=== PATIENT | female | born 1935 | race Caucasian/White ===

== ENCOUNTER 2018-08-15 12:52 | Outpatient (REF) | payer MEDICARE, MEDICAID, SELFPAY ==
[2018-08-15 13:31] LABS: Bilirubin Negative (Negative); Blood Negative (Negative); Clarity Clear; Glucose Negative (Negative); Ketones Negative (Negative); Leukocyte Esterase Trace (Negative); Nitrite Negative (Negative); Specific Gravity <= 1.005 (1.005-1.025); Urobilinogen 0.2 EU/dL (Up TO 0.2); pH 5.5 (5-8)
[2018-08-15 13:45] LABS: Bacteria Moderate HPF (Negative); C & S Indicated? Yes; Casts Negative LPF (Negative); Crystals Negative HPF (Negative); Epithelial Cells Few HPF (Negative); Mucus Negative (Negative); Other Cells Few Renal (Negative); RBC 0-2 (0-2)
== END 2018-08-15 13:12 ==
LOC: NCHCN 12:52
PROVIDERS: PCP Family Medicine; Visit Provider Family Medicine
DX: N39.0 Urinary tract infection, site not specified (principal)
CPT/HCPCS: 87077; 81003; 81015; 87086; 87186

== ENCOUNTER 2018-10-30 11:42 | Outpatient (REF) | payer MEDICARE, MEDICAID, SELFPAY ==
[2018-10-30 12:27] LABS: Bilirubin Negative (Negative); Blood Negative (Negative); Clarity Cloudy; Glucose Negative (Negative); Ketones Trace mg/dL (Negative); Leukocyte Esterase Trace (Negative); Nitrite Positive (Negative); Urobilinogen 0.2 EU/dL (Up TO 0.2)
[2018-10-30 12:32] LABS: Bacteria Many HPF (Negative); Casts Negative LPF (Negative); Crystals Mod Calcium Oxalate HPF (Negative); Epithelial Cells Rare HPF (Negative); Mucus Negative (Negative); RBC Negative (0-2); WBC 20-50 HPF (0-5)
[2018-10-30 12:33] LABS: C & S Indicated? Yes
== END 2018-10-30 12:02 ==
LOC: NCHCN 11:42
PROVIDERS: PCP Family Medicine; Visit Provider Family Medicine
DX: N39.0 Urinary tract infection, site not specified (principal)
CPT/HCPCS: 87077; 81003; 81015; 87086; 87186

== ENCOUNTER 2019-01-07 08:06 | Outpatient (CLI) | payer MEDICARE, MEDICAID, SELFPAY ==
[2019-01-07 08:37] LABS: HCT 40.7 % (36.0-46.0); HGB 13.5 g/dL (12.0-15.5); Mean Corp. HGB Concentration 33.2 g/dL (32.0-36.0); Mean Corpuscular Hemoglobin 28.4 pg (27.0-33.0); Mean Corpuscular Volume 85.7 fL (80-95); Mean Platelet Volume 9.9 fL (8.0-11.0); Platelet Count 287 x1000/uL (130-400); RBC 4.75 m/cumm (4.00-5.20); RBC Distribution Width 13.4 % (11.7-14.6); White Blood Cell Count 7.68 k/cumm (4.4-10.8)
[2019-01-07 08:50] LABS: ALT 21 U/L (12-78); AST 13 U/L (15-37); Albumin 3.9 g/dL (3.4-5.0); Alkaline Phosphatase 79 U/L (46-116); Anion Gap 11.9 mmol/L (3-11); BUN 22 mg/dL (7-18); Bilirubin, Total 0.5 mg/dL (0.2-1.0); CO2 28.1 mmol/L (21.0-32.0); Calcium 9.2 mg/dL (8.5-10.1); Chloride 100 mmol/L (98-107); Cholesterol 145 mg/dL (50-200); Estimated GFR 47.67 (mL/min/1.73m2); Glucose 122 mg/dL (70-100); HDL Cholesterol 42 mg/dL (40-60); LDL CHOLESTEROL 62 mg/dL (<100); Sodium 140 mmol/L (136-145); Total Protein 7.7 g/dL (6.4-8.2); Triglyceride 306 mg/dL (30-150)
[2019-01-07 08:51] LABS: Hemoglobin A1C 7.1 % (4.5-6.2)
== END 2019-01-07 08:26 ==
PROVIDERS: PCP Family Medicine; Visit Provider Family Medicine
DX: I10 Essential (primary) hypertension (principal); E11.9 Type 2 diabetes mellitus without complications; K76.0 Fatty (change of) liver, not elsewhere classified; E78.5 Hyperlipidemia, unspecified; Z79.4 Long term (current) use of insulin
CPT/HCPCS: 36415; 80053; 80061; 83721; 85027; 83036

== ENCOUNTER → 2019-03-02 10:15 | Outpatient (BNVA) | payer MEDICARE, MEDICAID, SELFPAY | PROVIDERS: PCP Family Medicine; Referring Provider Family Medicine; Visit Provider Student in an Organized Health Care Education/Training Program | DX: M17.11 Unilateral primary osteoarthritis, right knee (principal); M17.12 Unilateral primary osteoarthritis, left knee; E11.9 Type 2 diabetes mellitus without complications | CPT/HCPCS: 20610; 99204; 99213; J1040 ==

== ENCOUNTER 2019-03-15 13:50 | Outpatient (CLI) | payer MEDICARE, MEDICAID, SELFPAY ==
[2019-03-15 14:50] LABS: Hemoglobin A1C 7.3 % (4.5-6.2)
[2019-03-15 15:55] LABS: Anion Gap 16.4 mmol/L (3-11); BUN 32 mg/dL (7-18); CO2 23.6 mmol/L (21.0-32.0); CREATININE 1.22 mg/dL (0.55-1.02); Calcium 9.6 mg/dL (8.5-10.1); Chloride 100 mmol/L (98-107); Glucose 181 mg/dL (70-100); Potassium 3.8 mmol/L (3.5-5.1); Sodium 140 mmol/L (136-145)
== END 2019-03-15 14:10 ==
PROVIDERS: PCP Family Medicine; Visit Provider Family Medicine
DX: E11.65 Type 2 diabetes mellitus with hyperglycemia (principal); I10 Essential (primary) hypertension
CPT/HCPCS: 36415; 80048; 83036

== ENCOUNTER 2019-07-05 12:29 | Inpatient (IN) | payer MEDICARE, MEDICAID, SELFPAY ==
[2019-07-05] VITALS (53 sets, daily range): BP systolic 117–178; BP diastolic 61–100; PULSE 78–109; RESP 15–30; TEMP 36–36.8; O2SAT 91–95
[2019-07-05 12:49] LABS: Abs Immature Grans 0.03 k/cumm (0.0-0.09); Absolute Basophil Count 0.02 k/cumm (0.0-0.2); Absolute Eosinophil Count 0.23 k/cumm (0.0-0.7); Absolute Lymphocyte Count 2.37 k/cumm (1.2-3.4); Absolute Monocyte Count 0.96 k/cumm (0.11-0.7); Absolute Neutrophil Count 4.82 k/cumm (1.2-6.7); Basophils % 0.2; Eosinophils % 2.7; HCT 36.6 % (36.0-46.0); HGB 12.4 g/dL (12.0-15.5); Immature Grans % 0.4; Lymphocytes % 28.1; Mean Corp. HGB Concentration 33.9 g/dL (32.0-36.0); Mean Corpuscular Volume 85.5 fL (80-95); Mean Platelet Volume 9.8 fL (8.0-11.0); Monocytes % 11.4; Neutrophils % 57.2; Platelet Count 326 x1000/uL (130-400); RBC 4.28 m/cumm (4.00-5.20); RBC Distribution Width 13.4 % (11.7-14.6); White Blood Cell Count 8.43 k/cumm (4.4-10.8)
[2019-07-05 13:03] LABS: ALT 18 U/L (14-59); AST 12 U/L (15-37); Albumin 3.8 g/dL (3.4-5.0); Alkaline Phosphatase 110 U/L (46-116); Anion Gap 12.1 mmol/L (3-11); BUN 25 mg/dL (7-18); Bilirubin, Total 0.4 mg/dL (0.2-1.0); CO2 25.9 mmol/L (21.0-32.0); CREATININE 1.06 mg/dL (0.55-1.02); Calcium 9.1 mg/dL (8.5-10.1); Chloride 100 mmol/L (98-107); Estimated GFR 49.63 (mL/min/1.73m2); Glucose 226 mg/dL (70-100); Magnesium 1.8 mg/dL (1.8-2.4); Potassium 3.9 mmol/L (3.5-5.1); Sodium 138 mmol/L (136-145); Total Protein 7.5 g/dL (6.4-8.2)
[2019-07-05 13:04] LABS: Troponin I < 0.05 ng/mL (0.00-0.06)
[2019-07-05 13:18] LABS: Bilirubin Negative (Negative); Blood Small (Negative); Clarity Clear (Clear); Glucose Negative (Negative); Ketones Negative (Negative); Leukocyte Esterase Negative (Negative); Nitrite Negative (Negative); Urobilinogen 0.2 EU/dL (Up TO 0.2); pH 5.5 (5-8)
[2019-07-05 13:25] LABS: Bacteria Rare HPF (Negative); C & S Indicated? No; Casts Negative LPF (Negative); Crystals Negative HPF (Negative); Epithelial Cells Rare HPF (Negative); Mucus Negative (Negative); WBC 0-2 HPF (0-5)
--- NOTE | 2019-07-05 13:26 | DI.CT_ITS ---
EXAM: CT BRAIN NECK CTA CLINICAL HISTORY: dizzy, [place]. TECHNIQUE: COMPARISON: RENAL COLIC WO CONTRAST from 07/05/2017 FINDINGS: CT angiography the cervical cranial region was intravenous infusion of cc of Omnipaque 3. Images obtained through lung apices are unremarkable. Tracheolaryngeal structures appear intact. Part ial opacification of ethmoid and sphenoid sinuses on the right consistent with chronic and/or acute s inusitis. Orbital structures are unremarkable. No cervical mass or adenopathy. Visualized aortic arch is unremarkable. There is wall calcification the distal common carotid arterie s and internal carotid arteries bilaterally without significant stenosis. Calcification also noted in cavernous portions of internal carotid arteries bilaterally with is stenosis less than 50 percent deandre andrea diameter. Hypoplastic right vertebral artery noted. Left vertebral remarkable in appearance wit h no aneurysm sterno cysts or dissection. Slight wall calcification of the distal vertebral and the b asilar artery noted. Intracranially the anterior middle and posterior cerebral arteries and major branches are unremarkabl e with no evidence of stenosis aneurysm or dissection. IMPRESSION: No hemodynamically significant stenosis identified in the visualized cervical cranial circulation. H ypoplastic right vertebral artery noted.
--- NOTE | 2019-07-05 13:27 | ED.GENADUL_ITS ---
Discharge Plan Disposition Patient Disposition: [facility] INPATIENT Condition: Serious Discharge Details Chief Complaint: CVA/TIA Clinical Impression: Dizziness, Occipital headache, Diaphoresis Primary Care Provider: Yarely Lagos ED Provider: Chava Ludwig Home Meds and New Rx's Prescriptions: No Action furosemide [Lasix] 40 MG tablet 40 mg PO DAILY Qty: 90 RF: 0 ergocalciferol (vitamin D2) 400 UNIT tablet 400 units PO DAILY RF: 0 clonazepam 0.5 MG tablet 0.5 mg PO HS PRN PRNRF: 0 sertraline 50 MG tablet 50 mg PO DAILY RF: 0 nitroglycerin 0.4 MG tablet, sublingual 0.4 mg Sublingual PRN PRNRF: 0 Dexilant 30 MG capsule,biphase delayed releas 30 mg PO DAILY RF: 0 carvedilol 25 MG tablet 25 mg PO BID RF: 0 levetiracetam [Keppra] 500 MG tablet 500 mg PO BID RF: 0 clopidogrel [Plavix] 75 MG tablet 75 mg PO DAILY RF: 0 famotidine 20 MG tablet 20 mg PO BID PRN PRNRF: 0 Novolog Flexpen U-100 Insulin 300 UNITS/3 ML insulin pen 0 units Sub-Q 0800,1200,1700 RF: 0 rosuvastatin [Crestor] 10 MG tablet 40 mg PO QPM RF: 0 cyanocobalamin (vitamin B-12) 2,500 MCG tablet,chewable 1,000 mcg PO DAILY Qty: 30 RF: 0 metformin 500 MG tablet 1,000 mg PO BID@0800,1700 RF: 0 lisinopril 20 MG tablet 40 mg PO DAILY Qty: 30 RF: 0 mometasone [Nasonex] 17 GM spray,non-aerosol 1 spray IN DAILY RF: 0 Levemir FlexTouch U-100 Insuln 300 UNITS/3 ML insulin pen 50 units Sub-Q BID@0800,2000 RF: 0 urvbiekjdfc-npefdjsot-cky C-Mn [Glucosamine 1500 Complex] 1 EACH capsule 1 tab PO DAILY RF: 0 Medical Decision Making 13:42 -- 84-year-old female with multiple medical problems including history of coronary artery disease, insulin dependent diabetes, TIA, seizure here with dizziness and occipital headache with neck discomfort since this morning, diaphoretic, and hypertensive over the past few days despite taking antihypertensives. Consider posterior circulation mass or lesion. Plan to obtain CT of the head and CTA of the head and neck. MRI is not available today. Screening ECG was reviewed and interpreted by me: Sinus rhythm 98 bpm, normal axis, no STEMI, nondiagnostic. Patient does have intermittent left-sided chest discomfort that is mild and sounds like it has been going on for at least a few weeks. I will check a troponin. Consider hypertensive emergency. 17:09 -- Chest x-ray interpreted by radiology: IMPRESSION: No acute findings. CTA of the head was interpreted by radiology: IMPRESSION: 1. Negative CTA head exam. No occlusion or significant stenosis. No aneurysm. 2. Negative for skull fracture or acute intracranial pathology. 3. Right sphenoid chronic sinusitis with opacification of the adjacent right ethmoid air cells. CTA of the neck was interpreted by radiology: IMPRESSION: 1. Mild stenosis at the origin of the right internal carotid artery by NASCET criteria. 2. Tortuous carotid arteries. This can be indicative of chronic hypertension. 3. Congenital hypoplastic right vertebral artery. Labs were reviewed and nondiagnostic. Blood pressure improved on reassessment. Patient continues to have vertigo. It seems to be positional. I will treat with Antivert. Given her elevated blood pressure and headache I am worried about potential pathology not seen on CT/CTA. Plan to hospitalize and likely MRI when available tomorrow. Patient and daughter updated as to diagnostic results and plan. Daughter does request that inpatient treatment team speak with patient's PCP tomorrow. --I spoke with Dr. Mcgee who will admit the patient. HPI General Mode of arrival: EMS . Date/Time Provider Initiated Documentation: 07/05/19 12:38 . Limitations to Documentation: no limitations . Information obtained by: patient . HPI Narrative: 84-year-old female with multiple medical problems including history of insulin-dependent diabetes, coronary artery disease status post stents, hypertension, TIA, seizure, here with daughter, arrives by EMS, with chief complaint of dizziness. Patient notes that since this morning she has had dizziness. Feels like room is spinning. Symptoms are moderate to severe. Dizziness worsens with turning of her head. She has associated posterior headache and neck pain. Pain is described as a heaviness. No associated fever. She does have associated diaphoresis today. She has associated nausea. No abdominal pain or vomiting. Also of note she had elevated blood pressure this morning. She is on antihypertensives and has been taking them. Blood pressure was as high as 180 systolic at home. Patient was seen by her PCP on the and noted to have elevated blood pressure at that time as well. Patient also states she has had intermittent left chest discomfort that is been ongoing for some time. Related Data Home Medications Medication Instructions Recorded Confirmed clonazepam 0.5 mg PO HS PRN PRN 05/04/13 07/05/19 sertraline 50 mg PO DAILY 05/04/13 07/05/19 Dexilant 30 mg PO DAILY 08/31/13 07/05/19 nitroglycerin 0.4 mg SUBLINGUAL PRN PRN 08/31/13 07/05/19 ergocalciferol (vitamin D2) 400 units PO DAILY tab-cap 05/13/15 07/05/19 furosemide [Lasix] 40 mg PO DAILY #90 tab-cap 05/13/15 07/05/19 lisinopril 40 mg PO DAILY #30 tab 09/10/16 07/05/19 metformin 1,000 mg PO BID@0800,1700 tab 09/10/16 07/05/19 Levemir FlexTouch U-100 Insuln 50 units SUB-Q BID@0800,2000 07/05/17 07/05/19 [id number]-ypxymvwhl-vbo C-Mn 1 tab PO DAILY 07/05/17 07/08/17 [Glucosamine 1500 Complex] mometasone [Nasonex] 1 spray IN DAILY 07/05/17 07/05/19 Novolog Flexpen U-100 Insulin 0 units SUB-Q 0800,1200,1700 pen 07/12/17 07/05/19 carvedilol 25 mg PO BID tab 07/12/17 07/05/19 clopidogrel [Plavix] 75 mg PO DAILY tab 07/12/17 07/05/19 cyanocobalamin (vitamin B-12) 1,000 mcg PO DAILY #30 tab.chew 07/12/17 07/05/19 famotidine 20 mg PO BID PRN PRN tab 07/12/17 07/05/19 levetiracetam [Keppra] 500 mg PO BID tab 07/12/17 07/05/19 rosuvastatin [Crestor] 40 mg PO QPM tab 07/12/17 Previous Rx's Medication Instructions Recorded lisinopril 40 mg PO DAILY #30 tab 09/10/16 metformin 1,000 mg PO BID@0800,1700 tab 09/10/16 Novolog Flexpen U-100 Insulin 0 units SUB-Q 0800,1200,1700 pen 07/12/17 carvedilol 25 mg PO BID tab 07/12/17 clopidogrel [Plavix] 75 mg PO DAILY tab 07/12/17 cyanocobalamin (vitamin B-12) 1,000 mcg PO DAILY #30 tab.chew 07/12/17 famotidine 20 mg PO BID PRN PRN tab 07/12/17 levetiracetam [Keppra] 500 mg PO BID tab 07/12/17 rosuvastatin [Crestor] 40 mg PO QPM tab 07/12/17 Allergies Allergy/AdvReac Type Severity Reaction Status Date / Time atorvastatin calcium Allergy Unverified 07/08/17 13:48 [From Lipitor] General Stated Complaint: CVA/TIA WINSOME: 2 Review of Systems Review of Systems ROS Unobtainable: All systems reviewed & are unremarkable except as noted in HPI and below Constitutional Constitutional: Denies fever(s) and Reports headache(s) ENT Ears, Nose, Mouth, and Throat: Reports dizziness and Reports headache(s) Cardiovascular Cardiovascular: Denies chest pain, Denies syncope and Denies dyspnea Respiratory Respiratory: Denies dyspnea Gastrointestinal Gastrointestinal: Denies abdominal pain and Reports nausea Neurologic Neurologic: Reports dizziness, Denies syncope, Reports headache(s) and Denies seizure-like activity PFS Social History Smoking/Tobacco Use Status: Never Alcohol Intake: never Drug use: Never Substance use type: does not use and former substance user Do you feel safe in your relationship?: Yes Exam Const General: cooperative and no acute distress [facility] Head: normocephalic and atraumatic Mouth: moist mucous membranes Eyes Conjunctivae: normal conjunctivae Sclera: normal sclerae Neck Neck: full ROM, trachea midline and supple Resp Auscultation: clear to auscultation bilaterally, no rales, no rhonchi and no wheezes Cardio Jugular venous pressure: no JVD Rate: regular rate and not tachycardic Rhythm: regular rhythm GI Palpation: soft, not firm, no guarding, no masses, not rigid and nontender Skin General skin exam: no rashes or lesions noted Neuro General: alert, awake and tone normal Cognition: normal cognition Speech: speech normal Motor: muscle tone normal throughout and strength 5/5 throughout Sensory Exam: no sensory deficits noted Coordination: [id number]-ch-wnkw test normal, Romberg test normal and other (rapid alt movements intact) Extrem General: no edema Psych Appearance: grossly normal Course Vital Signs Vital signs: Vital Signs Temperature 36.8 C 07/05/19 12:31 Pulse 88 07/05/19 12:31 Respiratory Rate 16 07/05/19 12:31 Blood Pressure 163/73 H 07/05/19 12:31 Pulse Oximetry 94 L 07/05/19 12:31 Temperature 36.8 C 07/05/19 12:31 Pulse 88 07/05/19 12:31 Respiratory Rate 16 07/05/19 13:20 Respiratory Effort Non-Labored 07/05/19 13:20 Respiratory Depth Normal 07/05/19 13:20 Respiratory Pattern Normal 07/05/19 13:20 Blood Pressure 163/73 H 07/05/19 12:31 Blood Pressure Position Supine 07/05/19 12:31 Pulse Oximetry 94 L 07/05/19 12:31 Pain Level 5 07/05/19 12:31 Lab/Test Results Lab/Test Results: Laboratory Tests Range/Units 07/05/19 07/05/19 07/05/19 12:43 12:43 13:12 WBC (4.4-10.8) k/cumm 8.43 RBC (4.00-5.20) m/cumm 4.28 Hgb (12.0-15.5) g/dL 12.4 Hct (36.0-46.0) % 36.6 MCV (80-95) fL 85.5 MCH (27.0-33.0) pg 29.0 MCHC (32.0-36.0) g/dL 33.9 RDW (11.7-14.6) % 13.4 Plt Count (130-400) x1000/uL 326 MPV (8.0-11.0) fL 9.8 Immature Gran % 0.4 Neutrophils % 57.2 Lymphocytes % 28.1 Monocytes % 11.4 Eosinophils % 2.7 Basophils % 0.2 Absolute Neutrophils (1.2-6.7) k/cumm 4.82 Absolute Lymphocytes (1.2-3.4) k/cumm 2.37 Absolute Monocytes (0.11-0.7) k/cumm 0.96 H Absolute Eosinophils (0.0-0.7) k/cumm 0.23 Absolute Basophils (0.0-0.2) k/cumm 0.02 Sodium (136-145) mmol/L 138 Potassium (3.5-5.1) mmol/L 3.9 Chloride (98-107) mmol/L 100 Carbon Dioxide (21.0-32.0) mmol/L 25.9 Anion Gap (3-11) mmol/L 12.1 H BUN (7-18) mg/dL 25 H Creatinine (0.55-1.02) mg/dL 1.06 H Estimated GFR/1.73 m2 (mL/min/1.73m2) 49.63 Glucose (70-100) mg/dL 226 H Calcium (8.5-10.1) mg/dL 9.1 Magnesium (1.8-2.4) mg/dL 1.8 Total Bilirubin (0.2-1.0) mg/dL 0.4 AST (15-37) U/L 12 L ALT (14-59) U/L 18 Alkaline Phosphatase (46-116) U/L 110 Troponin I (0.00-0.06) ng/mL < 0.05 Total Protein (6.4-8.2) g/dL 7.5 Albumin (3.4-5.0) g/dL 3.8 Urine Color (Yellow) Yellow Urine Clarity (Clear) Clear Urine pH (5-8) 5.5 Ur Specific [place] (1.005-1.025) 1.010 Urine Protein (Negative) mg/dL Negative Urine Ketones (Negative) mg/dL Negative Urine Blood (Negative) Small H Urine Nitrite (Negative) Negative Urine Bilirubin (Negative) Negative Urine Urobilinogen (Up TO 0.2) EU/dL 0.2 Ur Leukocyte Esterase (Negative) Negative Urine RBC (0-2) 5-10 H Urine WBC (0-5) HPF 0-2 Ur Epithelial Cells (Negative) HPF Rare Urine Crystals (Negative) HPF Negative Urine Bacteria (Negative) HPF Rare Urine Casts (Negative) LPF Negative Urine Mucus (Negative) Negative Ur Culture Indicated? No Urine Glucose (Negative) mg/dL Negative
--- NOTE | 2019-07-05 13:27 | DI.RAD_ITS ---
EXAM: XR CHEST 2V PA LATERAL INDICATION: chest pain. COMPARISON: CHEST 2 VIEWS PA,LAT from 07/08/2017 TECHNIQUE: 2D digital imaging was performed. FINDINGS: The lungs are well expanded and free of infiltrate. There is no evidence of a pleural effusion or pn eumothorax. IMPRESSION: No evidence of acute cardiopulmonary disease.
[2019-07-05] MEDS: Normal Saline 500 ML 1000 ML IV (13:31)
[2019-07-05] MEDS: Omnipaque 350 MG/ML 100 ML BTL IJ (15:44)
--- NOTE | 2019-07-05 16:14 | NUR.NOTE ---
Nursing Note: pt back from ct family at bedside on produce service team member asissted to bedpan prn
--- NOTE | 2019-07-05 16:47 | DI.VRAD_ITS ---
Addendum created by Tiny Clark MD on 07/05/2019 5:20:23 PM EDT Results discussed with TWILA Obrien at 07/05/2019 5:19 PM EDT. Initial report created on 07/05/2019 4:46:48 PM EDT PROCEDURE INFORMATION: Exam: CT Angiography Head With Contrast Exam date and time: 07/05/2019 1:27 PM Clinical history: 84 years old, female; Syncope and collapse TECHNIQUE: Imaging protocol: Computed tomography angiography of the head with intravenous contrast. 3D rendering: MIP reconstructed images were created and reviewed. COMPARISON: CT HEAD WITHOUT STROKE PROTOCOL 07/08/2017 2:11 PM FINDINGS: Normal variant complete [place] of [place]. Right internal carotid artery: Calcifications along the wall of the intracranial portions of the right internal carotid artery without significant stenosis. No occlusion. No aneurysm. Right anterior cerebral artery: Unremarkable. No occlusion or significant stenosis. No aneurysm. Right middle cerebral artery: Unremarkable. No occlusion or significant stenosis. No aneurysm. Right posterior cerebral artery: Unremarkable. No occlusion or significant stenosis. No aneurysm. 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 Left internal carotid artery: Calcifications along the wall of the intracranial portions of the left internal carotid artery without significant stenosis. No occlusion. No aneurysm. Left anterior cerebral artery: Unremarkable. No occlusion or significant stenosis. No aneurysm. Left middle cerebral artery: Unremarkable. No occlusion or significant stenosis. No aneurysm. Left posterior cerebral artery: Unremarkable. No occlusion or significant stenosis. No aneurysm. Left vertebral artery: Calcifications along the intracranial left vertebral artery without significant stenosis. No occlusion. No aneurysm. Basilar artery: Basilar artery is formed from the tortuous left vertebral artery. No occlusion or significant stenosis. No aneurysm. HEAD: Sinuses: There is diffuse mucoperiosteal thickening in the right sphenoid sinus and now complete opacification of the posterior right ethmoid air cells. Brain: Age-related atrophy and chronic white matter ischemic changes, with no evidence of an acute intracranial abnormality. Causey-white differentiation is maintained. No evidence of acute territorial infarction. No mass effect or midline shift. No hemorrhage. IMPRESSION: 1. Negative CTA head exam. No occlusion or significant stenosis. No aneurysm. 2. Negative for skull fracture or acute intracranial pathology. 3. Right sphenoid chronic sinusitis with opacification of the adjacent right ethmoid air cells. PROCEDURE INFORMATION: Exam: CT Angiography Neck With Contrast Exam date and time: 07/05/2019 1:27 PM Clinical history: 84 years old, female; Syncope and collapse TECHNIQUE: Imaging protocol: Computed tomography angiography of the neck with intravenous contrast. 3D rendering: MIP reconstructed images were created and reviewed. COMPARISON: CT HEAD WITHOUT STROKE PROTOCOL 07/08/2017 2:11 PM FINDINGS: VASCULATURE: Right common carotid artery: Calcification at the origin of the right common carotid artery without significant stenosis. Right common carotid artery is tortuous. No occlusion or significant stenosis. Right internal carotid artery: Calcification along the proximal right internal carotid artery with focal narrowing of approximately 15%. Proximal right internal carotid artery is very tortuous. No occlusion. Right external carotid artery: Unremarkable. No occlusion or significant stenosis. Right vertebral artery: Congenital hypoplastic right right vertebral artery is patent and visible up to the level of the skull base where it tapers and then is no longer visible. Left common carotid artery: Calcification along the tortuous left common carotid artery without significant stenosis. No occlusion. Left internal carotid artery: Mild calcific plaque along the proximal left internal carotid artery without stenosis. Left internal carotid artery is tortuous. No occlusion. Left external carotid artery: Unremarkable. No occlusion or significant stenosis. Left vertebral artery: Unremarkable. No significant stenosis. No dissection or occlusion. NECK: Bones/joints: No acute fracture. Soft tissues: Unremarkable. No significant soft tissue swelling. IMPRESSION: 1. Mild stenosis at the origin of the right internal carotid artery by NASCET criteria. 2. Tortuous carotid arteries. This can be indicative of chronic hypertension. 3. Congenital hypoplastic right vertebral artery. COMMENT: Reference per NASCET criteria for degree of stenosis: Mild: less than 50% stenosis. Moderate: 50-69% stenosis. Severe: 70-94% stenosis. Near occlusion: 95-99% stenosis. Dictated and Authenticated by: Tiny Clark MD. Ordering:ZENA Larsen MD
--- NOTE | 2019-07-05 16:49 | DI.VRAD_ITS ---
PROCEDURE INFORMATION: Exam: XR Chest, 2 Views Exam date and time: 07/05/2019 3:43 PM Clinical history: 84 years old, female; Other: Weakness TECHNIQUE: Imaging protocol: XR of the chest Views: 2 views. COMPARISON: CR CHEST 2 VIEWS PA,LAT 07/08/2017 2:17 PM FINDINGS: Lungs: Hyperexpansion and hyperlucency of the lungs consistent with chronic obstructive pulmonary disease. No consolidation. Pleural space: Unremarkable. No pleural effusion. No pneumothorax. Heart/Mediastinum: Stable degree of cardiomegaly. Aortic wall calcifications. Bones/joints: Unremarkable for age. Mild multilevel degenerative changes of the spine. IMPRESSION: No acute findings. Dictated and Authenticated by: Tiny Clark MD. Ordering:ZENA Larsen MD
[2019-07-05] MEDS: Meclizine 25 MG TAB PO (17:17)
--- NOTE | 2019-07-05 17:35 | W.PM.HP.N ---
Date of service: 07/05/19 Time of Service: 17:35 Assessment and Plan Assessment and plan (1) TIA (transient ischemic attack): Start date: 07/05/19 Status: Acute Assessment and plan: This is an 84-year-old lady here for sudden onset of vertiginous symptoms but no associated nystagmus or nausea that persisted. This could be a posterior circulation TIA and she has been placed on aspirin already being on Plavix status post stenting with CAD. I will hold on DVT prophylaxis until MRI is done in the morning and this may not be needed if she is able to ambulate and return to normal activity after observation. Physical Therapy will be ordered in the morning if needed and certainly can be done as an outpatient. (2) Vertigo: Start date: 07/05/19 Status: Acute Assessment and plan: Patient has vertiginous type complaints without on the physical findings or history to suggest labyrinthitis at this time. MRI will be helpful to delineate the posterior circulation CVA versus possible labyrinthitis which is less likely with the occipital headache and lack of nystagmus or significant nausea. (3) HTN (hypertension): Status: Chronic Assessment and plan: Her hypertension has been out of control more recently and this could be a hand of a impending CVA the patient having a previous left CVA with some residual weakness only in her right hand grasp. She will be maintained on her usual antihypertensives which appeared to be not causing a significant drop in blood pressure but she has normalized without additional therapy. (4) CAD (coronary artery disease): Status: Chronic Assessment and plan: Patient troponins were negative with no acute changes on her EKG and no dysrhythmia on telemetry thus far. It was not be trended further unless she has more symptoms. (5) Diabetes: Status: Chronic Assessment and plan: patient's glucometers have been elevated recently and this may be secondary to her acute process leading up to this admission. For now we will hold her metformin and will basal insulin with before meals and at bedtime glucometer coverage with short-acting insulin. History of Present Illness History of Present Illness Chief Complaint: Occipital headache with dizziness Narrative: This is an 84-year-old lady who is coming by her daughter who is her parquet floor layer's helper. Patient only speaks Bosnian. 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 After that stroke she did have seizures and has been on Keppra since. She presented to the ED today with a several day history of elevation in her blood pressure as well as blood sugars though she was not stressed. On the morning of presentation the patient began to have a bilateral occipital headache with neck pain and then began to feel unsteady and dizzy falling to the ground without hurting herself. She was in the bathroom at the time. She also was diaphoretic. In the ED CT of the head and CTA of the head and neck were unrevealing. The patient's blood pressure was elevated upon presentation and improved without specific treatment in the ED. She does have chronic kidney disease which appears stable and chronically is on Lasix for edema. Other medical problems have been fairly stable except for unstable blood pressure and blood sugars recently. She had no seizure activity with this event and no new motor deficits. She chronically has slight decrease right hand grasp. She has not had vertigo or labyrinthitis in the past. She was slightly nauseated with this episode but this has not persisted and she had no vomiting. She had no GI complaints. Review of Systems Review of Systems Narrative: 13 point review of systems otherwise unrevealing or stable. Patient had no palpitations or chest pain during her episode. Her edema has been stable on Lasix. [facility] Social History Smoking/Tobacco Use Status: Never Alcohol Intake: never Drug use: Never Substance use type: does not use and former substance user Do you feel safe in your relationship?: Yes Meds Home Medications and Allergies Home Medications Medication Instructions Recorded Confirmed Type clonazepam 0.5 mg PO HS PRN PRN 05/04/13 07/05/19 History sertraline 50 mg PO DAILY 05/04/13 07/05/19 History Dexilant 30 mg PO DAILY 08/31/13 07/05/19 History nitroglycerin 0.4 mg SUBLINGUAL PRN PRN 08/31/13 07/05/19 History ergocalciferol (vitamin D2) 400 units PO DAILY tab-cap 05/13/15 07/05/19 History furosemide [Lasix] 40 mg PO DAILY #90 tab-cap 05/13/15 07/05/19 History lisinopril 40 mg PO DAILY #30 tab 09/10/16 07/05/19 Rx metformin 1,000 mg PO BID@0800,1700 tab 09/10/16 07/05/19 Rx Levemir FlexTouch U-100 Insuln 50 units SUB-Q BID@0800,2000 07/05/17 07/05/19 History wdjwddzhjbr-douijtyni-rwn C-Mn 1 tab PO DAILY 07/05/17 07/08/17 History [Glucosamine 1500 Complex] mometasone [Nasonex] 1 spray IN DAILY 07/05/17 07/05/19 History Novolog Flexpen U-100 Insulin 0 units SUB-Q 0800,1200,1700 pen 07/12/17 07/05/19 Rx carvedilol 25 mg PO BID tab 07/12/17 07/05/19 Rx clopidogrel [Plavix] 75 mg PO DAILY tab 07/12/17 07/05/19 Rx cyanocobalamin (vitamin B-12) 1,000 mcg PO DAILY #30 tab.chew 07/12/17 07/05/19 Rx famotidine 20 mg PO BID PRN PRN tab 07/12/17 07/05/19 Rx levetiracetam [Keppra] 500 mg PO BID tab 07/12/17 07/05/19 Rx rosuvastatin [Crestor] 40 mg PO QPM tab 07/12/17 Rx Allergies Allergy/AdvReac Type Severity Reaction Status Date / Time atorvastatin calcium Allergy Unverified 07/08/17 13:48 [From Lipitor] Exam Narrative Exam Narrative: General: Patient is alert and oriented x3 in no acute distress. She appears appropriate for age with her hair dyed to red, is moderately obese and appears comfortable in bed. HEENT: Normocephalic, eyes with pupils equal and reactive to light symmetrically with extraocular movement intact without nystagmus and sclera anicteric. Ears normal. Oropharynx with moist mucosa and tongue protrudes in the midline with no facial droop upon smiling. Neck: Supple without JVD. No auscultated carotid bruits. Back: Stooped posture with no CVA tenderness. Lungs: Clear to auscultation percussion. Heart: Regular rate and rhythm with no murmurs or gallops appreciated. Breast: Not examined. Abdomen: Obese contour, soft and nontender with no palpable hepatosplenomegaly. Bowel sounds are positive in all quadrants. Genitalia/rectal: Not examined. Extremities: Nonpitting edema over lower extremities with no clubbing or cyanosis, peripheral pulses intact with good capillary refill. Skin: Pale, warm and dry. Neuro: No nystagmus as mentioned above, cranial nerves II through XII grossly intact, decreased right hand grasp 4 out of 5 with rest of motor testing intact, no Babinski's and no obvious focal sensory deficits. Results Labs Result diagrams: 07/05/19 12:43 07/05/19 12:43 Labs: Laboratory Results - last 24 hr 07/05/19 07/05/19 07/05/19 12:43 12:43 13:12 WBC 8.43 RBC 4.28 Hgb 12.4 Hct 36.6 MCV 85.5 MCH 29.0 MCHC 33.9 RDW 13.4 Plt Count 326 MPV 9.8 Immature Gran % 0.4 Neutrophils % 57.2 Lymphocytes % 28.1 Monocytes % 11.4 Eosinophils % 2.7 Basophils % 0.2 Absolute Neutrophils 4.82 Absolute Lymphocytes 2.37 Absolute Monocytes 0.96 H Absolute Eosinophils 0.23 Absolute Basophils 0.02 Sodium 138 Potassium 3.9 Chloride 100 Carbon Dioxide 25.9 Anion Gap 12.1 H BUN 25 H Creatinine 1.06 H Estimated GFR/1.73 m2 49.63 Glucose 226 H Calcium 9.1 Magnesium 1.8 Total Bilirubin 0.4 AST 12 L ALT 18 Alkaline Phosphatase 110 Troponin I < 0.05 Total Protein 7.5 Albumin 3.8 Urine Color Yellow Urine Clarity Clear Urine pH 5.5 Ur Specific [place] 1.010 Urine Protein Negative Urine Ketones Negative Urine Blood Small H Urine Nitrite Negative Urine Bilirubin Negative Urine Urobilinogen 0.2 Ur Leukocyte Esterase Negative Urine RBC 5-10 H Urine WBC 0-2 Ur Epithelial Cells Rare Urine Crystals Negative Urine Bacteria Rare Urine Casts Negative Urine Mucus Negative Ur Culture Indicated? No Urine Glucose Negative Last Vital Signs Temp 36.8 C 07/05/19 12:31 Pulse 88 07/05/19 12:31 Resp 16 07/05/19 13:20 BP 163/73 H 07/05/19 12:31 Pulse Ox 94 L 07/05/19 12:31
[2019-07-05 18:01] LABS: Troponin I < 0.05 ng/mL (0.00-0.06)
--- NOTE | 2019-07-05 18:33 | NUR.NOTE ---
pt provided with food tray able to tolorate po intake Nursing Note:
[2019-07-05] MEDS: Carvedilol 25 MG TAB PO (19:56)
[2019-07-05] MEDS: levETIRAcetam 500 MG TAB PO (19:56)
[2019-07-05] MEDS: Rosuvastatin 10 MG TAB 40 MG PO (19:56)
[2019-07-05 20:55] LABS: INR 1.1 (0.9-1.1); Prothrombin Time 10.6 sec (9.3-11.0)
[2019-07-05 21:01] LABS: Troponin I < 0.05 ng/mL (0.00-0.06)
[2019-07-05] MEDS: Insulin Aspart 300 UNITS/3 ML PEN SC (23:59)
[2019-07-06] VITALS (15 sets, daily range): BP systolic 118–153; BP diastolic 72–89; PULSE 75–101; RESP 16–20; TEMP 36.1–37.4; O2SAT 92–95
[2019-07-06 07:31] LABS: HCT 35.5 % (36.0-46.0); HGB 11.8 g/dL (12.0-15.5); Mean Corp. HGB Concentration 33.2 g/dL (32.0-36.0); Mean Corpuscular Hemoglobin 28.2 pg (27.0-33.0); Mean Corpuscular Volume 84.7 fL (80-95); Mean Platelet Volume 9.4 fL (8.0-11.0); Platelet Count 306 x1000/uL (130-400); RBC 4.19 m/cumm (4.00-5.20); RBC Distribution Width 13.5 % (11.7-14.6); White Blood Cell Count 7.16 k/cumm (4.4-10.8)
[2019-07-06 07:59] LABS: Albumin 3.5 g/dL (3.4-5.0); Anion Gap 8.7 mmol/L (3-11); BUN 25 mg/dL (7-18); CO2 27.3 mmol/L (21.0-32.0); Chloride 104 mmol/L (98-107); Estimated GFR 53.08 (mL/min/1.73m2); Glucose 180 mg/dL (70-100); Potassium 3.8 mmol/L (3.5-5.1); Sodium 140 mmol/L (136-145)
[2019-07-06] MEDS: Cyanocobalamin 500 MCG TAB 1000 MCG PO (08:19)
[2019-07-06] MEDS: Cholecalciferol (Vitamin D3) 400 UNIT TAB PO (08:20)
[2019-07-06] MEDS: Dexlansoprazole 30 MG CAP PO (08:20)
[2019-07-06] MEDS: levETIRAcetam 500 MG TAB PO ×2 (08:20→20:23)
[2019-07-06] MEDS: Clopidogrel 75 MG TAB PO (08:20)
[2019-07-06] MEDS: Carvedilol 25 MG TAB PO ×2 (08:20→20:23)
[2019-07-06] MEDS: Lisinopril 20 MG TAB 40 MG PO (08:20)
[2019-07-06] MEDS: Sertraline 50 MG TAB PO (08:20)
[2019-07-06] MEDS: Furosemide 40 MG TAB PO (08:21)
[2019-07-06] MEDS: Insulin Aspart 300 UNITS/3 ML PEN SC ×4 (08:21→21:24)
[2019-07-06 08:47] LABS: ALT 15 U/L (14-59); AST 11 U/L (15-37); Alkaline Phosphatase 66 U/L (46-116); Bilirubin, Total 0.4 mg/dL (0.2-1.0); Total Protein 6.8 g/dL (6.4-8.2)
--- NOTE | 2019-07-06 12:50 | DI.MRI_ITS ---
EXAM: MR BRAIN WO CLINICAL HISTORY: concern for CVA. TECHNIQUE: Multiplanar multisequence MRI was performed. COMPARISON: No exams were available for comparison FINDINGS: MR examination of the brain was performed according to the usual protocol. There is moderate general ized cerebral atrophy focal areas sulcal prominence may represent remote cortical infarcts. Mild to moderate periventricular white matter signal changes noted consistent with microvascular ischemic zenaida nge. No other focal signal abnormality identified in the brain. The orbital and temporal bone struc tures appear intact. No pituitary abnormality seen. Grossly normal flow void noted in the [place] vasculature. Diffusion-weighted images are unremarkable. Susceptibility weighted images are unremarkable. IMPRESSION: No evidence of acute intracranial process. Sphenoid and ethmoid sinusitis noted as seen on CT.
--- NOTE | 2019-07-06 14:24 | PGE_ITS ---
Date of Service Date of service: 07/06/19 Time of Service: 14:24 Assessment and Plan Assessment and plan (1) Dizziness: Status: Acute Assessment and plan: ?vertigo +/- orthostatic. Start IVF. Await MRI results and neurology consult. (2) HTN (hypertension): Status: Chronic Assessment and plan: Hold teresa-i and lasix. (3) CAD (coronary artery disease): Status: Chronic Assessment and plan: No evidence of ACS on this admission. F/u as outpatient (4) Anxiety: Status: Acute Assessment and plan: Could be contributing to symptoms - but is diagnosis of exclusion. No change in tx. (5) Diabetes: Status: Chronic Assessment and plan: Continue home levemir and SSI; hold metformin (6) DVT prophylaxis: Status: Acute Assessment and plan: SC heparin (7) Discharge planning issues: Status: Acute Assessment and plan: Full code Subjective Subjective Interval history since last seen: Ms Gil felt like the room was spinning and like she was going to faint. She states she held on to the application support technician in order to stop herself from fainting. Denies chest pain that's different from her baseline (she always has some LUQ discomfort reproducible with palpation, and it is actually better now). She denies shortness of breath, palpitaitons, nauseas. She felt better when she sat down. Just minutes later, when I saw her, she was eating lunch without trouble. Per PT, her dizziness could be reproduced with cervical flexion but also on standing. It did not resolve with standing. She is orthostatic. Exam Narrative Exam Narrative: General: A&Ox3, looks comfortable sitting in a chair, eating lunch HEENT: EOMI, MMM Heart: RRR, no m/r/g Lungs: CTAB GI: abdomen is soft, tender in LUQ, nondistended Extremities: no e/c/c BLE's. Objective Objective Clinical Data: Abnormal lab results 07/06/19 07/06/19 Range/Units 07:08 07:08 Hgb 11.8 L (12.0-15.5) g/dL Hct 35.5 L (36.0-46.0) % BUN 25 H (7-18) mg/dL Glucose 180 H (70-100) mg/dL AST 11 L (15-37) U/L Vital Signs Temperature 36.4 C L 07/06/19 13:58 Temperature Source Tympanic 07/06/19 13:58 Pulse 86 07/06/19 13:58 Pulse Rhythm Regular 07/06/19 04:30 Pulse 103 H 07/05/19 18:40 Respiratory Rate 17 07/06/19 13:58 Respiratory Effort Non-Labored 07/06/19 04:30 Respiratory Depth Normal 07/06/19 04:30 Respiratory Pattern Normal 07/06/19 04:30 Blood Pressure 145/78 H 07/06/19 13:58 Blood Pressure Mean 101 07/05/19 18:31 Blood Pressure Position Supine 07/05/19 12:31 Pulse Oximetry 95 07/06/19 13:58 Oxygen Delivery Method Room Air 07/06/19 13:58 Oxygen Flow Rate 0 07/06/19 13:58 Pain Level 0 07/06/19 13:58 Intake & Output 07/05/19 07/06/19 07/06/19 23:59 11:59 23:59 Intake Total 450 / 450 Output Total 550 / 550 600 / 600 Balance -550 / -550 -150 / -150 Weight 90.2 kg 87.1 kg Intake: Oral 450 / 450 Output: Urine 550 / 550 600 / 600 Other: Urine Color Yellow Yellow Urine Appearance Clear Clear Urine Odor None Comment pt feels urgency but doesnt feel like she went enough. Stool Size Moderate Stool Characteristics Soft Formed Voiding Methods Bedpan Toilet Laboratory Results WBC 7.16 k/cumm (4.4-10.8) 07/06/19 07:08 RBC 4.19 m/cumm (4.00-5.20) 07/06/19 07:08 Hgb 11.8 g/dL (12.0-15.5) L 07/06/19 07:08 Hct 35.5 % (36.0-46.0) L 07/06/19 07:08 MCV 84.7 fL (80-95) 07/06/19 07:08 MCH 28.2 pg (27.0-33.0) 07/06/19 07:08 MCHC 33.2 g/dL (32.0-36.0) 07/06/19 07:08 RDW 13.5 % (11.7-14.6) 07/06/19 07:08 Plt Count 306 x1000/uL (130-400) 07/06/19 07:08 MPV 9.4 fL (8.0-11.0) 07/06/19 07:08 Immature Gran % 0.4 07/05/19 12:43 Neutrophils % 57.2 07/05/19 12:43 Lymphocytes % 28.1 07/05/19 12:43 Monocytes % 11.4 07/05/19 12:43 Eosinophils % 2.7 07/05/19 12:43 Basophils % 0.2 07/05/19 12:43 Absolute Neutrophils 4.82 k/cumm (1.2-6.7) 07/05/19 12:43 Absolute Lymphocytes 2.37 k/cumm (1.2-3.4) 07/05/19 12:43 Absolute Monocytes 0.96 k/cumm (0.11-0.7) H 07/05/19 12:43 Absolute Eosinophils 0.23 k/cumm (0.0-0.7) 07/05/19 12:43 Absolute Basophils 0.02 k/cumm (0.0-0.2) 07/05/19 12:43 PT 10.6 sec (9.3-11.0) 07/05/19 20:20 INR 1.1 (0.9-1.1) 07/05/19 20:20 Sodium 140 mmol/L (136-145) 07/06/19 07:08 Potassium 3.8 mmol/L (3.5-5.1) 07/06/19 07:08 Chloride 104 mmol/L (98-107) 07/06/19 07:08 Carbon Dioxide 27.3 mmol/L (21.0-32.0) 07/06/19 07:08 Anion Gap 8.7 mmol/L (3-11) 07/06/19 07:08 BUN 25 mg/dL (7-18) H 07/06/19 07:08 Creatinine 1.00 mg/dL (0.55-1.02) 07/06/19 07:08 Estimated GFR/1.73 m2 53.08 (mL/min/1.73m2) 07/06/19 07:08 Glucose 180 mg/dL (70-100) H 07/06/19 07:08 Calcium 9.0 mg/dL (8.5-10.1) 07/06/19 07:08 Magnesium 1.8 mg/dL (1.8-2.4) 07/05/19 12:43 Total Bilirubin 0.4 mg/dL (0.2-1.0) 07/06/19 07:08 AST 11 U/L (15-37) L 07/06/19 07:08 ALT 15 U/L (14-59) 07/06/19 07:08 Alkaline Phosphatase 66 U/L (46-116) 07/06/19 07:08 Troponin I < 0.05 ng/mL (0.00-0.06) 07/05/19 20:20 Total Protein 6.8 g/dL (6.4-8.2) 07/06/19 07:08 Albumin 3.5 g/dL (3.4-5.0) 07/06/19 07:08 TSH 2.80 uIU/mL (0.36-3.74) 07/05/19 20:20 Urine Color Yellow (Yellow) 07/05/19 13:12 Urine Clarity Clear (Clear) 07/05/19 13:12 Urine pH 5.5 (5-8) 07/05/19 13:12 Ur Specific [place] 1.010 (1.005-1.025) 07/05/19 13:12 Urine Protein Negative mg/dL (Negative) 07/05/19 13:12 Urine Ketones Negative mg/dL (Negative) 07/05/19 13:12 Urine Blood Small (Negative) H 07/05/19 13:12 Urine Nitrite Negative (Negative) 07/05/19 13:12 Urine Bilirubin Negative (Negative) 07/05/19 13:12 Urine Urobilinogen 0.2 EU/dL (Up TO 0.2) 07/05/19 13:12 Ur Leukocyte Esterase Negative (Negative) 07/05/19 13:12 Urine RBC 5-10 (0-2) H 07/05/19 13:12 Urine WBC 0-2 HPF (0-5) 07/05/19 13:12 Ur Epithelial Cells Rare HPF (Negative) 07/05/19 13:12 Urine Crystals Negative HPF (Negative) 07/05/19 13:12 Urine Bacteria Rare HPF (Negative) 07/05/19 13:12 Urine Casts Negative LPF (Negative) 07/05/19 13:12 Urine Mucus Negative (Negative) 07/05/19 13:12 Ur Culture Indicated? No 07/05/19 13:12 Urine Glucose Negative mg/dL (Negative) 07/05/19 13:12
--- NOTE | 2019-07-06 15:11 | PT.INIE ---
Date of service: 07/06/19 Time of Service: 14:10 PT Notes Inpatient Physical Therapy Evaluation Date: 07/06/19 Referring Doctor: Dr. Rosales PT Orders: PT CONSULT: limited ability to ambulate Precautions: standard Patient Profile/Admitting Diagnosis: Patient admitted 07/05/2019 from the emergency room, after presenting with acute onset room spinning type dizziness. She is been admitted for further evaluation and medical management. PMHX: Hypertension, diabetes, CAD, history of CVA with right-sided weakness, chronic kidney disease, severe osteoarthritis of bilateral knees Social History/Home Situation: Patient lives with her daughter, who is present at time of evaluation and providing translation. Together they report that patient requires some assistance at home, although was able to walk short distances on her own with a walker, toilet independently, etc. She has several family members in the area who are all supportive. Equipment Owned/DME: FW W Subjective: Patient and her daughter report that dizziness came on suddenly 2 days ago. Patient describes a room spinning sensation, stating that she has some occasional associated nausea. She admits to chronic tinnitus, although states that this has not significantly changed since onset of dizziness. No changes in hearing. She did have a headache at time of onset. She is unable to comment on her balance, stating she is too dizzy to stand. She was able to get up with assistance from nursing for assessment of orthostatics and states that she was extremely dizzy. Objective: General Observation: Resting in bed, no lines. Daughter and [id number] are present and assisting with translation. Mental Status: A and O x3 Pain: Denies ROM: Right Upper Extremity: WNL Left Upper Extremity: WNL Right Lower Extremity: WNL Left Lower Extremity: WNL Cervical range of motion is WNL, although with significant symptom exacerbation with cervical flexion. Strength: Right Upper Extremity: WFL Left Upper Extremity: WFL Right Lower Extremity: Hip flexion 4+/5. Quads 4+/5. Ankle dorsiflexion 4+/5 Left Lower Extremity: Hip flexion 5/5. Quads 5/5. Ankle dorsiflexion 5/5. Sensation: Intact throughout the lower extremities Bed Mobility/Transfers: Supine?sit: Mod assist Sit?supine: Mod assist x2 Sit?stand: Mod assist Stand?sit: Min assist Bed?chair: Unable secondary to dizziness Patient is able to sit at edge of bed x2 minutes, with resolving symptoms of dizziness after 30 seconds. She is assisted to standing, where she tolerates 45 seconds of static standing, reporting increasing symptoms of dizziness during that time. Gait: Unable, due to dizziness Balance: Static Sitting: Good Dynamic Sitting: Fair Static Standing: Fair Dynamic Standing: Unable Neuro: Moderately diminished coordination with alternating toe tapping. Upper extremity coordination is intact with rapid alternating movements. Fine motor is intact for the upper extremities. Visual tracking is slow, with decreased accuracy to the left. No nystagmus noted on end range of gaze. She demonstrates full upward gaze. Special Tests: Positive reproduction of dizziness with yes and no nods. No symptoms of dizziness with sustained endrange cervical rotation. Deferred on [place]-Hallpike testing per conversation with MD, as medical work-up remains pending. Mobility Limitations Standardized Measure [facility]-PAC 6 clicks Basic Mobility Inpatient Short Form: Raw Score: 10 CMS Score: 77% disability Informed Consent/Education: Patient instructed in purpose of PT consult and plan of care. Assessment: Patient is a 84 year old female referred to physical therapy services with the diagnosis of limited ability to ambulate due to acute episode of dizziness, pending medical work-up. Patient presents with clinical signs and symptoms consistent with diagnosis. Symptoms are suspicious for a component of BPPV, as she does have symptom exacerbation with isolated cervical motions. She did apparently demonstrate orthostatic hypotension on assessment with nursing, and also had progressive symptoms of dizziness and static standing during my evaluation. She has had an MRI this morning with results pending. She may be a candidate for [place]-Hallpike testing tomorrow, depending on progression of symptoms and results of medical work-up. We will continue monitoring, and reevaluate tomorrow. She currently demonstrates the following impairment level findings: 1. Decreased tolerance to cervical motion 2. Decreased tolerance to upright positioning Impairments are contributing to the following functional limitations: 1. Patient unable to stand without assistance 2. Patient unable to ambulate due to severity of dizziness 3. Decreased independence with bed mobility 4. Decreased independence with transfers Patient is [place] [id number] complexity based on the following: History: 84-year-old female presenting with severe dizziness, while undergoing ongoing medical work-up. She has an extensive medical history, including history of hypertension, diabetes, coronary artery disease, and with history of previous CVA with residual right-sided weakness. Examination: Functional limitations as noted above Presentation: Unstable Decision Making: High complexity Goals: Goals X1 week 1. Supine-Sit: Supervision 2. Sit-Supine: Supervision 3. Sit-Stand: Supervision 4. Stand-Sit : Supervision 5. Bed-Chair : Supervision with FWW 6. Chair-Bed : Supervision with FWW 7. Gait : CG with FWW x 50' Plan of Care/Treatment Plan: 1-2x/day, 7 days/week x 1 week. Plan of care has been reviewed with the CANDY FORMING MACHINE OPERATOR providing the service under Physical Therapy direction. Initiate Physical Therapy intervention for strengthening, bed mobility, transfers, gait, stairs, balance training, use of assistive device. Will reevaluate tomorrow, for consideration of further work-up of potential symptoms of vertigo. Will focus on improving tolerance to upright positioning, with initiation of seated activities, and progression to standing exercise and gait/transfer training, as she is able to tolerate. DISCHARGE RECOMMENDATIONS: Home with family assistance. Patient will likely require ongoing PT intervention through home health services. TREATMENT CODE/TIME: 2:10-2:35 ([id number]) Laya Dykes, PT, DPT [facility]
[2019-07-06] MEDS: Normal Saline 1,000 ML 125 ML IV ×2 (15:19→22:42)
[2019-07-06] MEDS: Heparin 5,000 UNITS/ML VIAL 5000 UNITS SC ×2 (15:20→21:22)
--- NOTE | 2019-07-06 15:45 | INITIAL_ITS ---
- If Service Date Differs Date of service: 07/06/19 Time of Service: 15:45 Care Management Initial Assess REASON FOR HOSPITALIZATION:: TIA, acute vertigo PAST MEDICAL HISTORY/PAST SURGICAL HISTORY:: Past Medical History: TIA, vertigo, hypertension, coronary artery disease, and diabetes. No pertinent surgical history. PREVIOUS FUNCTIONAL STATUS/SOCIAL/FAMILY SUPPORTS:: Mitch is an 84 yo female who lives in [facility] with her daughter, daughter's , and daughter's two sons. Patient only speaks [place]ian and translation is done through a anesthesiology medical doctor phone. Her daughter, who is present in the room, also acts as an meat boner. Mitch has lived in [facility] for the past 18 years. She is able to provide her own care with assistance from her family. Mitch has a Home Health catalytic case operator, Nikole Pina, and her son-in-law is her [facility] [employer] caregiver. CURRENT FUNCTIONAL STATUS:: Mitch is lying in bed when CM meets with her. She is pleasant and easily engages in conversation regarding her care at [facility]. ADVANCE DIRECTIVES:: None on file at [facility]. Mitch reports she cannot read or write and is not currently interested in advance directives. She states her daughter should be the one to make decisions for her if she is unable to. Has patient been provided with information about the portal?: No Did the patient sign up for the portal?: No CODE STATUS:: Full Code INSURANCE COVERAGE / FINANCIAL ISSUES:: Medicare and Medicaid. CURRENT HOME/COMMUNITY SERVICES/EQUIPMENT:: Daughter reports Mitch has a walker, cane, lifting chair, shower chair, and grab bars on her bed at home. Nikole Pina is her Home Health catalytic case operator, and Mitch's son-in-law is her [employer] caregiver. PRIMARY CARE PHYSICIAN:: Yarely Lagos MD POTENTIAL DISCHARGE NEEDS:: Follow-up with primary care physician. PATIENT/FAMILY EDUCATION NEEDS:: Discharge plan, limitations, and follow-up plan of care including ask me 3 and self-management. ANTICIPATED BARRIERS TO DISCHARGE:: None identified. TRANSPORTATION:: Family members will transport patient home upon discharge. PLAN:: Mitch will be discharged home when medically cleared by provider. Resume Home Health services through [facility]. PT is recommending PT in home setting. Anticipate new orders upon discharge. Family members will transport patient home.
--- NOTE | 2019-07-06 16:34 | PHARADMIT ---
Addendum entered by Jose Guadalupe Miranda III 07/10/19 16:18: Pharmacy Note Subjective MD wants to hold patient another day on IV ABX. PT describes limited ability to ambulate to dizy to stand. Patient requires her daughter to translate. Objective VS-OK BP-137/77 Na-135 K+4.3 SCr-1.06 FSBS-264 BG-294 Wgt-87 kg BM yesterday Assessment On Aspart & Detemir Heparin SC for DVT Proph. Rocephin continues.. Plan No new MD note yet Original Note: Admission Pharmacy Clinical Review TIA, acute vertigo Code Status Full Code Current Weight 87.1 kg Renally Cleared and Narrow Therapeutic Index Meds Crcl ~50.1 mL/min using adjusted body weight current meds okay QTc Value / Action Taken QTc 447 BP Control, Fever BP 118/72 afebrile Electrolytes reviewed within normal limits DVT Prophylaxis heparin Opiate Usage / Scheduled Bowel Regimen Ordered no/prn Plt/SCr for Heparin / Enoxaparin plt 306 SCr 1.00 INR for Warfarin n/a H/H stable, WBC/Bands h/h 11.8/35.5 WBC 7.16 Antibiotic appropriateness none Cultures and Sensitivities none Surgical ABX d/c within 24 hr n/a DM control / Insulin Dosing BG 180 scheduled detemir and sliding scale aspart Heart Failure (Check EF%) (HARVEY's, B-Block, Diuretics) carvedilol, (furosemide and lisinopril were discontinued) IV to PO Switch n/a Home Meds Reviewed yes Home Meds Not Ordered ergocalciferol, furosemide, glucosamine/chondroitin, lisinopril, metformin, mometasone Comments
--- NOTE | 2019-07-06 16:56 | NCONE_ITS ---
Date of service: 07/06/19 Time of Service: 16:56 Assessment and Plan Assessment and plan (1) Dizziness: Status: Acute (2) Vertigo: Status: Acute (3) Pre-syncope: Status: Acute Assessment and plan: Ms. Gil is an 84 year-old woman with a remote history of questionable TIA and questionable seizure who was admitted with acute onset dizziness with both pre-syncope and vertiginous components associated with occipital headache, posterior neck pain, nausea, and diaphoresis. Her neurological exam was unremarkable. Work-up including a brain MRI was negative for stroke. Her dizziness is quite complicated due to components of both lightheadedness and vertigo. DDx includes orthostatic hypotension (lightheadedness) as well as vestibulitis vs migraine (vertigo). I agree with hydration and continued PT/vestibular rehab. Ok to d/c aspirin. Continue Plavix and Keppra. History of Present Illness History of Present Illness Chief Complaint: dizziness Narrative: Handedness: right. HPI: Mrs. Gil is an 84-year-old, right-handed woman with a past medical history of hypertension, hyperlipidemia, type 2 diabetes, coronary artery disease s/p LAD stent in 2012, question of obstructive sleep apnea, depression, anxiety, osteoarthritis, and asthma. I previously met Ms. Gil in January 2017 when she was admitted for altered mental status and spells. She underwent an extensive work-up at that time including labs, brain MRI, and EEG all of which were unremarkable. She was switched from ASA to Plavix for questionable TIA and started on Keppra for questionable seizure. Her AMS improved with the addition of Seroquel which she has since weaned off. She had been doing very well until yesterday 07/05/19 when she awoke complaining of dizziness. Her symptoms seemed mild and intermittent initially, however, later in the morning she fell (on her bottom) when trying to go to the bathroom. She subsequently developed an occipital headache, posterior neck pain, diaphoresis, and neck pain. She was brought to the [facility] ER for further evaluation. In the ER, her BP was elevated at 163/73 (per daughter it has been running high since last PCP visit on 06/26/19). A CBC, CMP, TSH, and UA were unremarkable. She underwent a CT head which I was able to review which showed no acute findings. She also underwent a CTA head and neck which I was also able to review and showed no significant stenosis. She was started on aspirin in addition to Plavix and admitted for further work-up. Today, she underwent a brain MRI which i reviewed and showed no acute process with generalized atrophy most pronounced parietally and mild-moderate chronic vascular changes. A description of her symptoms is quite difficult given [place] is not her primary language. She describes both lightheadedness and vertigo. Her dizziness is significantly worse with sitting up and standing. She has mild symptoms when rolling over in bed, turning her head, etc. Her headache and neck pain have improved. She has not changed her fluid intake though in the last one week, she has had urinary hesitancy + retention. She has no history of headaches or dizziness prior to this visit. She was overall doing better this am and then worse after her MRI. Tilt vital testing showed a stable BP with an increase in HR from 77 to 101. She has since been started on IV fluids. Consults Requesting physician: Douglas Mcgee Review of Systems Review of Systems ROS Unobtainable: All systems reviewed & are unremarkable except as noted in HPI and below PFSH Medical History Anxiety (Acute) Asthma (Chronic) CAD (coronary artery disease) (Chronic) Diabetes (Chronic) HTN (hypertension) (Chronic) Hyperlipidemia (Acute) Hypothyroidism (Chronic) Primary osteoarthritis of left knee (Chronic) Injected: 03/02/2019 Primary osteoarthritis of right knee (Chronic) Injected: 03/02/2019 Seizures (Acute) ?2017 TIA (transient ischemic attack) (Acute) ?2017 Surgical History History of coronary artery stent placement (Chronic) Family History Mother Stroke Father Heart disease Social History Smoking/Tobacco Use Status: Never Alcohol Intake: never Drug use: Never Substance use type: does not use and former substance user Household members: children Number of Children: 2 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 She does not speak [place]. She lives with her daughter. She has two children, both here in the [place] and locally in [place]. She is . 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 Visit Medication and Allergies Active Medications Generic Name Dose Route Start Last Admin Trade Name Freq PRN Reason Stop Dose Admin Acetaminophen 650 mg 07/05/19 17:28 Tylenol PO Q4H PRN PRN Al Hydrox/Mg Hydrox/Simethicone 30 ml 07/05/19 17:28 Mylanta Liquid PO Q2H PRN PRN Carvedilol 25 mg 07/05/19 20:00 07/06/19 08:20 Coreg PO 25 mg BID NIHARIKA Administration Cholecalciferol 400 unit 07/06/19 08:30 07/06/19 08:20 Vitamin D PO 400 unit DAILY NIHARIKA Administration Clonazepam 0.5 mg 07/05/19 19:00 Klonopin PO HS PRN PRN Clopidogrel Bisulfate 75 mg 07/06/19 08:30 07/06/19 08:20 Plavix PO 75 mg DAILY NIHARIKA Administration Cyanocobalamin 1,000 mcg 07/06/19 08:30 07/06/19 08:19 Vitamin B-12 PO 1,000 mcg DAILY NIHARIKA Administration Dexlansoprazole 30 mg 07/06/19 08:30 07/06/19 08:20 Dexilant PO 30 mg DAILY NIHARIKA Administration Dextrose 0 gm 07/05/19 17:32 Insta-Glucose PO DIRECTED PRN Dextrose/Water 0 gm 07/05/19 17:32 IVP DIRECTED PRN Dimethicone/Zinc Oxide 0 gm 07/05/19 17:28 Yuval Protect Cream TP PRN PRN Docusate Sodium 100 mg 07/05/19 17:28 Colace PO TID PRN PRN Famotidine 20 mg 07/05/19 19:00 Pepcid PO BID PRN PRN Heparin Sodium (Porcine) 5,000 units 07/06/19 14:00 07/06/19 15:20 SC 5,000 units Q8H NIHARIKA Administration Sodium Chloride 1,000 mls @ 125 mls/hr 07/06/19 14:30 07/06/19 15:19 Saline 1000ml Bag IV 125 mls/hr INFUSION NIHARIKA Administration IV Miscellaneous Supplies 1 each 07/05/19 12:45 IV DIRECTED NIHARIKA Insulin Aspart 0 units 07/05/19 22:00 07/06/19 11:26 Novolog Flexpen SC 6 units AC & HS NIHARIKA Administration Protocol Insulin Detemir 50 units 07/06/19 20:00 Levemir Flextouch Pen SC BID@0800,2000 [facility] Iohexol 100 ml 07/05/19 15:45 07/05/19 15:44 Omnipaque 350 IJ 08/04/19 23:59 100 ml DIRECTED NIHARIKA Administration Levetiracetam 500 mg 07/05/19 20:00 07/06/19 08:20 Keppra PO 500 mg BID NIHARIKA Administration Magnesium Hydroxide 30 ml 07/05/19 17:28 Milk Of Magnesia PO DAILY PRN PRN Nitroglycerin 0.4 mg 07/06/19 16:49 Nitrostat SL Q5 MIN PRN X3 PRN Polyethylene Glycol 17 gm 07/05/19 17:28 Miralax PO DAILY PRN PRN Constipation Rosuvastatin Calcium 40 mg 07/05/19 20:00 07/05/19 19:56 Crestor PO 40 mg QPM NIHARIKA Administration Sertraline HCl 50 mg 07/06/19 08:30 07/06/19 08:20 Zoloft PO 50 mg DAILY NIHARIKA Administration Sodium Chloride 0 ml 07/05/19 12:40 Saline Flush 10 Ml Syringe IVP PRN PRN Allergies atorvastatin calcium [From Lipitor] Allergy (Unverified 07/08/17 13:48) Exam Narrative Exam Narrative: Physical Exam: Gen: Patient of apparent stated age, NAD Head and face: no facial or cranial abnormalities Neck: Supple, no meningismus, no occipital tenderness CV: RRR, no murmur Resp: CTA B/L Abd: soft, nontender, nondistended Ext: Mild bilateral LE edema. No clubbing or cyanosis. No bony deformity. Neuro Exam: Language: fluency, naming, repetition, and comprehension appears intact; Mental Status: AAO x self only, remote events intact with some difficulty with recent events Speech: no dysarthria Cranial nerves: Funduscopy: not performed CN II: visual beckwith intact CN III, IV, : extraocular movements intact, no nystagmus, pupils symmetric and reactive to light CN V: face sensation intact to LT and PP CN VII: no facial asymmetry noted CN VIII: hearing intact bilaterally CN IX, X: palate rises symmetrically CN XI: trapezius/SCM 5/5 bilaterally CN XII: protrudes tongue symmetrically Sensory: intact to LT and PP in all extremities, absent Romberg Motor: bulk and tone intact. Fine motor movements reduced bilaterally. No pronator drift. Strength 5/5 throughout the bilateral UE and 4+/5 in the bilateral LE. She had a lot of knee pain. Reflexes: 2+ at the biceps, triceps, and brachioradialis; she would not let me test patella; absent at the achilles tendons bilaterally; toes down going bilaterally; Coordination: FTN and HTS intact bilaterally Gait: unable to ambulate at this time due to dizziness. Results Last Vital Signs Temp 37.4 C 07/06/19 16:00 Pulse 90 07/06/19 16:00 Resp 19 07/06/19 16:00 BP 118/72 07/06/19 16:00 Pulse Ox 93 L 07/06/19 16:00 Labs Result diagrams: 07/06/19 07:08 07/06/19 07:08 Labs: Laboratory Results - last 24 hr 07/05/19 07/05/19 07/05/19 16:17 20:20 20:20 WBC RBC Hgb Hct MCV MCH MCHC RDW Plt Count MPV PT 10.6 INR 1.1 Sodium Potassium Chloride Carbon Dioxide Anion Gap BUN Creatinine Estimated GFR/1.73 m2 Glucose Calcium Total Bilirubin AST ALT Alkaline Phosphatase Troponin I < 0.05 Total Protein Albumin TSH 2.80 07/05/19 07/06/19 07/06/19 20:20 07:08 07:08 WBC 7.16 RBC 4.19 Hgb 11.8 L Hct 35.5 L MCV 84.7 MCH 28.2 MCHC 33.2 RDW 13.5 Plt Count 306 MPV 9.4 PT INR Sodium 140 Potassium 3.8 Chloride 104 Carbon Dioxide 27.3 Anion Gap 8.7 BUN 25 H Creatinine 1.00 Estimated GFR/1.73 m2 53.08 Glucose 180 H Calcium 9.0 Total Bilirubin 0.4 AST 11 L ALT 15 Alkaline Phosphatase 66 Troponin I < 0.05 Total Protein 6.8 Albumin 3.5 TSH
[2019-07-06] MEDS: Rosuvastatin 10 MG TAB 40 MG PO (20:23)
[2019-07-07] VITALS (13 sets, daily range): BP systolic 128–172; BP diastolic 63–85; PULSE 67–83; RESP 16–18; TEMP 36.4–37.3; O2SAT 92–97
[2019-07-07] MEDS: Normal Saline 1,000 ML 125 ML IV ×3 (06:31→22:22)
[2019-07-07] MEDS: Heparin 5,000 UNITS/ML VIAL 5000 UNITS SC ×3 (06:32→21:54)
[2019-07-07 07:19] LABS: Abs Immature Grans 0.01 k/cumm (0.0-0.09); Absolute Basophil Count 0.03 k/cumm (0.0-0.2); Absolute Eosinophil Count 0.31 k/cumm (0.0-0.7); Absolute Lymphocyte Count 1.88 k/cumm (1.2-3.4); Absolute Monocyte Count 0.91 k/cumm (0.11-0.7); Absolute Neutrophil Count 2.75 k/cumm (1.2-6.7); Basophils % 0.5; Eosinophils % 5.3; HCT 33.9 % (36.0-46.0); HGB 11.2 g/dL (12.0-15.5); Immature Grans % 0.2; Lymphocytes % 31.9; Mean Corpuscular Hemoglobin 28.3 pg (27.0-33.0); Mean Corpuscular Volume 85.6 fL (80-95); Mean Platelet Volume 9.6 fL (8.0-11.0); Monocytes % 15.4; Neutrophils % 46.7; Platelet Count 286 x1000/uL (130-400); RBC 3.96 m/cumm (4.00-5.20); RBC Distribution Width 13.5 % (11.7-14.6); White Blood Cell Count 5.89 k/cumm (4.4-10.8)
[2019-07-07 07:30] LABS: Anion Gap 10.9 mmol/L (3-11); BUN 29 mg/dL (7-18); CO2 25.1 mmol/L (21.0-32.0); CREATININE 1.01 mg/dL (0.55-1.02); Calcium 8.8 mg/dL (8.5-10.1); Chloride 105 mmol/L (98-107); Estimated GFR 52.48 (mL/min/1.73m2); Glucose 207 mg/dL (70-100); Magnesium 2.1 mg/dL (1.8-2.4); Potassium 3.8 mmol/L (3.5-5.1); Sodium 141 mmol/L (136-145)
[2019-07-07] MEDS: Sertraline 50 MG TAB PO (08:45)
[2019-07-07] MEDS: levETIRAcetam 500 MG TAB PO ×2 (08:45→20:00)
[2019-07-07] MEDS: Cholecalciferol (Vitamin D3) 400 UNIT TAB PO (08:45)
[2019-07-07] MEDS: Clopidogrel 75 MG TAB PO (08:46)
[2019-07-07] MEDS: Carvedilol 25 MG TAB PO ×2 (08:46→20:00)
[2019-07-07] MEDS: Dexlansoprazole 30 MG CAP PO (08:46)
[2019-07-07] MEDS: Cyanocobalamin 500 MCG TAB 1000 MCG PO (08:46)
[2019-07-07] MEDS: Insulin Aspart 300 UNITS/3 ML PEN SC ×4 (08:46→21:52)
--- NOTE | 2019-07-07 11:03 | OTIE_ITS ---
Occupational Therapy Notes Inpatient Occupational Therapy Evaluation Date: 07/07/19 Referring Doctor: Debbie Rosales MD OT Orders: Limited Ability Precautions: Fall, Standard PATIENT PROFILE/ADMITTING DIAGNOSIS: Pt is an 84 year old female who was admitted through the ER for acute onset room spinning type dizziness. She is being tx currently for medical management of this. Past Medical History: Hypertension, diabetes, CAD, history of CVA with right- sided weakness, chronic kidney disease, severe osteoarthritis of bilateral knees Social History/Home Situation: Pt and daughter are present in the room. Pt does not speak Citizen [place] and her daughter is present to translate for her. Pt lives in a home with her daughter and family which they report is quite large. Pt's daughter cares for her and provides (A) with dressing, bathing and toileting routines. Her daughter cooks for pt and provides transportation for pt. Equipment owned/DME: [facility] SUBJECTIVE: Pt was sitting on side of bed with daughter when OT arrived. Daughter reports that they are agreeable to OT session and would like to get washed as soon as possible. OBJECTIVE: General Observation: IV (L) UE, pleasant and does not speak cymraes. Pt's daughter translates basic information to pt. Mental Status: A&Ox3 Pain: no c/o pain ROM: RUE AROM WNL L UE AROM WNL STRENGTH: RUE 5/5 throughout globally LUE 5/5 throughout globally FUNCTIONAL MOBILITY/ADLS: Transfers with [facility] Sit-Stand SBA Stand-sit SBA Bed-Chair CGA Chair-bed CGA BATHING Sitting on side of bed with max (A) set up Bathing UE (I) Bathing LE mod (A) with feliciano area and (B) LE due to dizziness, pts daughter reports that this is baseline for (A) DRESSING Sitting on side of bed with max (A) set up Dressing UE with don and doffing hospital gown Dressing LE Max (A) don and doffing (B) socks this is baseline per pts daughter for (A) GROOMING Sitting on side of bed with max (A) set up TOILETING On toilet min (A) feliciano area cleaning, pt is max (A) at home per daughter EATING (I) BALANCE: Static sitting Normal Dynamic Sitting Normal Static Standing Good Dynamic Standing Good SPECIAL TESTS: Daily Activity Limitations Standardized Measure [facility] AM PAC ?6 clicks? Daily Activity Inpatient Short Form: Raw score: 20 Standardized score: 42.03 CMS score: 42.80% INFORMED CONSENT/EDUCATION: Pt instructed in purpose of OT Consult and plan of care. ASSESSMENT: Patient is a 84-year-old female referred to occupational therapy services with diagnosis of room spinning dizziness. Patient presents with clinical signs and symptoms consistent with dx, as demonstrated by the following impairment level findings/ functional limitations: Decreased functional activity tolerance, decreased performance of ADLs/IADLs although pts daughter reports that this is baseline level of function, decreased communication in Citizen [place] and requires daughter to translate, decreased ability to perform LE dressing (I) due to dizziness, decreased performance of LE bathing due to inability to bend forward d/t dizziness, decreased functional mobility without (A), requires vc for toileting routine. Pts daughter states that she provides pts (A) at home which she states is mainly mod-max (A) in the home setting. She does not feel that her mother will require OT services but is here for more of her dizziness. OT does feel that pt functionally demonstrated increased functional performance of her ADLs/IADLs and is presenting at her baseline level of function. AMPAC score 20 Patient is assessed as a Moderate 15426 complexity based on the following: History: See Above Examination: See functional limitations as listed above Presentation: Evolving Decision Making: AMPAC score 20 GOALS N/A PLAN OF CARE/TREATMENT PLAN: OT consult only. DISCHARGE RECOMMENDATIONS home with continued (A) from pts daughter. TREATMENT TIME/MINUTES/CODES 81625, [id number], 35 minutes (09:00) [facility]
--- NOTE | 2019-07-07 12:47 | CMPROGNOTE_ITS ---
- If Service Date Differs Date of service: 07/07/19 Time of Service: 12:47 Care Management Progress Note S/O: Mitch is sitting in a chair, eating lunch when CM meets with her. Her daughter who is present in the room translates the conversation. Daughter reports that Mitch slept well last night and she is improved from yesterday. CM continues to follow. A: Mitch is an 84 yo woman admitted to [facility] 07/05/19 for TIA and acute vertigo. P: Patient will be discharged home when medically cleared by provider. Anticipate no additional services needed at time of discharge. Family members will transport patient home upon discharge.
--- NOTE | 2019-07-07 15:05 | W.PM.PROGNOT ---
Date of Service Date of service: 07/07/19 Time of Service: 15:13 Assessment and Plan Assessment and plan (1) Dizziness: Status: Acute Assessment and plan: Still does have mild orthostasis. Vertigo is less likely based on PT's reports. MRI negative. Continue IVF. R/o UTI. (2) HTN (hypertension): Status: Chronic Assessment and plan: Hold teresa-i and lasix. Orthostatic. (3) CAD (coronary artery disease): Status: Chronic Assessment and plan: No evidence of ACS on this admission. F/u as outpatient (4) Anxiety: Status: Acute Assessment and plan: Could be contributing to symptoms - but is diagnosis of exclusion. No change in tx. (5) Diabetes: Status: Chronic Assessment and plan: Continue home levemir and SSI; hold metformin (6) DVT prophylaxis: Status: Acute Assessment and plan: SC heparin (7) Discharge planning issues: Status: Acute Assessment and plan: Full code Subjective Subjective Interval history since last seen: Ms Gil says she feels a lot better today. She had dizziness again when working with PT, but her Villanueva-Ponce maneuver was negative. She states her neck pain and headache are much better. CP is her chronic/unchanged. No SOB, nausea. Daughter and son are very concerned about foul-smelling urine today. The patient now reports dysuria for 2-3 days. Still orthostatic. Exam Narrative Exam Narrative: General: A&Ox3, looks comfortable, laying flat in bed HEENT: EOMI, MMM Heart: RRR, no m/r/g Lungs: CTAB GI: abdomen is soft, tender in LUQ, nondistended Extremities: no e/c/c BLE's. Objective Objective Clinical Data: Abnormal lab results 07/07/19 07/07/19 Range/Units 06:50 06:50 RBC 3.96 L (4.00-5.20) m/cumm Hgb 11.2 L (12.0-15.5) g/dL Hct 33.9 L (36.0-46.0) % Absolute Monocytes 0.91 H (0.11-0.7) k/cumm BUN 29 H (7-18) mg/dL Glucose 207 H (70-100) mg/dL Vital Signs Temperature 36.8 C 07/07/19 11:45 Temperature Source Tympanic 07/07/19 11:45 Pulse 75 07/07/19 11:45 Pulse Rhythm Regular 07/07/19 06:30 Pulse 103 H 07/05/19 18:40 Respiratory Rate 16 07/07/19 11:45 Respiratory Effort Non-Labored 07/07/19 06:30 Respiratory Depth Normal 07/07/19 06:30 Respiratory Pattern Normal 07/07/19 06:30 Blood Pressure 155/77 H 07/07/19 11:45 Blood Pressure Mean 101 07/05/19 18:31 Blood Pressure Position Supine 07/05/19 12:31 Pulse Oximetry 97 07/07/19 11:45 Oxygen Delivery Method Room Air 07/07/19 11:45 Oxygen Flow Rate 0 07/07/19 11:45 Pain Level 0 07/07/19 11:45 Comment 07/07/19 07:50 Intake & Output 07/06/19 07/07/19 07/07/19 23:59 11:59 23:59 Intake Total 1162.917 / 1612.917 977.083 / 1963.583 987.5 / 1963.583 Output Total 400 / 400 Balance 1162.917 / 1012.917 577.083 / 1564.583 987.5 / 1564.583 Weight 87.8 kg Intake: IV 922.917 / 922.917 977.083 / 1963.583 987.5 / 1963.583 Oral 240 / 690 Output: Urine 400 / 400 Other: Urine Color Yellow Yellow Urine Appearance Clear Cloudy Urine Odor Strong Foul Comment pts daughter claims urine smells stronger than normal. also says she has long hx of UTIs. Voiding Methods Toilet Bedside Commode Toilet Laboratory Results WBC 5.89 k/cumm (4.4-10.8) 07/07/19 06:50 RBC 3.96 m/cumm (4.00-5.20) L 07/07/19 06:50 Hgb 11.2 g/dL (12.0-15.5) L 07/07/19 06:50 Hct 33.9 % (36.0-46.0) L 07/07/19 06:50 MCV 85.6 fL (80-95) 07/07/19 06:50 MCH 28.3 pg (27.0-33.0) 07/07/19 06:50 MCHC 33.0 g/dL (32.0-36.0) 07/07/19 06:50 RDW 13.5 % (11.7-14.6) 07/07/19 06:50 Plt Count 286 x1000/uL (130-400) 07/07/19 06:50 MPV 9.6 fL (8.0-11.0) 07/07/19 06:50 Immature Gran % 0.2 07/07/19 06:50 Neutrophils % 46.7 07/07/19 06:50 Lymphocytes % 31.9 07/07/19 06:50 Monocytes % 15.4 07/07/19 06:50 Eosinophils % 5.3 07/07/19 06:50 Basophils % 0.5 07/07/19 06:50 Absolute Neutrophils 2.75 k/cumm (1.2-6.7) 07/07/19 06:50 Absolute Lymphocytes 1.88 k/cumm (1.2-3.4) 07/07/19 06:50 Absolute Monocytes 0.91 k/cumm (0.11-0.7) H 07/07/19 06:50 Absolute Eosinophils 0.31 k/cumm (0.0-0.7) 07/07/19 06:50 Absolute Basophils 0.03 k/cumm (0.0-0.2) 07/07/19 06:50 PT 10.6 sec (9.3-11.0) 07/05/19 20:20 INR 1.1 (0.9-1.1) 07/05/19 20:20 Sodium 141 mmol/L (136-145) 07/07/19 06:50 Potassium 3.8 mmol/L (3.5-5.1) 07/07/19 06:50 Chloride 105 mmol/L (98-107) 07/07/19 06:50 Carbon Dioxide 25.1 mmol/L (21.0-32.0) 07/07/19 06:50 Anion Gap 10.9 mmol/L (3-11) 07/07/19 06:50 BUN 29 mg/dL (7-18) H 07/07/19 06:50 Creatinine 1.01 mg/dL (0.55-1.02) 07/07/19 06:50 Estimated GFR/1.73 m2 52.48 (mL/min/1.73m2) 07/07/19 06:50 Glucose 207 mg/dL (70-100) H 07/07/19 06:50 Calcium 8.8 mg/dL (8.5-10.1) 07/07/19 06:50 Magnesium 2.1 mg/dL (1.8-2.4) 07/07/19 06:50 Total Bilirubin 0.4 mg/dL (0.2-1.0) 07/06/19 07:08 AST 11 U/L (15-37) L 07/06/19 07:08 ALT 15 U/L (14-59) 07/06/19 07:08 Alkaline Phosphatase 66 U/L (46-116) 07/06/19 07:08 Troponin I < 0.05 ng/mL (0.00-0.06) 07/05/19 20:20 Total Protein 6.8 g/dL (6.4-8.2) 07/06/19 07:08 Albumin 3.5 g/dL (3.4-5.0) 07/06/19 07:08 TSH 2.80 uIU/mL (0.36-3.74) 07/05/19 20:20 Urine Color Yellow (Yellow) 07/05/19 13:12 Urine Clarity Clear (Clear) 07/05/19 13:12 Urine pH 5.5 (5-8) 07/05/19 13:12 Ur Specific [place] 1.010 (1.005-1.025) 07/05/19 13:12 Urine Protein Negative mg/dL (Negative) 07/05/19 13:12 Urine Ketones Negative mg/dL (Negative) 07/05/19 13:12 Urine Blood Small (Negative) H 07/05/19 13:12 Urine Nitrite Negative (Negative) 07/05/19 13:12 Urine Bilirubin Negative (Negative) 07/05/19 13:12 Urine Urobilinogen 0.2 EU/dL (Up TO 0.2) 07/05/19 13:12 Ur Leukocyte Esterase Negative (Negative) 07/05/19 13:12 Urine RBC 5-10 (0-2) H 07/05/19 13:12 Urine WBC 0-2 HPF (0-5) 07/05/19 13:12 Ur Epithelial Cells Rare HPF (Negative) 07/05/19 13:12 Urine Crystals Negative HPF (Negative) 07/05/19 13:12 Urine Bacteria Rare HPF (Negative) 07/05/19 13:12 Urine Casts Negative LPF (Negative) 07/05/19 13:12 Urine Mucus Negative (Negative) 07/05/19 13:12 Ur Culture Indicated? No 07/05/19 13:12 Urine Glucose Negative mg/dL (Negative) 07/05/19 13:12
[2019-07-07 15:08] LABS: Bilirubin Negative (Negative); Blood Negative (Negative); Clarity Sl Cloudy (Clear); Glucose Negative (Negative); Ketones Negative (Negative); Leukocyte Esterase Small (Negative); Nitrite Positive (Negative); Specific Gravity 1.015 (1.005-1.025); Urobilinogen 0.2 EU/dL (Up TO 0.2)
[2019-07-07 15:18] LABS: Epithelial Cells Few HPF (Negative); Other Cells Few Renal (Negative); WBC >50 HPF (0-5)
[2019-07-07 15:19] LABS: Bacteria Many HPF (Negative); C & S Indicated? Yes; Casts Negative LPF (Negative); Crystals Negative HPF (Negative); Mucus Negative (Negative)
--- NOTE | 2019-07-07 16:42 | PT.INTREAT ---
Date of service: 07/07/19 Time of Service: 13:16 PT Notes Inpatient Physical Therapy Treatment Note [facility] Date: 07/07/2019 PRECAUTIONS: Fall. Standard. Dizziness. SUBJECTIVE: Daughter states that her mother reports diminishing symptoms of room spinning and dizziness compared to when patient first came into the hospital. Patient and daughter both agreeable to assessment of vertigo for this session. OBJECTIVE: Patient seen resting in bed. IV in the left UE. PAIN: 0/10. BED MOBILITY/TRANSFERS Rolling L/R: Moderate assist Supine-sit: Minimal assist Sit-supine: Minimal assist ASSESSMENT: Oculomotor examination yielded negative result for spontaneous nystagmus. Smooth pursuit normal. Test for near point convergence inconclusive as patient did not report any doubling of object tested. Sharp Pascual Test and Alar ligament test both negative. Vertebral artery test negative. VOR negative. Patient did report provoking of spinning sensation with [place]-Hallpike maneuver to the right but did not present with any kind of nystagmus. [place]-Hallpike to the left did not reproduce any symptoms. Supine head roll test negative to right and left. However, patient did complain of losing her balance once she was placed back to the long sitting position from supine. PLAN: Continue with PT POC as initially established TREATMENT CODE/TIME: 63350 x 52 minutes beginning at 13:16 p.m.
[2019-07-07] MEDS: cefTRIAXone 1 GM/50 ML BAG IVPB (17:02)
[2019-07-07] MEDS: Rosuvastatin 10 MG TAB 40 MG PO (20:00)
[2019-07-08] VITALS (10 sets, daily range): BP systolic 139–189; BP diastolic 72–83; PULSE 61–80; RESP 17–20; TEMP 36.7–37; O2SAT 92–94
--- NOTE | 2019-07-08 02:01 | NUR.NOTE ---
Nursing Note: Pt is very cooperative on the care, daughter at bedside to translate on instructions of staff. Denied of pain. Ambulate to toilet with walker. Had BM x 2. Bladder scanned performed after voiding and with good result. Continue to monitor.
[2019-07-08] MEDS: Acetaminophen 325 MG TAB 650 MG PO (05:30)
[2019-07-08] MEDS: Heparin 5,000 UNITS/ML VIAL 5000 UNITS SC ×3 (07:49→21:56)
[2019-07-08] MEDS: Sertraline 50 MG TAB PO (07:50)
[2019-07-08] MEDS: Carvedilol 25 MG TAB PO ×2 (07:50→20:34)
[2019-07-08] MEDS: Cyanocobalamin 500 MCG TAB 1000 MCG PO (07:50)
[2019-07-08] MEDS: Cholecalciferol (Vitamin D3) 400 UNIT TAB PO (07:50)
[2019-07-08] MEDS: Clopidogrel 75 MG TAB PO (07:50)
[2019-07-08] MEDS: Dexlansoprazole 30 MG CAP PO (07:50)
[2019-07-08] MEDS: Insulin Aspart 300 UNITS/3 ML PEN SC ×4 (07:50→21:55)
[2019-07-08] MEDS: Famotidine 20 MG TAB PO (07:50)
[2019-07-08] MEDS: levETIRAcetam 500 MG TAB PO ×2 (07:50→20:34)
--- NOTE | 2019-07-08 11:46 | DI.RAD_ITS ---
EXAM: XR PORTABLE CHEST AP INDICATION: shortness of breath, ?CHF. COMPARISON: XR CHEST 2V PA LATERAL from 07/05/2019 TECHNIQUE: 2D digital imaging was performed. FINDINGS: No pulmonary infiltrate is identified. Heart is top limits of normal in size. Hilar structures, medi astinum and tracheal air column appear intact. IMPRESSION: No evidence of acute cardiopulmonary disease.
[2019-07-08] MEDS: Normal Saline Flush 10 ML SYR IVP ×2 (12:19→16:39)
[2019-07-08] MEDS: Furosemide 20 MG/2 ML VIAL IVP (12:19)
--- NOTE | 2019-07-08 12:50 | PT.INTREAT ---
Date of service: 07/08/19 Time of Service: 12:50 PT Notes Inpatient Physical Therapy Treatment Note [facility] Date: 07/08/19 PRECAUTIONS: Fall SUBJECTIVE: Mitch is agreeable to participating in PT. Her daughter relays that she was dizzy throughout the night and this morning and on/off throughout the day, but is currently feeling better. OBJECTIVE: Morning session ended early due to the arrival of Diagnostic Imaging to perform chest x-ray. PAIN: No c/o pain BED MOBILITY/TRANSFERS Supine-sit: I with HOB at 40 degrees Sit-supine: S with HOB at 20 degrees Sit-stand: S Stand-sit: S GAIT Assistive Device: FWW Weight bearing: Full Assist: SBA-S in a.m.; S in p.m. Distance: 20' x2 in a.m.; 80' + 120' in p.m. Deviation: Seated rest x1 in both a.m. and p.m. Static standing with FWW support and supervision x3 minutes VITALS: Morning BP post supine-sit transfer: 172/102 TOILETING: Patient toileted with supervision for transfers only. ASSESSMENT: Patient tolerated session well without complaint. She would benefit from continued gait training and global strengthening for improved activity tolerance. PLAN: Continue with PT's POC TREATMENT CODE/TIME: Session 1: 15 minutes; [id number] Session 2: 20 minutes; [id number]
--- NOTE | 2019-07-08 14:47 | PDOC.CMPRO ---
- If Service Date Differs Date of service: 07/08/19 Time of Service: 14:48 Care Management Progress Note S/O: Mitch remains acute today no change in status she was evaluated by PT will continue to follow. Resumption of choice for care and a new face to face for home health PT/OT per PT recommendations. A: Mitch is an 84 yo woman admitted to [facility] 07/05/19 for TIA and acute vertigo. P: Mitch will be discharged home when medically cleared by provider. Resume Home Health services through [facility]. With new face to face for PT. Family members will transport patient home upon discharge.
--- NOTE | 2019-07-08 14:57 | W.PM.PROGNOT ---
Date of Service Date of service: 07/08/19 Time of Service: 14:57 Assessment and Plan Assessment and plan (1) UTI (urinary tract infection): Status: Acute Assessment and plan: Not present on admission. Await C&S results. Treat with empiric rocephin. I spoke with the family about cranberry extract. (2) Dizziness: Status: Acute Assessment and plan: Possibly due to orthostasis/dehydration on presentaiton. Nearly resolved. No vertigo. IVF d/c'ed - lasix resumed. Has a UTI - treat. (3) HTN (hypertension): Status: Chronic Assessment and plan: Resume lasix today, teresa-i tomorrow. (4) CAD (coronary artery disease): Status: Chronic Assessment and plan: No evidence of ACS on this admission. F/u as outpatient (5) Anxiety: Status: Acute Assessment and plan: Could be contributing to symptoms - but is diagnosis of exclusion. No change in tx. (6) Diabetes: Status: Chronic Assessment and plan: Continue home levemir and SSI; hold metformin (7) DVT prophylaxis: Status: Acute Assessment and plan: SC heparin (8) Discharge planning issues: Status: Acute Assessment and plan: Full code Planned for discharge home tomorrow with Home health RN, PT. Subjective Subjective Interval history since last seen: Feels better today. States only was dizzy once this morning - when she first woke up at 6 am and tried to get. No dizziness since. Headache and neck pain have resolved. Denies chest pain, but had an episode this morning when she felt she couldn't take a deep breath. This resolved when IVF were stopped. Denies n/v. Exam Narrative Exam Narrative: General: A&Ox3, looks comfortable, animated, sitting up in bed, loos better HEENT: EOMI, MMM Heart: RRR, no m/r/g Lungs: CTAB GI: abdomen is soft, tender in LUQ, nondistended Extremities: no e/c/c BLE's. Objective Objective Clinical Data: Abnormal lab results 07/07/19 Range/Units 14:40 Urine Protein Trace H (Negative) mg/dL Urine Nitrite Positive H (Negative) Ur Leukocyte Esterase Small H (Negative) Urine RBC 3-5 H (0-2) Vital Signs Temperature 36.9 C 07/08/19 11:00 Temperature Source Tympanic 10/09/19 11:00 Pulse 80 07/08/19 13:04 Pulse Rhythm Regular 07/08/19 05:37 Pulse 103 H 07/05/19 18:40 Respiratory Rate 17 07/08/19 11:00 Respiratory Effort Non-Labored 07/08/19 05:37 Respiratory Depth Normal 07/08/19 05:37 Respiratory Pattern Normal 07/08/19 05:37 Blood Pressure 152/78 H 07/08/19 13:04 Blood Pressure Mean 101 07/05/19 18:31 Blood Pressure Position Supine 07/05/19 12:31 Pulse Oximetry 94 L 07/08/19 11:00 Oxygen Delivery Method Room Air 07/08/19 11:00 Oxygen Flow Rate 0 07/08/19 11:00 Pain Level 0 07/08/19 13:04 Comment 07/08/19 05:30 Intake & Output 07/07/19 07/08/19 07/08/19 23:59 11:59 23:59 Intake Total 2561.25 / 3538.333 630 / 1630 1000 / 1630 Output Total 400 / 800 1500 / 2700 1200 / 2700 Balance 2161.25 / 2738.333 -870 / -1070 -200 / -1070 Weight 90 kg Intake: IV 2081.25 / 3058.333 1000 / 1000 Oral 480 / 480 630 / 630 Output: Urine 400 / 800 1500 / 2700 1200 / 2700 Other: Urine Color Yellow Straw Pale Urine Appearance Clear Clear Clear Urine Odor Normal Normal Comment pt voided into toilet (missed urine catching hat in toilet). Unable to quantify how much but toilet water tinged yellow with urine. Stool Size Moderate Stool Characteristics Soft Brown Voiding Methods Toilet Bedside Commode Bedside Commode Laboratory Results WBC 5.89 k/cumm (4.4-10.8) 07/07/19 06:50 RBC 3.96 m/cumm (4.00-5.20) L 07/07/19 06:50 Hgb 11.2 g/dL (12.0-15.5) L 07/07/19 06:50 Hct 33.9 % (36.0-46.0) L 07/07/19 06:50 MCV 85.6 fL (80-95) 07/07/19 06:50 MCH 28.3 pg (27.0-33.0) 07/07/19 06:50 MCHC 33.0 g/dL (32.0-36.0) 07/07/19 06:50 RDW 13.5 % (11.7-14.6) 07/07/19 06:50 Plt Count 286 x1000/uL (130-400) 07/07/19 06:50 MPV 9.6 fL (8.0-11.0) 07/07/19 06:50 Immature Gran % 0.2 07/07/19 06:50 Neutrophils % 46.7 07/07/19 06:50 Lymphocytes % 31.9 07/07/19 06:50 Monocytes % 15.4 07/07/19 06:50 Eosinophils % 5.3 07/07/19 06:50 Basophils % 0.5 07/07/19 06:50 Absolute Neutrophils 2.75 k/cumm (1.2-6.7) 07/07/19 06:50 Absolute Lymphocytes 1.88 k/cumm (1.2-3.4) 07/07/19 06:50 Absolute Monocytes 0.91 k/cumm (0.11-0.7) H 07/07/19 06:50 Absolute Eosinophils 0.31 k/cumm (0.0-0.7) 07/07/19 06:50 Absolute Basophils 0.03 k/cumm (0.0-0.2) 07/07/19 06:50 PT 10.6 sec (9.3-11.0) 07/05/19 20:20 INR 1.1 (0.9-1.1) 07/05/19 20:20 Sodium 141 mmol/L (136-145) 07/07/19 06:50 Potassium 3.8 mmol/L (3.5-5.1) 07/07/19 06:50 Chloride 105 mmol/L (98-107) 07/07/19 06:50 Carbon Dioxide 25.1 mmol/L (21.0-32.0) 07/07/19 06:50 Anion Gap 10.9 mmol/L (3-11) 07/07/19 06:50 BUN 29 mg/dL (7-18) H 07/07/19 06:50 Creatinine 1.01 mg/dL (0.55-1.02) 07/07/19 06:50 Estimated GFR/1.73 m2 52.48 (mL/min/1.73m2) 07/07/19 06:50 Glucose 207 mg/dL (70-100) H 07/07/19 06:50 Calcium 8.8 mg/dL (8.5-10.1) 07/07/19 06:50 Magnesium 2.1 mg/dL (1.8-2.4) 07/07/19 06:50 Total Bilirubin 0.4 mg/dL (0.2-1.0) 07/06/19 07:08 AST 11 U/L (15-37) L 07/06/19 07:08 ALT 15 U/L (14-59) 07/06/19 07:08 Alkaline Phosphatase 66 U/L (46-116) 07/06/19 07:08 Troponin I < 0.05 ng/mL (0.00-0.06) 07/05/19 20:20 Total Protein 6.8 g/dL (6.4-8.2) 07/06/19 07:08 Albumin 3.5 g/dL (3.4-5.0) 07/06/19 07:08 TSH 2.80 uIU/mL (0.36-3.74) 07/05/19 20:20 Urine Color Yellow (Yellow) 07/07/19 14:40 Urine Clarity Sl cloudy (Clear) 07/07/19 14:40 Urine pH 6.0 (5-8) 07/07/19 14:40 Ur Specific [place] 1.015 (1.005-1.025) 07/07/19 14:40 Urine Protein Trace mg/dL (Negative) H 07/07/19 14:40 Urine Ketones Negative mg/dL (Negative) 07/07/19 14:40 Urine Blood Negative (Negative) 07/07/19 14:40 Urine Nitrite Positive (Negative) H 07/07/19 14:40 Urine Bilirubin Negative (Negative) 07/07/19 14:40 Urine Urobilinogen 0.2 EU/dL (Up TO 0.2) 07/07/19 14:40 Ur Leukocyte Esterase Small (Negative) H 07/07/19 14:40 Urine RBC 3-5 (0-2) H 07/07/19 14:40 Urine WBC >50 HPF (0-5) 07/07/19 14:40 Ur Epithelial Cells Few HPF (Negative) 07/07/19 14:40 Urine Crystals Negative HPF (Negative) 07/07/19 14:40 Urine Bacteria Many HPF (Negative) 07/07/19 14:40 Urine Casts Negative LPF (Negative) 07/07/19 14:40 Urine Mucus Negative (Negative) 07/07/19 14:40 Urine Other Few renal (Negative) 07/07/19 14:40 Ur Culture Indicated? Yes 07/07/19 14:40 Urine Glucose Negative mg/dL (Negative) 07/07/19 14:40
[2019-07-08] MEDS: cefTRIAXone 1 GM/50 ML BAG IVPB (16:37)
[2019-07-08] MEDS: Rosuvastatin 10 MG TAB 40 MG PO (20:34)
[2019-07-09] VITALS (12 sets, daily range): BP systolic 134–202; BP diastolic 64–106; PULSE 70–89; RESP 17–20; TEMP 36.6–37.2; O2SAT 92–94
[2019-07-09] MEDS: clonazePAM 0.5 MG TAB PO (01:06)
[2019-07-09 01:28] LABS: Troponin I < 0.05 ng/mL (0.00-0.06)
[2019-07-09] MEDS: Heparin 5,000 UNITS/ML VIAL 5000 UNITS SC ×3 (05:27→23:09)
[2019-07-09 06:57] LABS: Abs Immature Grans 0.01 k/cumm (0.0-0.09); Absolute Basophil Count 0.02 k/cumm (0.0-0.2); Absolute Eosinophil Count 0.29 k/cumm (0.0-0.7); Absolute Lymphocyte Count 1.85 k/cumm (1.2-3.4); Absolute Monocyte Count 1.36 k/cumm (0.11-0.7); Absolute Neutrophil Count 5.26 k/cumm (1.2-6.7); Basophils % 0.2; Eosinophils % 3.3; HCT 33.1 % (36.0-46.0); HGB 10.9 g/dL (12.0-15.5); Immature Grans % 0.1; Mean Corp. HGB Concentration 32.9 g/dL (32.0-36.0); Mean Corpuscular Hemoglobin 27.7 pg (27.0-33.0); Mean Platelet Volume 9.6 fL (8.0-11.0); Monocytes % 15.5; Neutrophils % 59.9; Platelet Count 269 x1000/uL (130-400); RBC 3.94 m/cumm (4.00-5.20); RBC Distribution Width 13.3 % (11.7-14.6); White Blood Cell Count 8.79 k/cumm (4.4-10.8)
[2019-07-09 07:12] LABS: Anion Gap 10.6 mmol/L (3-11); BUN 20 mg/dL (7-18); CO2 23.4 mmol/L (21.0-32.0); CREATININE 0.92 mg/dL (0.55-1.02); Calcium 8.8 mg/dL (8.5-10.1); Chloride 104 mmol/L (98-107); Estimated GFR 58.44 (mL/min/1.73m2); Glucose 169 mg/dL (70-100); Magnesium 2.2 mg/dL (1.8-2.4); Potassium 3.9 mmol/L (3.5-5.1); Sodium 138 mmol/L (136-145)
[2019-07-09 07:22] LABS: Troponin I < 0.05 ng/mL (0.00-0.06)
[2019-07-09] MEDS: Carvedilol 25 MG TAB PO ×2 (07:33→20:23)
--- NOTE | 2019-07-09 07:58 | NUR.NOTE ---
Nursing Note: Nurse notified by FURNACE ERECTOR (Jerel James) that pt up to BSC and became dizzy and remained dizzy/diaphoretic/pale upon returning to bed. Nurse informed that pt hit back of head on side rail while in bed. Pt's BP 202/106 during this event. Daughter concerned and expressing desire to speak to MD. MD notified and in to see patient. 0830 Coreg given by this nurse.
[2019-07-09] MEDS: Cyanocobalamin 500 MCG TAB 1000 MCG PO (08:14)
[2019-07-09] MEDS: Clopidogrel 75 MG TAB PO (08:14)
[2019-07-09] MEDS: levETIRAcetam 500 MG TAB PO ×2 (08:14→20:24)
[2019-07-09] MEDS: Lisinopril 20 MG TAB 40 MG PO (08:15)
[2019-07-09] MEDS: Dexlansoprazole 30 MG CAP PO (08:15)
[2019-07-09] MEDS: Sertraline 50 MG TAB PO (08:15)
[2019-07-09] MEDS: Cholecalciferol (Vitamin D3) 400 UNIT TAB PO (08:15)
[2019-07-09] MEDS: Insulin Aspart 300 UNITS/3 ML PEN SC ×4 (08:15→23:08)
[2019-07-09] MEDS: amLODIPine 2.5 MG TAB PO (12:34)
--- NOTE | 2019-07-09 13:30 | DI.US_ITS ---
APPROVED REPORT EXAM: Comprehensive 2D, Doppler, and color-flow Echocardiogram Patient Location: In-Patient Manager Equity: ROMELIA Garner (AE) Rhythm: NSR Indications: intermittent dizziness Left Ventricle The left ventricle is normal size. The left ventricular systolic function is normal. There is normal left ventricular wall thickness. The posterior wall thickness is mildly increased. The septal thickne ss is mildly increased. There is normal LV segmental wall motion. Diastolic function is indeterminate . LVEF is 65-70%. Right Ventricle Right ventricle is mildly dilated. The right ventricular systolic function is normal. Atria The left atrium is normal in size The right atrium is normal in size Aortic Valve Aortic valve is trileaflet. Aortic valve leaflets are sclerotic but open well. There is no aortic angie vular stenosis. No aortic regurgitation is present. Mitral Valve Mitral valve leaflets are thickened. No evidence of mitral valve stenosis. Mild mitral regurgitation. Tricuspid Valve The tricuspid valve is normal in structure. Mild tricuspid regurgitation. TR V-max is 3 m/s RVSP is e stimated to be 44 mmHg Pulmonic Valve The pulmonary valve is normal in structure. Trace pulmonic regurgitation. Great Vessels The aortic root is upper limits of normal The ascending aorta size is dilated. very mildly dilated. c ollapses >50% Pericardium fat pad anterior. 2D Dimensions IVSd 1.2 cm F: 0.6-1.0 LA Volume Index A4C 19.0 mL/m2 PWd 1.1 cm F: 0.6 - 1.0 LA Area A4C 16.0 cm2 LVDd 4.0 cm F: 3.9 - 5.3 LVDs 2.5 cm F: 2.2 - 3.5 Aortic Root 3.3 cm F: 2.7 - 3.3 RA Area A4C 14.0 cm2 LVOT 2.0 cm (M/F) 1.5-2.5 Ascending Aorta 3.7 cm F: 2.3 - 3.1 LVEF (Munguia's) 71.7 % F: 54 - 74 FS 37.2 % LV Diastology E Decel Time 275.0 (160-240 msec) E/A Ratio 0.8 MED E' 0.1 (<0.07 m/s) LV E/e MED 12.5 (>14) LAT E' 0.1 (<0.1 m/s) LV E/e LAT 13.3 (>14) Aortic Valve LVOT Peak Dylan. 0.9 m/s LVOT Peak Gr. 3.3 mmHg LVOT Mean Gr. 1.9 mmHg LVOT VTI 0.2 m MANDY (VTI) 2.5 (2.5-4.5 cm2) MANDY (VTI) Index 1.2 cm/m2 Mitral Valve MV E Max Dylan. 0.8 (0.4-1.3 m/s) MV A Velocity 1.0 (0.4-1.3 m/s) E/A Ratio 0.8 MV Decel. Time 275.0 (160-240 msec) MV PHT 79.7 msec MVA PHT 2.8 cm2 Tricuspid Valve TR P. Velocity 3.0 m/s TR P. Gradient 36.0 mmHg Conclusion Left Ventricle : The left ventricle is normal size. There is normal left ventricular wall thickness. The posterior wall thickness is mildly increased. The septal thickness is mildly increased. There is normal LV segmental wall motion. Diastolic function is indeterminate. Right Ventricle : Right ventricle is mildly dilated. The right ventricular systolic function is jerry l. Atria : The left atrium is normal in size The right atrium is normal in size Aortic Valve : Aortic valve is trileaflet. Aortic valve leaflets are sclerotic but open well. No aort ic regurgitation is present. There is no aortic valvular stenosis. Mitral Valve : Mitral valve leaflets are thickened. Mild mitral regurgitation. No evidence of mitral valve stenosis. Tricuspid Valve : The tricuspid valve is normal in structure. Mild tricuspid regurgitation. TR V-max is 3 m/s RVSP is estimated to be 44 mmHg Pulmonic Valve : The pulmonary valve is normal in structure. Great Vessels : The aortic root is upper limits of normal Compared to echocardiogram from June 2017: There is no significant change.
--- NOTE | 2019-07-09 15:20 | PT.INTREAT ---
Date of service: 07/09/19 Time of Service: 15:20 PT Notes Inpatient Physical Therapy Treatment Note [facility] Date: 07/09/19 PRECAUTIONS: Fall SUBJECTIVE: Mitch is agreeable to participating in PT following significant encouragement. Her daughter relays that she was dizzy throughout the night and this morning and on/off throughout the day, but is currently feeling better. OBJECTIVE: PAIN: No c/o pain BED MOBILITY/TRANSFERS Sit-stand: S Stand-sit: S GAIT Assistive Device: FWW Weight bearing: Full Assist: SBA Distance: 60' + 60' Deviation: Seated rest x1, c/o mild dizziness with gait training VITALS: BP post gait trainin/90 ASSESSMENT: Patient tolerated session with complaint of mild dizziness with gait training. She would benefit from continued gait training and global strengthening for improved activity tolerance. PLAN: Continue with PT's POC TREATMENT CODE/TIME: 15 minutes; [id number]
--- NOTE | 2019-07-09 15:33 | PDOC.CMPRO ---
- If Service Date Differs Date of service: 07/09/19 Time of Service: 15:33 Care Management Progress Note S/O: Mitch is lying in bed when meets with her today. Both of her daughters are present in the room. Daughter reports that Mitch has not been feeling well since last evening. She reportedly got out of bed to use the bathroom last night and became extremely dizzy. Echocardiogram ultrasound done this afternoon. Patient has also been working with PT. A: Mitch is an 84 yo woman admitted to [facility] 07/05/19 for TIA and acute vertigo. P: Patient will remain at [facility] until provider medically clears her to return home. Resumption of [facility] highest needs with anticipated Home Health nursing and PT at time of discharge. Family members will transport patient home via private vehicle.
[2019-07-09] MEDS: cefTRIAXone 1 GM/50 ML BAG IVPB (16:50)
--- NOTE | 2019-07-09 18:13 | W.PM.PROGNOT ---
Date of Service Date of service: 07/09/19 Time of Service: 12:00 Assessment and Plan Assessment and plan (1) HTN (hypertension): Status: Chronic Assessment and plan: With hypertensive urgency. Edwin-i resumed and norvasc added to the regimen of coreg 25 mg PO BID and lasix. Perhaps this is the reason for dizziness. (2) UTI (urinary tract infection): Status: Acute Assessment and plan: Not present on admission. Urine C&S with gram negative rods x 2. Continue empiric rocephin (day 3) I spoke with the family about cranberry extract. (3) Dizziness: Status: Acute Assessment and plan: At this point, the patient is well hydrated, and dizziness is less likely to be due to dehydration. It is possibly due to symptomatic hypertension. It is also possibly due to anxiety. Evidently, the patient got klonopin last night and it helped. Her Echo does not provide a good explanation for dizziness, and neither did her CTA head/neck or the MRI. (4) CAD (coronary artery disease): Status: Chronic Assessment and plan: No evidence of ACS on this admission. F/u as outpatient (5) Anxiety: Status: Acute Assessment and plan: Could be contributing to symptoms - but is diagnosis of exclusion. Continue clonazepam prn. (6) Diabetes: Status: Chronic Assessment and plan: Continue home levemir and SSI; hold metformin (7) DVT prophylaxis: Status: Acute Assessment and plan: SC heparin (8) Discharge planning issues: Status: Acute Assessment and plan: Full code Planned for discharge home with Home health RN, PT when stable. Subjective Subjective Interval history since last seen: Ms Gil apparently woke up last night with palpitations and chest discomfort. EKG and troponin were negative. Per her daughter, she got up to go to the commode, felt dizzy and fell backwards, hitting her head on the bed rail. Today, the patient states she is more dizzy than before, especially when she gets up. Her daughter is also very concerned about Ms Gil's blood pressure, which has been unusually high for her. She thinks that maybe her dizziness is due to her blood pressure. The patient denies unusual chest discomfort, shortness of breath, does not give a clear answer as to nausea. Exam Narrative Exam Narrative: General: A&Ox3, looks comfortable laying flat in bed, but anxious HEENT: EOMI, MMM Heart: RRR, no m/r/g Lungs: CTAB GI: abdomen is soft, tender in LUQ, nondistended Extremities: no e/c/c BLE's. Objective Objective Clinical Data: Abnormal lab results 07/09/19 07/09/19 Range/Units 06:30 06:30 RBC 3.94 L (4.00-5.20) m/cumm Hgb 10.9 L (12.0-15.5) g/dL Hct 33.1 L (36.0-46.0) % Absolute Monocytes 1.36 H (0.11-0.7) k/cumm BUN 20 H D (7-18) mg/dL Glucose 169 H (70-100) mg/dL Vital Signs Temperature 36.7 C 07/09/19 16:29 Temperature Source Tympanic 07/09/19 16:29 Pulse 72 07/09/19 16:29 Pulse Rhythm Regular 07/09/19 17:11 Pulse 103 H 07/05/19 18:40 Respiratory Rate 18 07/09/19 16:29 Respiratory Effort 07/09/19 17:11 Respiratory Depth Normal 07/09/19 17:11 Respiratory Pattern Normal 07/09/19 17:11 Blood Pressure 165/75 H 07/09/19 16:29 Blood Pressure Mean 101 07/05/19 18:31 Blood Pressure Position Supine 07/05/19 12:31 Pulse Oximetry 92 L 07/09/19 16:29 Oxygen Delivery Method Room Air 07/09/19 16:29 Oxygen Flow Rate 0 07/09/19 16:29 Pain Level 0 07/09/19 16:29 Comment 07/09/19 11:10 Intake & Output 07/08/19 07/09/19 07/09/19 23:59 11:59 23:59 Intake Total 1050 / 1680 250 / 250 Output Total 3200 / 4700 1750 / 1750 Balance -2150 / -3020 -1500 / -1500 Weight 88.9 kg Intake: IV 1050 / 1050 Oral 250 / 250 Output: Urine 3200 / 4700 1750 / 1750 Other: Urine Color Yellow Yellow Urine Appearance Clear Clear Cloudy Urine Odor Normal Normal Comment Unknown amount of urine mixed with stool. Stool Size Moderate Stool Characteristics Soft Brown Voiding Methods Bedside Commode Bedside Commode Laboratory Results WBC 8.79 k/cumm (4.4-10.8) 07/09/19 06:30 RBC 3.94 m/cumm (4.00-5.20) L 07/09/19 06:30 Hgb 10.9 g/dL (12.0-15.5) L 07/09/19 06:30 Hct 33.1 % (36.0-46.0) L 07/09/19 06:30 MCV 84.0 fL (80-95) 07/09/19 06:30 MCH 27.7 pg (27.0-33.0) 07/09/19 06:30 MCHC 32.9 g/dL (32.0-36.0) 07/09/19 06:30 RDW 13.3 % (11.7-14.6) 07/09/19 06:30 Plt Count 269 x1000/uL (130-400) 07/09/19 06:30 MPV 9.6 fL (8.0-11.0) 07/09/19 06:30 Immature Gran % 0.1 07/09/19 06:30 Neutrophils % 59.9 07/09/19 06:30 Lymphocytes % 21.0 07/09/19 06:30 Monocytes % 15.5 07/09/19 06:30 Eosinophils % 3.3 07/09/19 06:30 Basophils % 0.2 07/09/19 06:30 Absolute Neutrophils 5.26 k/cumm (1.2-6.7) 07/09/19 06:30 Absolute Lymphocytes 1.85 k/cumm (1.2-3.4) 07/09/19 06:30 Absolute Monocytes 1.36 k/cumm (0.11-0.7) H 07/09/19 06:30 Absolute Eosinophils 0.29 k/cumm (0.0-0.7) 07/09/19 06:30 Absolute Basophils 0.02 k/cumm (0.0-0.2) 07/09/19 06:30 PT 10.6 sec (9.3-11.0) 07/05/19 20:20 INR 1.1 (0.9-1.1) 07/05/19 20:20 Sodium 138 mmol/L (136-145) 07/09/19 06:30 Potassium 3.9 mmol/L (3.5-5.1) 07/09/19 06:30 Chloride 104 mmol/L (98-107) 07/09/19 06:30 Carbon Dioxide 23.4 mmol/L (21.0-32.0) 07/09/19 06:30 Anion Gap 10.6 mmol/L (3-11) 07/09/19 06:30 BUN 20 mg/dL (7-18) H D 07/09/19 06:30 Creatinine 0.92 mg/dL (0.55-1.02) 07/09/19 06:30 Estimated GFR/1.73 m2 58.44 (mL/min/1.73m2) 07/09/19 06:30 Glucose 169 mg/dL (70-100) H 07/09/19 06:30 Calcium 8.8 mg/dL (8.5-10.1) 07/09/19 06:30 Magnesium 2.2 mg/dL (1.8-2.4) 07/09/19 06:30 Total Bilirubin 0.4 mg/dL (0.2-1.0) 07/06/19 07:08 AST 11 U/L (15-37) L 07/06/19 07:08 ALT 15 U/L (14-59) 07/06/19 07:08 Alkaline Phosphatase 66 U/L (46-116) 07/06/19 07:08 Troponin I < 0.05 ng/mL (0.00-0.06) 07/09/19 06:30 Total Protein 6.8 g/dL (6.4-8.2) 07/06/19 07:08 Albumin 3.5 g/dL (3.4-5.0) 07/06/19 07:08 TSH 2.80 uIU/mL (0.36-3.74) 07/05/19 20:20 Urine Color Yellow (Yellow) 07/07/19 14:40 Urine Clarity Sl cloudy (Clear) 07/07/19 14:40 Urine pH 6.0 (5-8) 07/07/19 14:40 Ur Specific [place] 1.015 (1.005-1.025) 07/07/19 14:40 Urine Protein Trace mg/dL (Negative) H 07/07/19 14:40 Urine Ketones Negative mg/dL (Negative) 07/07/19 14:40 Urine Blood Negative (Negative) 07/07/19 14:40 Urine Nitrite Positive (Negative) H 07/07/19 14:40 Urine Bilirubin Negative (Negative) 07/07/19 14:40 Urine Urobilinogen 0.2 EU/dL (Up TO 0.2) 07/07/19 14:40 Ur Leukocyte Esterase Small (Negative) H 07/07/19 14:40 Urine RBC 3-5 (0-2) H 07/07/19 14:40 Urine WBC >50 HPF (0-5) 07/07/19 14:40 Ur Epithelial Cells Few HPF (Negative) 07/07/19 14:40 Urine Crystals Negative HPF (Negative) 07/07/19 14:40 Urine Bacteria Many HPF (Negative) 07/07/19 14:40 Urine Casts Negative LPF (Negative) 07/07/19 14:40 Urine Mucus Negative (Negative) 07/07/19 14:40 Urine Other Few renal (Negative) 07/07/19 14:40 Ur Culture Indicated? Yes 07/07/19 14:40 Urine Glucose Negative mg/dL (Negative) 07/07/19 14:40 Echo: Left Ventricle : The left ventricle is normal size. There is normal left ventricular wall thickness. The posterior wall thickness is mildly increased. The septal thickness is mildly increased. There is normal LV segmental wall motion. Diastolic function is indeterminate. Right Ventricle : Right ventricle is mildly dilated. The right ventricular systolic function is normal. Atria : The left atrium is normal in size The right atrium is normal in size Aortic Valve : Aortic valve is trileaflet. Aortic valve leaflets are sclerotic but open well. No aortic regurgitation is present. There is no aortic valvular stenosis. Mitral Valve : Mitral valve leaflets are thickened. Mild mitral regurgitation. No evidence of mitral valve stenosis. Tricuspid Valve : The tricuspid valve is normal in structure. Mild tricuspid regurgitation. TR V-max is 3 m/s RVSP is estimated to be 44 mmHg Pulmonic Valve : The pulmonary valve is normal in structure. Great Vessels : The aortic root is upper limits of normal Compared to echocardiogram from June 2017: There is no significant change.
[2019-07-09] MEDS: Furosemide 40 MG TAB PO (18:52)
[2019-07-09] MEDS: Rosuvastatin 10 MG TAB 40 MG PO (20:24)
[2019-07-10] VITALS (9 sets, daily range): BP systolic 106–157; BP diastolic 66–94; PULSE 66–93; RESP 16–18; TEMP 36.3–36.9; O2SAT 93–96
[2019-07-10] MEDS: Heparin 5,000 UNITS/ML VIAL 5000 UNITS SC ×3 (05:59→22:07)
[2019-07-10] MEDS: Cholecalciferol (Vitamin D3) 400 UNIT TAB PO (07:50)
[2019-07-10] MEDS: Carvedilol 25 MG TAB PO ×2 (07:51→20:09)
[2019-07-10] MEDS: Sertraline 50 MG TAB PO (07:51)
[2019-07-10] MEDS: Cyanocobalamin 500 MCG TAB 1000 MCG PO (07:51)
[2019-07-10] MEDS: Lisinopril 20 MG TAB 40 MG PO (07:51)
[2019-07-10] MEDS: Clopidogrel 75 MG TAB PO (07:51)
[2019-07-10] MEDS: Furosemide 40 MG TAB PO (07:51)
[2019-07-10] MEDS: Dexlansoprazole 30 MG CAP PO (07:51)
[2019-07-10] MEDS: levETIRAcetam 500 MG TAB PO ×2 (07:52→20:08)
[2019-07-10] MEDS: Normal Saline Flush 10 ML SYR IVP ×2 (07:52→16:38)
[2019-07-10] MEDS: amLODIPine 2.5 MG TAB PO (07:52)
[2019-07-10] MEDS: Insulin Aspart 300 UNITS/3 ML PEN SC ×4 (07:56→22:07)
[2019-07-10 11:24] LABS: Anion Gap 10.7 mmol/L (3-11); BUN 24 mg/dL (7-18); CO2 25.3 mmol/L (21.0-32.0); CREATININE 1.06 mg/dL (0.55-1.02); Calcium 9.1 mg/dL (8.5-10.1); Chloride 99 mmol/L (98-107); Estimated GFR 49.63 (mL/min/1.73m2); Magnesium 2.2 mg/dL (1.8-2.4); Potassium 4.3 mmol/L (3.5-5.1); Sodium 135 mmol/L (136-145)
--- NOTE | 2019-07-10 11:24 | PT.INTREAT ---
Date of service: 07/10/19 Time of Service: 11:24 PT Notes Inpatient Physical Therapy Treatment Note [facility] Date: 07/10/19 PRECAUTIONS: Fall SUBJECTIVE: Mitch is agreeable to participating in PT. Her daughter relays that she is feeling better about her mother's blood pressure readings, and that Mitch is feeling much better this morning. Based on a conversation with patient's daughter, patient has returned to baseline level of function, and may even be doing better, functionally, than her typical baseline. OBJECTIVE: PAIN: No c/o pain BED MOBILITY/TRANSFERS Supine-sit: I Sit-supine: Min A Sit-stand: I Stand-sit: I GAIT Assistive Device: 4WW Weight bearing: Full Assist: S Distance: 120' + 80' Deviation: Seated rest x1 TOILETING: Patient toileted with supervision for transfers. ASSESSMENT: Patient tolerated session without complaint of dizziness. She tolerated a progression in gait distance with 4WW support and supervision, requiring seated rest x1, due to LE fatigue. PLAN: As per primary PT TREATMENT CODE/TIME: 25 minutes; 31103 x2
--- NOTE | 2019-07-10 11:31 | PDOC.CMPRO ---
- If Service Date Differs Date of service: 07/10/19 Time of Service: 11:31 Care Management Progress Note S/O: Mitch remains acute and continues to be followed by PT. Her daughter who is present in the room reports that her mom slept well last night and is doing better today. Resumption of [facility] and new Home Health PT/OT per PT recommendations upon discharge. A: Mitch is an 84 yo woman admitted to [facility] 07/05/19 for TIA and acute vertigo. P: Mitch will be discharged home when medically cleared by provider. Resume Home Health services through [facility] with new Home Health PT/OT. Family members will transport patient home upon discharge.
[2019-07-10 11:32] LABS: Glucose 294 mg/dL (70-100)
--- NOTE | 2019-07-10 12:57 | INDS_ITS ---
Date of service: 07/10/19 Time of Service: 12:57 PT Notes Inpatient Physical Therapy Discharge Summary Dates: 07/10/2019 Dates of Service: 07/06/2019 through 07/10/2019 This is a clinical summary of care provided on the duration of dates listed above. No charge was made in the completion of this documentation. Referring Doctor: Dr. Rosales PT Orders: PT CONSULT: limited ability to ambulate Precautions: Fall. Standard. Patient Profile/Admitting Diagnosis: Patient admitted 07/05/2019 from the emergency room, after presenting with acute onset room spinning type dizziness. She is been admitted for further evaluation and medical management. PMHX: Hypertension, diabetes, CAD, history of CVA with right-sided weakness, chronic kidney disease, severe osteoarthritis of bilateral knees Social History/Home Situation: Patient lives with her daughter, who is present at time of evaluation and providing translation. Together they report that patient requires some assistance at home, although was able to walk short distances on her own with a walker, toilet independently, etc. She has several family members in the area who are all supportive. Equipment Owned/DME: [facility] Subjective: Patient and her daughter report that dizziness came on suddenly 2 days ago. Patient describes a room spinning sensation, stating that she has some occasional associated nausea. She admits to chronic tinnitus, although states that this has not significantly changed since onset of dizziness. No changes in hearing. She did have a headache at time of onset. She is unable to comment on her balance, stating she is too dizzy to stand. She was able to get up with assistance from nursing for assessment of orthostatics and states that she was extremely dizzy. Objective: General Observation: Resting in bed, no lines. Daughter and [id number] are present and assisting with translation. Mental Status: A and O x3 Pain: Denies ROM: Right Upper Extremity: WNL Left Upper Extremity: WNL Right Lower Extremity: WNL Left Lower Extremity: WNL Cervical range of motion is WNL, although with significant symptom exacerbation with cervical flexion. Strength: Right Upper Extremity: WFL Left Upper Extremity: WFL Right Lower Extremity: Hip flexion 4+/5. Quads 4+/5. Ankle dorsiflexion 4+/5 Left Lower Extremity: Hip flexion 5/5. Quads 5/5. Ankle dorsiflexion 5/5. Sensation: Intact throughout the lower extremities Bed Mobility/Transfers: Supine?sit: I Sit?supine: I Sit?stand: I Stand?sit: I Bed?chair: I Gait: Patient now able to tolerate level surface ambulation of 60 feet x 60 feet with 1 seated rest requiring only supervision with FWW with mild dizziness reported that subsided with rest. Balance: Static Sitting: Good Dynamic Sitting: Fair Static Standing: Fair Dynamic Standing: Fair Assessment: Patient is a 84 year old female referred to physical therapy [facility] with the diagnosis of limited ability to ambulate due to acute episode of dizziness, pending medical work-up. Patient presents with clinical signs and symptoms consistent with diagnosis. Dimitris-Hallpike done on 07/07/2019 did not produce any nytstagmus but did increase symptoms of dizziness with descent to supine to initiate Dimitris-hallpike and when patient was brought back up from supine after supine head roll test. Dizziness may be attributable to blood pressure changes that client has been experiencing. She did demonstrate improvement with functional mobility performance with diminishing intesity of dizziness. Goals: Goals X1 week 1. Supine-Sit: Supervision MET 2. Sit-Supine: Supervision MET 3. Sit-Stand: Supervision MET 4. Stand-Sit : Supervision MET 5. Bed-Chair : Supervision with FWW MET 6. Chair-Bed : Supervision with FWW MET 7. Gait : CG with FWW x 50'MET DISCHARGE RECOMMENDATIONS: Home with family assistance. Patient will likely require ongoing PT intervention through home health services. TREATMENT CODE/TIME: KARISSA Thank you very much for this referral. Dione Bruce PT, DPT, CLT [facility]
--- NOTE | 2019-07-10 13:35 | DM INPTCON_ITS ---
DESCRIPTION/ASSESSMENT: Appreciate diabetes consult for Mrs. Gil, 84 years old who is hospitalized with possible CVA. BMI 29 A1c 7.3 GFR 53 Blood sugars this hospitalization 179-245 taking her usual 40u Levemir twice daily and here moderate insulin correction. At home she takes 50u Levemir twice daily; and mealtime insulin correction. She is known to outpatient diabetes from distant self management appointments. INTERVENTION: Mrs. Gil could benefit from her usual dose of basal insulin and possible insulin for carbohydrate to prevent progressive rise in blood sugars at 1 unit covers 10grams. Given her excellent A1c for her age, no self management support warranted at this time. PLAN: Will follow blood sugars and follow up as relevant.
[2019-07-10] MEDS: cefTRIAXone 1 GM/50 ML BAG IVPB (16:36)
--- NOTE | 2019-07-10 16:59 | W.PM.PROGNOT ---
Date of Service Date of service: 07/10/19 Time of Service: 17:00 Assessment and Plan Assessment and plan (1) HTN (hypertension): Status: Chronic Assessment and plan: BP's are better with resumption of norvasc. I spoke with Dr Lagos who stated that the patient used to be on norvasc for several years and that it was stopped because the blood pressures were getting too low and there was orthostasis. We will continue to check orthostatic VS. Continue current regimen - no changes today. Perhaps this is the reason for dizziness. (2) UTI (urinary tract infection): Status: Acute Assessment and plan: E. Coli, pansensitive, not present on admission. Continue empiric rocephin (day 4) I spoke with the family about cranberry extract. (3) Dizziness: Status: Resolved Assessment and plan: ? symptomatic hypertension. Treating hypertension as above (4) CAD (coronary artery disease): Status: Chronic Assessment and plan: No evidence of ACS on this admission. F/u as outpatient (5) Anxiety: Status: Acute Assessment and plan: Could be contributing to symptoms - but is diagnosis of exclusion. Continue clonazepam prn. (6) Diabetes: Status: Chronic Assessment and plan: Continue home levemir and SSI; hold metformin (7) DVT prophylaxis: Status: Acute Assessment and plan: SC heparin (8) Discharge planning issues: Status: Acute Assessment and plan: Full code Planned for discharge home with Home health RN, PT when stable. Subjective Subjective Interval history since last seen: Ms Gil states that she is not dizzy at all today. Denies chest pain other than her chronic chest pain, shortness of breath, nausea, vomiting. Today is a better day. Exam Narrative Exam Narrative: General: A&Ox3, looks comfortable laying flat in bed, but anxious HEENT: EOMI, MMM Heart: RRR, no m/r/g Lungs: CTAB GI: abdomen is soft, tender in LUQ, nondistended Extremities: no e/c/c BLE's. Objective Objective Clinical Data: Abnormal lab results 07/10/19 Range/Units 11:08 Sodium 135 L (136-145) mmol/L BUN 24 H (7-18) mg/dL Creatinine 1.06 H (0.55-1.02) mg/dL Glucose 294 H D (70-100) mg/dL Vital Signs Temperature 36.9 C 07/10/19 15:03 Temperature Source Tympanic 07/10/19 15:03 Pulse 81 07/10/19 15:16 Pulse Rhythm Regular 07/10/19 15:24 Pulse 103 H 07/05/19 18:40 Respiratory Rate 16 07/10/19 15:03 Respiratory Effort 07/10/19 15:24 Respiratory Depth Normal 07/10/19 15:24 Respiratory Pattern Normal 07/10/19 15:24 Blood Pressure 137/77 07/10/19 15:03 Blood Pressure Mean 101 07/05/19 18:31 Blood Pressure Position Supine 07/05/19 12:31 Pulse Oximetry 95 07/10/19 15:03 Oxygen Delivery Method Room Air 07/10/19 15:03 Oxygen Flow Rate 0 07/10/19 15:03 Pain Level 0 07/10/19 15:24 Comment 07/10/19 10:58 Intake & Output 07/09/19 07/10/19 07/10/19 23:59 11:59 23:59 Intake Total 290 / 540 480 / 930 450 / 930 Output Total 900 / 2650 300 / 850 550 / 850 Balance -610 / -2110 180 / 80 -100 / 80 Weight 87 kg Intake: IV 50 / 50 Oral 240 / 490 480 / 930 450 / 930 Output: Urine 900 / 2650 300 / 850 550 / 850 Other: Urine Color Yellow Yellow Yellow Urine Appearance Clear Clear Clear Urine Odor Normal Normal Voiding Methods Bedside Commode Bedside Commode Bedside Commode Laboratory Results WBC 8.79 k/cumm (4.4-10.8) 07/09/19 06:30 RBC 3.94 m/cumm (4.00-5.20) L 07/09/19 06:30 Hgb 10.9 g/dL (12.0-15.5) L 07/09/19 06:30 Hct 33.1 % (36.0-46.0) L 07/09/19 06:30 MCV 84.0 fL (80-95) 07/09/19 06:30 MCH 27.7 pg (27.0-33.0) 07/09/19 06:30 MCHC 32.9 g/dL (32.0-36.0) 07/09/19 06:30 RDW 13.3 % (11.7-14.6) 07/09/19 06:30 Plt Count 269 x1000/uL (130-400) 07/09/19 06:30 MPV 9.6 fL (8.0-11.0) 07/09/19 06:30 Immature Gran % 0.1 07/09/19 06:30 Neutrophils % 59.9 07/09/19 06:30 Lymphocytes % 21.0 07/09/19 06:30 Monocytes % 15.5 07/09/19 06:30 Eosinophils % 3.3 07/09/19 06:30 Basophils % 0.2 07/09/19 06:30 Absolute Neutrophils 5.26 k/cumm (1.2-6.7) 07/09/19 06:30 Absolute Lymphocytes 1.85 k/cumm (1.2-3.4) 07/09/19 06:30 Absolute Monocytes 1.36 k/cumm (0.11-0.7) H 07/09/19 06:30 Absolute Eosinophils 0.29 k/cumm (0.0-0.7) 07/09/19 06:30 Absolute Basophils 0.02 k/cumm (0.0-0.2) 07/09/19 06:30 PT 10.6 sec (9.3-11.0) 07/05/19 20:20 INR 1.1 (0.9-1.1) 07/05/19 20:20 Sodium 135 mmol/L (136-145) L 07/10/19 11:08 Potassium 4.3 mmol/L (3.5-5.1) 07/10/19 11:08 Chloride 99 mmol/L (98-107) 07/10/19 11:08 Carbon Dioxide 25.3 mmol/L (21.0-32.0) 07/10/19 11:08 Anion Gap 10.7 mmol/L (3-11) 07/10/19 11:08 BUN 24 mg/dL (7-18) H 07/10/19 11:08 Creatinine 1.06 mg/dL (0.55-1.02) H 07/10/19 11:08 Estimated GFR/1.73 m2 49.63 (mL/min/1.73m2) 07/10/19 11:08 Glucose 294 mg/dL (70-100) H D 07/10/19 11:08 Calcium 9.1 mg/dL (8.5-10.1) 07/10/19 11:08 Magnesium 2.2 mg/dL (1.8-2.4) 07/10/19 11:08 Total Bilirubin 0.4 mg/dL (0.2-1.0) 07/06/19 07:08 AST 11 U/L (15-37) L 07/06/19 07:08 ALT 15 U/L (14-59) 07/06/19 07:08 Alkaline Phosphatase 66 U/L (46-116) 07/06/19 07:08 Troponin I < 0.05 ng/mL (0.00-0.06) 07/09/19 06:30 Total Protein 6.8 g/dL (6.4-8.2) 07/06/19 07:08 Albumin 3.5 g/dL (3.4-5.0) 07/06/19 07:08 TSH 2.80 uIU/mL (0.36-3.74) 07/05/19 20:20 Urine Color Yellow (Yellow) 07/07/19 14:40 Urine Clarity Sl cloudy (Clear) 07/07/19 14:40 Urine pH 6.0 (5-8) 07/07/19 14:40 Ur Specific [place] 1.015 (1.005-1.025) 07/07/19 14:40 Urine Protein Trace mg/dL (Negative) H 07/07/19 14:40 Urine Ketones Negative mg/dL (Negative) 07/07/19 14:40 Urine Blood Negative (Negative) 07/07/19 14:40 Urine Nitrite Positive (Negative) H 07/07/19 14:40 Urine Bilirubin Negative (Negative) 07/07/19 14:40 Urine Urobilinogen 0.2 EU/dL (Up TO 0.2) 07/07/19 14:40 Ur Leukocyte Esterase Small (Negative) H 07/07/19 14:40 Urine RBC 3-5 (0-2) H 07/07/19 14:40 Urine WBC >50 HPF (0-5) 07/07/19 14:40 Ur Epithelial Cells Few HPF (Negative) 07/07/19 14:40 Urine Crystals Negative HPF (Negative) 07/07/19 14:40 Urine Bacteria Many HPF (Negative) 07/07/19 14:40 Urine Casts Negative LPF (Negative) 07/07/19 14:40 Urine Mucus Negative (Negative) 07/07/19 14:40 Urine Other Few renal (Negative) 07/07/19 14:40 Ur Culture Indicated? Yes 07/07/19 14:40 Urine Glucose Negative mg/dL (Negative) 07/07/19 14:40
[2019-07-10] MEDS: Rosuvastatin 10 MG TAB 40 MG PO (20:09)
[2019-07-11] VITALS: BP 107/64; PULSE 75; RESP 18; TEMP 36.4; O2SAT 95
[2019-07-11 03:12] VITALS: BP 131/72; PULSE 65; RESP 18; TEMP 36.8; O2SAT 95
[2019-07-11] MEDS: Heparin 5,000 UNITS/ML VIAL 5000 UNITS SC (06:45)
[2019-07-11] MEDS: Polyethylene Glycol 3350 17 GM PACKET PO (07:02)
[2019-07-11 07:05] LABS: Anion Gap 9.1 mmol/L (3-11); BUN 29 mg/dL (7-18); CO2 27.9 mmol/L (21.0-32.0); Calcium 9.6 mg/dL (8.5-10.1); Chloride 101 mmol/L (98-107); Estimated GFR 43.01 (mL/min/1.73m2); Glucose 185 mg/dL (70-100); Magnesium 2.5 mg/dL (1.8-2.4); Potassium 4.5 mmol/L (3.5-5.1); Sodium 138 mmol/L (136-145)
[2019-07-11 07:07] VITALS: PULSE 74
[2019-07-11 07:20] VITALS: BP 160/91; PULSE 69; RESP 17; TEMP 36; O2SAT 96
[2019-07-11] MEDS: Sertraline 50 MG TAB PO (08:53)
[2019-07-11] MEDS: Dexlansoprazole 30 MG CAP PO (08:53)
[2019-07-11] MEDS: amLODIPine 2.5 MG TAB PO (08:53)
[2019-07-11] MEDS: Cholecalciferol (Vitamin D3) 400 UNIT TAB PO (08:53)
[2019-07-11] MEDS: Furosemide 40 MG TAB PO (08:53)
[2019-07-11] MEDS: levETIRAcetam 500 MG TAB PO (08:53)
[2019-07-11] MEDS: Lisinopril 20 MG TAB 40 MG PO (08:53)
[2019-07-11] MEDS: Carvedilol 25 MG TAB PO (08:54)
[2019-07-11] MEDS: Clopidogrel 75 MG TAB PO (08:54)
[2019-07-11] MEDS: Insulin Aspart 300 UNITS/3 ML PEN SC ×2 (08:57→12:24)
[2019-07-11] MEDS: Cyanocobalamin 500 MCG TAB 1000 MCG PO (08:58)
--- NOTE | 2019-07-11 11:24 | DSE_ITS ---
Date of service: 07/11/19 Time of Service: 11:24 DS: Diagnosis Discharge Diagnosis (1) HTN (hypertension): Start date: 07/11/19 Start time: 11:24 Status: Chronic Asessment and Plan: Started on amlodipine will need follow up for titration by PCP. (2) UTI (urinary tract infection): Start date: 07/11/19 Start time: 11:24 Status: Acute Asessment and Plan: Finished a 5 day course of rocephin IV for UTI (3) Dizziness: Status: Resolved (4) CAD (coronary artery disease): Status: Chronic (5) Anxiety: Status: Acute (6) Diabetes: Status: Chronic (7) DVT prophylaxis: Status: Acute (8) Discharge planning issues: Status: Acute Discharge Plan Disposition Patient Disposition: HOME Condition: Stable Discharge Details Chief Complaint: CVA/TIA Clinical Impression: Dizziness, Occipital headache, Diaphoresis Reason For Visit: TIA, ACUTE VERTIGO Admit Date/Time: 07/07/19 17:43 Admit Provider: Douglas Mcgee Attending Provider: Douglas Mcgee Primary Care Provider: Yarely Lagos ED Provider: Twila Ludwig Hospital Course Hospital Course: 84 y.o [place] lady with PMH of left CVA, seizures following CVA, right sided weakness, and speech deficit and right facial dropping. Following her CVA she continued Keppra. On the morning of presentation the patient began to have a bilateral occipital headache with neck pain and then began to feel unsteady and dizzy falling to the ground without hurting herself. She was in the bathroom at the time. She also was diaphoretic. In the ED CT of the head and CTA of the h ead and neck were unrevealing. The patient's blood pressure was elevated upon presentation and improved without specific treatment in the ED. She does have chronic kidney disease which appears stable and chronically is on Lasix for edema. Other medical problems have been fairly stable except for unstable blood pressure and blood sugars recently. She had no seizure activity with this event and no new motor deficits. She chronically has slight decrease right hand grasp. She has not had vertigo or labyrinthitis in the past. She was slightly nauseated with this episode but this has not persisted and she had no vomiting. She was admitted to [facility] for TIA vs vertigo vs orthostatic hypotension vs migraine. During course of treatment patient MRI was negative for stroke, Negative CTA he ad exam. No occlusion or significant stenosis. No aneurysm. Negative for skull fracture or acute intracranial pathology. Right sphenoid chronic sinusitis with opacification of the adjacent right ethmoid air cells. CXR with no acute abnormality. Echo with normal LV function, EF 60-70% diastolic function undeterminite and RV normal. Dr. Morin evaluated patient, increased keppra, continue seroquel 50, switched to plavix and continue B vitamin. Also found to have a UTI started on a course of rocephin empirically. Symptoms have resolved. Blood pressure was elevated during hospital course with symptoms leading to HTN urgency, started on amlodipine as she had previously taken in the past and monitored on amlodipine over 24 hours with good results. Blood pressures have been ranging 100's systolically to 130's with one bp of 160 unlikely true bp given sequence of bp were lower. Daughter was concerned about blood pressure, spoke with daughter in length about bp and management when to take bp and when to call. Daughter feels more comfortable after discussion. Recommend follow up with PCP by a week for management of hypo/hypertension and medication. Denies CP, SOB, N/V/D. Follow up with neurology as scheduled. Home Meds and New Rx's Prescriptions: New amlodipine 2.5 mg Tablet 2.5 mg PO DAILY Qty: 30 RF: 0 Continued furosemide [Lasix] 40 MG tablet 40 mg PO DAILY Qty: 90 RF: 0 ergocalciferol (vitamin D2) 400 UNIT tablet 400 units PO DAILY RF: 0 clonazepam 0.5 MG tablet 0.5 mg PO HS PRN PRNRF: 0 sertraline 50 MG tablet 50 mg PO DAILY RF: 0 nitroglycerin 0.4 MG tablet, sublingual 0.4 mg Sublingual PRN PRNRF: 0 Dexilant 30 MG capsule,biphase delayed releas 30 mg PO DAILY RF: 0 carvedilol 25 MG tablet 25 mg PO BID RF: 0 levetiracetam [Keppra] 500 MG tablet 500 mg PO BID RF: 0 clopidogrel [Plavix] 75 MG tablet 75 mg PO DAILY RF: 0 famotidine 20 MG tablet 20 mg PO BID PRN PRNRF: 0 Novolog Flexpen U-100 Insulin 300 UNITS/3 ML insulin pen 0 units Sub-Q 0800,1200,1700 RF: 0 rosuvastatin [Crestor] 10 MG tablet 40 mg PO QPM RF: 0 cyanocobalamin (vitamin B-12) 2,500 MCG tablet,chewable 1,000 mcg PO DAILY Qty: 30 RF: 0 metformin 500 MG tablet 1,000 mg PO BID@0800,1700 RF: 0 lisinopril 20 MG tablet 40 mg PO DAILY Qty: 30 RF: 0 mometasone [Nasonex] 17 GM spray,non-aerosol 1 spray IN DAILY RF: 0 Levemir FlexTouch U-100 Insuln 300 UNITS/3 ML insulin pen 50 units Sub-Q BID@0800,2000 RF: 0 eykfgwprziy-ixpcrbxse-tye C-Mn [Glucosamine 1500 Complex] 1 EACH capsule 1 tab PO DAILY RF: 0 Discharge Instructions Instructions: Urinary Tract Infection in Women (GEN), Syncope (GEN), Hypotension (GEN), DASH Eating Plan (GEN), Low Sodium Diet (GEN), Hypertensive Crisis (GEN), Hypertension (GEN), Anxiety (GEN) Additional Instructions: Take blood pressure in the morning 30 minutes after waking up and taking blood pressure pills. Take blood pressure again in the evening before bed. If blood pressure is increasing over several readings greater than 150 or lower than [address] Lagos. If you are having dizziness, chest pain, shortness of breath and an elevated blood pressure go to the emergency room. Follow up with Dr. Lagos in 1 week. She will monitor your blood pressure and your medication regimen. Follow up with neurology as scheduled. Continue seroquel, vitamin B. Take plavix as scheduled. Follow a low sodium diet. Stand Alone Forms: Nursing Discharge Form Referrals: Yarely Lagos MD [Primary Care Provider] - Activity:: Activity as Tolerated Equipment/Supplies:: No Equipment Needed Diet:: As Tolerated Discharge Orders Discharge Orders: Discharge Order (Routine); Ordered 07/11/19 Ordered By: Florina Ackerman DS: Summary Status at Discharge Functional status at discharge: independent ambulation Overall status at discharge: patient is back to baseline Mental Status: mental status grossly normal Speech and Movement: other Mood: anxious mood Affect: normal affect Time Spent with Patient providing and/or coordinating discharge services: Greater than 30 minutes Exam Narrative Exam Narrative: General: A&Ox3, looks comfortable laying flat in bed, HEENT: EOMI, MMM Heart: RRR, no m/r/g Lungs: CTAB GI: abdomen is soft, tender in LUQ, nondistended Extremities: no e/c/c BLE's. Psych Mental Status: mental status grossly normal Speech and Movement: other Mood: anxious mood Affect: normal affect DS: Data Vitals/I&O Vitals and I&O: Vital Signs Temperature 36 C L 07/11/19 07:20 Temperature Source Tympanic 07/11/19 07:20 Pulse 69 07/11/19 07:20 Pulse Rhythm Regular 07/11/19 09:03 Pulse 103 H 07/05/19 18:40 Respiratory Rate 17 07/11/19 07:20 Respiratory Effort 07/11/19 09:03 Respiratory Depth Normal 07/11/19 09:03 Respiratory Pattern Normal 07/11/19 09:03 Blood Pressure 160/91 H 07/11/19 07:20 Blood Pressure Mean 101 07/05/19 18:31 Blood Pressure Position Supine 07/05/19 12:31 Pulse Oximetry 96 07/11/19 07:20 Oxygen Delivery Method Room Air 07/11/19 07:20 Oxygen Flow Rate 0 07/11/19 07:20 Pain Level 0 07/11/19 07:20 Comment 07/10/19 10:58 Intake & Output 07/10/19 07/10/19 07/11/19 11:59 23:59 11:59 Intake Total 480 / 930 450 / 930 Output Total 300 / 1750 1450 / 1750 Balance 180 / -820 -1000 / -820 Weight 87 kg 87.4 kg Intake: Oral 480 / 930 450 / 930 Output: Urine 300 / 1750 1450 / 1750 Other: Urine Color Yellow Yellow Urine Appearance Clear Clear Clear Urine Odor Normal Normal Voiding Methods Bedside Commode Bedside Commode Data Completed and Pending Completed studies during hospitalization [Text1]: Exam(s) [id number] RAD:Chest 2 Views PA,Lat [id number] CT:Head for Stroke Protocol SYMPTOMS/DIAGNOSIS: ALTERED MENTAL STATUS, BALANCE ISSUES CHEST X-RAY, AP AND LATERAL: The heart size and pulmonary vasculature are within normal limits. The lungs are clear and well expanded. No effusions or pneumothoraces are identified. There has been no significant change compared to the prior examination. There is underlying COPD. Degenerative changes are seen in the spine. IMPRESSION: No acute pulmonary process. CT BRAIN, NONCONTRAST: Comparison is 09/07/16. The ventricles and sulci are prominent consistent with the patient's age. There is a decreased attenuation in the white matter consistent with small vessel ischemic disease. There are old lacunar infarcts seen in the right basal ganglia. There is no evidence of intracranial hemorrhage or infarct. No midline shift or mass effect is present. The visualized paranasal sinuses are clear. The mastoid air cells are well pneumatized. The calvarium is intact. IMPRESSION: No acute intracranial process. [id number] RAD:Chest 2 Views PA,Lat [id number] CT:Head for Stroke Protocol SYMPTOMS/DIAGNOSIS: ALTERED MENTAL STATUS, BALANCE ISSUES CHEST X-RAY, AP AND LATERAL: The heart size and pulmonary vasculature are within normal limits. The lungs are clear and well expanded. No effusions or pneumothoraces are identified. There has been no significant change compared to the prior examination. There is underlying COPD. Degenerative changes are seen in the spine. IMPRESSION: No acute pulmonary process. CT BRAIN, NONCONTRAST: Comparison is 09/07/16. The ventricles and sulci are prominent consistent with the patient's age. There is a decreased attenuation in the white matter consistent with small vessel ischemic disease. There are old lacunar infarcts seen in the right basal ganglia. There is no evidence of intracranial hemorrhage or infarct. No midline shift or mass effect is present. The visualized paranasal sinuses are clear. The mastoid air cells are well pneumatized. The calvarium is intact. IMPRESSION: No acute intracranial process. Exam(s) [id number] US:Carotid SYMPTOM/DIAGNOSIS: TIA CAROTID ULTRASOUND: Routine examination. The study is somewhat limited due to difficult patient cooperation. There is mild calcific plaque seen bilaterally. No hemodynamically significant velocity elevations are present. The vertebral arteries are antegrade. Incidental note is made of tortuous right internal and external carotid arteries. IMPRESSION: No hemodynamically significant cervical carotid artery stenosis. Exam(s) [id number] MRI:Brain WO [id number] MRI:MRA Brain WO SYMPTOMS/DIAGNOSIS: TIA, H/O LACUNAR INFARCTS MRI OF THE BRAIN: Routine noncontrast examination was performed. Comparison CT scan is 07/08/17. There is prominence of the ventricles and sulci consistent with the patient's age. There are multiple areas of T 2 hyperintensity in the white matter most consistent with small vessel ischemic disease. The diffusion weighted images show no evidence of an acute infarct. No intracranial hemorrhage is present. There is no acute midline shift or mass effect. No intracranial mass is appreciated. The visualized paranasal sinuses are clear. There does appear to be a normal flow void in the [place]. IMPRESSION: 1. Cerebral atrophy and small vessel ischemic disease. 2. No evidence of an acute infarct. MRA OF THE [place] OF [place]: Routine examination was performed. The distal internal carotid arteries are patent. There is mild narrowing of the distal left internal carotid artery but no significant stenosis is present. The anterior cerebral arteries are patent without significant stenosis, aneurysm or occlusion. The middle cerebral arteries are patent and symmetric without evidence of significant stenosis or occlusion. The posterior cerebral arteries are patent without evidence of significant stenosis, occlusion or aneurysm. The basilar artery is patent without evidence of stenosis, occlusion or aneurysm. IMPRESSION: No significant occlusion or stenosis is seen on the MRA of the [place]. Exam(s) [id number] MRI:Brain WO [id number] MRI:MRA Brain WO SYMPTOMS/DIAGNOSIS: TIA, H/O LACUNAR INFARCTS MRI OF THE BRAIN: Routine noncontrast examination was performed. Comparison CT scan is 07/08/17. There is prominence of the ventricles and sulci consistent with the patient's age. There are multiple areas of T 2 hyperintensity in the white matter most consistent with small vessel ischemic disease. The diffusion weighted images show no evidence of an acute infarct. No intracranial hemorrhage is present. There is no acute midline shift or mass effect. No intracranial mass is appreciated. The visualized paranasal sinuses are clear. There does appear to be a normal flow void in the [place]. IMPRESSION: 1. Cerebral atrophy and small vessel ischemic disease. 2. No evidence of an acute infarct. MRA OF THE [place] OF [place]: Routine examination was performed. The distal internal carotid arteries are patent. There is mild narrowing of the distal left internal carotid artery but no significant stenosis is present. The anterior cerebral arteries are patent without significant stenosis, aneurysm or occlusion. The middle cerebral arteries are patent and symmetric without evidence of significant stenosis or occlusion. The posterior cerebral arteries are patent without evidence of significant stenosis, occlusion or aneurysm. The basilar artery is patent without evidence of stenosis, occlusion or aneurysm. IMPRESSION: No significant occlusion or stenosis is seen on the MRA of the [place]. Exam(s) [id number] MRI:Brain WO [id number] MRI:MRA Brain WO SYMPTOMS/DIAGNOSIS: TIA, H/O LACUNAR INFARCTS MRI OF THE BRAIN: Routine noncontrast examination was performed. Comparison CT scan is 07/08/17. There is prominence of the ventricles and sulci consistent with the patient's age. There are multiple areas of T 2 hyperintensity in the white matter most consistent with small vessel ischemic disease. The diffusion weighted images show no evidence of an acute infarct. No intracranial hemorrhage is present. There is no acute midline shift or mass effect. No intracranial mass is appreciated. The visualized paranasal sinuses are clear. There does appear to be a normal flow void in the [place]. IMPRESSION: 1. Cerebral atrophy and small vessel ischemic disease. 2. No evidence of an acute infarct. MRA OF THE [place] OF [place]: Routine examination was performed. The distal internal carotid arteries are patent. There is mild narrowing of the distal left internal carotid artery but no significant stenosis is present. The anterior cerebral arteries are patent without significant stenosis, aneurysm or occlusion. The middle cerebral arteries are patent and symmetric without evidence of significant stenosis or occlusion. The posterior cerebral arteries are patent without evidence of significant stenosis, occlusion or aneurysm. The basilar artery is patent without evidence of stenosis, occlusion or aneurysm. IMPRESSION: No significant occlusion or stenosis is seen on the MRA of the [place]. *STUDY CONCLUSIONS* Summary: 1. Left ventricle: The cavity size was normal. Wall thickness was increased increased in a pattern of mild to moderate LVH. Systolic function was normal. The estimated ejection fraction was 60-65%. Wall motion was normal; there were no regional wall motion abnormalities. 2. Ascending aorta: The ascending aorta was mildly dilated. 3. Right ventricle: The cavity size was normal. Wall thickness was normal. Systolic function was normal. Exam(s) a CT:CT brain & neck CTA EXAM: CT BRAIN NECK CTA CLINICAL HISTORY: dizzy, [place]. TECHNIQUE: COMPARISON: RENAL COLIC WO CONTRAST from 07/05/2017 FINDINGS: CT angiography the cervical cranial region was intravenous infusion of cc of Omnipaque 3. Images obtained through lung apices are unremarkable. Tracheolaryngeal struct ures appear intact. Partial opacification of ethmoid and sphenoid sinuses on the right consistent with chronic and/or acute sinusitis. Orbital structures are unremarkable. No cervical mass or adenopathy. Visualized aortic arch is unremarkable. There is wall calcification the distal common carotid arteries and internal carotid arteries bilaterally without significant stenosis. Calcification also noted in cavernous portions of internal carotid arteries bilaterally with is stenosis less than 50 percent luminal diameter. Hypoplastic right vertebral artery noted. Left vertebral remarkable in appearance with no aneurysm sterno cysts or dissection. Slight wall calcification of the distal vertebral and the basilar artery noted. Intracranially the anterior middle and posterior cerebral arteries and major branches are unremarkable with no evidence of stenosis aneurysm or dissection. IMPRESSION: No hemodynamically significant stenosis identified in the visualized cervical cranial circulation. Hypoplastic right vertebral artery noted. Patient Name: Sofia HANCOCK #: [id number]: MS Ordering Provider: Twila Ludwig M.D. : ADM LIZETT Primary Care Provider: Yarely Lagos M.D.Date of Exam: 07/05/19Sex: F Admission Date: 07/05/19 : 1935 Age: 84 Exam(s) a RAD:XR chest 2V PA & lateral EXAM: XR CHEST 2V PA LATERAL INDICATION: chest pain. COMPARISON: CHEST 2 VIEWS PA,LAT from 07/08/2017 TECHNIQUE: 2D digital imaging was performed. FINDINGS: The lungs are well expanded and free of infiltrate. There is no evidence of a pleural effusion or pneumothorax. IMPRESSION: No evidence of acute cardiopulmonary disease. Patient Name: Sofia HANCOCK #: [id number]: ER Ordering Provider: : REG ER Primary Care Provider: Yarely Lagos M.D.Date of Exam: 07/05/19Sex: F : 1935ge: 84 Exam(s) Addendum created by Tiny Clark MD on 07/05/2019 5:20:23 PM EDT Results discussed with TWILA Obrien at 07/05/2019 5:19 PM EDT. Initial report created on 07/05/2019 4:46:48 PM EDT PROCEDURE INFORMATION: Exam: CT Angiography Head With Contrast Exam date and time: 07/05/2019 1:27 PM Clinical history: 84 years old, female; Syncope and collapse TECHNIQUE: Imaging protocol: Computed tomography angiography of the head with intravenous contrast. 3D rendering: MIP reconstructed images were created and reviewed. COMPARISON: CT HEAD WITHOUT STROKE PROTOCOL 07/08/2017 2:11 PM FINDINGS: Normal variant complete unga of [place]. Right internal carotid artery: Calcifications along the wall of the intracranial portions of the right internal carotid artery without significant stenosis. No occlusion. No aneurysm. Right anterior cerebral artery: Unremarkable. No occlusion or significant stenosis. No aneurysm. Right middle cerebral artery: Unremarkable. No occlusion or significant stenosis. No aneurysm. Right posterior cerebral artery: Unremarkable. No occlusion or significant stenosis. No aneurysm. 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 Left internal carotid artery: Calcifications along the wall of the intracranial portions of the left internal carotid artery without significant stenosis. No occlusion. No aneurysm. Left anterior cerebral artery: Unremarkable. No occlusion or significant stenosis. No aneurysm. Left middle cerebral artery: Unremarkable. No occlusion or significant stenosis. No aneurysm. Left posterior cerebral artery: Unremarkable. No occlusion or significant stenosis. No aneurysm. Left vertebral artery: Calcifications along the intracranial left vertebral artery without significant stenosis. No occlusion. No aneurysm. Basilar artery: Basilar artery is formed from the tortuous left vertebral artery. No occlusion or significant stenosis. No aneurysm. HEAD: Sinuses: There is diffuse mucoperiosteal thickening in the right sphenoid sinus and now complete opacification of the posterior right ethmoid air cells. Brain: Age-related atrophy and chronic white matter ischemic changes, with no evidence of an acute intracranial abnormality. Causey-white differentiation is maintained. No evidence of acute territorial infarction. No mass effect or midline shift. No hemorrhage. Labs on day of discharge: Labs from last 24 hours 07/11/19 07/10/19 06:43 11:08 Sodium 138 135 L Potassium 4.5 4.3 Chloride 101 99 Carbon Dioxide 27.9 25.3 Anion Gap 9.1 10.7 BUN 29 H 24 H Creatinine 1.20 H 1.06 H Estimated GFR/1.73 m2 43.01 49.63 Glucose 185 H D 294 H D Calcium 9.6 9.1 Magnesium 2.5 H 2.2 PFS Medical History Anxiety (Acute) Asthma (Chronic) CAD (coronary artery disease) (Chronic) Diabetes (Chronic) HTN (hypertension) (Chronic) Hyperlipidemia (Acute) Hypothyroidism (Chronic) Primary osteoarthritis of left knee (Chronic) Injected: 03/02/2019 Primary osteoarthritis of right knee (Chronic) Injected: 03/02/2019 Seizures (Acute) ?2017 TIA (transient ischemic attack) (Acute) ?2017 Surgical History History of coronary artery stent placement (Chronic) Family History Mother Stroke Father Heart disease Social History Smoking/Tobacco Use Status: Never Alcohol Intake: never Drug use: Never Substance use type: does not use and former substance user Household members: children Number of Children: 2 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 She does not speak Kyrgyz. She lives with her daughter. She has two children, both here in the [facility] and locally in [place]. She is . 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
[2019-07-11 11:54] VITALS: BP 137/66; PULSE 79; RESP 18; TEMP 36.6; O2SAT 93
[2019-07-11 13:24] VITALS: PULSE 83
--- NOTE | 2019-07-11 20:15 | PDOC.CMDIS ---
- If Service Date Differs Date of service: 07/11/19 Time of Service: 20:15 LACE Index Scoring Tool - Questions: Length of Stay (in days): 4 - 6 Acuity (Admit via E.D.?): Yes Comorbidities: Diabetes w/o Complication E.D. Visits: 1 - Answers: Total Score: 9 Risk of Readmission: Low Risk Care Management Discharge Reason for Hospitalization: TIA, acute vertigo Discharge Plan: Mitch will be discharged home and resume Home Health services through [facility] with new Home Health PT/OT. Family members will transport patient home upon discharge.She will follow up with her PCP and discharge plan of care. Patient/Family Education Needs: Discharge plan, limitations, follow up plan, Ask Me Three.
== END 2019-07-11 13:41 | disposition home or self-care (01) | DRG 149 ==
LOC: ER 17:30 → MS 19:23
PROVIDERS: Internal Medicine; Admitting Provider Family Medicine; Emergency Provider Student in an Organized Health Care Education/Training Program; PCP Family Medicine; Visit Provider Internal Medicine
DX: R42 Dizziness and giddiness (principal); I69.351 Hemiplegia and hemiparesis following cerebral infarction affecting right dominant side; E86.0 Dehydration; I95.1 Orthostatic hypotension; R51 Headache; R61 Generalized hyperhidrosis; I69.398 Other sequelae of cerebral infarction; I69.328 Other speech and language deficits following cerebral infarction; I69.392 Facial weakness following cerebral infarction; R56.9 Unspecified convulsions; N18.9 Chronic kidney disease, unspecified; J32.3 Chronic sphenoidal sinusitis; Z79.4 Long term (current) use of insulin; E11.9 Type 2 diabetes mellitus without complications; I25.10 Atherosclerotic heart disease of native coronary artery without angina pectoris; I10 Essential (primary) hypertension; E78.5 Hyperlipidemia, unspecified; E03.9 Hypothyroidism, unspecified; G47.33 Obstructive sleep apnea (adult) (pediatric); F41.8 Other specified anxiety disorders; Z71.3 Dietary counseling and surveillance
CPT/HCPCS: 36415; 36416; 70496; 70498; 80048; 80053; 82962; 85027; 87077; 93306; 96360; 97163; 97166; 97530; 97535; 99215; 99220; 99223; 99232; 99239; 99285; 70551; 71045; 71046; 81003; 81015; 83735; 84443; 84484; 85025; 85610; 87086; 87186; 93005; 93010; 99225; G0378; J0696; J1644; J1941; J3490

== ENCOUNTER → 2019-07-06 11:19 | Outpatient (BNVA) | payer MEDICARE, MEDICAID, SELFPAY | PROVIDERS: PCP Family Medicine; Referring Provider Family Medicine; Visit Provider Psychiatry & Neurology Neurology | DX: R69 Illness, unspecified (principal) ==

== ENCOUNTER 2019-07-16 10:47 | Outpatient (REF) | payer MEDICARE, MEDICAID, SELFPAY ==
[2019-07-16 11:54] LABS: HCT 40.3 % (36.0-46.0); HGB 13.4 g/dL (12.0-15.5); Mean Corp. HGB Concentration 33.3 g/dL (32.0-36.0); Mean Corpuscular Volume 84.1 fL (80-95); Mean Platelet Volume 9.9 fL (8.0-11.0); Platelet Count 430 x1000/uL (130-400); RBC 4.79 m/cumm (4.00-5.20); RBC Distribution Width 13.7 % (11.7-14.6); White Blood Cell Count 7.33 k/cumm (4.4-10.8)
[2019-07-16 12:33] LABS: Iron 57 ug/dL (50-175); Total Iron Binding Capacity 455 ug/dL (250-450); Transferrin Sat 13 % (15-50)
[2019-07-16 13:04] LABS: Anion Gap 13.8 mmol/L (3-11); BUN 43 mg/dL (7-18); CO2 22.2 mmol/L (21.0-32.0); CREATININE 1.22 mg/dL (0.55-1.02); Calcium 9.5 mg/dL (8.5-10.1); Chloride 98 mmol/L (98-107); Ferritin 28 ng/mL (8-388); Folate > 20.0 ng/mL (8.6-20.0); Glucose 164 mg/dL (70-100); Sodium 134 mmol/L (136-145); Vitamin B12 1504 pg/mL (193-986)
== END 2019-07-16 11:07 ==
LOC: NCHCN 10:47
PROVIDERS: PCP Family Medicine; Visit Provider Family Medicine
DX: D64.9 Anemia, unspecified (principal)
CPT/HCPCS: 80048; 85027; 82607; 82728; 82746; 83540; 83550

== ENCOUNTER 2019-08-05 08:28 | Outpatient (REF) | payer MEDICARE, MEDICAID, SELFPAY ==
[2019-08-05 10:29] LABS: Bilirubin Negative (Negative); Blood Negative (Negative); Clarity Clear (Clear); Glucose Negative (Negative); Ketones Negative (Negative); Leukocyte Esterase Negative (Negative); Nitrite Negative (Negative); Urobilinogen 0.2 EU/dL (Up TO 0.2); pH 5.5 (5-8)
== END 2019-08-05 08:48 ==
LOC: NCHCN 08:28
PROVIDERS: PCP Family Medicine; Visit Provider Family Medicine
DX: N39.0 Urinary tract infection, site not specified (principal)
CPT/HCPCS: 81003

== ENCOUNTER 2019-08-13 13:47 | Outpatient (REF) | payer MEDICARE, MEDICAID, SELFPAY ==
[2019-08-13 18:38] LABS: Anion Gap 12.7 mmol/L (3-11); BUN 22 mg/dL (7-18); CO2 25.3 mmol/L (21.0-32.0); CREATININE 1.08 mg/dL (0.55-1.02); Calcium 9.6 mg/dL (8.5-10.1); Chloride 100 mmol/L (98-107); Estimated GFR 48.57 (mL/min/1.73m2); Glucose 176 mg/dL (70-100); Potassium 5.2 mmol/L (3.5-5.1); Sodium 138 mmol/L (136-145)
[2019-08-13 18:46] LABS: Hemoglobin A1C 7.5 % (4.5-6.2)
== END 2019-08-13 14:07 ==
LOC: NCHCN 13:47
PROVIDERS: PCP Family Medicine; Visit Provider Family Medicine
DX: E11.9 Type 2 diabetes mellitus without complications (principal); I10 Essential (primary) hypertension
CPT/HCPCS: 80048; 83036

== ENCOUNTER 2019-10-22 13:27 | Outpatient (REF) | payer MEDICARE, MEDICAID, SELFPAY ==
[2019-10-22 18:42] LABS: Hemoglobin A1C 7.2 % (3.8-5.6)
[2019-10-22 18:50] LABS: Anion Gap 11.6 mmol/L (3-11); BUN 23 mg/dL (7-18); CO2 25.4 mmol/L (21.0-32.0); CREATININE 1.02 mg/dL (0.55-1.02); Calcium 9.1 mg/dL (8.5-10.1); Chloride 99 mmol/L (98-107); Estimated GFR 51.88 (mL/min/1.73m2); Ferritin 20 ng/mL (8-252); Glucose 192 mg/dL (74-106); Potassium 4.3 mmol/L (3.5-5.1); Sodium 136 mmol/L (136-145)
== END 2019-10-22 13:47 ==
LOC: NCHCN 13:27
PROVIDERS: PCP Family Medicine; Visit Provider Family Medicine
DX: E11.9 Type 2 diabetes mellitus without complications (principal); D64.9 Anemia, unspecified; I10 Essential (primary) hypertension
CPT/HCPCS: 80048; 82728; 83036

== ENCOUNTER 2020-03-17 09:28 | Outpatient (REF) | payer MEDICARE, MEDICAID, SELFPAY ==
[2020-03-17 16:28] LABS: HCT 38.7 % (36.0-46.0); HGB 12.7 g/dL (12.0-15.5); Mean Corp. HGB Concentration 32.8 g/dL (32.0-36.0); Mean Corpuscular Hemoglobin 28.2 pg (27.0-33.0); Mean Platelet Volume 10.6 fL (8.0-11.0); Platelet Count 291 x1000/uL (130-400); RBC Distribution Width 13.3 % (11.7-14.6); White Blood Cell Count 7.73 k/cumm (4.4-10.8)
[2020-03-17 16:45] LABS: ALT 24 U/L (14-59); AST 21 U/L (15-37); Albumin 4.1 g/dL (3.4-5.0); Alkaline Phosphatase 139 U/L (46-116); Anion Gap 13.7 mmol/L (3-11); BUN 28 mg/dL (7-18); Bilirubin, Total 0.4 mg/dL (0.2-1.0); CO2 20.3 mmol/L (21.0-32.0); CREATININE 1.17 mg/dL (0.55-1.02); Calcium 9.2 mg/dL (8.5-10.1); Chloride 100 mmol/L (98-107); Estimated GFR 44.28 (mL/min/1.73m2); Glucose 186 mg/dL (74-106); Potassium 4.7 mmol/L (3.5-5.1); Sodium 134 mmol/L (136-145); Total Protein 7.3 g/dL (6.4-8.2)
[2020-03-17 17:44] LABS: Hemoglobin A1C 7.9 % (3.8-5.6)
== END 2020-03-17 09:48 ==
LOC: NCHCN 09:28
PROVIDERS: PCP Family Medicine; Visit Provider Family Medicine
DX: I10 Essential (primary) hypertension (principal); E11.9 Type 2 diabetes mellitus without complications; I25.10 Atherosclerotic heart disease of native coronary artery without angina pectoris
CPT/HCPCS: 80053; 85027; 83036

== ENCOUNTER 2020-11-01 14:50 | Outpatient (REF) | payer MEDICARE, MEDICAID, SELFPAY ==
[2020-11-01 13:30] LABS: HCT 37.3 % (36.0-46.0); HGB 11.9 g/dL (11.2-15.7); MCH 26.9 pg (27.0-33.0); MCHC 31.9 % (32.0-36.0); MCV 84.2 fL (80-95); Platelet Count 295 10^3/uL (130-400); RBC 4.43 10^6/uL (3.93-5.22); RDW 13.9 % (11.7-14.6); RDW-SD 43.1 fL; WBC 7.54 10^3/uL (4.4-10.8)
[2020-11-01 14:06] LABS: Hemoglobin A1C 7.8 % (<5.7)
[2020-11-01 14:30] LABS: ALT 20 U/L (14-59); AST 11 U/L (15-37); Albumin 3.7 g/dL (3.4-5.0); Alkaline Phosphatase 103 U/L (46-116); BUN 29 mg/dL (7-18); Bilirubin, Total 0.4 mg/dL (0.2-1.0); CREATININE 1.3 mg/dL (0.55-1.02); Calcium 9.5 mg/dL (8.5-10.1); Chloride 99 mmol/L (98-107); Estimated GFR 39.12 (mL/min/1.73m2); Glucose 276 mg/dL (74-106); Potassium 4.6 mmol/L (3.5-5.1); Sodium 134 mmol/L (136-145); TSH (W/Ref FT4) 1.61 uIU/mL (0.36-3.74)
== END 2020-11-01 14:51 | disposition home or self-care (01) ==
LOC: NCHCN 14:50
PROVIDERS: PCP Family Medicine; Visit Provider Family Medicine
DX: E11.9 Type 2 diabetes mellitus without complications (principal); I10 Essential (primary) hypertension; F41.8 Other specified anxiety disorders; D64.9 Anemia, unspecified
CPT/HCPCS: 80053; 85027; 83036; 84443

== ENCOUNTER 2020-11-09 21:30 | Emergency (ER) | payer MEDICARE, MEDICAID, SELFPAY ==
--- NOTE | 2020-11-09 21:30 | RT.EKG_ITS ---
APPROVED REPORT Exam: Resting ECG Patient Location: E HR:87 bpm ECG Measurements Heart Rate 87 AXIS SC 199 P 34 QRSd 95 QRS -39 QT 377 T 29 QTc 455 Conclusion Sinus arrhythmia...V-rate 68- 96, variation>10% Inferior infarct, old...Q >35mS, II III aVF Physician: Rate 87, sinus rhythm, intervals normal, no significant ST elevations or depressions, poss ible Q-wave in lead III and aVF. No other significant abnormalities. No STEMI.
[2020-11-09 21:35] VITALS: BP 119/57; PULSE 83; RESP 18; TEMP 36.4; O2SAT 97
[2020-11-09 21:40] VITALS: RESP 18
[2020-11-09] MEDS: Normal Saline 1,000 ML 1000 ML IV (22:20)
[2020-11-09 22:30] LABS: Abs Immature Grans 0.13 10^3/uL (0.0-0.06); Absolute Basophil Count 0.03 10^3/uL (0.0-0.2); Absolute Monocyte Count 1.17 10^3/uL (0.1-0.8); Basophils % 0.2; HCT 34.6 % (36.0-46.0); HGB 11.3 g/dL (11.2-15.7); Immature Grans % 0.9; Lymphocytes % 4.1; MCH 26.6 pg (27.0-33.0); MCHC 32.7 % (32.0-36.0); MCV 81.4 fL (80-95); Monocytes % 8.2; Neutrophils % 86.6; Nucleated RBC 0 %; Platelet Count 261 10^3/uL (130-400); RBC 4.25 10^6/uL (3.93-5.22); RDW 14.2 % (11.7-14.6); RDW-SD 41.9 fL; WBC 14.26 10^3/uL (4.4-10.8)
[2020-11-09 22:31] LABS: Absolute Lymphocyte Count 0.58 10^3/uL (1.2-3.4); Absolute Neutrophil Count 12.35 10^3/uL (1.2-6.7)
[2020-11-09] MEDS: Ondansetron 4 MG/2 ML VIAL IVP (22:32)
[2020-11-09 22:36] LABS: Lactate 5.7 mmol/L (0.6-1.4)
[2020-11-09 22:43] LABS: Source Nasopharynx
[2020-11-09 22:44] LABS: INR 1.1 (0.9-1.1); PTT Activated 20.3 sec (21.0-27.5)
--- NOTE | 2020-11-09 22:47 | DI.CT_ITS ---
EXAM: CT CHEST/ABD/PEL WO CLINICAL HISTORY: chest pain, vomiting, diarrhea, RUQ and flank pain. TECHNIQUE: Imaging Protocol: Axial computed tomography images with coronal and sagittal reformatted images were created and reviewed CONTRAST MATERIAL: Noncontrast COMPARISON: CT CHEST WITHOUT CONTRAST from 03/01/2017 CT RENAL COLIC WO CONTRAST from 07/05/2017 FINDINGS: CHEST: Thyroid: Normal. Tracheobronchial tree: Patent where visualized. Mediastinum and Shruthi: No dominant adenopathy or fluid collection. Pulmonary parenchyma: Respiratory motion. Dependent changes. Stable 6 millimeter nodule left lower lobe. Stable area of scarring in the inferior right middle lobe medially.. Pleura: No effusion or pneumothorax. Lymph nodes: Within normal limits. Aorta: Thoracic portion non-dilated. Ectatic and calcified. Heart: Normal size. Heavily calcified coronary arteries. Bones: Degenerative changes. No evidence of fracture, lytic or blastic lesion. ABDOMEN: There is respiratory motion at the upper and midportion of the abdomen. Liver: Normal density. No measurable mass. Gallbladder and biliary tract: There are fiber 6 stones in the gallbladder. There is no abnormal gal lbladder distention, wall thickening or pericholecystic fluid. The common bile duct shows multiple stones and is dilated to 12 millimeters. A small diverticulum is again noted of the descending duode num. Pancreas: Normal density, no abnormal calcifications or inflammatory process. Spleen: Normal. Kidneys: Normal size, contour and axis. No radiodense stones or obstructive uropathy. No masses seen. Adrenal glands: No masses seen. Aorta: Abdominal portion non-dilated. Heavily calcified. Lymph nodes: Within normal limits. PELVIS: Bladder: Symmetric distention, no gross wall thickening. Bowel: Mild sigmoid diverticulosis. No obstruction or bowel wall thickening. Normal appendix. Peritoneal cavity: No ascites, collection or mesenteric inflammatory response. Bones: Degenerative disc changes and facet degenerative changes Reproductive organs: Calcified uterine fibroids. Soft tissues: Edema in the anterior abdominal wall consistent with a injection sites IMPRESSION: Stable 6 millimeter nodule at the left lower lobe. No follow-up is indicated. Choledocholithiasis and cholelithiasis. No evidence of acute cholecystitis. RADIATION DOSE DELIVERED: 1,516.06mGy.cm Total DLP DATA REPOSITORY: All CT scans at this facility are submitted to the National Radiology Data Registry (NRDR) Dose Index Registry (DIR) with the [employer] ([employer]). RADIATION OPTIMIZATION: All CT scans at this facility use at least one of these dose optimization te chniques: automated exposure control; mA and/or kV adjustment per patient size (includes targeted exa ms where dose is matched to clinical indication); or iterative reconstruction.
[2020-11-09 22:50] LABS: ALT 352 U/L (14-59); AST 597 U/L (15-37); Albumin 3.5 g/dL (3.4-5.0); Alkaline Phosphatase 141 U/L (46-116); Anion Gap 15.2 mmol/L (3-11); BUN 22 mg/dL (7-18); Bilirubin, Total 2.3 mg/dL (0.2-1.0); CO2 20.8 mmol/L (21.0-32.0); CREATININE 1.4 mg/dL (0.55-1.02); Calcium 8.8 mg/dL (8.5-10.1); Chloride 97 mmol/L (98-107); Estimated GFR 35.91 (mL/min/1.73m2); Glucose 207 mg/dL (74-106); Lipase 154 U/L (73-393); Potassium 3.8 mmol/L (3.5-5.1); Sodium 133 mmol/L (136-145)
--- NOTE | 2020-11-09 22:53 | ED.GENADUL_ITS ---
Discharge Plan Disposition Patient Disposition: [facility] Condition: Serious Discharge Details Clinical Impression: Choledocholithiasis, Ascending cholangitis, Septic shock, Transaminitis Primary Care Provider: Yarely Lagos ED Provider: Steve Mcginnis Home Meds and New Rx's Prescriptions: No Action furosemide [Lasix] 40 MG tablet 40 mg PO DAILY Qty: 90 RF: 0 ergocalciferol (vitamin D2) 400 UNIT tablet 400 units PO DAILY RF: 0 clonazepam 0.5 MG tablet 0.5 mg PO HS PRN PRNRF: 0 sertraline 50 MG tablet 50 mg PO DAILY RF: 0 nitroglycerin 0.4 MG tablet, sublingual 0.4 mg Sublingual PRN PRNRF: 0 carvedilol 25 MG tablet 25 mg PO BID RF: 0 levetiracetam [Keppra] 500 MG tablet 500 mg PO BID RF: 0 clopidogrel [Plavix] 75 MG tablet 75 mg PO DAILY RF: 0 insulin aspart U-100 [Novolog Flexpen U-100 Insulin] 300 UNITS/3 ML insulin pen 0 units Sub-Q 0800,1200,1700 RF: 0 rosuvastatin [Crestor] 10 MG tablet 40 mg PO QPM RF: 0 cyanocobalamin (vitamin B-12) 2,500 MCG tablet,chewable 1,000 mcg PO DAILY Qty: 30 RF: 0 amlodipine 2.5 mg Tablet 2.5 mg PO DAILY Qty: 30 RF: 0 sucralfate 1 gram Tablet 1 g RF: 0 esomeprazole magnesium [Nexium] 20 mg Capsule,Delayed Release(Dr/Ec) RF: 0 metformin 500 MG tablet 1,000 mg PO BID@0800,1700 RF: 0 lisinopril 20 MG tablet 40 mg PO DAILY Qty: 30 RF: 0 mometasone [Nasonex] 17 GM spray,non-aerosol 1 spray IN DAILY RF: 0 Levemir FlexTouch U-100 Insuln 300 UNITS/3 ML insulin pen 50 units Sub-Q BID@0800,2000 RF: 0 rslzdyobwhz-[id number]-hvb C-Mn [Glucosamine 1500 Complex] 1 EACH capsule 1 tab PO DAILY RF: 0 Medical Decision Making Upon my evaluation, this patient had a high probability of imminent or life- threatening deterioration, which required my direct attention, intervention, and personal management. I have personally provided 45 minutes of critical care time exclusive of time spent on separately billable procedures. Time includes review of laboratory data, radiology results, discussion with consultants, and monitoring for potential decompensation. Interventions were performed as documented. 85-year-old female with a past medical history of coronary artery disease on Plavix, hypertension, diabetes, high cholesterol, hypothyroidism, previous TIA, seizures on Keppra, who comes in today for evaluation of upper abdominal pain and not feeling well. Patient does not speak Guatemalan, her daughter is here for translation. Per daughter and patient she has not been feeling well for the last few days, and today she had mild right upper quadrant and left upper quadrant radiating to the back pain she describes as achy and sharp. She had multiple episodes of vomiting and diarrhea, both of which were nonbloody, nonmelanotic. She did have an episode of diaphoresis, and lightheadedness with these episodes of nausea and vomiting and pain. She is brought in by EMS for further evaluation. She denies any tearing or ripping sensation in her chest. She denies any previous abdominal surgeries aside for coronary stenting. No other complaints at this time. No other modifying factors. Physical exam demonstrates tender abdomen, worse in the right upper quadrant. Differential is highest for gallbladder pathology, but also includes cardiac etiology. We will get a CT scan of the chest and abdomen, control the patient's pain and nausea, monitor closely and reassess. 11:45 PM Laboratory work-up has returned, white count elevated at 14, notable left shift, lactate elevated at 5.7, total bili is 2.3, AST is 597, ALT is 352, troponin normal. Lipase normal. CT scan shows notable cholelithiasis, and choledocholithiasis with multiple stones in the common bile duct the duct measuring up to 12 mm. Gallbladder is dilated, but wall is not thickened. Out of concern for ascending cholangitis, we did start the patient on Zosyn. I did contact [facility] for transfer as we do not have GI capabilities here. Blood pressure currently 100 systolic, heart rate in the high 80s. Discussed the case with [facility] and they do not feel that she needs for ICU admission, and they currently do not have any MedSurg or stepdown beds available. They recommend reaching out to the [facility]. 1:02 AM Discussed the case with the transfer center at the [facility]. Still waiting to speak with specialist physician. He has informed me that they currently do not have any beds available at [facility]. Patient's blood pressure is no w in the decline, a second liter of normal saline is being administered. Blood pressures now oscillating in the 80s systolic. Heart rate got up to the 90s. Patient remains afebrile. Concerns for declining status, will reach out to [facility] again, I feel that the patient is now certainly even more appropriate for ICU level care. However I do feel she needs definitive interventional management the very least with an ERCP. 1:28 AM I did speak with [facility] again, we will facilitate an ED to ED transfer. I spoke with Dr. Hyde, she agrees with the assessment and plan. Patient's blood pressure continues to decline in spite of fluid resuscitation, will start Levophed at 5 mics per minute. We have a large peripheral 18-gauge, we will utilize this and hold off on central line for the short transport. Diagnosis choledocholithiasis with clinical ascending cholangitis and septic shock. I have extensively reviewed the treatment plan with the patient. I have addressed all patient concerns at this time. I have also discussed the plan with the admitting physician and they agree with the current assessment and plan and have agreed to assume responsibility for the patient. All parties demonstrate verbal understanding and agreement with our assessment and plan at this time. The documentation in this chart was dictated using abusix dictation software. Please excuse any dictation errors. At time of transfer the patient was reassessed and continued to demonstrate No signs of acute respiratory distress requiring intubation, or rapidly declining mental status. The patient is appropriate for transport. EKG 22: 05 Rate 87, sinus rhythm, intervals normal, no significant ST elevations or depressions, possible Q-wave in lead III and aVF. No other significant abnormalities. No STEMI. FINDINGS: Liver: Normal. No mass. Gallbladder and bile ducts: Cholelithiasis is noted with moderate gallbladder distention but without wall thickening. Choledocholithiasis noted with multiple stones in the common bile duct measuring up to 7 mm located in the dilated common bile duct measuring 12 mm. Pancreas: Normal. No ductal dilation. Spleen: Normal. No splenomegaly. Adrenal glands: Normal. No mass. Kidneys and ureters: Normal. No hydronephrosis. Stomach and bowel: Unremarkable. No obstruction. No mucosal thickening. Appendix: No evidence of appendicitis. Intraperitoneal space: Unremarkable. No free air. No significant fluid collection. Vasculature: Unremarkable. No abdominal aortic aneurysm. Lymph nodes: Unremarkable. No enlarged lymph nodes. Urinary bladder: Unremarkable as visualized. Reproductive: Unremarkable as visualized. Bones/joints: Unremarkable. No acute fracture. Soft tissues: Unremarkable. IMPRESSION: 1. Cholelithiasis is noted with moderate gallbladder distention but without wall thickening. 2. Choledocholithiasis noted with multiple stones in the common bile duct measuring up to 7 mm located in the dilated common bile duct measuring 12 mm. Thank you for allowing us to participate in the care of your patient. Dictated and Authenticated by: Baljit Vanessa MD 11/09/2020 11:15 PM Eastern Time ([place] & [place]) HPI General Date/Time Provider Initiated Documentation: 11/09/20 22:53 . HPI Narrative: 85-year-old female with a past medical history of coronary artery disease on Plavix, hypertension, diabetes, high cholesterol, hypothyroidism, previous TIA, seizures on Keppra, who comes in today for evaluation of upper abdominal pain and not feeling well. Patient does not speak Guatemalan, her daughter is here for translation. Per daughter and patient she has not been feeling well for the last few days, and today she had mild right upper quadrant and left upper quadrant radiating to the back pain she describes as achy and sharp. She had multiple episodes of vomiting and diarrhea, both of which were nonbloody, nonmelanotic. She did have an episode of diaphoresis, and lightheadedness with these episodes of nausea and vomiting and pain. She is brought in by EMS for further evaluation. She denies any tearing or ripping sensation in her chest. She denies any previous abdominal surgeries aside for coronary stenting. No other complaints at this time. No other modifying factors. Related Data Home Medications Medication Instructions Recorded Confirmed clonazepam 0.5 mg PO HS PRN PRN 05/04/13 11/09/20 sertraline 50 mg PO DAILY 05/04/13 11/09/20 nitroglycerin 0.4 mg SUBLINGUAL PRN PRN 08/31/13 11/09/20 ergocalciferol (vitamin D2) 400 units PO DAILY tab-cap 05/13/15 11/09/20 furosemide [Lasix] 40 mg PO DAILY #90 tab-cap 05/13/15 11/09/20 lisinopril 40 mg PO DAILY #30 tab 09/10/16 11/09/20 metformin 1,000 mg PO BID@0800,1700 tab 09/10/16 11/09/20 Levemir FlexTouch U-100 Insuln 50 units SUB-Q BID@0800,2000 07/05/17 11/09/20 ahpfqrywrps-ivsnejfzh-xcv C-Mn 1 tab PO DAILY 07/05/17 11/09/20 [Glucosamine 1500 Complex] mometasone [Nasonex] 1 spray IN DAILY 07/05/17 11/09/20 carvedilol 25 mg PO BID tab 07/12/17 11/09/20 clopidogrel [Plavix] 75 mg PO DAILY tab 07/12/17 11/09/20 cyanocobalamin (vitamin B-12) 1,000 mcg PO DAILY #30 tab.chew 07/12/17 11/09/20 insulin aspart U-100 [Novolog 0 units SUB-Q 0800,1200,1700 pen 07/12/17 11/09/20 Flexpen U-100 Insulin] levetiracetam [Keppra] 500 mg PO BID tab 07/12/17 11/09/20 rosuvastatin [Crestor] 40 mg PO QPM tab 07/12/17 11/09/20 amlodipine 2.5 mg PO DAILY #30 tab 07/11/19 11/09/20 esomeprazole magnesium [Nexium] mg 11/09/20 sucralfate 1 g 11/09/20 Previous Rx's Medication Instructions Recorded lisinopril 40 mg PO DAILY #30 tab 09/10/16 metformin 1,000 mg PO BID@0800,1700 tab 09/10/16 carvedilol 25 mg PO BID tab 07/12/17 clopidogrel [Plavix] 75 mg PO DAILY tab 07/12/17 cyanocobalamin (vitamin B-12) 1,000 mcg PO DAILY #30 tab.chew 07/12/17 insulin aspart U-100 [Novolog 0 units SUB-Q 0800,1200,1700 pen 07/12/17 Flexpen U-100 Insulin] levetiracetam [Keppra] 500 mg PO BID tab 07/12/17 rosuvastatin [Crestor] 40 mg PO QPM tab 07/12/17 amlodipine 2.5 mg PO DAILY #30 tab 07/11/19 Allergies Allergy/AdvReac Type Severity Reaction Status Date / Time atorvastatin calcium Allergy Unverified 07/08/17 13:48 [From Lipitor] General Stated Complaint: GenMedical WINSOME: 3 Review of Systems All systems reviewed & are unremarkable except as noted in HPI and below PFSH Medical History (Updated 11/10/20 @ 01:32 by Steve Mcginnis DO) Anxiety Asthma CAD (coronary artery disease) Diabetes HTN (hypertension) Hyperlipidemia Hypothyroidism Primary osteoarthritis of left knee Injected: 03/02/2019 Primary osteoarthritis of right knee Injected: 03/02/2019 Seizures ?2017 TIA (transient ischemic attack) ?2017 Surgical History History of coronary artery stent placement Family History Mother Stroke Father Heart disease Social History Smoking/Tobacco Use Status: Never Smoking risk assessment performed?: Yes Alcohol Intake: never Drug use: Never Substance use type: does not use and former substance user Household members: children Number of Children: 2 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 She does not speak Guatemalan. She lives with her daughter. She has two children, both here in the [facility] and locally in [place]. She is . 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 Exam Narrative Exam Narrative: 1.Const: Well-nourished, Well-developed, appearing stated age 2.Eyes: PERRL, no conjunctival injection, and symmetrical lids. 3.ENT: Atraumatic external nose and ears. Moist MM. Neck: Symmetric, trachea mid line, No thyromegaly. 4.CVS: +S1/S2, No murmurs or gallops. Peripheral pulses 2+ and equal in all extremities. Brisk capillary refill in all extremities. 5.RESP: Unlabored respiratory effort. Clear to auscultation bilaterally. No wheezes rales or rhonchi 6.GI: Soft, mildly distended, generalized tenderness throughout but notable tenderness in the right upper quadrant. Minimal voluntary guarding, no rebound. 7.MSK: Normocephalic/Atraumatic, Extremities w/o deformity or ttp No cyanosis or clubbing, Normal movement of all extremities, no pitting edema 8.Skin: Warm, Dry. No rashes or lesions. 9.Neuro: risk control director II-XII grossly intact. Sensation grossly intact, no focal neurologic deficits. 10.Psych: (AAO) x3. Appropriate mood and affect Course Vital Signs Vital signs: Vital Signs Temperature 36.4 C L 11/09/20 21:35 Pulse 83 11/09/20 21:35 Respiratory Rate 18 11/09/20 21:35 Blood Pressure 119/57 L 11/09/20 21:35 Pulse Oximetry 97 11/09/20 21:35 Temperature 36.4 C L 11/09/20 21:35 Temperature Source Temporal Artery Scan 11/09/20 21:35 Pulse 83 11/09/20 21:35 Respiratory Rate 18 11/09/20 21:40 Respiratory Effort Non-Labored 11/09/20 21:40 Respiratory Depth Normal 11/09/20 21:40 Respiratory Pattern Normal 11/09/20 21:40 Blood Pressure 119/57 L 11/09/20 21:35 Pulse Oximetry 97 11/09/20 21:35 Oxygen Delivery Method Room Air 11/09/20 21:35 Oxygen Flow Rate 0 11/09/20 21:35 Pain Level 2 11/09/20 21:35 Lab/Test Results Lab/Test Results: 11/09/20 22:15 Blood Blood Culture - Pending 11/09/20 21:38 Blood Blood Culture - Pending Laboratory Tests Range/Units 11/09/20 11/09/20 11/09/20 22:15 22:15 22:15 WBC (4.4-10.8) 10^3/uL 14.26 H RBC (3.93-5.22) 10^6/uL 4.25 Hgb (11.2-15.7) g/dL 11.3 Hct (36.0-46.0) % 34.6 L MCV (80-95) fL 81.4 MCH (27.0-33.0) pg 26.6 L MCHC (32.0-36.0) % 32.7 RDW (11.7-14.6) % 14.2 Plt Count (130-400) 10^3/uL 261 MPV (8.0-11.0) fL 10.0 Immature Gran % 0.9 Neutrophils % 86.6 Lymphocytes % 4.1 Monocytes % 8.2 Eosinophils % 0.0 Basophils % 0.2 Nucleated RBC % % 0 Absolute Neutrophils (1.2-6.7) 10^3/uL 12.35 H Absolute Lymphocytes (1.2-3.4) 10^3/uL 0.58 L Absolute Monocytes (0.1-0.8) 10^3/uL 1.17 H Absolute Eosinophils (0.0-0.7) 10^3/uL 0.00 Absolute Basophils (0.0-0.2) 10^3/uL 0.03 PT (9.3-11.0) sec INR (0.9-1.1) APTT (21.0-27.5) sec VBG Lactate (0.6-1.4) mmol/L 5.7 H* Sodium (136-145) mmol/L 133 L Potassium (3.5-5.1) mmol/L 3.8 Chloride (98-107) mmol/L 97 L Carbon Dioxide (21.0-32.0) mmol/L 20.8 L Anion Gap (3-11) mmol/L 15.2 H BUN (7-18) mg/dL 22 H Creatinine (0.55-1.02) mg/dL 1.4 H Estimated GFR/1.73 m2 (mL/min/1.73m2) 35.91 Glucose (74-106) mg/dL 207 H Calcium (8.5-10.1) mg/dL 8.8 Total Bilirubin (0.2-1.0) mg/dL 2.3 H AST (15-37) U/L 597 H ALT (14-59) U/L 352 H Alkaline Phosphatase (46-116) U/L 141 H Total Protein (6.4-8.2) g/dL 7.0 Albumin (3.4-5.0) g/dL 3.5 Lipase (73-393) U/L 154 Range/Units 11/09/20 22:15 WBC (4.4-10.8) 10^3/uL RBC (3.93-5.22) 10^6/uL Hgb (11.2-15.7) g/dL Hct (36.0-46.0) % MCV (80-95) fL MCH (27.0-33.0) pg MCHC (32.0-36.0) % RDW (11.7-14.6) % Plt Count (130-400) 10^3/uL MPV (8.0-11.0) fL Immature Gran % Neutrophils % Lymphocytes % Monocytes % Eosinophils % Basophils % Nucleated RBC % % Absolute Neutrophils (1.2-6.7) 10^3/uL Absolute Lymphocytes (1.2-3.4) 10^3/uL Absolute Monocytes (0.1-0.8) 10^3/uL Absolute Eosinophils (0.0-0.7) 10^3/uL Absolute Basophils (0.0-0.2) 10^3/uL PT (9.3-11.0) sec 11.0 INR (0.9-1.1) 1.1 APTT (21.0-27.5) sec 20.3 L VBG Lactate (0.6-1.4) mmol/L Sodium (136-145) mmol/L Potassium (3.5-5.1) mmol/L Chloride (98-107) mmol/L Carbon Dioxide (21.0-32.0) mmol/L Anion Gap (3-11) mmol/L BUN (7-18) mg/dL Creatinine (0.55-1.02) mg/dL Estimated GFR/1.73 m2 (mL/min/1.73m2) Glucose (74-106) mg/dL Calcium (8.5-10.1) mg/dL Total Bilirubin (0.2-1.0) mg/dL AST (15-37) U/L ALT (14-59) U/L Alkaline Phosphatase (46-116) U/L Total Protein (6.4-8.2) g/dL Albumin (3.4-5.0) g/dL Lipase (73-393) U/L
[2020-11-09 22:55] LABS: Troponin I < 0.05 ng/mL (<0.06)
--- NOTE | 2020-11-09 23:15 | DI.VRAD_ITS ---
PROCEDURE INFORMATION: Exam: CT Chest Without Contrast; Diagnostic Exam date and time: 11/09/2020 9:41 PM Age: 85 years old Clinical indication: Nausea and vomiting; Abdominal pain; Localized; Right upper quadrant (ruq); Type not specified; Prior surgery; Surgery date: 6+ months; Patient HX: HX heart stent placement, HX gall stones. Chest pain, ruq pain, nausea/vomiting/diarrhea. TECHNIQUE: Imaging protocol: Diagnostic computed tomography of the chest without contrast. Radiation optimization: All CT scans at this facility use at least one of these dose optimization techniques: automated exposure control; mA and/or kV adjustment per patient size (includes targeted exams where dose is matched to clinical indication); or iterative reconstruction. COMPARISON: CT CHEST WITHOUT CONTRAST 03/01/2017 12:44 PM FINDINGS: Lungs: Basilar dependent pulmonary atelectasis is present. Pulmonary nodules measure up to 6 mm at the left lung base and require follow-up according to institutional protocol. Pleural spaces: Unremarkable. No pneumothorax. No pleural effusion. Heart: Unremarkable. No cardiomegaly. No pericardial effusion. Aorta: Unremarkable. No aortic aneurysm. Lymph nodes: Unremarkable. No enlarged lymph nodes. Bones/joints: Unremarkable. No acute fracture. Soft tissues: Unremarkable. IMPRESSION: No acute findings Pulmonary nodules measure up to 6 mm at the left lung base and require follow-up according to institutional protocol. PROCEDURE INFORMATION: Exam: CT Abdomen And Pelvis Without Contrast Exam date and time: 11/09/2020 9:41 PM Age: 85 years old Clinical indication: Nausea and vomiting; Abdominal pain; Localized; Right upper quadrant (ruq); Type not specified; Prior surgery; Surgery date: 6+ months; Patient HX: HX heart stent placement, HX gall stones. Chest pain, ruq pain, nausea/vomiting/diarrhea. TECHNIQUE: Imaging protocol: Computed tomography of the abdomen and pelvis without contrast. Radiation optimization: All CT scans at this facility use at least one of these dose optimization techniques: automated exposure control; mA and/or kV adjustment per patient size (includes targeted exams where dose is matched to clinical indication); or iterative reconstruction. COMPARISON: CT CHEST WITHOUT CONTRAST 03/01/2017 12:44 PM FINDINGS: Liver: Normal. No mass. Gallbladder and bile ducts: Cholelithiasis is noted with moderate gallbladder distention but without wall thickening. Choledocholithiasis noted with multiple stones in the common bile duct measuring up to 7 mm located in the dilated common bile duct measuring 12 mm. Pancreas: Normal. No ductal dilation. Spleen: Normal. No splenomegaly. Adrenal glands: Normal. No mass. Kidneys and ureters: Normal. No hydronephrosis. Stomach and bowel: Unremarkable. No obstruction. No mucosal thickening. Appendix: No evidence of appendicitis. Intraperitoneal space: Unremarkable. No free air. No significant fluid collection. Vasculature: Unremarkable. No abdominal aortic aneurysm. Lymph nodes: Unremarkable. No enlarged lymph nodes. Urinary bladder: Unremarkable as visualized. Reproductive: Unremarkable as visualized. Bones/joints: Unremarkable. No acute fracture. Soft tissues: Unremarkable. IMPRESSION: 1. Cholelithiasis is noted with moderate gallbladder distention but without wall thickening. 2. Choledocholithiasis noted with multiple stones in the common bile duct measuring up to 7 mm located in the dilated common bile duct measuring 12 mm. Dictated and Authenticated by: Baljit Vanessa MD. Ordering:TOMAS Wilson MD
[2020-11-09 23:22] LABS: COVID-19 PCR Negative (Negative); Influenza A PCR Negative (Negative); Influenza B PCR Negative (Negative); RSV PCR Negative (Negative)
[2020-11-09] MEDS: PIPERACILLIN/TAZO 4.5 GM in Normal Saline 100 ML IVPB (23:36)
[2020-11-10] VITALS (22 sets, daily range): BP systolic 78–132; BP diastolic 38–99; PULSE 81–94; RESP 16–23; TEMP 36.8; O2SAT 91–95
--- NOTE | 2020-11-10 13:10 | NUR.NOTE ---
Addendum entered by Tiny Tesfaye 11/10/20 13:12: Dr. Dow is aware of this. Original Note: Nursing Note: Lab called stating 1 bottle of blood cultures was gram negative xin positive. Printed result was fax[place] [facility] [place] [facility] [place]. Tiny Tesfaye
--- NOTE | 2020-11-10 15:03 | NUR.NOTE ---
Nursing Note: Lab called stating an anerobic bottle of blood cultures was gram negative xin positive. Printed result was faxed to [facility] [place] [facility] 3 NO. JENNY Talavera aware. Tiny Tesfaye. :
== END 2020-11-10 02:04 | disposition short-term general hospital (02) ==
PROVIDERS: Emergency Provider Student in an Organized Health Care Education/Training Program; PCP Family Medicine
DX: K80.32 Calculus of bile duct with acute cholangitis without obstruction (principal); A41.9 Sepsis, unspecified organism; R65.21 Severe sepsis with septic shock; R74.01 Elevation of levels of liver transaminase levels; Z03.818 Encounter for observation for suspected exposure to other biological agents ruled out
CPT/HCPCS: 36415; 71250; 80053; 83690; 87040; 87077; 87637; 93005; 96361; 96365; 96375; 99291; 74176; 81003; 82248; 83605; 84484; 85025; 85610; 85730; 87186; 93010; J2405; J2543

== ENCOUNTER 2020-11-22 16:50 | Outpatient (REF) | payer MEDICARE, MEDICAID, SELFPAY ==
[2020-11-24 13:26] LABS: COVID-19 RT-PCR Result Not Detected ((See Note))
== END 2020-11-22 16:51 | disposition home or self-care (01) ==
LOC: NCHCN 16:50
PROVIDERS: PCP Family Medicine; Visit Provider Nurse Practitioner Adult Health
DX: Z20.822 Contact with and (suspected) exposure to COVID-19 (principal)
CPT/HCPCS: U0003; U0005

== ENCOUNTER 2020-11-25 17:08 | Outpatient (REF) | payer SELFPAY ==
[2020-11-25 17:43] LABS: Abs Immature Grans 0.03 10^3/uL (0.0-0.06); Absolute Basophil Count 0.06 10^3/uL (0.0-0.2); Absolute Eosinophil Count 0.33 10^3/uL (0.0-0.7); Absolute Lymphocyte Count 2.72 10^3/uL (1.2-3.4); Absolute Monocyte Count 1.32 10^3/uL (0.1-0.8); Absolute Neutrophil Count 4.87 10^3/uL (1.2-6.7); Basophils % 0.6; Eosinophils % 3.5; HCT 33.3 % (36.0-46.0); HGB 10.2 g/dL (11.2-15.7); Immature Grans % 0.3; Lymphocytes % 29.2; MCH 26.3 pg (27.0-33.0); MCHC 30.6 % (32.0-36.0); MCV 85.8 fL (80-95); MPV 9.6 fL (8.0-11.0); Monocytes % 14.1; Neutrophils % 52.3; Nucleated RBC 0 %; Platelet Count 523 10^3/uL (130-400); RBC 3.88 10^6/uL (3.93-5.22); RDW 15.5 % (11.7-14.6); RDW-SD 48.3 fL; WBC 9.33 10^3/uL (4.4-10.8)
[2020-11-25 18:02] LABS: ALT 31 U/L (14-59); AST 27 U/L (15-37); Albumin 3.3 g/dL (3.4-5.0); Alkaline Phosphatase 130 U/L (46-116); Anion Gap 8.1 mmol/L (3-11); BUN 40 mg/dL (7-18); Bilirubin, Total 0.5 mg/dL (0.2-1.0); CO2 25.9 mmol/L (21.0-32.0); CREATININE 1.4 mg/dL (0.55-1.02); Calcium 9.3 mg/dL (8.5-10.1); Chloride 105 mmol/L (98-107); Estimated GFR 35.91 (mL/min/1.73m2); Glucose 174 mg/dL (74-106); Potassium 4.7 mmol/L (3.5-5.1); Sodium 139 mmol/L (136-145); TSH (W/Ref FT4) 2.56 uIU/mL (0.36-3.74); Total Protein 6.9 g/dL (6.4-8.2)
== END 2020-11-25 17:09 | disposition home or self-care (01) ==
LOC: LBN 17:08
PROVIDERS: PCP Family Medicine; Visit Provider Family Medicine
DX: I10 Essential (primary) hypertension (principal); M62.81 Muscle weakness (generalized); E11.9 Type 2 diabetes mellitus without complications
CPT/HCPCS: 80053; 84443; 85025

== ENCOUNTER 2020-11-30 16:22 | Outpatient (REF) | payer MEDICARE, MEDICAID, SELFPAY ==
[2020-11-30 13:52] LABS: Abs Immature Grans 0.02 10^3/uL (0.0-0.06); Absolute Basophil Count 0.06 10^3/uL (0.0-0.2); Absolute Eosinophil Count 0.24 10^3/uL (0.0-0.7); Absolute Lymphocyte Count 2.72 10^3/uL (1.2-3.4); Absolute Monocyte Count 0.93 10^3/uL (0.1-0.8); Absolute Neutrophil Count 2.85 10^3/uL (1.2-6.7); Basophils % 0.9; Eosinophils % 3.5; HCT 35.1 % (36.0-46.0); HGB 10.9 g/dL (11.2-15.7); Immature Grans % 0.3; Lymphocytes % 39.9; MCH 26.6 pg (27.0-33.0); MCHC 31.1 % (32.0-36.0); MCV 85.6 fL (80-95); MPV 9.9 fL (8.0-11.0); Monocytes % 13.6; Neutrophils % 41.8; Nucleated RBC 0 %; Platelet Count 367 10^3/uL (130-400); RDW-SD 46.8 fL; WBC 6.82 10^3/uL (4.4-10.8)
[2020-11-30 14:05] LABS: ALT 33 U/L (14-59); AST 27 U/L (15-37); Albumin 3.5 g/dL (3.4-5.0); Alkaline Phosphatase 110 U/L (46-116); Anion Gap 10.2 mmol/L (3-11); BUN 25 mg/dL (7-18); Bilirubin, Total 0.6 mg/dL (0.2-1.0); CO2 23.8 mmol/L (21.0-32.0); CREATININE 1.1 mg/dL (0.55-1.02); Chloride 104 mmol/L (98-107); Estimated GFR 47.43 (mL/min/1.73m2); Glucose 121 mg/dL (74-106); Potassium 5.6 mmol/L (3.5-5.1); Sodium 138 mmol/L (136-145)
== END 2020-11-30 16:23 | disposition home or self-care (01) ==
LOC: NCHCN 16:22
PROVIDERS: PCP Family Medicine; Visit Provider Nurse Practitioner Adult Health
DX: I10 Essential (primary) hypertension (principal); M62.81 Muscle weakness (generalized)
CPT/HCPCS: 80053; 85025

== ENCOUNTER 2020-12-27 11:48 | Outpatient (REF) | payer MEDICARE, MEDICAID, SELFPAY ==
[2020-12-27 12:25] LABS: HCT 36.2 % (36.0-46.0); HGB 11.6 g/dL (11.2-15.7); MCH 26.7 pg (27.0-33.0); MCV 83.4 fL (80-95); Platelet Count 354 10^3/uL (130-400); RBC 4.34 10^6/uL (3.93-5.22); RDW 14.6 % (11.7-14.6); RDW-SD 44.7 fL; WBC 8.83 10^3/uL (4.4-10.8)
[2020-12-27 12:53] LABS: Anion Gap 14.2 mmol/L (3-11); BUN 23 mg/dL (7-18); CO2 23.8 mmol/L (21.0-32.0); CREATININE 1.4 mg/dL (0.55-1.02); Calcium 9.1 mg/dL (8.5-10.1); Chloride 101 mmol/L (98-107); Estimated GFR 35.91 (mL/min/1.73m2); Ferritin 21 ng/mL (8-252); Glucose 162 mg/dL (74-106); Potassium 4.8 mmol/L (3.5-5.1); Sodium 139 mmol/L (136-145)
[2020-12-27 12:54] LABS: Hemoglobin A1C 7.1 % (<5.7)
== END 2020-12-27 11:49 | disposition home or self-care (01) ==
LOC: NCHCN 11:48
PROVIDERS: PCP Family Medicine; Visit Provider Family Medicine
DX: E11.9 Type 2 diabetes mellitus without complications (principal); I27.20 Pulmonary hypertension, unspecified; M62.81 Muscle weakness (generalized)
CPT/HCPCS: 80048; 85027; 82728; 83036

== ENCOUNTER 2021-02-02 02:19 | Outpatient (CLI) | payer MEDICARE, MEDICAID, SELFPAY ==
--- NOTE | 2021-02-02 07:24 | DI.US_ITS ---
APPROVED REPORT EXAM: Comprehensive 2D, Doppler, and color-flow Echocardiogram Patient Location: Out-Patient Staffing Operations Manager: Andreina Yoon RDCS (AE) Indications: Pulmonary HTN Other Information Study Quality: Adequate Conclusion Normal left ventricular chamber size. Borderline concentric left ventricular hypertrophy. EF is 60 to 65%. Wall motion is normal Normal right ventricular chamber size. Borderline normal right ventricular systolic function Both atria are normal in size There is no significant valvular disease Estimated right ventricular systolic pressure is 34 mmHg Mildly dilated ascending aorta measuring 3.56 cm Wall motion Left Ventricle The left ventricle is normal size. The left ventricular systolic function is normal. The left ventric ular ejection fraction is within the normal range. Borderline concentric left ventricular hypertrophy . There is normal LV segmental wall motion. There is no ventricular septal defect visualized. LVEF is 60-65%. Right Ventricle The right ventricle is normal size. The right ventricular systolic function is borderline normal. The RVSP is 34. mmHg. Atria The left atrium size is normal. The right atrium size is normal. The interatrial septum is intact wit h no evidence for an atrial septal defect. Aortic Valve The aortic valve is normal in structure. Aortic valve is trileaflet. There is no aortic valvular sten osis. No aortic regurgitation is present. Mitral Valve The mitral valve is normal in structure. No evidence of mitral valve stenosis. Trace to mild mitral r egurgitation. Tricuspid Valve The tricuspid valve is normal in structure. There is no tricuspid valve stenosis. Trace to mild tricu spid regurgitation. Pulmonic Valve The pulmonary valve is normal in structure. There is no pulmonic valvular stenosis. Trace to mild pul marshall regurgitation. Great Vessels The aortic root is normal in size. The ascending aorta is mildly dilated.3.56 cm Aortic arch is jerry l in caliber. IVC is normal in size and collapses >50% with inspiration. Pericardium There is no pericardial effusion. 2D Dimensions IVSD d PLAX 1.12 cm F: 0.6-1.0 LV Vol A2C d MOD 62.3 mL LVPW d PLAX 1.11 cm F: 0.6 - 1.0 LV Vol A4C d MOD 70.9 mL LVID d PLAX 4.39 cm F: 3.8 - 5.2 LA vol/ BSA A2C s A-L 20.9 mL/m2 LVDs 2.80 cm F: 2.2 - 3.5 LA vol/ BSA A4C s A-L 14.5 mL/m2 Ao Root d 2.91 cm F: 2.7 - 3.3 LA Vol/ BSA Biplane s A-L 19.0 mL/m2 RA Area A4C 11.83 cm2 LA Area A4C s MOD 12.24 cm2 RA Vol/ BSA A4C s A-L 12.0 mL/m2 LA Area A2C s MOD 16.06 cm2 Ao Asc Diam d 3.56 cm F: 2.3 - 3.1 LV EF A4C MOD 59.5 % LV EF Teichholz 64.9 % LV EF A2C MOD 58.7 % LVEF (Munguia's) 58.50 % F: 54 - 74 LV EF Biplane MOD 58.5 % LV Volume 51.34 mL F: 46 - 106 SV 39.43 mL LV Volume Index 26.87 mL/m2 F: 29 - 61 SV Index 20.63 mL/m2 LV Vol Biplane MOD 67.4 mL FS 35.25 % M-Mode TAPSE 1.78 cm (M/F) >1.7 LV Diastology MV E' medial 0.045 (>0.07 m/s) E/A Ratio 0.6 LV E/e MED 11.55 (<14) MV E Vmax 0.52 (0.4-1.3 m/s) MV E' lateral 0.061 (>0.1 m/s) MV A Vmax 0.90 (0.4-1.3 m/s) LV E/e LAT 8.60 (<14) MV E/A Ratio 0.57 MV E/E' medial 11.59 MV E/E' lateral 8.60 Aortic Valve LVOT Area 2.74 cm2 AoV Area Vmax 2.13 cm2 LVOT Vmax 0.87 m/s AoV Area/ BSA (Vmax) 1.11 cm2/m2 LVOT Mean Dylan. 0.52 m/s MANDY Mean Dylan. 1.94 cm2 LVOT Peak Grad 3.1 mmHg MANDY Mean Dylan. Index 1.02 cm2/m2 LVOT Mean Grad 1.3 mmHg LVOT VTI 0.171 m LVOT Diam s 1.85 cm AoV Vmax 1.12 m/s Velocity Ratio 0.77 AoV Mean Dylan. 0.74 m/s AoV Peak Grad 5.1 mmHg LVOT SV 46.87 mL AoV Mean Grad 2.5 mmHg AoV VTI 0.196 m AoV Area VTI 2.39 cm2 AoV Area/ BSA (VTI) 1.25 cm/m2 Mitral Valve MV DT 333 (160-240 msec) MV PHT 97 msec MV Area PHT 2.28 cm2 MV VTI 0.232 m MV Area VTI 2.02 (4.0-6.0 cm2) Pulmonary Valve PV Vmax 0.80 (0.5-1.5 m/s) RVOT Peak Gr. 1.19 mmHg PV Peak Grad 2.5 mmHg RVOT Mean Gr. 0.60 mmHg PV Mean Grad 1.2 mmHg RVOT VTI 0.098 m PV VTI 0.140 m RVOT Vmax 0.54 m/s Tricuspid Valve TR Peak Grad 31.7 mmHg TR Vmax 2.82 m/s RA Pressure 3.00 mmHg RVSP (TR) 34.7 mmHg
== END 2021-02-02 02:39 ==
PROVIDERS: PCP Family Medicine; Visit Provider Family Medicine
DX: I27.20 Pulmonary hypertension, unspecified (principal); I77.810 Thoracic aortic ectasia
CPT/HCPCS: 93306

== ENCOUNTER 2021-04-06 10:08 | Outpatient (REF) | payer MEDICARE, MEDICAID, SELFPAY ==
[2021-04-06 19:26] LABS: HCT 35.9 % (36.0-46.0); MCH 24.8 pg (27.0-33.0); MCHC 30.6 % (32.0-36.0); MCV 80.9 fL (80-95); MPV 9.8 fL (8.0-11.0); Platelet Count 282 10^3/uL (130-400); RBC 4.44 10^6/uL (3.93-5.22); RDW 15.2 % (11.7-14.6); RDW-SD 44.3 fL; WBC 7.89 10^3/uL (4.4-10.8)
[2021-04-06 19:40] LABS: Hemoglobin A1C 8.4 % (<5.7)
[2021-04-06 20:06] LABS: Anion Gap 13.1 mmol/L (3-11); BUN 22 mg/dL (7-18); CO2 23.9 mmol/L (21.0-32.0); CREATININE 1.2 mg/dL (0.55-1.02); Calcium 9.4 mg/dL (8.5-10.1); Chloride 101 mmol/L (98-107); Ferritin 17 ng/mL (8-252); Glucose 203 mg/dL (74-106); Potassium 4.6 mmol/L (3.5-5.1); Sodium 138 mmol/L (136-145); Vitamin B12 895 pg/mL (193-986)
[2021-04-06 20:17] LABS: Uric Acid 6.1 mg/dL (2.6-6.0)
[2021-04-10 13:09] LABS: Hepatitis C Ab w Rflx HCV PCR Negative (Negative)
== END 2021-04-06 10:09 | disposition home or self-care (01) ==
LOC: NCHCN 10:08
PROVIDERS: PCP Family Medicine; Visit Provider Family Medicine
DX: Z00.00 Encounter for general adult medical examination without abnormal findings (principal); I10 Essential (primary) hypertension; E11.9 Type 2 diabetes mellitus without complications; M10.9 Gout, unspecified; D64.9 Anemia, unspecified
CPT/HCPCS: 80048; 85027; 86803; 82607; 82728; 83036; 84550

== ENCOUNTER → 2021-06-22 08:49 | Outpatient (BNVA) | payer MEDICARE, MEDICAID, SELFPAY | PROVIDERS: PCP Family Medicine; Referring Provider Family Medicine; Visit Provider Surgery | DX: D64.9 Anemia, unspecified (principal); M62.81 Muscle weakness (generalized); Z98.890 Other specified postprocedural states | CPT/HCPCS: 99203; 99213 ==

== ENCOUNTER 2021-07-04 14:31 | Outpatient (REF) | payer MEDICARE, MEDICAID, SELFPAY ==
--- OUTSIDE RECORDS SUMMARY | 2021-07-04 14:37 | XMS_ITS ---
:1935 Author Care Team Providers Name Role Phone CHAD Dye LADI Primary Care Provider [phone] [facility] MEDICAL RECORDS OTHER [phone] Allergies Code Code System Name Reaction Severity Status Onset 611781 RxNorm Lipitor ? ? Active ? Medications Name Status Start Date Stop Date ? ? Allergy Relief (loratadine) 10 mg disintegrating tablet Complete d 10/27/2012 02/22/2017 1 Tablet Disperse: daily, as needed amlodipine 2.5 mg tablet Active ? Not fanny ilable Take 1 tablet every day by oral route. aspirin 81 mg tablet,delayed release Completed 10/27/2012 02/22/[address]: daily Benicar 40 mg tablet Completed 10/27/2012 02/22/2017 1 Tablet: daily budesonide 0.5 mg/2 mL suspension for nebulization Completed 02/13/2013 02/22/2017 1 Suspension: qd - daily carvedilol 25 mg tablet Active ? Not avai lable Take 1 tablet twice a day by oral route. cephalexin 500 mg capsule Active ? Not av ailable Take 1 capsule every day by oral route. cetirizine 10 mg capsule Active ? Not fanny ilable Take 1 capsule every day by oral route before meals. chlorthalidone 25 mg tablet Completed 10/27/201201/29 1 Tablet: daily clonazepam 0.5 mg tablet Active ? Not fanny ilable Take 1 tablet as needed by oral route at bedtime. clopidogrel 75 mg tablet Active ? Not fanny ilable Take 1 tablet every day by oral route. ferrous sulfate 325 mg (65 mg iron) tablet,delayed release Activ e ? Not available Take by oral route. furosemide 20 mg tablet Active ? Not avai lable Take 1 tablet every day by oral route. glipizide ER 10 mg tablet, extended release 24 hr Completed 10/27/2012 02/22/2017 1 Tablet ER 24HR: bid - twice daily Glucosamine 1500 Complex Active ? Not fanny ilable 1 tab po daily Lantus Solostar U-100 Insulin Active ? No t available 40 units at bedtime levetiracetam 500 mg tablet Active ? Not available Take 1 tablet twice a day by oral route. metformin 500 mg tablet Active ? Not avai lable Take 1 tablet twice a day by oral route. miconazole nitrate (bulk) Active ? Not av ailable powder nabumetone 500 mg tablet Completed 10/27/2012 017 1 Tablet: bid - twice daily Nexium 40 mg capsule,delayed release Active ? Not available Take 1 capsule every day by oral route. Nitrostat 0.4 mg sublingual tablet Active ? Not available Place 1 tablet as needed by sublingual route as needed. Norvasc 10 mg tablet Completed 10/27/2012 02/22/2017 1 Tablet: daily pantoprazole 40 mg tablet,delayed release Active ? Not available Take 1 tablet every day by oral route. prednisone 10 mg tablet Completed 03/08/2017 03/28/20 17 2 (two) Tablet: as directed Prilosec 20 mg capsule,delayed release Completed 3 02/22/[address]: daily rosuvastatin 40 mg tablet Active ? Not av ailable Take 1 tablet every day by oral route at bedtime. sertraline 50 mg tablet Active ? Not avai lable Take 1 tablet every day by oral route. simvastatin 40 mg tablet Completed 10/27/2012 017 1 Tablet: daily Symbicort 160 mcg-4.5 mcg/actuation HFA aerosol inhaler Complete d 11/27/2012 01/02/2013 2 (two) Aerosol: bid - twice daily Tenoretic 100 100 mg-25 mg tablet Completed 10/27/2012 02/22/2017 1 Tablet: daily triamcinolone 0.1 % topical ointment and dimethicone 5 % topical cream Active ? Not available apply to effected area Vitamin B-12 1,000 mcg tablet Active ? N ot available Take 1 tablet every day by oral route as directed. Vitamin D Active ? Not available 1,000 units daily Problems Name Status Onset Date Source ? Hyperlipidemia Active 03/21/2021 ? Gout Active 03/21/2021 ? Anemia Active 03/21/2021 ? Anxiety Active 03/21/2021 ? Depressive Disorder Active 03/21/2021 ? Seizure Disorder Active 03/21/2021 ? Benign Essential Hypertension Active 03/21/2021 ? Coronary Arteriosclerosis Active 03/21/2021 ? Pulmonary Hypertension Active 03/21/2021 ? Transient Cerebral Ischemia Active 03/21/2021 ? Venous Varices Active 03/21/2021 ? Persistent Asthma Active 03/21/2021 ? Nodule of Lung Active 03/21/2021 ? Gastroesophageal Reflux Disease Active 03/21/2021 ? Diverticulitis Active 03/21/2021 ? Steatosis of Liver Active 03/21/2021 ? Gallstone Active 03/21/2021 ? Recurrent Urinary Tract Infection Active 03/21/2021 ? Dizziness Active 03/21/2021 ? Easy Bruising Active 03/21/2021 ? Abnormal Weight Gain Active 03/21/2021 ? Headache Active 03/21/2021 ? Chronic Cough Active 03/21/2021 ? History of Adenomatous Polyp of Colon Active 03/21/2021 ? History of Cholecystectomy Active 03/21/2021 ? Pain of Left Hip Joint Active 03/21/2021 ? Bilateral Osteoarthritis of Knees Active 03/21/2021 ? Serum Vitamin B12 Low Active 03/21/2021 ? Cough Active ? History Placentography Abnormal Active ? History Aftercare Active ? History Procedure by Method Unknown ? History Procedures None recorded. Results Lab Results None recorded. Past Encounters 07/03/2021 Snoring; Health Education Given; Pulmona ry Hypertension Eulalia Causey MD, Board Certified Sleep Ph ysician: [address] [place] [address] [address], [place] [address], Ph. Social History Tobacco Smoking Status Never Smoker Vaccine List None recorded. Plan of Care Patient Instructions We discussed signs and symptoms you are exhibiting that may be due to Obstructive Sleep Apnea or other sleep disorders. We went over sleep conditions that I suspect you may have that will benefit from further evaluation. The next step is to diagnose your sleep disorder through sleep study testing. We will get permission from your insuran ce to do the sleep study. Call us back in 2 to 3 weeks if you do not get a call from us about scheduling your sleep study. Bring all your home medications to the sleep study including any sleep aids. Please call [facility] if you ar e not able to make it to your sleep study Reminders Provider Appointments None recorded. ? ? Lab None recorded. ? ? Referral None recorded. ? ? Procedures None recorded. ? ? Surgeries None recorded. ? ? Imaging None recorded. ? ? Vitals 07/03/2021 11:15AM New Patient 47 Height Weight BMI 157.48 cm 88 kg 35.5 kg/m2 03/08/2017 Height Weight Blood Pressure 152.4 cm 89.36 kg 130/88 mm[Hg] 02/22/2017 Height Weight Blood Pressure 152.4 cm 89.1 kg 120/90 mm[Hg] 02/13/2013 Height Weight Blood Pressure 152.4 cm 94.8 kg 124/64 mm[Hg] 01/02/2013 Height Weight Blood Pressure 152.4 cm 93.16 kg 132/78 mm[Hg] 11/27/2012 Height Weight Blood Pressure 152.4 cm 94.57 kg 160/82 mm[Hg]
--- OUTSIDE RECORDS SUMMARY | 2021-07-04 14:37 | XMS_ITS | Encounter Summary ---
:1935 Author Care Team Providers Name Role Phone Yarely Marnie Lagos Primary Care Provider [phone] [facility] Medical Records OTHER [phone] Reason for Visit SLEEP CLINIC New Adult Patient; Teleheal th - Video/Zoom Assessment and Plan Assessment Note I provided greater than 60 minutes in th e care of this patient, more than half the time was spent in [id number] counseling. This visit was performed virtually using synchronous audio-visual connection via Zoom. As such, the physical examination is necessarily limited. The risks and benefits of the use of this alternative emily tform were discussed with the patient an d or guardian and verbal consent was obtained. My assessment and plans are based on such examination. Further evaluation, including in-person examination, may be needed depending on the response to shen islas or today's recommendation. The patient is home. The provider is in the office. The patient has been positively identifi ed and has consented to a video visit. 1. 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 Treatment options discussed. cpap disc ussed Proceed with Diagnostic Polysomnogram. In-facility sleep study requested due to comorbidities. caregiver arranged via family to be at [facility]. 1:1 ? sleep study, baseline diag nostic polysomnogram* - SPECIAL REQUESTS (if checked): [ x ] female tech [ x ] 1-on-1 [ ] CO2 monitoring [ x] Caregiver/bus driver/monitor will need to stay in separate room [ x ] Incontinence, please protect the bed [x ] Other: She may need her family member to help with certain tasks like going to bathroom. I did tell her daughter that t he reproduction technician won't know how to do this and she knows she is there to help her mom. they are very nice family. I also let her daughter know if she wanted to, she can bring her home bedside commode. Pt also wears adult depends just in case. [x] No Ambie n but she does have a sleep aid from home that I asked her to bring. Clonazepam 0. 5mg, please do document if she took that or not. Obtain supine and lateral position sleep for comparison. Document snoring intensity. Document medications taken on night of sleep study. 2. Health education given ? learning about sleeping we ll 3. Pulmonary hypertension Discussion Note Remember to always take precautio ns on drowsy driving. If you experience sleepiness while driving, find a safe area to test puller and take a break. Research suggests taking a power nap (15 to 20 ryder arnold) and/or coffee (or caffeine containi ng food such as dark chocolate) may be effective aides. As always, you should use your judgement on whether to drive at all, if you are sleep deprived or feeling sleepy. Thank you for the kind opportunity to p articipate in your medical care. You expressed good understanding of your diagnosis and treatment, and agreed to proceed with the plan we discussed together. If y ou have any questions or concerns prior to your next appointment, please call Sleep Clinic. Plan of Care Patient Instructions We discussed [...] to your sleep study Reminders Provider Appointments Return to on or around Wes Causey MD, Office 09/02/2021 Board Certified Sleep Physician Lab None ? ? recorded. Referral None ? ? recorded. Procedures None ? ? recorded. Surgeries None ? ? recorded. Imaging None ? ? recorded. Medications Name Start Date ? ? amlodipine 2.5 mg tablet ? Take 1 tablet every day by oral route. carvedilol 25 mg tablet ? Take 1 tablet twice a day by oral route. cephalexin 500 mg capsule ? Take 1 capsule every day by oral route. cetirizine 10 mg capsule ? Take 1 capsule every day by oral route before meals. clonazepam 0.5 mg tablet ? Take 1 tablet as needed by oral route at bedtime. clopidogrel 75 mg tablet ? Take 1 tablet every day by oral route. ferrous sulfate 325 mg (65 mg iron) tablet,delayed rel ease ? Take by oral route. furosemide 20 mg tablet ? Take 1 tablet every day by oral route. Glucosamine 1500 Complex ? 1 tab po daily Lantus Solostar U-100 Insulin ? 40 units at bedtime levetiracetam 500 mg tablet ? Take 1 tablet twice a day by oral route. metformin 500 mg tablet ? Take 1 tablet twice a day by oral route. miconazole nitrate (bulk) powder ? Nexium 40 mg capsule,delayed release ? Take 1 capsule every day by oral route. Nitrostat 0.4 mg sublingual tablet ? Place 1 tablet as needed by sublingual route as neede d. pantoprazole 40 mg tablet,delayed release ? Take 1 tablet every day by oral route. rosuvastatin 40 mg tablet ? Take 1 tablet every day by oral route at bedtime. sertraline 50 mg tablet ? Take 1 tablet every day by oral route. triamcinolone 0.1 % topical ointment and dimethicone 5 % topical cream ? apply to effected area Vitamin B-12 1,000 mcg tablet ? Take 1 tablet every day by oral route as directed. Vitamin D ? 1,000 units daily Medications Administered None recorded. Vitals Height Weight BMI 5 ft 2 in 194 lbs 35.5 kg/m2 Results Lab Results None recorded. Allergies Code Code System Name Reaction Severity Onset 294817 RxNorm Lipitor ? ? ? Problems Name Status Onset Date Source ? [...] Active ? History Aftercare Active ? History Procedures None recorded. Vaccine List None recorded. Social History Tobacco Smoking Status Never Smoker What is your level of alcohol None consumption? What is your level of caffeine Occasional Notes: 1c coffee a day consumption? Are you blind or do you have Y difficulty seeing? Do you use any illicit or recreational N drugs? Are you deaf or do you have serious N difficulty hearing? Functional Status Are you blind or do you Yes have difficulty seeing?? Past Encounters 07/03/2021 Snoring; Health Education Given; Pulmona ry Hypertension Eulalia Causey MD, Board Certified Sleep Ph ysician: [address] [place] [address] [address], [place] [address], Ph. History of Present Illness Note:
<strong>Sleep Medicine New Patient Consult</strong>

Mitch Gil is a pleasant {{86# ____}} year old {{female* male}} , [place] immigrant, does not speak Urdu, accompanied by her daughter Keyshawn, who presents for sleep consultation at kind request ofDr. Yarely Singh regarding loud snoring.

Past medical history includes hypertension, CAD, GERD, depression, anxiety, TIA, seizures, diabetes, pulm hypertension on TTE PASP 50mmHg on recent preop echo

<strong>PREVIOUS SLEEP EVALUATION: </strong>{{None # Reviewed in detail and summarized as follows: Records not available, requested. Records not available. None. }}

<strong>CHIEF COMPLAINT/HISTORY OF PRESENT ILLNESS: </strong>
Patients reports biggest problem with sleep is loud snoring, unrefreshing sleep, uncontrolled <div>
</div><div>unrefreshing sleep</div><div>

<strong>SLEEP SCHEDULE:</strong> Bedtime {{8# }} {{pm# am}}, Sleep onsetlatency {{less than 30 30 to 60 greater than 60 variable*}} minutes, Awakenings {{multiple# 0-2 variable}} times per night, Able to fall back asleep within {{few minutes # up to 30 minutes up to few hours variable}}, Wake time {{8:30# }} {{am# pm}}. Naps {{Rare Occasionally Nearly Everyday Ev eryday*}}. 1pm to her room uncleaar for how long.

<strong>SLEEP ENVIRONMENT:</strong> {{Pets wake patient up. Children wake patient up. Noise from outside room wake rebekah ent up. Light wakes patient up. No environmental disruptions identified. *}}

<strong>SLEEP QUALITY:</strong> {{Poor# Fair Very good Adequate Very poor}}
<br& gt;<strong>DAYTIME/NEUROCOGNITIVE FUNCTION:</strong> {{Low energy# Sleepy Alert}}. {{Problems with memory and mood # Problems with memory Problems with memory, concentration and mood No problems with memory, concentration, mood}}.

<strong>SLEEP RELATED THOUGHTS/BEHAVIORS:</strong> {{Deny insomnia related thought patterns or behaviors, except Gideon active mind. * Stressful thoughts interfering with sleep. Tendency to clock watch. Worry about getting nabila sleep. }}. {{.# Gideon active mind. Stressful thoughts interfering with sleep. Tendency to clock watch. Worry about getting good night sleep.}} {{.# Stressful thoughts interfering with sleep. Tendency to clock watch. Worry about getting good night sleep. }} {{.# Tendency to clock watch. Worry about getting good night sleep. }} {{.# Worry about getting good night sleep. }}
<br&g t;<strong>SLEEP BREATHING:</strong> {{Loud Snoring.# Snoring. Witnessed apneas.}} {{.# Witnessed apneas. Waking up gasping for air.}} {{.# Witnessed apneas. Waking up gasping for air.}} {{.# Mouth breathing. Chronic nasal congestion.}} {{.# Chronic nasal congestion.}}

<strong>LEG SYMPTOMS:</strong> {{Deny RLS related symptoms. # Legs move before sleep and/or during sleep.}} {{.# Leg movements are worse in evenings.}} {{.# Relieved by movement.}} {{.# Relieved by counterpressure.}} {{.# Leg cramps especially in evening.}} {{.# Toss and turn at night. Sheets are messy after sleep.}} {{.# Sheets are messy after sleep.}}

<strong>MOVEMENT SYMPTOMS</strong>{{No sleepwalking # Sleeptalk. Sleepwalk: }}.

<strong>DREAM SYMPTOMS:</strong> {{Deny dream enacting behavior # Dream enactment behavior: }}. {{Deny hypnogogic or hypnopompic hallucinations # See dreams in room when waking up orfalling asleep: }}. {{No disturbing dreams # Disturbing nightmares Recurring nightmares}}.

<strong>WEAKNESS SYMPTOMS:</strong> {{Deny cataplexy related symptoms # Muscles suddenly become weak triggered by emotion Muscles may feel weak but no emotional triggers known}}{{Deny sleep paralysis # Experienced inability to move upon waking up in remote past Experiences inability to move upon waking up on regular basis}}.

<strong>DRIVING:</strong> {{does not drive# Experienced drowsy driving in past related to sleep deprivation Intermittent drowsy driving episodes Regular drowsy driving episodes}}. {{.# Follows drowsy driving precautions. Aware of drowsy driving precautions and plans to follow them.}}

<strong>OTHER PERTINENT SYMPTOMS: </strong>

<strong>PRODUCT/SUBSTANCE USE:</strong>{{No smoking* No smoking, quit in remote past No smoking quit recently Current Smoker}}. {{1 cup coffee/1 cup tea# Contemplating quitting Ready to quit Not interested in quitting}}. {{No alcohol use* 1-2 alcohol drinks daily 3+ alcohol drinks daily Variable alcohol use}}. {{No regular illicit drug use# Recreational MJ use Medical MJ use Rare MJ use Cocaine Heroin/Non-prescribed Opiate}}.&lt ;br>
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

</div> Review of Systems ? Notes: A 14-point <strong>REVIEW OF SYSTEM</strong> was obtained and reviewed, includes CONSTITUTIONAL, EYE S, ALLERGY, NEUROLOGIC, ENDOCRINE, GI, CARDIOVASCULAR, SKIN, MSK, E NT, , RESPIRATORY, HEMATOLOGIC, PSYCH systems. Pertinent symptoms are discu ssed in history, otherwise negative. Physical Exam ? Notes: GENERAL: {{well appearing# c hronically ill appearing}}, appearing {{stated# older than younger than}} age, no acute distress, {{obese# normal tall lean}} build
PSYCHIATRIC: well groomed, fluent speech in Bosnian, good insight, li near thought process, good eye contact, {{balanced# flat}} affect<b r>NEUROLOGIC: alert, oriented, symmetric facial expression

<stron g>Clinical Data Reviewed:</strong>

1. {{Modified Pediatric Frankfort Sleepiness Scale Frank[place] Sleepiness Scale*}}: _2_ out of {{21 due to not drivi ng*}}.

2. {{No sleep study reports# Sleep study results as above. Sleep study results not available, requested Unable to obtain s [facility] study reports}}

3. {{No pertinent labs available. # Lab results as outlined. Labs pending.}}

4. {{Sleep log not filled. # Sleep log revi ewed, consistent with history. Sleep log reviewed. }}
[2021-07-04 15:29] LABS: HCT 36.5 % (36.0-46.0); HGB 11.4 g/dL (11.2-15.7); MCH 24.3 pg (27.0-33.0); MCHC 31.2 % (32.0-36.0); MCV 77.7 fL (80-95); Platelet Count 317 10^3/uL (130-400); RDW 15.7 % (11.7-14.6); RDW-SD 44.5 fL; WBC 6.78 10^3/uL (4.4-10.8)
[2021-07-04 16:40] LABS: COMMENT (LAB VIEW ONLY) 75.56 mg/dL
[2021-07-04 16:42] LABS: Microalb ug/mg Crea 350.3 ug/mg Cr
[2021-07-04 16:47] LABS: Hemoglobin A1C 7.9 % (<5.7)
[2021-07-04 16:51] LABS: Anion Gap 8.3 mmol/L (3-11); BUN 17 mg/dL (7-18); CO2 24.7 mmol/L (21.0-32.0); CREATININE 1.1 mg/dL (0.55-1.02); Calcium 9.5 mg/dL (8.5-10.1); Chloride 99 mmol/L (98-107); Estimated GFR 47.32 (mL/min/1.73m2); Ferritin 14 ng/mL (8-252); Glucose 292 mg/dL (74-106); Potassium 4.6 mmol/L (3.5-5.1); Sodium 132 mmol/L (136-145)
[2021-07-05 12:47] LABS: Iron 29 ug/dL (50-170); Total Iron Binding Capacity 408 ug/dL (250-450)
== END 2021-07-04 14:32 | disposition home or self-care (01) ==
LOC: NCHCN 14:31
PROVIDERS: PCP Family Medicine; Visit Provider Family Medicine
DX: E11.9 Type 2 diabetes mellitus without complications (principal); D64.9 Anemia, unspecified; I10 Essential (primary) hypertension; M10.9 Gout, unspecified; Z00.00 Encounter for general adult medical examination without abnormal findings
CPT/HCPCS: 80048; 85027; 82043; 82570; 82728; 83036; 83540; 83550

== ENCOUNTER 2021-10-10 17:38 | Outpatient (REF) | payer MEDICARE, MEDICAID, SELFPAY ==
[2021-10-10 15:41] LABS: HCT 34.7 % (36.0-46.0); HGB 10.5 g/dL (11.2-15.7); MCH 23.6 pg (27.0-33.0); MCHC 30.3 % (32.0-36.0); MCV 78.2 fL (80-95); MPV 10.2 fL (8.0-11.0); Platelet Count 337 10^3/uL (130-400); RBC 4.44 10^6/uL (3.93-5.22); RDW 16.4 % (11.7-14.6); RDW-SD 46.5 fL; WBC 6.49 10^3/uL (4.4-10.8)
[2021-10-10 16:18] LABS: Ferritin 14 ng/mL (8-252)
[2021-10-10 16:19] LABS: Iron 34 ug/dL (50-170); Total Iron Binding Capacity 404 ug/dL (250-450); Transferrin Sat 8 % (15-50)
== END 2021-10-10 17:39 | disposition home or self-care (01) ==
LOC: NCHCN 17:38
PROVIDERS: PCP Family Medicine; Visit Provider Family Medicine
DX: E11.9 Type 2 diabetes mellitus without complications (principal); I10 Essential (primary) hypertension; D64.9 Anemia, unspecified; R53.1 Weakness
CPT/HCPCS: 85027; 82728; 83036; 83540; 83550

== ENCOUNTER 2022-02-02 19:07 | Inpatient (IN) | payer MEDICARE, MEDICAID, SELFPAY ==
[2022-02-02] VITALS (29 sets, daily range): BP systolic 164–194; BP diastolic 74–120; PULSE 80–95; RESP 16–28; TEMP 36.7; O2SAT 90–93
--- NOTE | 2022-02-02 19:15 | RT.EKG_ITS ---
APPROVED REPORT Exam: Resting ECG Reason for Exam: chest pain Patient Location: E HR:87 bpm ECG Measurements Heart Rate 87 AXIS NE 172 P 30 QRSd 96 QRS -59 QT 390 T 30 QTc 470 Conclusion Sinus arrhythmia...V-rate 66- 95, variation>10% Left anterior fascicular block...axis(240,-40), init forces inf sinus rhtyhm, left axis, normal intervals, non ischemic
--- NOTE | 2022-02-02 19:15 | DI.CT_ITS ---
Exam(s) CT HEAD WO EXAM: CT HEAD WO CLINICAL HISTORY: ams, falls. TECHNIQUE: Imaging Protocol: Axial computed tomography images with coronal and sagittal reformatted images were created and reviewed COMPARISON: CT CT BRAIN NECK CTA from 07/05/2019 FINDINGS: There is moderate generalized cerebral atrophy. No evidence of acute intracranial hemorrhage, mass effect, or midline shift. The orbital structures are unremarkable. The temporal bone structures appear intact. Calvarium: Normal. Visualized Paranasal sinuses/Mastoids: Clear. IMPRESSION: No evidence of acute intracranial process. RADIATION DOSE DELIVERED: 733.21mGy.cm Total DLP 733.21mGy.cm Total DLP !Error CTDIvol DATA REPOSITORY: All CT scans at this facility are submitted to the National Radiology Data Registry (NRDR) Dose Index Registry (DIR) with the [employer] ([employer]). RADIATION OPTIMIZATION: All CT scans at this facility use at least one of these dose optimization te chniques: automated exposure control; mA and/or kV adjustment per patient size (includes targeted exa ms where dose is matched to clinical indication); or iterative reconstruction.
--- NOTE | 2022-02-02 19:18 | DI.RAD_ITS ---
Exam(s) XR PELVIS AP EXAM: XR PELVIS AP CLINICAL HISTORY: falls, unable to walk on own TECHNIQUE: COMPARISON: No exams were available for comparison FINDINGS: Single view was obtained. No gross evidence of fracture or dislocation. Please note that a single v iew is not adequate to exclude hip or pelvic fracture. Additional radiographic views or CT may be ob tained if there is a high clinical suspicion of fracture. IMPRESSION: RADIATION DOSE DELIVERED: Total DLP
--- NOTE | 2022-02-02 19:19 | DI.RAD_ITS ---
Exam(s) XR PORTABLE CHEST AP CT CHEST WO EXAM: XR PORTABLE CHEST AP CLINICAL HISTORY: chest pain TECHNIQUE: COMPARISON: CR XR PORTABLE CHEST AP from 07/08/[address] CHEST WO from 02/02/2022 FINDINGS: Noncontrast CT examination of the chest and supine AP radiographic view of the chest are interpreted in conjunction. No fracture identified in the region surveyed. The lungs are grossly clear allowing for motion artif act. Ascending thoracic aorta is ectatic at 41 millimeters. No gross mediastinal adenopathy or twan melissa. Coronary artery calcifications noted. No pericardial effusion. Tracheobronchial tree grossly intact as visualized. IMPRESSION: No evidence of acute process. RADIATION DOSE DELIVERED: Total DLP
--- NOTE | 2022-02-02 19:41 | W.ED.GENAD ---
Discharge Plan Disposition Patient Disposition: [facility] INPATIENT Condition: Stable Discharge Details Chief Complaint: GenMedical Clinical Impression: COVID-19, Acute UTI, AMS (altered mental status) Primary Care Provider: Yarely Lagos ED Provider: Chago El Home Meds and New Rx's Prescriptions: No Action levetiracetam [Keppra] 750 mg tablet 750 mg PO BID 0RF All Day Allergy (cetirizine) 10 mg capsule 10 mg PO DAILY PRN0RF cephalexin 500 mg capsule 500 mg PO DAILY 0RF ferrous sulfate 325 mg (65 mg iron) tablet 325 mg PO DAILY 0RF naproxen 500 mg tablet 500 mg PO PRN 0RF Levemir FlexTouch U-100 Insuln 100 unit/mL (3 mL) insulin pen 45 unit Sub-Q BID@0800,2000 0RF ergocalciferol (vitamin D2) 400 UNIT tablet 400 units PO DAILY 0RF furosemide 20 mg tablet 20 mg PO DAILY 0RF levetiracetam 500 mg tablet 500 mg PO BID 0RF metformin 500 mg tablet 1,000 mg PO BID Qty: 120 0RF clonazepam 0.5 MG tablet 0.5 mg PO HS PRN PRN0RF sertraline 50 MG tablet 50 mg PO DAILY 0RF nitroglycerin 0.4 MG tablet, sublingual 0.4 mg Sublingual PRN PRN0RF carvedilol 25 MG tablet 25 mg PO BID 0RF clopidogrel [Plavix] 75 MG tablet 75 mg PO DAILY 0RF rosuvastatin [Crestor] 10 MG tablet 40 mg PO QPM 0RF cyanocobalamin (vitamin B-12) 2,500 MCG tablet,chewable 1,000 mcg PO DAILY Qty: 30 0RF amlodipine 2.5 mg Tablet 2.5 mg PO DAILY Qty: 30 0RF esomeprazole magnesium [Nexium] 20 mg Capsule,Delayed Release(Dr/Ec) 0RF eryfnbomlvo-rpelxfjbk-hkm C-Mn [Glucosamine 1500 Complex] 1 EACH capsule 1 tab PO DAILY 0RF Medical Decision Making 86-year-old female history of obesity, hypertension diabetes, multiple prior UTIs presents with increased confusion fall, family having a hard time caring for her at home, would like her placed in rehabilitation facility, patient is awake, interactive, language barrier; moving all extremities, pelvis stable abdomen soft nontender nondistended, some drying of oral mucosa, EKG nonischemic, consider delirium in setting of UTI versus electrolyte abnormality versus less likely syncope as, describes as more of an awake collapsing due to fatigue, lower suspicion for intracranial bleed mass or infection however given age and antiplatelet use will obtain CT head, muscle to consider atypical ACS versus diabetic complication such as hyperosmolar nonketotic syndrome versus less likely DKA. Screening labs imaging admission for rehabilitation placement and hydration. Patient is COVID-positive. Nitrates in urine treat empirically despite no WBCs or leuks. Patient to be admitted for close monitoring of mental status HPI General Date/Time Provider Initiated Documentation: 02/02/22 19:08. HPI Narrative: 86-year-old female history of hypertension diabetes obesity coronary disease presents brought in by family for increased confusion falls and smelly urine, history of prior recurrent UTIs multiple in the past, family having trouble caring for her Related Data Home Medications Medication Instructions Recorded Confirmed clonazepam 0.5 mg tablet 0.5 mg PO HS PRN PRN 05/04/13 11/09/20 sertraline 50 mg tablet 50 mg PO DAILY 05/04/13 11/09/20 nitroglycerin 0.4 mg sublingual 0.4 mg SUBLINGUAL PRN PRN 08/31/13 11/09/20 tablet ergocalciferol (vitamin D2) 10 mcg 400 units PO DAILY tab-cap 05/13/15 11/09/20 (400 unit) tablet noivistvsbd-ltuhkdyio-xzv C-Mn 500 1 tab PO DAILY 07/05/17 11/09/20 mg-400 mg capsule (Glucosamine 1) carvedilol 25 mg tablet 25 mg PO BID tab 07/12/17 11/09/20 clopidogrel 75 mg tablet (Plavix) 75 mg PO DAILY tab 07/12/17 11/09/20 cyanocobalamin (vitamin B-12) 1,000 mcg PO DAILY #30 tab.chew 07/12/17 11/09/20 2,500 mcg chewable tablet rosuvastatin 10 mg tablet (Crestor) 40 mg PO QPM tab 07/12/17 11/09/20 amlodipine 2.5 mg tablet 2.5 mg PO DAILY #30 tab 07/11/19 11/09/20 esomeprazole magnesium 20 mg mg 11/09/20 capsule,delayed release (Nexium) furosemide 20 mg tablet 20 mg PO DAILY 05/17/21 levetiracetam 500 mg tablet 500 mg PO BID 05/17/21 cephalexin 500 mg capsule 500 mg PO DAILY cap 06/22/21 cetirizine 10 mg capsule (All Day 10 mg PO DAILY PRN 06/22/21 Allergy (cetirizine)) ferrous sulfate 325 mg (65 mg 325 mg PO DAILY 06/22/21 iron) tablet insulin detemir U-100 100 unit/mL 45 unit SUB-Q BID@0800,2000 ml 06/22/21 (3 mL) subcutaneous pen (Levemir FlexTouch U-100 Insulin) levetiracetam 750 mg tablet 750 mg PO BID 06/22/21 (Keppra) naproxen 500 mg tablet 500 mg PO PRN tab 06/22/21 metformin 500 mg tablet 1,000 mg PO BID #120 tab 09/29/21 Previous Rx's Medication Instructions Recorded carvedilol 25 mg tablet 25 mg PO BID tab 07/12/17 clopidogrel 75 mg tablet (Plavix) 75 mg PO DAILY tab 07/12/17 cyanocobalamin (vitamin B-12) 1,000 mcg PO DAILY #30 tab.chew 07/12/17 2,500 mcg chewable tablet rosuvastatin 10 mg tablet (Crestor) 40 mg PO QPM tab 07/12/17 amlodipine 2.5 mg tablet 2.5 mg PO DAILY #30 tab 07/11/19 metformin 500 mg tablet 1,000 mg PO BID #120 tab 09/29/21 Allergies Allergy/AdvReac Type Severity Reaction Status Date / Time atorvastatin calcium Allergy Unverified 07/08/17 13:48 [From Lipitor] General Stated Complaint: GenMedical WINSOME: 3 Review of Systems Narrative: Review of Systems Constitutional: Confusion, falls Eyes: negative ENT: negative Cardiovascular: negative Respiratory: negative Gastrointestinal: negative : negative Musculoskeletal: negative Skin: negative Neurologic: negative Psych: negative PFSH All Active Problems (Updated 02/02/22 @ 22:57 by Chago El MD) COVID-19 (Acute) Acute UTI (Acute) AMS (altered mental status) (Acute) UTI (urinary tract infection) (Acute) Pre-syncope (Acute) HTN (hypertension) (Chronic) TIA (transient ischemic attack) (Acute) ?2017 Primary osteoarthritis of left knee (Chronic) Injected: 03/02/2019 Primary osteoarthritis of right knee (Chronic) Injected: 03/02/2019 Diabetes (Chronic) Anxiety (Acute) CAD (coronary artery disease) (Chronic) Discharge planning issues (Acute) DVT prophylaxis (Acute) Vertigo (Acute) Syncope (Acute) Abnormal flushing and sweating (Acute) Chest pain (Acute) Cough (Acute) Abnormal result on screening urine test (Acute) Medical History (Updated 02/02/22 @ 22:57 by Chago El MD) Asthma Hyperlipidemia Hypothyroidism Seizures ?2017 Surgical History History of coronary artery stent placement Family History Mother Stroke Father Heart disease Social History Smoking/Tobacco Use Status: Never Smoking risk assessment performed?: Yes Alcohol Intake: never Drug use: Never Substance use type: 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 She does not speak [place]. She lives with her daughter. She has two children, both here in the [facility] and locally in [place]. She is . 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 Exam Narrative Exam Narrative: Physical Examination General: awake, cooperative, resting comfortably, no acute distress HEENT: normocephalic, atraumatic; PERRL, EOM intact, conjunctiva normal; no nasal discharge; moist mucous membranes, slight drying of oral mucosa Neck: supple, trachea midline; full ROM Chest: normal to inspection Respiratory: normal respiratory effort, speaking in full sentences, clear to auscultation, no wheezing, rales or rhonchi Cardiac: regular rate, regular rhythm, S1S2 intact, no murmurs rubs or gallops GI: abdomen soft, non-tender, non-distended; no palpable mass or hepatosplenomegaly Skin: no lesions, rashes or trauma appreciated Neuro: Opening eyes spontaneously, normal speech, moving all extremities with full strength Extremities: Moving all extremities no signs of deformity; pelvis stable Psych: Appropriate mood and affect Course Vital Signs Vital signs: Vital Signs Temperature 36.7 C 02/02/22 19:09 Pulse 95 H 02/02/22 19:09 Respiratory Rate 16 02/02/22 19:09 Blood Pressure 164/87 H 02/02/22 19:09 Pulse Oximetry 92 02/02/22 19:09 Temperature 36.7 C 02/02/22 19:09 Temperature Source Tympanic 02/02/22 19:09 Pulse 95 H 02/02/22 19:09 Respiratory Rate 16 02/02/22 19:09 Blood Pressure 164/87 H 02/02/22 19:09 Blood Pressure Position Supine 02/02/22 19:09 Pulse Oximetry 92 02/02/22 19:09 Oxygen Delivery Method Room Air 02/02/22 19:09 Oxygen Flow Rate 0 02/02/22 19:09 Pain Level 5 02/02/22 19:09
[2022-02-02 20:12] LABS: Abs Immature Grans 0.01 10^3/uL (0.0-0.06); Absolute Basophil Count 0.03 10^3/uL (0.0-0.2); Absolute Eosinophil Count 0.05 10^3/uL (0.0-0.7); Absolute Lymphocyte Count 1.76 10^3/uL (1.2-3.4); Absolute Monocyte Count 1.63 10^3/uL (0.1-0.8); Absolute Neutrophil Count 4.34 10^3/uL (1.2-6.7); Basophils % 0.4; Eosinophils % 0.6; HCT 37.6 % (36.0-46.0); HGB 11.5 g/dL (11.2-15.7); Immature Grans % 0.1; Lymphocytes % 22.5; MCH 23.3 pg (27.0-33.0); MCHC 30.6 % (32.0-36.0); MCV 76 fL (80-95); MPV 9.5 fL (8.0-11.0); Monocytes % 20.8; Neutrophils % 55.6; Platelet Count 322 10^3/uL (130-400); RBC 4.93 10^6/uL (3.93-5.22); RDW 17.7 % (11.7-14.6); RDW-SD 48.9 fL; WBC 7.82 10^3/uL (4.4-10.8)
[2022-02-02 20:13] LABS: Bilirubin Negative (Negative); Blood Negative (Negative); Clarity Clear (Clear); Glucose 100 mg/dL (Negative); Ketones Negative (Negative); Leukocyte Esterase Negative (Negative); Nitrite Positive (Negative); Specific Gravity >= 1.030 (1.005-1.025); Urobilinogen 0.2 EU/dL (Up TO 0.2)
[2022-02-02 20:18] LABS: Troponin I < 50 ng/L (<or=60)
[2022-02-02 20:25] LABS: Bacteria Many HPF (Negative); C & S Indicated? Yes; Crystals Negative HPF (Negative); Epithelial Cells Few HPF (Negative); Mucus Negative (Negative); Other Cells Few Transitional (Negative); RBC 0-2 HPF (0-2); WBC 0-2 HPF (0-5)
[2022-02-02 20:29] LABS: ALT 36 U/L (14-59); AST 29 U/L (15-37); Albumin 3.9 g/dL (3.4-5.0); Alkaline Phosphatase 100 U/L (46-116); Anion Gap 12.7 mmol/L (3-11); BUN 20 mg/dL (7-18); Bilirubin, Total 0.3 mg/dL (0.2-1.0); CO2 24.3 mmol/L (21.0-32.0); CREATININE 1.1 mg/dL (0.55-1.02); Calcium 9.2 mg/dL (8.5-10.1); Chloride 97 mmol/L (98-107); Estimated GFR 47.32 (mL/min/1.73m2); Glucose 334 mg/dL (74-106); Potassium 4.4 mmol/L (3.5-5.1); Sodium 134 mmol/L (136-145); Total Protein 8.1 g/dL (6.4-8.2)
[2022-02-02 20:36] LABS: Anisocytosis 1+; Diff Comment Agrees w/ Instrument; Hypochromasia 1+; Microcytosis 1+; Polychromasia Present
[2022-02-02 20:39] LABS: Influenza A PCR Negative (Negative); Influenza B PCR Negative (Negative); RSV PCR Negative (Negative)
[2022-02-02] MEDS: cefTRIAXone 1 GM/50 ML BAG IVPB (20:55)
[2022-02-02] MEDS: Normal Saline 500 ML 1000 ML IV (20:56)
[2022-02-02 21:02] LABS: COVID-19 PCR Positive (Negative); Source Nasopharynx
--- NOTE | 2022-02-02 21:31 | DI.VRAD_ITS ---
PROCEDURE INFORMATION: Exam: CT Head Without Contrast Exam date and time: 02/02/2022 8:35 PM Age: 86 years old Clinical indication: Injury or trauma; Fall; Blunt trauma (contusions or hematomas); Consciousness not specified TECHNIQUE: Imaging protocol: Computed tomography of the head without contrast. COMPARISON: MR BRAIN WO 07/06/2019 12:16 PM FINDINGS: Brain: There is no acute intracranial hemorrhage, mass effect or midline shift. No large acute territorial infarct identified. There are patchy regions of hypodensity in the periventricular and subcortical white matter, likely on the basis of chronic microvascular ischemic disease. Cerebral ventricles: The ventricles and sulci are prominent in size, which is at least in part due to global cerebral volume loss. Paranasal sinuses: Visualized sinuses are unremarkable. No fluid levels. Mastoid air cells: Visualized mastoid air cells are well aerated. Bones/joints: No acute fracture. Soft tissues: Small round nodules in the right parietal region as seen in the prior MRI. IMPRESSION: 1. No acute intracranial hemorrhage, mass effect or midline shift. 2. Small stable subcutaneous nodules which could represent sebaceous cysts. Dictated and Authenticated by: Arabella Rutledge MD. Ordering:CHANTALE Anders MD
--- NOTE | 2022-02-02 21:52 | DI.VRAD_ITS ---
PROCEDURE INFORMATION: Exam: XR Chest Exam date and time: 02/02/2022 8:54 PM Age: 86 years old Clinical indication: Injury or trauma; Fall; Blunt trauma (contusions or hematomas); Injury date: 02/02/22 TECHNIQUE: Imaging protocol: XR of the chest. Views: 1 view. COMPARISON: CT CHEST/ABD/PEL WO 11/09/2020 10:37 PM FINDINGS: Lungs: No consolidation. Pleural spaces: No pleural effusion. No pneumothorax. Heart/Mediastinum: The heart appears enlarged, at least in part due to the AP technique. Bones/joints: Unremarkable. IMPRESSION: No acute fracture. Dictated and Authenticated by: Arabella Rutledge MD. Ordering:CHANTALE Anders MD
--- NOTE | 2022-02-02 22:11 | DI.VRAD_ITS ---
PROCEDURE INFORMATION: Exam: XR Pelvis Exam date and time: 02/02/2022 8:51 PM Age: 86 years old Clinical indication: Injury or trauma; Blunt trauma (contusions or hematomas); Bilateral; Pelvic region; Injury date: 02/02/22; Injury details: Fall, unable to walk TECHNIQUE: Imaging protocol: XR pelvis. Views: 1 or 2 view. COMPARISON: CT CHEST/ABD/PEL WO 11/09/2020 10:37 PM FINDINGS: Bones/joints: No acute fracture. No dislocation. Soft tissues: Unremarkable. IMPRESSION: No acute fracture or dislocation. If there is persistent concern for acute fracture, CT of the pelvis may be considered for further evaluation. Dictated and Authenticated by: Arabella Rutledge MD. Ordering:CHANTALE Anders MD
--- NOTE | 2022-02-02 22:29 | DI.VRAD_ITS ---
PROCEDURE INFORMATION: Exam: CT Chest Without Contrast; Diagnostic Exam date and time: 02/02/2022 9:38 PM Age: 86 years old Clinical indication: Injury or trauma; Fall; Blunt trauma (contusions or hematomas); Additional info: Fall, unable to walk TECHNIQUE: Imaging protocol: Diagnostic computed tomography of the chest without contrast. 3D rendering (Not supervised by radiologist): MIP and/or 3D reconstructed images were created by the technologist. COMPARISON: CT CHEST/ABD/PEL WO 11/09/2020 10:37 PM FINDINGS: Lungs: He no significant consolidation. There is a 7 mm nodule seen in the left lower lobe, stable since prior examination. Pleural spaces: No pneumothorax. No pleural effusion. Heart: No cardiomegaly. No pericardial effusion. Lymph nodes: No enlarged lymph nodes. Vasculature: No aortic aneurysm. Bones/joints: No acute fracture. Soft tissues: Unremarkable. IMPRESSION: 1. No significant consolidation. 2. Stable left lower lobe pulmonary nodule. Dictated and Authenticated by: Arabella Rutledge MD. Ordering:CHANTALE Anders MD
--- NOTE | 2022-02-02 23:39 | HPE_ITS ---
Date of service: 02/02/22 Time of Service: 23:40 Assessment and Plan Assessment and plan (1) COVID-19: Status: Acute Assessment and plan: Initially I was going to just give her MAB but when I found out that she was more dyspneic and mildly hypoxemic I changed her treatment to Remdesivir and decadron and baricitinib. However, I think her hypoxemia, dyspnea and elevated BP was part of her anxiety/panic attack. now that she has had her clonazepam and BP meds her oxygen levels are normal on room air. She probably does not need decadron and she should still be a candidate for the MAB (Bebtelovimab) (2) Acute UTI: Status: Acute Assessment and plan: UA suspicious. urine culture sent (but no blood culture). Rocephin 1 gm given in the ER. will continue the same pending culture/sensitivities (3) AMS (altered mental status): Status: Acute Assessment and plan: likely d/t UTI and some underlying dementia; however may also be d/t covid (4) Anxiety: Status: Acute Assessment and plan: Patient became very anxious and hypertensive down the emergency department but settled down once she got her clonazepam. She is now somnolent this morning. (5) HTN (hypertension): Status: Chronic Assessment and plan: BP poorly controlled on admission but this may be d/t her missing her meds today. Will reorder her home meds and monitor (6) Diabetes: Status: Chronic Assessment and plan: will continue her home dose of her detemir and metformin and add novolog sliding scale and CHO coverage. monitor glucose ac/hs. Historically she has not been very well controlled. A1c was 8.0% on 10/10/21. (7) Sleep apnea: Status: Suspected Assessment and plan: Suspected sleep apnea based on her transient hypoxemia associated with heavy snoring. She should have an outpatient sleep referral. (8) CAD (coronary artery disease): Status: Chronic Assessment and plan: no sx of ischemia. troponin taken on admission was normal <50. No second troponin was done. I will repeat in the a.m. to be sure no ACS event. EKG did not show any acute ischemic changes. (9) Hypothyroidism: Assessment and plan: TSH is ok at 2.10, she is not currently on any thyroid replacement which suggests to me either we do not have all of her medications on file; or if she truly is not on levothryoxine then she is not actually hypothyroid (10) DVT prophylaxis: Status: Acute Assessment and plan: Therapeutic Lovenox dosing at 1 mg/kg every 12 hours (11) Discharge planning issues: Status: Acute Assessment and plan: will ask CM to assist w/ working w/ family regarding placement in SNF History of Present Illness History of Present Illness Chief Complaint: confusion, weakness, foul smelling urine Narrative: 86-year-old female history of hypertension diabetes obesity coronary disease presents brought in by family for increased confusion falls and smelly urine, history of prior recurrent UTIs multiple in the past, family having trouble caring for her. workup in the ER revealed that she has COVID-19 despite her being fully vaccinated. Initially she did not have syptoms of dyspnea on arrival but later in her ED stay she was getting anxious, and dyspneic and her BP mark anthony to 218/90 and her oxygen saturation dropped to 90% however she had not had her BP meds for the day and had not had her clonazepam. she was given her clonazepam, carvedilol, amlodipine and given a nitroglycerin SL and her BP has since fallen to 181/97. Her SPO2 has risen to 94% on room air. Evaluation in the ED included routine labs including CMP, CBC, UA, and nasal swab for PCR for SARS-COV2, influenza and RSV. she is positive for SARS-COV2 however her chest CT did not show any pulmonary abnormalities. CMP demonstrated mildly elevated BUN and creatinine and mildly low sodium, chloride, and high glucose 334. UA was suspicious for UTI (+nitrites, many bacteria). She was given Rocephin 1 gm IVPB. She is now admitted for UTI, acute confusion, failure to thrive and COVID infection w/out pneumonia. Review of Systems Unobtainable due to mental status and Unobtainable due to (language barrier prevents obtaining ROS or HX) PFSH All Active Problems (Updated 02/03/22 @ 10:27 by Ortiz Mead) Discharge planning issues (Acute) COVID-19 (Acute) Acute UTI (Acute) AMS (altered mental status) (Acute) UTI (urinary tract infection) (Acute) Pre-syncope (Acute) HTN (hypertension) (Chronic) TIA (transient ischemic attack) (Acute) ?2017 Primary osteoarthritis of left knee (Chronic) Injected: 03/02/2019 Primary osteoarthritis of right knee (Chronic) Injected: 03/02/2019 Diabetes (Chronic) Anxiety (Acute) CAD (coronary artery disease) (Chronic) Discharge planning issues (Acute) DVT prophylaxis (Acute) Vertigo (Acute) Syncope (Acute) Abnormal flushing and sweating (Acute) Chest pain (Acute) Cough (Acute) Abnormal result on screening urine test (Acute) Medical History (Updated 02/03/22 @ 10:27 by Ortiz Mead) Asthma Hyperlipidemia Hypothyroidism Seizures ?2017 Surgical History History of coronary artery stent placement Family History Mother Stroke Father Heart disease Social History Smoking/Tobacco Use Status: Never Smoking risk assessment performed?: Yes Alcohol Intake: never Drug use: Never Substance use type: does not use and former substance user Household members: children Number of Children: 2 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 She does not speak Belarusian. She lives with her daughter. She has two children, both here in the [facility] and locally in [place]. She is . 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 Meds Allergies and Home Medications Allergies Allergy/AdvReac Type Severity Reaction Status Date / Time atorvastatin calcium Allergy Unverified 07/08/17 13:48 [From Lipitor] Home Medications Medication Instructions Recorded Confirmed Type clonazepam 0.5 mg tablet 0.5 mg PO HS PRN PRN 05/04/13 02/03/22 History sertraline 50 mg tablet 50 mg PO DAILY 05/04/13 02/03/22 History nitroglycerin 0.4 mg sublingual 0.4 mg SUBLINGUAL PRN PRN 08/31/13 02/03/22 History tablet ergocalciferol (vitamin D2) 10 mcg 400 units PO DAILY tab-cap 05/13/15 02/03/22 History (400 unit) tablet [id number] C-Mn 500 1 tab PO DAILY 07/05/17 02/03/22 History mg-400 mg capsule (Glucosamine 1) carvedilol 25 mg tablet 25 mg PO BID tab 07/12/17 02/03/22 Rx clopidogrel 75 mg tablet (Plavix) 75 mg PO DAILY tab 07/12/17 02/03/22 Rx cyanocobalamin (vitamin B-12) 1,000 mcg PO DAILY #30 tab.chew 07/12/17 02/03/22 Rx 2,500 mcg chewable tablet rosuvastatin 10 mg tablet (Crestor) 40 mg PO QPM tab 07/12/17 02/03/22 Rx amlodipine 2.5 mg tablet 2.5 mg PO DAILY #30 tab 07/11/19 02/03/22 Rx esomeprazole magnesium 20 mg 40 mg PO QDAY 11/09/20 02/03/22 History capsule,delayed release (Nexium) furosemide 20 mg tablet 20 mg PO DAILY 05/17/21 02/03/22 History levetiracetam 500 mg tablet 500 mg PO BID 05/17/21 02/03/22 History cephalexin 500 mg capsule 500 mg PO DAILY cap 06/22/21 History cetirizine 10 mg capsule (All Day 10 mg PO DAILY PRN 06/22/21 02/03/22 History Allergy (cetirizine)) ferrous sulfate 325 mg (65 mg 325 mg PO DAILY 06/22/21 02/03/22 History iron) tablet insulin detemir U-100 100 unit/mL 45 unit SUB-Q BID@0800,2000 ml 06/22/21 02/03/22 History (3 mL) subcutaneous pen (Levemir FlexTouch U-100 Insulin) levetiracetam 750 mg tablet 500 mg PO BID 06/22/21 02/03/22 History (Keppra) naproxen 500 mg tablet 500 mg PO PRN tab 06/22/21 02/03/22 History metformin 500 mg tablet 1,000 mg PO BID #120 tab 09/29/21 02/03/22 Rx Exam Narrative Exam Narrative: Elderly female lying in bed asleep with sonorous respirations. I was unable to awaken her with calling her name or gently tapping her arm or leg. HEENT is unremarkable. Neck is without JVD, normal carotid pulses no bruits no adenopathy Lungs are clear to auscultation Heart is regular rate and rhythm without murmur rub or gallop Abdomen is obese soft nondistended normal bowel sounds Extremities without peripheral cyanosis or edema. She has normal pedal pulses. No ulcerations of her toes or her feet. Neuro exam is nonfocal. I was unable to wake her up to perform a complete neuro exam however she had no facial asymmetry and no loss of tone in her extremities. Results Imaging CT scan - chest: report reviewed (FINDINGS: Lungs: No consolidation. Pleural spaces: No pleural effusion. No pneumothorax. Heart/Mediastinum: The heart appears enlarged, at least in part due to the AP technique. Bones/joints: Unremarkable.) EKG: image reviewed Imaging Studies: CT head: FINDINGS: Brain: There is no acute intracranial hemorrhage, mass effect or midline shift. No large acute territorial infarct identified. There are patchy regions of hypodensity in the periventricular and subcortical white matter, likely on the basis of chronic microvascular ischemic disease. Cerebral ventricles: The ventricles and sulci are prominent in size, which is at least in part due to global cerebral volume loss. Paranasal sinuses: Visualized sinuses are unremarkable. No fluid levels. Mastoid air cells: Visualized mastoid air cells are well aerated. Labs Result diagrams: 02/03/22 07:00 02/03/22 07:00 Labs: Laboratory Results - last 24 hr 02/02/22 02/02/22 02/02/22 19:30 19:30 19:30 WBC 7.82 RBC 4.93 Hgb 11.5 Hct 37.6 MCV 76 L MCH 23.3 L MCHC 30.6 L RDW 17.7 H Plt Count 322 MPV 9.5 Immature Gran % 0.1 Neutrophils % 55.6 Lymphocytes % 22.5 Monocytes % 20.8 Eosinophils % 0.6 Basophils % 0.4 Nucleated RBC % 0.0 Absolute Neutrophils 4.34 Absolute Lymphocytes 1.76 Absolute Monocytes 1.63 H Absolute Eosinophils 0.05 Absolute Basophils 0.03 RBC Morphology See Below Polychromasia Present Hypochromasia 1+ Anisocytosis 1+ Microcytosis 1+ Sodium 134 L Potassium 4.4 Chloride 97 L Carbon Dioxide 24.3 Anion Gap 12.7 H BUN 20 H Creatinine 1.1 H Estimated GFR/1.73 m2 47.32 Glucose 334 H Calcium 9.2 Total Bilirubin 0.3 AST 29 ALT 36 Alkaline Phosphatase 100 Troponin I < 50 Total Protein 8.1 Albumin 3.9 TSH 2.10 Urine Color Urine Clarity Urine pH Ur Specific [place] Urine Protein Urine Ketones Urine Blood Urine Nitrite Urine Bilirubin Urine Urobilinogen Ur Leukocyte Esterase Urine RBC Urine WBC Ur Epithelial Cells Urine Crystals Urine Bacteria Urine Mucus Urine Other Ur Culture Indicated? Urine Glucose COVID-19 Source SARS-CoV-2 (PCR) Influenza Type A (PCR) Influenza Type B (PCR) RSV (PCR) 02/02/22 02/02/22 19:50 19:50 WBC RBC Hgb Hct MCV MCH MCHC RDW Plt Count MPV Immature Gran % Neutrophils % Lymphocytes % Monocytes % Eosinophils % Basophils % Nucleated RBC % Absolute Neutrophils Absolute Lymphocytes Absolute Monocytes Absolute Eosinophils Absolute Basophils RBC Morphology Polychromasia Hypochromasia Anisocytosis Microcytosis Sodium Potassium Chloride Carbon Dioxide Anion Gap BUN Creatinine Estimated GFR/1.73 m2 Glucose Calcium Total Bilirubin AST ALT Alkaline Phosphatase Troponin I Total Protein Albumin TSH Urine Color Yellow Urine Clarity Clear Urine pH 6.0 Ur Specific [place] >= 1.030 H Urine Protein 100 H Urine Ketones Negative Urine Blood Negative Urine Nitrite Positive H Urine Bilirubin Negative Urine Urobilinogen 0.2 Ur Leukocyte Esterase Negative Urine RBC 0-2 Urine WBC 0-2 Ur Epithelial Cells Few Urine Crystals Negative Urine Bacteria Many Urine Mucus Negative Urine Other Few Transitional Ur Culture Indicated? Yes Urine Glucose 100 COVID-19 Source Nasopharynx SARS-CoV-2 (PCR) Positive A Influenza Type A (PCR) Negative Influenza Type B (PCR) Negative RSV (PCR) Negative Last Vital Signs Temp 36.7 C 02/02/22 19:09 Pulse 90 02/02/22 21:31 Resp 22 02/02/22 23:10 BP 191/77 H 02/02/22 21:31 Pulse Ox 91 L 02/02/22 23:10
[2022-02-03] VITALS (15 sets, daily range): BP systolic 136–218; BP diastolic 69–190; PULSE 85–99; RESP 18–27; TEMP 36.9–37.4; O2SAT 88–98
[2022-02-03] MEDS: nitroGLYcerin 0.4 MG TAB SL (00:43)
[2022-02-03] MEDS: clonazePAM 0.5 MG TAB PO (01:38)
[2022-02-03] MEDS: Carvedilol 25 MG TAB PO ×3 (01:43→20:35)
[2022-02-03] MEDS: amLODIPine 2.5 MG TAB PO ×2 (01:43→10:58)
[2022-02-03] MEDS: Enoxaparin 100 MG/ML SYR 90 MG SC ×2 (02:18→16:49)
[2022-02-03] MEDS: Dexamethasone 10 MG/ML VIAL IVP (02:18)
--- NOTE | 2022-02-03 02:40 | NUR.NOTE ---
Tried to communicate with this patient but she doesnt understand Zambian. Grabbed the IPAD for interpretation service but was not working after multiple trials. winter sports manager tried to fix it with no luck. Got the hand cementer number and called, someone picked and i told the person the language i needed and he place me on hold for about 12 mins without any response. patient was settled and made comfortable.
[2022-02-03] MEDS: Normal Saline 500 ML 30 ML IV (06:27)
[2022-02-03 07:21] LABS: Abs Immature Grans 0.02 10^3/uL (0.0-0.06); Absolute Basophil Count 0.02 10^3/uL (0.0-0.2); Absolute Lymphocyte Count 1.18 10^3/uL (1.2-3.4); Absolute Monocyte Count 0.23 10^3/uL (0.1-0.8); Absolute Neutrophil Count 3.39 10^3/uL (1.2-6.7); Basophils % 0.4; HCT 36.1 % (36.0-46.0); HGB 11.1 g/dL (11.2-15.7); Immature Grans % 0.4; Lymphocytes % 24.4; MCH 22.9 pg (27.0-33.0); MCHC 30.7 % (32.0-36.0); MCV 74 fL (80-95); MPV 9.3 fL (8.0-11.0); Monocytes % 4.8; Platelet Count 291 10^3/uL (130-400); RBC 4.85 10^6/uL (3.93-5.22); RDW 17.4 % (11.7-14.6); RDW-SD 46.8 fL; WBC 4.84 10^3/uL (4.4-10.8)
[2022-02-03 07:45] LABS: ALT 38 U/L (14-59); AST 35 U/L (15-37); Albumin 3.6 g/dL (3.4-5.0); Alkaline Phosphatase 73 U/L (46-116); BUN 14 mg/dL (7-18); Bilirubin, Total 0.3 mg/dL (0.2-1.0); C-Reactive Protein 0.13 mg/dL (0.0-0.3); CREATININE 0.9 mg/dL (0.55-1.02); Calcium 8.6 mg/dL (8.5-10.1); Chloride 100 mmol/L (98-107); Creatine Kinase 31 U/L (26-192); Estimated GFR 59.65 (mL/min/1.73m2); Glucose 331 mg/dL (74-106); NT-proBNP 202 pg/mL (<300); Potassium 4.3 mmol/L (3.5-5.1); Sodium 135 mmol/L (136-145); Total Protein 7.7 g/dL (6.4-8.2); Troponin I < 50 ng/L (<or=60)
[2022-02-03 08:04] LABS: D-Dimer 490 ng/mlFEU (<500)
[2022-02-03 08:20] LABS: Ferritin 24 ng/mL (8-252)
--- NOTE | 2022-02-03 10:26 | INITIAL_ITS ---
- If Service Date Differs Date of service: 02/03/22 Time of Service: 10:26 Care Management Initial Assess REASON FOR HOSPITALIZATION:: Covid 19, weakness PAST MEDICAL HISTORY/PAST SURGICAL HISTORY:: All Active Problems (Updated 02/03/22 @ 01:55 by Ortiz Mead). Discharge planning issues (Acute). COVID-19 (Acute). Acute UTI (Acute). AMS (altered mental status) (Acute). UTI (urinary tract infection) (Acute). Pre-syncope (Acute). HTN (hypertension) (Chronic). TIA (transient ischemic attack) (Acute). ?2017. Primary osteoarthritis of left knee (Chronic). Injected: 03/02/2019. Primary osteoarthritis of right knee (Chronic). Injected: 03/02/2019. Diabetes (Chronic). Anxiety (Acute). CAD (coronary artery disease) (Chronic). Discharge planning issues (Acute). DVT prophylaxis (Acute). Vertigo (Acute). Syncope (Acute). Abnormal flushing and sweating (Acute). Chest pain (Acute). Cough (Acute). Abnormal result on screening urine test (Acute). Medical History (Updated 02/03/22 @ 01:55 by Ortiz Mead). Asthma. Hyperlipidemia . Hypothyroidism. Seizures. ?2017. Surgical History . History of coronary artery stent placement PREVIOUS FUNCTIONAL STATUS/SOCIAL/FAMILY SUPPORTS:: Mitch is an 86 yo female who lives in [facility] with her daughter Keyshawn, daughter's , and daughter's two sons. Patient only speaks Bosnian and translation is done through a curing room supervisor phone. Her children at times act as interpreters also. Mitch has lived in [facility] for the past 20 years. She requires assistance from her family with ambulation and ADLs. Keyshawn's home has just been licensed as an [facility] home and Mitch has [facility]. Keyshawn and her are her caregivers. Her new case management social worker through [facility] is Leticia Sr. CURRENT FUNCTIONAL STATUS:: Mitch is on Covid isolation so CM was unable to meet with her. CM did speak to her daughter with whom she loves, as well as her son. Both children indicated that their goal is for Mitch to return home when she is able to ambulate safely for 10 feet or so - far enough to get to the bathroom. Her daughter Keyshawn informed CM that her home is now a licensed [facility] home and she and her are the paid caregivers. Mitch's new case management social worker is Leticia Sr through [facility] ([phone]). ADVANCE DIRECTIVES:: None on file. In the past Mitch has indicated that her daughter Keyshawn should make her health care decisions. Has patient been provided with info about the portal/API?: Yes Did the patient sign up for the portal?: No CODE STATUS:: Full Code INSURANCE COVERAGE / FINANCIAL ISSUES:: Medicare. Medicaid - senior care CURRENT HOME/COMMUNITY SERVICES/EQUIPMENT:: [facility]. Daughter and son-in-law are her caregivers. Mitch uses a walker and sometimes a wheelchair for mobility assistance. PRIMARY CARE PHYSICIAN:: Yarely Lagos POTENTIAL DISCHARGE NEEDS:: Follow up with PCP and plan of care. Possible short term rehab before returning home. PATIENT/FAMILY EDUCATION NEEDS:: Review of discharge instructions, limitations, activity, medications, follow up plan, discussion of Ask Me Three. TRANSPORTATION:: to be determined by disposition PLAN:: Mitch will likely be discharged home with a resumption of her caregivers through [facility] program, although she may need to go to a SNF for short term rehab. CM will continue to support Mitch and her family and assess for ongoing discharge considerations.
[2022-02-03] MEDS: Insulin Aspart 300 UNITS/3 ML PEN SC ×6 (10:31→17:16)
[2022-02-03] MEDS: Glucosamine/Chondroitin CAP 1 CAP PO (10:43)
[2022-02-03] MEDS: metFORMIN 500 MG TAB 1000 MG PO ×2 (10:43→16:49)
[2022-02-03] MEDS: levETIRAcetam 500 MG TAB PO ×2 (10:43→20:34)
[2022-02-03] MEDS: Cyanocobalamin 500 MCG TAB 1000 MCG PO (10:43)
[2022-02-03] MEDS: Clopidogrel 75 MG TAB PO (10:43)
[2022-02-03] MEDS: Cholecalciferol (Vitamin D3) 1,000 UNIT TAB 2000 UNITS PO (10:43)
[2022-02-03] MEDS: Furosemide 20 MG TAB PO (10:43)
[2022-02-03] MEDS: Sertraline 50 MG TAB PO (10:44)
[2022-02-03] MEDS: Zinc Sulfate 220 MG TAB PO (10:44)
[2022-02-03] MEDS: Famotidine 20 MG TAB PO ×2 (10:44→20:34)
[2022-02-03] MEDS: Ascorbic Acid 500 MG TAB 1000 MG PO ×2 (10:44→20:34)
[2022-02-03] MEDS: Ferrous Sulfate 325 MG TAB PO (10:44)
[2022-02-03] MEDS: Normal Saline Flush 10 ML SYR IVP ×2 (11:02→21:05)
--- NOTE | 2022-02-03 13:57 | PT.INNT ---
PT Notes Visit Reasons: Altered Mental Status, UTI, COVID, Fail to Thrive Deferred Physical Therapy Evaluation today. Due to COVID, family members not able to be present, patient does not speak [place] Island[place] and is unable to give history. For evaluation will need to utilize internal control analyst tablet and/or phone conversation with daughter. With RN, discussed patient was maximum assist to transfer bed to commode and was unable to tolerate sitting. Discussed plan to defer evaluation until Saturday with Hospitalist and Operating Room Registered Nurse. Advised to utilize lift assist for transfers and encourage increased sitting.
--- NOTE | 2022-02-03 17:13 | W.PM.PROGNOT ---
Date of Service Date of service: 02/03/22 Time of Service: 17:13 Assessment and Plan Assessment and plan (1) COVID-19: Status: Acute Assessment and plan: The patient is now requiring oxygen. She did receive MAB this morning, but at this time due to oxygen requirement while awake, needs to be transitioned back to dexamethasone/remdesivir. Encourage proning, IS, acapella. Continue bronchodilators. I will schedule the duonebs because I do not believe that the patient will ask for them. Add antitussives. (2) Hypoxia: Status: Acute Assessment and plan: Due to above, as above (3) Acute UTI: Status: Acute Assessment and plan: Present on admission. Has a h/o of E.C anny and morganella in 11/20, both susceptible to ceftriaxone. Will continue empiric ceftriaxone. Await urine C&S. (4) AMS (altered mental status): Status: Acute Assessment and plan: Cooperative and probably at her baseline at this time. Difficult to truly assess due to the language barrier, even with the use of the language line. Agree that, if she does have a degree of delirium, this is due to her UTI, COVID and/or possible sun-downing. (5) Anxiety: Status: Acute Assessment and plan: In setting of missed clonazepam - continue. (6) HTN (hypertension): Status: Chronic Assessment and plan: BPs better with resumption of home meds. Continue home meds. (7) Diabetes: Status: Chronic Assessment and plan: A1C 8.0 in 10/21. Has steroid induced hyperglycemia. Will increase the long acting insulin as well as intensify meal-time coverage and SSI. Continue metformin at this time. (8) Sleep apnea: Status: Suspected Assessment and plan: Not on CPAP. If desired, family can pursue an outpatient sleep study. (9) CAD (coronary artery disease): Status: Chronic Assessment and plan: CP today does not sound cardiac. Trops negative x 2. Will continue to monitor on tele while in a covid room. Continue home plavix. (10) Hypothyroidism: Assessment and plan: Not requiring levothyroxine supplementation at this time. (11) DVT prophylaxis: Status: Acute Assessment and plan: Therapeutic lovenox (12) Discharge planning issues: Status: Acute Assessment and plan: Full code Anticipate discharge to SNF. PT consult. Palliative care consult. Subjective Subjective Interval history since last seen: I spoke to Mitch via the language line. Mitch states that she is feeling better. It is not the energy level - the energy level is low. It is her breathing. Her cough is a lot better, she states. She has a small amount of substernal chest discomfort or tightness - it sounds like this is getting better too. She does not give any details about it. She denies nausea. She is requiring 2L of O2. Exam Narrative Exam Narrative: General: Pleasant elderly female who is laying comfortably in bed on her back, speaks Bosnian only, appears comfortable on 2L of O2 by NC. HEENT: EOMI, MMM Heart: RRR, no m/r/g Lungs: Diminished breath sounds B Abdomen: soft, nontender, nondistended Extremities: trace edema BLEs. Objective Last Vital Signs Temp 36.9 C 02/03/22 11:18 Pulse 91 H 02/03/22 11:18 Resp 20 02/03/22 11:18 BP 160/88 H 02/03/22 11:18 Pulse Ox 94 02/03/22 11:18 Laboratory Results - last 24 hr 02/02/22 02/02/22 02/02/22 19:30 19:30 19:30 WBC 7.82 RBC 4.93 Hgb 11.5 Hct 37.6 MCV 76 L MCH 23.3 L MCHC 30.6 L RDW 17.7 H Plt Count 322 MPV 9.5 Immature Gran % 0.1 Neutrophils % 55.6 Lymphocytes % 22.5 Monocytes % 20.8 Eosinophils % 0.6 Basophils % 0.4 Nucleated RBC % 0.0 Absolute Neutrophils 4.34 Absolute Lymphocytes 1.76 Absolute Monocytes 1.63 H Absolute Eosinophils 0.05 Absolute Basophils 0.03 RBC Morphology See Below Polychromasia Present Hypochromasia 1+ Anisocytosis 1+ Microcytosis 1+ D-Dimer Sodium 134 L Potassium 4.4 Chloride 97 L Carbon Dioxide 24.3 Anion Gap 12.7 H BUN 20 H Creatinine 1.1 H Estimated GFR/1.73 m2 47.32 Glucose 334 H Calcium 9.2 Ferritin Total Bilirubin 0.3 AST 29 ALT 36 Alkaline Phosphatase 100 Creatine Kinase Troponin I < 50 C-Reactive Protein NT-Pro-B Natriuret Pep Total Protein 8.1 Albumin 3.9 TSH 2.10 Urine Color Urine Clarity Urine pH Ur Specific [place] Urine Protein Urine Ketones Urine Blood Urine Nitrite Urine Bilirubin Urine Urobilinogen Ur Leukocyte Esterase Urine RBC Urine WBC Ur Epithelial Cells Urine Crystals Urine Bacteria Urine Mucus Urine Other Ur Culture Indicated? Urine Glucose COVID-19 Source SARS-CoV-2 (PCR) Influenza Type A (PCR) Influenza Type B (PCR) RSV (PCR) Patient ABO/Rh 02/02/22 02/02/22 02/03/22 19:50 19:50 07:00 WBC RBC Hgb Hct MCV MCH MCHC RDW Plt Count MPV Immature Gran % Neutrophils % Lymphocytes % Monocytes % Eosinophils % Basophils % Nucleated RBC % Absolute Neutrophils Absolute Lymphocytes Absolute Monocytes Absolute Eosinophils Absolute Basophils RBC Morphology Polychromasia Hypochromasia Anisocytosis Microcytosis D-Dimer Sodium 135 L Potassium 4.3 Chloride 100 Carbon Dioxide 25.0 Anion Gap 10.0 BUN 14 Creatinine 0.9 Estimated GFR/1.73 m2 59.65 Glucose 331 H Calcium 8.6 Ferritin 24 Total Bilirubin 0.3 AST 35 ALT 38 Alkaline Phosphatase 73 Creatine Kinase 31 Troponin I < 50 C-Reactive Protein 0.13 NT-Pro-B Natriuret Pep 202 Total Protein 7.7 Albumin 3.6 TSH Urine Color Yellow Urine Clarity Clear Urine pH 6.0 Ur Specific [place] >= 1.030 H Urine Protein 100 H Urine Ketones Negative Urine Blood Negative Urine Nitrite Positive H Urine Bilirubin Negative Urine Urobilinogen 0.2 Ur Leukocyte Esterase Negative Urine RBC 0-2 Urine WBC 0-2 Ur Epithelial Cells Few Urine Crystals Negative Urine Bacteria Many Urine Mucus Negative Urine Other Few Transitional Ur Culture Indicated? Yes Urine Glucose 100 COVID-19 Source Nasopharynx SARS-CoV-2 (PCR) Positive A Influenza Type A (PCR) Negative Influenza Type B (PCR) Negative RSV (PCR) Negative Patient ABO/Rh 02/03/22 02/03/22 02/03/22 07:00 07:00 07:00 WBC 4.84 RBC 4.85 Hgb 11.1 L Hct 36.1 MCV 74 L MCH 22.9 L MCHC 30.7 L RDW 17.4 H Plt Count 291 MPV 9.3 Immature Gran % 0.4 Neutrophils % 70.0 Lymphocytes % 24.4 Monocytes % 4.8 Eosinophils % 0.0 Basophils % 0.4 Nucleated RBC % 0.0 Absolute Neutrophils 3.39 Absolute Lymphocytes 1.18 L Absolute Monocytes 0.23 Absolute Eosinophils 0.00 Absolute Basophils 0.02 RBC Morphology Polychromasia Hypochromasia Anisocytosis Microcytosis D-Dimer 490 Sodium Potassium Chloride Carbon Dioxide Anion Gap BUN Creatinine Estimated GFR/1.73 m2 Glucose Calcium Ferritin Total Bilirubin AST ALT Alkaline Phosphatase Creatine Kinase Troponin I C-Reactive Protein NT-Pro-B Natriuret Pep Total Protein Albumin TSH Urine Color Urine Clarity Urine pH Ur Specific [place] Urine Protein Urine Ketones Urine Blood Urine Nitrite Urine Bilirubin Urine Urobilinogen Ur Leukocyte Esterase Urine RBC Urine WBC Ur Epithelial Cells Urine Crystals Urine Bacteria Urine Mucus Urine Other Ur Culture Indicated? Urine Glucose COVID-19 Source SARS-CoV-2 (PCR) Influenza Type A (PCR) Influenza Type B (PCR) RSV (PCR) Patient ABO/Rh O Positive
[2022-02-03] MEDS: Rosuvastatin 10 MG TAB 40 MG PO (20:33)
[2022-02-03] MEDS: Albuterol/Ipratropium 3 ML UPD VIAL UPD (20:33)
[2022-02-03] MEDS: guaiFENesin 600 MG TABCR PO (20:35)
[2022-02-03] MEDS: cefTRIAXone 1 GM/50 ML BAG IVPB (21:05)
[2022-02-04] VITALS (17 sets, daily range): BP systolic 131–160; BP diastolic 71–90; PULSE 72–84; RESP 2–20; TEMP 36.3–37.3; O2SAT 92–96
[2022-02-04] MEDS: REMDESIVIR 100 MG in Normal Saline 250 ML 250 MG IVPB (01:31)
[2022-02-04] MEDS: Enoxaparin 100 MG/ML SYR 90 MG SC ×2 (01:35→15:05)
[2022-02-04] MEDS: Albuterol/Ipratropium 3 ML UPD VIAL UPD ×5 (01:35→23:06)
[2022-02-04 07:03] LABS: Abs Immature Grans 0.02 10^3/uL (0.0-0.06); Absolute Basophil Count 0.02 10^3/uL (0.0-0.2); Absolute Eosinophil Count 0.05 10^3/uL (0.0-0.7); Absolute Lymphocyte Count 2.83 10^3/uL (1.2-3.4); Absolute Monocyte Count 0.97 10^3/uL (0.1-0.8); Basophils % 0.4; Eosinophils % 0.9; HCT 34.2 % (36.0-46.0); HGB 10.3 g/dL (11.2-15.7); Immature Grans % 0.4; Lymphocytes % 51.5; MCH 22.8 pg (27.0-33.0); MCHC 30.1 % (32.0-36.0); MCV 76 fL (80-95); MPV 9.6 fL (8.0-11.0); Monocytes % 17.7; Neutrophils % 29.1; Platelet Count 291 10^3/uL (130-400); RBC 4.51 10^6/uL (3.93-5.22); RDW 17.7 % (11.7-14.6); RDW-SD 48.2 fL; WBC 5.49 10^3/uL (4.4-10.8)
[2022-02-04 07:31] LABS: Anion Gap 10.4 mmol/L (3-11); BUN 24 mg/dL (7-18); C-Reactive Protein 0.11 mg/dL (0.0-0.3); CO2 25.6 mmol/L (21.0-32.0); Calcium 8.9 mg/dL (8.5-10.1); Chloride 101 mmol/L (98-107); Estimated GFR 52.82 (mL/min/1.73m2); Glucose 136 mg/dL (74-106); Magnesium 2.2 mg/dL (1.8-2.4); Potassium 3.9 mmol/L (3.5-5.1); Sodium 137 mmol/L (136-145)
[2022-02-04] MEDS: metFORMIN 500 MG TAB 1000 MG PO ×2 (09:21→17:19)
[2022-02-04] MEDS: Famotidine 20 MG TAB PO ×2 (09:21→19:55)
[2022-02-04] MEDS: amLODIPine 2.5 MG TAB PO (09:21)
[2022-02-04] MEDS: Zinc Sulfate 220 MG TAB PO (09:21)
[2022-02-04] MEDS: Furosemide 20 MG TAB PO (09:21)
[2022-02-04] MEDS: levETIRAcetam 500 MG TAB PO ×2 (09:21→19:55)
[2022-02-04] MEDS: Cholecalciferol (Vitamin D3) 1,000 UNIT TAB 2000 UNITS PO (09:21)
[2022-02-04] MEDS: Ascorbic Acid 500 MG TAB 1000 MG PO ×2 (09:21→19:54)
[2022-02-04] MEDS: Ferrous Sulfate 325 MG TAB PO (09:21)
[2022-02-04] MEDS: Sertraline 50 MG TAB PO (09:22)
[2022-02-04] MEDS: Glucosamine/Chondroitin CAP 1 CAP PO (09:22)
[2022-02-04] MEDS: guaiFENesin 600 MG TABCR PO ×2 (09:22→19:55)
[2022-02-04] MEDS: Benzonatate 100 MG CAP PO (09:22)
[2022-02-04] MEDS: Carvedilol 25 MG TAB PO ×2 (09:22→19:55)
[2022-02-04] MEDS: Cyanocobalamin 500 MCG TAB 1000 MCG PO (09:22)
[2022-02-04] MEDS: Clopidogrel 75 MG TAB PO (09:22)
[2022-02-04] MEDS: Insulin Aspart 300 UNITS/3 ML PEN SC ×5 (09:28→23:14)
[2022-02-04] MEDS: Dexamethasone 4 MG/ML VIAL 6 MG IVP (15:04)
[2022-02-04] MEDS: Normal Saline Flush 10 ML SYR IVP (15:05)
[2022-02-04] MEDS: Ondansetron 4 MG/2 ML VIAL IVP (17:20)
--- NOTE | 2022-02-04 18:35 | PGE_ITS ---
Date of Service Date of service: 02/04/22 Time of Service: 15:30 Assessment and Plan Assessment and plan (1) COVID-19: Status: Acute Assessment and plan: Remains on 2L of O2. I suspect that her GI sx are due to COVID-19. Will treat symptomatically with zofran and loperamide. S/p MAB, currently on dexamethasone/remdesivir. Encourage proning, IS, acapella. Continue bronchodilators. (2) Hypoxia: Status: Acute Assessment and plan: Due to above, as above (3) Acute UTI: Status: Acute Assessment and plan: Present on admission, due to GNR, awaiting speciation and sensitivities. Has a h/o of E.C anny and morganella in 11/20, both susceptible to ceftriaxone. Will continue empiric ceftriaxone. Await urine C&S. (4) AMS (altered mental status): Status: Acute Assessment and plan: Per patient's daughter, she is not at baseline. Difficult to truly assess due to the language barrier, even with the use of the language line. This is likely due to her UTI, COVID, new environment and/or possible sun- downing. (5) Anxiety: Status: Acute Assessment and plan: In setting of missed clonazepam - continue. (6) HTN (hypertension): Status: Chronic Assessment and plan: BPs better with resumption of home meds. Continue home meds. (7) Diabetes: Status: Chronic Assessment and plan: A1C 8.0 in 10/21. Has steroid induced hyperglycemia. But also had an episode of hypoglycemia today to 69. Will back off on long acting insulin and SSI. Continue metformin at this time. (8) Sleep apnea: Status: Suspected Assessment and plan: Not on CPAP. If desired, family can pursue an outpatient sleep study. (9) CAD (coronary artery disease): Status: Chronic Assessment and plan: CP today does not sound cardiac. Trops negative x 2. Will continue to monitor on tele while in a covid room. Continue home plavix. (10) Hypothyroidism: Assessment and plan: Not requiring levothyroxine supplementation at this time. (11) DVT prophylaxis: Status: Acute Assessment and plan: Therapeutic lovenox (12) Discharge planning issues: Status: Acute Assessment and plan: Full code Anticipate discharge to SNF. PT consult. Palliative care consult. Discussed the case with patient's daughter who would really like to visit the patient. Discussed with care management that we need to try to set up a video visit for the family. Subjective Subjective Interval history since last seen: Ms Gil is nauseated and having diarrhea today. She expressed to me that her breathing was ok. She denied abdominal pain and chest pain. Unfortunately, I could not get the language line to work while I was in the room due to a tablet issue - and above answers are an interpretation of the patient's responses. Exam Narrative Exam Narrative: General: Pleasant elderly female who looks ill and uncomfortable, A&Ox1, appears to weak to hold the phone when it rings. HEENT: EOMI, MMM Heart: RRR, no m/r/g Lungs: Diminished breath sounds B Abdomen: soft, nontender, nondistended Extremities: trace edema BLEs. Objective Last Vital Signs Temp 36.6 C 02/04/22 14:30 Pulse 84 02/04/22 17:54 Resp 18 02/04/22 17:54 BP 131/72 02/04/22 14:30 Pulse Ox 93 02/04/22 17:54 Laboratory Results - last 24 hr 02/04/22 02/04/22 05:10 05:10 WBC 5.49 RBC 4.51 Hgb 10.3 L Hct 34.2 L MCV 76 L MCH 22.8 L MCHC 30.1 L RDW 17.7 H Plt Count 291 MPV 9.6 Immature Gran % 0.4 Neutrophils % 29.1 Lymphocytes % 51.5 Monocytes % 17.7 Eosinophils % 0.9 Basophils % 0.4 Nucleated RBC % 0.0 Absolute Neutrophils 1.60 Absolute Lymphocytes 2.83 Absolute Monocytes 0.97 H Absolute Eosinophils 0.05 Absolute Basophils 0.02 Sodium 137 Potassium 3.9 Chloride 101 Carbon Dioxide 25.6 Anion Gap 10.4 BUN 24 H Creatinine 1.0 Estimated GFR/1.73 m2 52.82 Glucose 136 H Calcium 8.9 Magnesium 2.2 C-Reactive Protein 0.11
[2022-02-04] MEDS: Rosuvastatin 10 MG TAB 40 MG PO (19:55)
[2022-02-04] MEDS: cefTRIAXone 1 GM/50 ML BAG IVPB (23:11)
[2022-02-05] VITALS (18 sets, daily range): BP systolic 129–188; BP diastolic 68–102; PULSE 66–100; RESP 1–22; TEMP 35.3–37.4; O2SAT 89–96
--- NOTE | 2022-02-05 | DI.CT_ITS ---
Exam(s) CT HEAD CERVICAL SPINE WO EXAM: CT HEAD CERVICAL SPINE WO CLINICAL HISTORY: fall, head trauma. TECHNIQUE: Imaging Protocol: Axial computed tomography images with coronal and sagittal reformatted images were created and reviewed COMPARISON: CT CT HEAD WO from 02/02/2022 FINDINGS: Head CT Ventricles and Extra axial spaces: Normal in size and morphology for the patient's age. Hemorrhage: None. Cerebral parenchyma: Normal. Midline shift: None. Brainstem/Cerebellum: White matter changes of small vessel disease. Calvarium: Normal. Visualized Paranasal sinuses/Mastoids: Clear. Cervical Spine CT BONES: Vertebral body heights are maintained. Alignment is normal. There is no evidence of acute frac ture. Degenerative disc changes and facet degenerative changes are seen . facet degenerative changes cause mild retrolisthesis of C5 with respect to C4. SOFT TISSUES: No paraspinal hematoma. The airway appears intact. No pneumothorax is seen at the lung apices. IMPRESSION: Head CT: No acute abnormality. C-spine CT: Degenerative changes, no acute abnormality. RADIATION DOSE DELIVERED: 1402.46 mGy.cm Total DLP DATA REPOSITORY: All CT scans at this facility are submitted to the National Radiology Data Registry (NRDR) Dose Index Registry (DIR) with the [employer] (ACR). RADIATION OPTIMIZATION: All CT scans at this facility use at least one of these dose optimization te chniques: automated exposure control; mA and/or kV adjustment per patient size (includes targeted exa ms where dose is matched to clinical indication); or iterative reconstruction.
[2022-02-05] MEDS: Enoxaparin 100 MG/ML SYR 90 MG SC (02:39)
[2022-02-05] MEDS: REMDESIVIR 100 MG in Normal Saline 250 ML 250 MG IVPB (02:40)
[2022-02-05 07:34] LABS: Abs Immature Grans 0.02 10^3/uL (0.0-0.06); Absolute Basophil Count 0.01 10^3/uL (0.0-0.2); Absolute Eosinophil Count 0.01 10^3/uL (0.0-0.7); Absolute Lymphocyte Count 2.89 10^3/uL (1.2-3.4); Absolute Monocyte Count 1.01 10^3/uL (0.1-0.8); Absolute Neutrophil Count 2.72 10^3/uL (1.2-6.7); Basophils % 0.2; Eosinophils % 0.2; HCT 38.3 % (36.0-46.0); HGB 11.8 g/dL (11.2-15.7); Immature Grans % 0.3; Lymphocytes % 43.4; MCH 22.9 pg (27.0-33.0); MCHC 30.8 % (32.0-36.0); MCV 74 fL (80-95); MPV 9.6 fL (8.0-11.0); Monocytes % 15.2; Neutrophils % 40.7; Platelet Count 375 10^3/uL (130-400); RBC 5.16 10^6/uL (3.93-5.22); RDW 17.6 % (11.7-14.6); RDW-SD 47.2 fL; WBC 6.66 10^3/uL (4.4-10.8)
[2022-02-05 07:43] LABS: Prothrombin Time 10.4 sec (9.3-11.0)
[2022-02-05 07:48] LABS: Burr Cells (echinocyte) 2+; Diff Comment RBC Morph Reviewed; Microcytosis 2+
[2022-02-05 08:01] LABS: ALT 51 U/L (14-59); AST 37 U/L (15-37); Albumin 3.8 g/dL (3.4-5.0); Alkaline Phosphatase 49 U/L (46-116); Anion Gap 10.5 mmol/L (3-11); BUN 26 mg/dL (7-18); Bilirubin, Direct 0.1 mg/dL (0.0-0.2); Bilirubin, Total 0.2 mg/dL (0.2-1.0); C-Reactive Protein 0.05 mg/dL (0.0-0.3); CO2 25.5 mmol/L (21.0-32.0); CREATININE 1.1 mg/dL (0.55-1.02); Calcium 9.3 mg/dL (8.5-10.1); Chloride 99 mmol/L (98-107); Estimated GFR 47.32 (mL/min/1.73m2); Glucose 113 mg/dL (74-106); Potassium 4.2 mmol/L (3.5-5.1); Sodium 135 mmol/L (136-145)
[2022-02-05 08:22] LABS: Procalcitonin 0.4 ng/mL
--- NOTE | 2022-02-05 08:55 | CMPROGNOTE_ITS ---
- If Service Date Differs Date of service: 02/05/22 Time of Service: 08:55 Care Management Progress Note S/O: Mitch fell forward out of her chair this morning. RN Coordinator communicated event and plan of care to patients daughter. Dr. Rosales will also contact patients daughter today. Mitch's family home is her designated [facility] and her daughter and son in law are her paid caregivers per Leticia Sr from the [facility]. Family requests that Mitch discharge home with increased services when she is able to ambulate 10-12 feet independently. Per PT Mitch may discharge home with increased [facility] services and 24/ caregivers vs. discharge to a SNF for continued rehab. A: 86 year old female admitted to [facility] on 02/02/22 for Covid, AMS, UTI, Failure to thrive. P: Mitch will likely be discharged home with a resumption of her caregivers through [facility] Choices for Care program, although she may need to go to a SNF for short term rehab. Mitch's new porter sample case is Leticia Sr through [facility] ([phone]). will continue to support Mitch and her family and assess for ongoing discharge considerations.
--- NOTE | 2022-02-05 08:55 | PDOC.CMPRO ---
- If Service Date Differs Date of service: 02/05/22 Time of Service: 08:55 Care Management Progress Note S/O: Mitch fell forward out of her chair this morning. RN Coordinator communicated event and plan of care to patients daughter. Dr. Rosales will also contact patients daughter today. Mitch's family home is her designated [facility] Home and her daughter and son in law are her paid caregivers per Leticia Sr from the [facility]. Family requests that Mitch discharge home with increased services when she is able to ambulate 10-12 feet independently. Per PT Mitch may discharge home with increased [facility] services and 24/ caregivers vs. discharge to a SNF for continued rehab. A: 86 year old female admitted to [facility] on 02/02/22 for Covid, AMS, UTI, Failure to thrive. P: Mitch will likely be discharged home with a resumption of her caregivers through [facility] Choices for Care program, although she may need to go to a SNF for short term rehab. Mitch's new case management director is Leticia Sr through [facility] ([phone]). will continue to support Mitch and her family and assess for ongoing discharge considerations.
[2022-02-05] MEDS: DOXYCYCLINE 100 MG in Normal Saline 100 ML IVPB (11:57)
[2022-02-05] MEDS: Albuterol/Ipratropium 3 ML UPD VIAL UPD ×3 (11:57→23:23)
[2022-02-05] MEDS: Lidocaine 5% Patch 1 PATCH TP (11:57)
[2022-02-05] MEDS: Acetaminophen 325 MG TAB 650 MG PO (11:58)
[2022-02-05 12:36] LABS: HBs Antibody, Qual Negative (See Note); HBs Antibody, Quant <3.1 mIU/mL (See Note); Hepatitis B Core Antibody Negative (Negative); Hepatitis B surface Ag Negative (Negative); Hepatitis C Ab w Rflx HCV PCR Negative (Negative)
[2022-02-05 12:41] LABS: HIV-1/2 Ag & Ab Screen Negative (Negative)
--- NOTE | 2022-02-05 15:06 | PGE_ITS ---
Date of Service Date of service: 02/05/22 Time of Service: 14:00 Assessment and Plan Assessment and plan (1) COVID-19: Status: Acute Assessment and plan: Down to RA, doing better from respiratory stand point. GI sx, likely due to COVID-19, have resolved. I suspect that her GI sx are due to COVID-19. S/p MAB, currently on dexamethasone/remdesivir. Encourage proning, IS, acapella. Continue bronchodilators. (2) Hypoxia: Status: Resolved Assessment and plan: Due to above, as above (3) Acute UTI: Status: Acute Assessment and plan: Present on admission, due to enterobacter cloacae, sensitive to ceftriaxone. Since it is specifically listed as susceptible to ceftriaxone, will continue this, but enterobacter species are very frequently in fact resistant to cephalosporins, so we should plan to recheck her UA for test of cure. (4) AMS (altered mental status): Status: Acute Assessment and plan: Per patient's daughter, she is not at baseline. She appears better to me today. Difficult to truly assess due to the language barrier, even with the use of the language line. This is likely due to her UTI, COVID, new environment and/or possible sun- downing. (5) Anxiety: Status: Acute Assessment and plan: In setting of missed clonazepam - continue. (6) HTN (hypertension): Status: Chronic Assessment and plan: BPs better with resumption of home meds. Continue home meds. (7) Diabetes: Status: Chronic Assessment and plan: A1C 8.0 in 10/21. Has steroid induced hyperglycemia. BGs adequately controlled on current regimen - no changes. (8) Sleep apnea: Status: Suspected Assessment and plan: Not on CPAP. If desired, family can pursue an outpatient sleep study. (9) CAD (coronary artery disease): Status: Chronic Assessment and plan: CP today does not sound cardiac. Trops negative x 2. Will continue to monitor on tele while in a covid room. Continue home plavix. (10) Hypothyroidism: Assessment and plan: Not requiring levothyroxine supplementation at this time. (11) DVT prophylaxis: Status: Acute Assessment and plan: Therapeutic lovenox (12) Discharge planning issues: Status: Acute Assessment and plan: Full code Anticipate discharge to SNF vs home if physically able to walk 10 feet with a walker. PT consulted. Palliative care consult. Discussed the case with patient's daughter and with Dr Lagos, PCP. Subjective Subjective Interval history since last seen: Ms Gil fell out of the recliner by tipping over the edge of the seat, hitting her head and neck this morning. She reports pain at the top of her head, her neck, and all over her body. CT head/neck were negative. She denied dizziness, endorsed some chest pain (along with the pain everywhere else), shortness of breath. Diarrhea has stopped. No longer nauseated. Her daughter feels she is more confursed than her baseline. She was on room air when I came to see her. Exam Narrative Exam Narrative: General: Atraumatic pleasant elderly female who looks better, more animated, answering questions appropriately (with language line on), A&Ox1-2, on RA, no dyspnea/tachypnea/cyanosis HEENT: EOMI, MMM, posterior neck TTP. Heart: RRR, no m/r/g Lungs: Diminished breath sounds B Abdomen: soft, nontender, nondistended Extremities: trace edema BLEs. Objective Last Vital Signs Temp 36.5 C 02/05/22 13:40 Pulse 82 02/05/22 13:40 Resp 14 02/05/22 13:40 BP 129/77 02/05/22 13:40 Pulse Ox 90 L 02/05/22 13:40 Laboratory Results - last 24 hr 02/05/22 02/05/22 02/05/22 06:50 06:50 06:50 WBC 6.66 RBC 5.16 Hgb 11.8 Hct 38.3 MCV 74 L MCH 22.9 L MCHC 30.8 L D RDW 17.6 H Plt Count 375 MPV 9.6 Immature Gran % 0.3 Neutrophils % 40.7 Lymphocytes % 43.4 Monocytes % 15.2 Eosinophils % 0.2 Basophils % 0.2 Nucleated RBC % 0.0 Absolute Neutrophils 2.72 Absolute Lymphocytes 2.89 Absolute Monocytes 1.01 H Absolute Eosinophils 0.01 Absolute Basophils 0.01 RBC Morphology See Below Microcytosis 2+ Earth Cells/Echinocytes 2+ PT INR Sodium 135 L Potassium 4.2 Chloride 99 Carbon Dioxide 25.5 Anion Gap 10.5 BUN 26 H Creatinine 1.1 H Estimated GFR/1.73 m2 47.32 Glucose 113 H Calcium 9.3 Magnesium 3.0 H Total Bilirubin 0.2 Conjugated Bilirubin 0.1 AST 37 ALT 51 Alkaline Phosphatase 49 C-Reactive Protein 0.05 Total Protein 8.0 Albumin 3.8 Procalcitonin 0.4 02/05/22 06:50 WBC RBC Hgb Hct MCV MCH MCHC RDW Plt Count MPV Immature Gran % Neutrophils % Lymphocytes % Monocytes % Eosinophils % Basophils % Nucleated RBC % Absolute Neutrophils Absolute Lymphocytes Absolute Monocytes Absolute Eosinophils Absolute Basophils RBC Morphology Microcytosis Earth Cells/Echinocytes PT 10.4 INR 1.0 Sodium Potassium Chloride Carbon Dioxide Anion Gap BUN Creatinine Estimated GFR/1.73 m2 Glucose Calcium Magnesium Total Bilirubin Conjugated Bilirubin AST ALT Alkaline Phosphatase C-Reactive Protein Total Protein Albumin Procalcitonin
--- NOTE | 2022-02-05 15:40 | PT.INIE ---
Date of service: 02/05/22 Time of Service: 15:40 PT Notes Visit Reasons: Altered Mental Status, UTI, COVID, Fail to Thrive Inpatient Physical Therapy Evaluation Date: 02/05/2022 Referring Doctor:? Debbie Rosales MD PT Orders: PT CONSULT: Fall Safety Assessment Precautions: COVID-19 positive. Fall. Activity as tolerated. Patient Profile/Admitting Diagnosis:? Mitch is an 86-year-old female who presented to the ED on 02/02/2022 for increased confusion and falls with family expressing they have been having a hard time taking care of of patient at home and are considering SNF placement. Patient is diagnosed with COVID-19 infection, hypoxia, acute urinary tract infection, altered mental status, hypertension, sleep apnea, and hypothyroidism. PMHx: All Active Problems?(Updated 02/03/22 @ 10:27 by Ortiz Mead) Discharge planning issues (Acute) COVID-19 (Acute) Acute UTI (Acute) AMS (altered mental status) (Acute) UTI (urinary tract infection) (Acute) Pre-syncope (Acute) HTN (hypertension) (Chronic) TIA (transient ischemic attack) (Acute) ?2017Primary osteoarthritis of left knee (Chronic) Injected: 03/02/2019Primary osteoarthritis of right knee (Chronic) Injected: 03/02/2019Diabetes (Chronic) Anxiety (Acute) CAD (coronary artery disease) (Chronic) Discharge planning issues (Acute) DVT prophylaxis (Acute) Vertigo (Acute) Syncope (Acute) Abnormal flushing and sweating (Acute) Chest pain (Acute) Cough (Acute) Abnormal result on screening urine test (Acute) Medical History?(Updated 02/03/22 @ 10:27 by Ortiz Mead) Asthma Hyperlipidemia Hypothyroidism Seizures ?2017 Surgical History? History of coronary artery stent placement Social History/Home Situation: Patient lives with her daughter who is patient's primary caregiver at daughter's house. ?Her son also provide help as needed. Patient is modified independent with use of FWW. Equipment Owned/DME: FWW Subjective:? Per morning meeting discussion, patient fell early this morning as she tried to sit on the footrest of bedside recliner causing it to collapse and her falling. Denies chest pain, headache, dizziness throughout session. Complained of both legs aching and fatiguing after a short distance ambulation using FWW. Per phone conversation with daughter after PT evaluation, daughter is concerned that her mother may be having increased confusion which preceded her seizures the last time she got admitted to the hospital. Daughter is concerned that if her mother goes home with an unmanaged (potential) seizures, it may be dangerous for patient and the whole family. Daughter was assured that her concern will be brought up to the hospitalist. Objective:? General Observation: Supine in chair. ?In NAD. Able to converse well with Bosnian spanish language lecturer. Mental Status: Alert and oriented as to person. Able to follow translated single step commands. Pain: Aching B legs after short distance ambulation that subsided with rest ROM: Right Upper Extremity: Shoulder Flexion lacks the last 25% of AROM. Shoulder abduction lacks the last 25% of AROM. Elbow flexion WFL. Wrist flexion WFL. Functional opening and closing of hand WFL. Left Upper Extremity: Shoulder Flexion lacks the last 25% of AROM. Shoulder abduction lacks the last 25% of AROM. Elbow flexion WFL. Wrist flexion WFL. Functional opening and closing of hand WFL. Right Lower Extremity: Hip flexion lacks the last 25% of AROM. Hip abduction WFL. Knee flexion lacks the last 25% of AROM. Ankle dorsiflexion to neutral only. Ankle plantarflexion WFL. Left Lower Extremity: Hip flexion lacks the last 25% of AROM. Hip abduction WFL. Knee flexion lacks the last 25% of AROM. Ankle dorsiflexion to neutral only. Ankle plantarflexion WFL. Strength: Right Upper Extremity: Shoulder flexors 3-/5. Shoulder abductors 3-/5. Elbow flexors 4-/5. Elbow extensors 4-/5. Card Grinder strong. Left Upper Extremity:Shoulder flexors 3-/5. Shoulder abductors 3-/5. Elbow flexors 4-/5. Elbow extensors 4-/5. Card Grinder strong. Right Lower Extremity: Hip flexors 3-/5. Hip abductors 4-/5. Knee flexors 4-/5. Knee extensors 4-/5. Ankle dorsiflexors 3-/5. Ankle plantarflexors 4-/5. Left Lower Extremity: Hip flexors 3-/5. Hip abductors 4-/5. Knee flexors 4-/5. Knee extensors 4-/5. Ankle dorsiflexors 3-/5. Ankle plantarflexors 4-/5. Sensation:?Intact throughout the lower extremities as to pain and light touch Bed Mobility/Transfers: Sit?stand: Contact-guard assist Stand?sit: Contact-guard assist Bed?chair: Contact-guard assist Gait:? Tolerated level surface ambulation of 20 feet from bedside recliner to door and back using front wheel walker with report of aching and fatigue in bilateral legs needing to sit down. Contact-guard assist provided. Age-related decrease in onelia serve. No loss of balance. Minimal shortness of breath that subsided with rest. Balance:? Static Sitting: Normal Dynamic Sitting: Normal Static Standing: Fair Dynamic Standing: Fair Mobility Limitations Standardized Measure [facility] 6 clicks Basic Mobility Inpatient Short Form: Raw Score: 21? CMS Score: 29% disability ? ? 4-stage Balance test: Unable to maintain all 4 positions for 10 seconds signifying at high risk for falls at this time. Informed Consent/Education: With assistance from [email or web address] spanish language lecturer online, patient was instructed in purpose of PT consult and plan of care. Assessment:?? Non-Setswana speaker. Utilized online [employer] business development recruiter services for this PT evaluation. Some mild confusion limited ability of patient to follow instructions about pushing call button is she needed to get up. Mitch is an 86-year-old female who presented to the ED on 02/02/2022 for increased confusion and falls with family expressing they have been having a hard time taking care of of patient at home and are considering SNF placement. Patient is diagnosed with COVID-19 infection, hypoxia, acute urinary tract infection, altered mental status, hypertension, sleep apnea, and hypothyroidism. Patient presents with clinical signs and symptoms consistent with current/admitting diagnoses that have resulted to mobility limitations, gait instability, generalized weakness, and overall ADL decline as demonstrated by the following impairment level findings: 1. Decreased strength to B UE/LE major muscle groups 2. Impaired standing balance 3. Impaired activity tolerance 4. Limitation of joint range of motion in B shoulders/ hips and ankles (chronic) 5. Shortness of breath 6. B leg discomfort with ambulation 7. Mild confusion Impairments are contributing to the following functional limitations: 1. Decline in bed mobility skills 2. Decline in transfer skills 3. Difficulty with ambulation without assistive device and physical assistance 4. Increased completion time for mobility ADL performance 5. Increased risk for falls 6. Difficulty with managing steps alone safely Patient is assessed as a 91163 moderate complexity based on the following: History: 86-year-old female with past medical history as indicated above Examination: Demonstrable impairment in strength, balance, and mobility level with underlying impairments and functional limitations as exhibited above as well as deficit score of 29% utilizing the [facility] Mobility Inpatient Short Form Presentation: Evolving Decision Makin moderate complexity Goals: Goals X1 week 1. Supine-Sit: Independent 2. Sit-Supine: Independent 3. Sit-Stand: Independent 4. Stand-Sit : Independent 5. Bed-Chair : Supervision with FWW 6. Chair-Bed : Supervision with FWW 7. Gait : Supervision with FWW x 50' Plan of Care/Treatment Plan: 1-2x/day, 7 days/week x 1 week. Plan of care has been reviewed with the COMMUNITY SERVICE SPECIALIST providing the service under Physical Therapy direction. Initiate Physical Therapy intervention for strengthening, bed mobility, transfers, gait, stairs, balance training, use of assistive device. DISCHARGE RECOMMENDATIONS: [] Home with no services [] [X] Home with services. Home when medically cleared by hospitalist. Patient will benefit from home health PT services in order to progress mobility level using least restrictive assistive ambulatory device, assess home safety, identify additional equipment needs, and establish a functional maintenance program that will increase ability of patient to remain at home. May require 24/7 care from family members if safety awareness does not return to previous level to reduce fall risk. [] Home with outpatient PT [] [X] SNF (vs HH PT) for continued rehabilitation based on ability to participate and progress [] Activities Volunteer Care [] [] SNF versus LTC based on ability to participate and progress TREATMENT CODE/TIME: 33851 x 20 minutes, 12926 x 15 minutes beginning at 15:40 PM. Thank you for the opportunity to participate in the care of this patient. Dione Bruce PT, DPT, CLT [facility] [place], [place]
[2022-02-05] MEDS: IRON SUCROSE COMPLEX 300 MG in Normal Saline 250 ML 167 MG IVPB (16:49)
[2022-02-05] MEDS: metFORMIN 500 MG TAB 1000 MG PO (16:49)
[2022-02-05] MEDS: Normal Saline Flush 10 ML SYR IVP ×3 (16:50→22:36)
[2022-02-05] MEDS: Insulin Aspart 300 UNITS/3 ML PEN SC (16:50)
[2022-02-05] MEDS: Rosuvastatin 10 MG TAB 40 MG PO (19:46)
[2022-02-05] MEDS: Famotidine 20 MG TAB PO (19:47)
[2022-02-05] MEDS: Ascorbic Acid 500 MG TAB 1000 MG PO (19:47)
[2022-02-05] MEDS: Carvedilol 25 MG TAB PO (19:47)
[2022-02-05] MEDS: guaiFENesin 600 MG TABCR PO (19:47)
[2022-02-05] MEDS: levETIRAcetam 500 MG TAB PO (19:47)
[2022-02-05] MEDS: cefTRIAXone 1 GM/50 ML BAG IVPB (22:36)
[2022-02-06] VITALS (9 sets, daily range): BP systolic 115–151; BP diastolic 60–92; PULSE 74–93; RESP 1–20; TEMP 36.2–37.1; O2SAT 90–96
[2022-02-06] MEDS: Albuterol/Ipratropium 3 ML UPD VIAL UPD ×2 (06:08→11:51)
[2022-02-06 07:10] LABS: Abs Immature Grans 0.01 10^3/uL (0.0-0.06); Absolute Basophil Count 0.02 10^3/uL (0.0-0.2); Absolute Eosinophil Count 0.07 10^3/uL (0.0-0.7); Absolute Monocyte Count 0.89 10^3/uL (0.1-0.8); Absolute Neutrophil Count 2.14 10^3/uL (1.2-6.7); Basophils % 0.3; Eosinophils % 1.2; HCT 35.2 % (36.0-46.0); HGB 10.9 g/dL (11.2-15.7); Immature Grans % 0.2; Lymphocytes % 45.4; MCH 23.2 pg (27.0-33.0); MCV 75 fL (80-95); MPV 9.3 fL (8.0-11.0); Monocytes % 15.5; Neutrophils % 37.4; Platelet Count 303 10^3/uL (130-400); RBC 4.69 10^6/uL (3.93-5.22); RDW 17.8 % (11.7-14.6); RDW-SD 47.7 fL; WBC 5.73 10^3/uL (4.4-10.8)
[2022-02-06 07:31] LABS: BUN 27 mg/dL (7-18); CREATININE 0.9 mg/dL (0.55-1.02); Calcium 8.6 mg/dL (8.5-10.1); Chloride 104 mmol/L (98-107); Estimated GFR 59.65 (mL/min/1.73m2); Glucose 133 mg/dL (74-106); Magnesium 2.1 mg/dL (1.8-2.4); Sodium 140 mmol/L (136-145)
[2022-02-06] MEDS: levETIRAcetam 500 MG TAB PO ×2 (09:44→20:18)
[2022-02-06] MEDS: Sertraline 50 MG TAB PO (09:44)
[2022-02-06] MEDS: metFORMIN 500 MG TAB 1000 MG PO ×2 (09:44→15:58)
[2022-02-06] MEDS: Furosemide 20 MG TAB PO (09:45)
[2022-02-06] MEDS: Ferrous Sulfate 325 MG TAB PO (09:45)
[2022-02-06] MEDS: Clopidogrel 75 MG TAB PO (09:45)
[2022-02-06] MEDS: amLODIPine 2.5 MG TAB PO (09:45)
[2022-02-06] MEDS: guaiFENesin 600 MG TABCR PO ×2 (09:45→20:18)
[2022-02-06] MEDS: Glucosamine/Chondroitin CAP 1 CAP PO (09:45)
[2022-02-06] MEDS: Ascorbic Acid 500 MG TAB 1000 MG PO ×2 (09:45→20:18)
[2022-02-06] MEDS: Cyanocobalamin 500 MCG TAB 1000 MCG PO (09:46)
[2022-02-06] MEDS: Cholecalciferol (Vitamin D3) 1,000 UNIT TAB 2000 UNITS PO (09:46)
[2022-02-06] MEDS: Famotidine 20 MG TAB PO ×2 (09:46→20:19)
[2022-02-06] MEDS: Zinc Sulfate 220 MG TAB PO (09:46)
[2022-02-06] MEDS: Carvedilol 25 MG TAB PO ×2 (10:10→20:19)
[2022-02-06] MEDS: Doxycycline Hyclate 100 MG CAP PO ×2 (10:11→20:19)
[2022-02-06] MEDS: Lidocaine 5% Patch 1 PATCH TP (10:11)
[2022-02-06] MEDS: Insulin Aspart 300 UNITS/3 ML PEN SC ×2 (12:27→12:28)
--- NOTE | 2022-02-06 13:54 | PT.INTREAT ---
Date of service: 02/06/22 Time of Service: 11:21 PT Notes Visit Reasons: Altered Mental Status, UTI, COVID, Fail to Thrive Inpatient Physical Therapy Treatment Note [facility] Date: 02/06/2022 PRECAUTIONS: Activity as tolerated, fall SUBJECTIVE: Mitch reports feeling anxious because she is in her room alone. She hopes that she will be discharged to home soon. She is pleasant and agreeable to participating in PT. OBJECTIVE: Utilized language translation tablet throughout session. PAIN: No c/o pain BED MOBILITY/TRANSFERS Supine-sit: S with HOB flat Sit-supine: S with HOB flat Sit-stand: SBA Stand-sit: SBA GAIT: Assistive Device: FWW Weight bearing: Full Assist: SBA Distance: 20' x3 ASSESSMENT: Patient tolerated session without complaint. She tolerated a progression in gait distance with FWW support and SBA. She is able to complete transfers and gait training with SBA-S. PLAN: Continue with global strengthening and general conditioning for improved mobility and activity tolerance. TREATMENT CODE/TIME: 23 minutes; 84417 x2 (11:21)
[2022-02-06] MEDS: Normal Saline Flush 10 ML SYR IVP ×2 (13:55→22:47)
[2022-02-06] MEDS: Normal Saline 500 ML 30 ML IV (13:56)
[2022-02-06] MEDS: REMDESIVIR 100 MG in Normal Saline 250 ML 250 MG IVPB (13:56)
[2022-02-06 15:43] LABS: Bilirubin Negative (Negative); Blood Negative (Negative); Clarity Clear (Clear); Glucose Negative (Negative); Ketones Negative (Negative); Leukocyte Esterase Negative (Negative); Nitrite Negative (Negative); Specific Gravity 1.015 (1.005-1.025); Urobilinogen 0.2 EU/dL (Up TO 0.2); pH 5.5 (5-8)
--- NOTE | 2022-02-06 16:18 | PDOC.CMPRO ---
- If Service Date Differs Date of service: 02/06/22 Time of Service: 16:18 Care Management Progress Note S/O: CM spoke with patients daughter Keyshawn today about pts potential readiness for discharge tomorrow. PT recommends increased H services and 24/ caregivers vs. discharge to a SNF for continued rehab when medically ready. CM discussed recommendations with Keyshawn and ultimately she would like Mitch to discharge home, rather than go to a SNF. CM LMOM for Leticia Fontenotio [facility] [employer], to see if community support could be increased following discharge. Keyshawn advises that she will consider SNF placement after discharge, only if she is not able to provide the level of care Mitch needs at home. In the meantime, CM sent SNF referrals to [facility] and [facility] to help facilitate SNF placement following discharge if needed. A: 86 year old female admitted to [facility] on 02/02/22 for Covid, AMS, UTI, Failure to thrive. P: Mitch will likely be discharged home with a resumption of her caregivers through [facility] Care program, although she may need to go to a SNF for short term rehab. SNF referral's have been sent to [facility] [place] [facility]. Mitch's new home health care case manager is Leticia [place] through [facility] ([phone]), CM LMOM asking for increased community supports on discharge. CM will continue to support Mitch and her family and assess for ongoing discharge considerations.
--- NOTE | 2022-02-06 17:16 | PGE_ITS ---
Date of Service Date of service: 02/06/22 Time of Service: 17:00 Assessment and Plan Assessment and plan (1) COVID-19: Status: Acute Assessment and plan: Improving. On RA. GI sx, likely due to COVID-19, have resolved. S/p MAB, currently on remdesivir. No dexamethasone at this point - not on O2 - improving regardless. Encourage proning, IS, acapella. Continue bronchodilators. Recheck procalcitonin in am - if negative, would d/c abx. (2) Hypoxia: Status: Resolved Assessment and plan: Due to above, as above (3) Acute UTI: Status: Resolved Assessment and plan: Present on admission, due to enterobacter cloacae, sensitive to ceftriaxone. Repeat UA negative. Ok to d/c abx from that stand point. (4) AMS (altered mental status): Status: Acute Assessment and plan: Per patient's daughter, she is not at baseline. She is exactly the same to me today as she was yesterday. I tried to call the daughter back twice today to reassure her that this is not a stroke. This is likely due to her UTI, COVID, new environment and/or possible sun- downing. If the patient becomes agitated, would use prn seroquel at a very low dose. (5) Anxiety: Status: Acute Assessment and plan: In setting of missed clonazepam - continue. (6) HTN (hypertension): Status: Chronic Assessment and plan: BPs better with resumption of home meds. Continue home meds. (7) Diabetes: Status: Chronic Assessment and plan: A1C 8.0 in 10/21. BGs adequately controlled on current regimen - no changes. (8) Sleep apnea: Status: Suspected Assessment and plan: Not on CPAP. If desired, family can pursue an outpatient sleep study. (9) CAD (coronary artery disease): Status: Chronic Assessment and plan: CP today does not sound cardiac. Trops negative x 2. Will continue to monitor on tele while in a covid room. Continue home plavix. (10) Hypothyroidism: Assessment and plan: Not requiring levothyroxine supplementation at this time. (11) DVT prophylaxis: Status: Acute Assessment and plan: Therapeutic lovenox (12) Discharge planning issues: Status: Acute Assessment and plan: Full code Anticipate discharge home if physically able to walk 10 feet with a walker in the next 24-48 hrs. Will need a covid test repeated prior to discharge, per daughter's request. PT consulted. Palliative care consulted. Subjective Subjective Interval history since last seen: Ms Gil states that she is feeling better today. She states that her head and neck actually always hurt and they do not hurt too badly right now. She denies shortness of breath, chest pain, nausea. Patient's daughter had expressed to nursing that she was concerned that her mom was more confused today and that she could be having a stroke. Mitch does not have any neurological deficits but does get intermittently confused, but has had no focal deficits. Exam Narrative Exam Narrative: General: Atraumatic pleasant elderly female who looks better, who looks well, answering questions appropriately (with language line on) and following commands, [place], A&Ox1, no focal neurological deficits, on RA, no dyspnea/tachypnea/cyanosis HEENT: EOMI, MMM, lidocaine patch on posterior neck Heart: RRR, no m/r/g Lungs: Diminished breath sounds B Abdomen: soft, nontender, nondistended Extremities: no edema BLEs. Objective Last Vital Signs Temp 36.2 C L 02/06/22 15:24 Pulse 74 02/06/22 15:24 Resp 20 02/06/22 15:24 BP 145/84 H 02/06/22 15:24 Pulse Ox 92 02/06/22 15:24 Laboratory Results - last 24 hr 02/06/22 02/06/22 02/06/22 06:10 06:10 15:20 WBC 5.73 RBC 4.69 Hgb 10.9 L Hct 35.2 L MCV 75 L MCH 23.2 L MCHC 31.0 L RDW 17.8 H Plt Count 303 MPV 9.3 Immature Gran % 0.2 Neutrophils % 37.4 Lymphocytes % 45.4 Monocytes % 15.5 Eosinophils % 1.2 Basophils % 0.3 Nucleated RBC % 0.0 Absolute Neutrophils 2.14 Absolute Lymphocytes 2.60 Absolute Monocytes 0.89 H Absolute Eosinophils 0.07 Absolute Basophils 0.02 Sodium 140 Potassium 4.0 Chloride 104 Carbon Dioxide 24.0 Anion Gap 12.0 H BUN 27 H Creatinine 0.9 Estimated GFR/1.73 m2 59.65 Glucose 133 H Calcium 8.6 Magnesium 2.1 Urine Color Yellow Urine Clarity Clear Urine pH 5.5 Ur Specific [place] 1.015 Urine Protein Negative Urine Ketones Negative Urine Blood Negative Urine Nitrite Negative Urine Bilirubin Negative Urine Urobilinogen 0.2 Ur Leukocyte Esterase Negative Urine Glucose Negative
[2022-02-06] MEDS: Rosuvastatin 10 MG TAB 40 MG PO (20:17)
[2022-02-06] MEDS: cefTRIAXone 1 GM/50 ML BAG IVPB (22:52)
--- NOTE | 2022-02-06 23:06 | NUR.NOTE ---
Nursing Note: Patient had a blood sugar of 98 at 20:00 scheduled detemir insulin not given because the need to order a new one, 22:40 blood sugar is 82 no insulin given. This RN offered food to patient but she refused to eat, patient shows her refusal through actions.
[2022-02-06] MEDS: QUEtiapine 25 MG TAB PO (23:41)
[2022-02-07 04:12] VITALS: PULSE 75; RESP 17; TEMP 36.6; O2SAT 92
[2022-02-07 07:04] LABS: Abs Immature Grans 0.02 10^3/uL (0.0-0.06); Absolute Basophil Count 0.01 10^3/uL (0.0-0.2); Absolute Eosinophil Count 0.06 10^3/uL (0.0-0.7); Absolute Lymphocyte Count 2.95 10^3/uL (1.2-3.4); Absolute Monocyte Count 0.79 10^3/uL (0.1-0.8); Absolute Neutrophil Count 1.82 10^3/uL (1.2-6.7); Basophils % 0.2; Eosinophils % 1.1; HCT 33.3 % (36.0-46.0); HGB 10.5 g/dL (11.2-15.7); Immature Grans % 0.4; Lymphocytes % 52.2; MCH 23.2 pg (27.0-33.0); MCHC 31.5 % (32.0-36.0); MCV 74 fL (80-95); Neutrophils % 32.1; Platelet Count 285 10^3/uL (130-400); RBC 4.52 10^6/uL (3.93-5.22); RDW 17.6 % (11.7-14.6); RDW-SD 47.1 fL; WBC 5.65 10^3/uL (4.4-10.8)
[2022-02-07 07:17] LABS: INR 1.1 (0.9-1.1); Prothrombin Time 10.9 sec (9.3-11.0)
[2022-02-07 07:18] LABS: ALT 35 U/L (14-59); AST 22 U/L (15-37); Albumin 3.2 g/dL (3.4-5.0); Alkaline Phosphatase 36 U/L (46-116); Anion Gap 11.4 mmol/L (3-11); BUN 21 mg/dL (7-18); Bilirubin, Direct 0.1 mg/dL (0.0-0.2); Bilirubin, Total 0.3 mg/dL (0.2-1.0); CO2 23.6 mmol/L (21.0-32.0); CREATININE 0.8 mg/dL (0.55-1.02); Calcium 8.6 mg/dL (8.5-10.1); Chloride 103 mmol/L (98-107); Glucose 120 mg/dL (74-106); Potassium 3.6 mmol/L (3.5-5.1); Sodium 138 mmol/L (136-145); Total Protein 6.7 g/dL (6.4-8.2)
[2022-02-07 07:47] LABS: Procalcitonin 0.2 ng/mL
[2022-02-07 07:56] LABS: C-Reactive Protein < 0.05 mg/dL (0.0-0.3)
[2022-02-07 08:00] VITALS: BP 122/74; PULSE 84; RESP 18; TEMP 36.5; O2SAT 92
[2022-02-07] MEDS: Ferrous Sulfate 325 MG TAB PO (08:24)
[2022-02-07] MEDS: Ascorbic Acid 500 MG TAB 1000 MG PO (08:24)
[2022-02-07] MEDS: levETIRAcetam 500 MG TAB PO (08:24)
[2022-02-07] MEDS: metFORMIN 500 MG TAB 1000 MG PO (08:25)
[2022-02-07] MEDS: Clopidogrel 75 MG TAB PO (08:25)
[2022-02-07] MEDS: Sertraline 50 MG TAB PO (08:25)
[2022-02-07] MEDS: Cyanocobalamin 500 MCG TAB 1000 MCG PO (08:25)
[2022-02-07] MEDS: Furosemide 20 MG TAB PO (08:25)
[2022-02-07] MEDS: amLODIPine 2.5 MG TAB PO (08:25)
[2022-02-07] MEDS: Carvedilol 25 MG TAB PO (08:25)
[2022-02-07] MEDS: Zinc Sulfate 220 MG TAB PO (08:25)
[2022-02-07] MEDS: Famotidine 20 MG TAB PO (08:25)
[2022-02-07] MEDS: Cholecalciferol (Vitamin D3) 1,000 UNIT TAB 2000 UNITS PO (08:25)
[2022-02-07] MEDS: guaiFENesin 600 MG TABCR PO (08:25)
[2022-02-07] MEDS: Glucosamine/Chondroitin CAP 1 CAP PO (08:25)
[2022-02-07] MEDS: Doxycycline Hyclate 100 MG CAP PO (08:26)
--- NOTE | 2022-02-07 09:13 | CMPROGNOTE_ITS ---
- If Service Date Differs Date of service: 02/07/22 Time of Service: 09:13 Care Management Progress Note S/O: A: 86 year old female admitted to [facility] on 02/02/22 for Covid, AMS, UTI, Failure to thrive. P: Mitch will likely be discharged home with a resumption of her caregivers through [facility] Cho[facility] for Care program, although she may need to go to a SNF for short term rehab. SNF referral's have been sent to [facility], [facility]. Mitch's new adult protective caseworker is Leticia Sr through [facility] ([phone]), CM LMOM asking for increased community supports on discharge. CM will continue to support Mitch and her family and assess for ongoing discharge considerations.
--- NOTE | 2022-02-07 09:13 | PDOC.CMPRO ---
- If Service Date Differs Date of service: 02/07/22 Time of Service: 09:13 Care Management Progress Note S/O: A: 86 year old female admitted to [facility] on 02/02/22 for Covid, AMS, UTI, Failure to thrive. P: Mitch will likely be discharged home with a resumption of her caregivers through [facility] Cho[facility] for Care program, although she may need to go to a SNF for short term rehab. SNF referral's have been sent to [facility], [facility]. Mitch's new pillowcase sewer is Leticia Sr through [facility] ([phone]), CM LMOM asking for increased community supports on discharge. CM will continue to support Mitch and her family and assess for ongoing discharge considerations.
[2022-02-07 10:12] LABS: Source Nasal/Nares
[2022-02-07 11:00] VITALS: BP 128/73; PULSE 90; RESP 17; TEMP 37.1; O2SAT 93
--- NOTE | 2022-02-07 11:09 | CMDISCH_ITS ---
- If Service Date Differs Date of service: 02/07/22 Time of Service: 11:09 LACE Index Scoring Tool - Questions: Length of Stay (in days): 4 - 6 Acuity (Admit via E.D.?): Yes Comorbidities: Diabetes w/o Complication E.D. Visits: 1 - Answers: Total Score: 9 Risk of Readmission: Low Risk Care Management Discharge Reason for Hospitalization: Covid 19, weakness Discharge Plan: Discharge home via private vehicle with family. Mitch will have New [facility] services RN, PT, OT and resume her [facility] services. Mitch will follow up with her community providers and discharge plan of care as prescribed. New RX's will be transmitted to [facility]. Prior to discharge, a bed offer from [facility] was declined by Brendenkashmirjenny and Keyshawn. However if Mitch's care needs are too complex, family may reach out to [facility] for admission. CM communicated this discharge plan to patients Community MUNA/Leticia Sr. Patient/Family Education Needs: Review discharge instructions, limitations, medications and plan to follow up with community providers. ask me three. Services Needed at Discharge: Home Health Care Services ([facility] RN, PT, OT and resumption of [facility] services, CM notified her Community CM Leticia Sr and [facility]. )
[2022-02-07 12:14] LABS: COVID-19 PCR POSITIVE (Negative)
--- NOTE | 2022-02-07 12:21 | W.PM.DS.N ---
Date of service: 02/07/22 Time of Service: 12:21 DS: Diagnosis Discharge Diagnosis (1) COVID-19: Status: Acute (2) Hypoxia: Status: Resolved (3) Acute UTI: Status: Resolved (4) AMS (altered mental status): Status: Resolved (5) Anxiety: Status: Chronic (6) HTN (hypertension): Status: Chronic (7) Diabetes: Status: Chronic (8) Sleep apnea: Status: Suspected (9) CAD (coronary artery disease): Status: Chronic (10) Hypothyroidism: (11) Iron deficiency anemia: Discharge Plan Disposition Patient Disposition: HOME W/HOME HEALTH SERVICE Condition: Stable Discharge Details Reason For Visit: Altered Mental Status, UTI, COVID, Fail to Thrive Admit Date/Time: 02/02/22 23:38 Admit Provider: Ortiz Mead Attending Provider: Ortiz Mead Primary Care Provider: Yarely Lagos [facility] Hospital Course: Ms Gil is an 86 year old female with PMHx of CAD s/p stenting, asthma, IDDM2, seizure d/o, dementia, who was a patient on [facility] hospitalist service from 02/02/22 until 02/07/22 for COVID-19, causing acute bronchitis and hypoxia, as well as Enterobacter UTI, having presented with generalized weakness, difficulty walking with falls, foul smelling urine, and altered mental status. The patient initially did not require oxygen - however, did require 1.5-2 L of O2 on 02/03 and 02/04, necessitating a switch from the initial monoclonal antibody infusion pathway of treatment of covid to remdesivir and brief burst of steroids (steroids were not continued once the patient got off of the supplemental oxygen). She received bronchodilators, antitussives, and vitamin C & D supplementation as well. She received doxycycline/ceftriaxone for suspected superimposed bacterial bronchitis. She did have evidence of a UTI on admission, growing Enterobacter cloacae complex in the urine cx, sensitive to ceftriaxone, and prior to discharge had a negative [id number] UA. On 02/05/22, the patient sustained a fall (sat at the edge of a chair which tipped over), hitting her head and neck. Imaging of the head and neck were negative. Throughout her hospitalization, mental status was variable, but is felt to be at her baseline by the time of discharge. Her encephalopathy is felt to be due to being ill with COVID-19 and a UTI as well as being out of her familiar environment. Her strength has markedly improved during her hospitalization, and she worked with physical therapy to prove safety of ambulation. Per her PCP's request, the patient did receive an infusion of Venofer. COVID-19 test on day of discharge is still positive. She is medically stable for discharge home today. Family is advised to maintain precautions. She is being discharged home with home health nursing, PT, OT. Care for patient as well as completion of his discharge summary took 60 minutes. Home Meds and New Rx's Prescriptions: New ascorbic acid (vitamin C) [Vitamin C] 500 mg Tablet 1,000 mg PO BID Qty: 40 0RF benzonatate 100 mg Capsule 100 mg PO TID PRN PRN (Reason: cough) Qty: 30 0RF doxycycline hyclate 100 mg Capsule 100 mg PO BID Qty: 5 0RF cholecalciferol (vitamin D3) 25 mcg (1,000 unit) Tablet 2,000 units PO DAILY Qty: 20 0RF guaifenesin [Mucinex] 600 mg Tablet Extended Release 12hr 600 mg PO BID PRN PRN (Reason: cough) Qty: 20 0RF lidocaine 5 % Adhesive Patch,Medicated 1 patch topical Q24H Qty: 15 0RF Rx Instructions: apply to painful area on back zinc sulfate [Zinc-220] 50 mg zinc (220 mg) Capsule 220 mg PO DAILY Qty: 10 0RF cefpodoxime 200 mg tablet 200 mg PO BID Qty: 5 0RF Rx Instructions: must administer with a meal/food albuterol sulfate [Ventolin HFA] 90 mcg/actuation Hfa Aerosol Inhaler 2 puff inhalation Q6H PRN PRN (Reason: shortness of breath or wheezing) Qty: 8.5 0RF Continued levetiracetam [Keppra] 750 mg tablet 500 mg PO BID 0RF All Day Allergy (cetirizine) 10 mg capsule 10 mg PO DAILY PRN0RF ferrous sulfate 325 mg (65 mg iron) tablet 325 mg PO DAILY 0RF naproxen 500 mg tablet 500 mg PO PRN 0RF Levemir FlexTouch U-100 Insuln 100 unit/mL (3 mL) insulin pen 45 unit Sub-Q BID@0800,2000 0RF ergocalciferol (vitamin D2) 400 UNIT tablet 400 units PO DAILY 0RF furosemide 20 mg tablet 20 mg PO DAILY 0RF levetiracetam 500 mg tablet 500 mg PO BID 0RF metformin 500 mg tablet 1,000 mg PO BID Qty: 120 0RF clonazepam 0.5 MG tablet 0.5 mg PO HS PRN PRN0RF sertraline 50 MG tablet 50 mg PO DAILY 0RF nitroglycerin 0.4 MG tablet, sublingual 0.4 mg Sublingual PRN PRN0RF carvedilol 25 MG tablet 25 mg PO BID 0RF clopidogrel [Plavix] 75 MG tablet 75 mg PO DAILY 0RF rosuvastatin [Crestor] 10 MG tablet 40 mg PO QPM 0RF cyanocobalamin (vitamin B-12) 2,500 MCG tablet,chewable 1,000 mcg PO DAILY Qty: 30 0RF amlodipine 2.5 mg Tablet 2.5 mg PO DAILY Qty: 30 0RF esomeprazole magnesium [Nexium] 20 mg Capsule,Delayed Release(Dr/Ec) 40 mg PO QDAY 0RF gcqibqonpuo-wqygjlkws-bwp C-Mn [Glucosamine 1500 Complex] 1 EACH capsule 1 tab PO DAILY 0RF Discontinued cephalexin 500 mg capsule 500 mg PO DAILY 0RF Discharge Instructions Instructions: Doxycycline (By mouth), Albuterol (By breathing), Cefpodoxime Proxetil (By mouth), Acute Bronchitis (ED), Urinary Tract Infection in Older Adults (DC), COVID-19 (Coronavirus Disease 2019) (DC) Additional Instructions: Finish your antibiotics as prescribed. Return to the hospital if your breathing gets worse, if you develop new neurological deficits, any fever, bleeding, chest pain. Follow up with your PCP in 1-2 weeks. Care Plan Goals: Home with home health nursing, PT, OT. Stand Alone Forms: Nursing Discharge Form Referrals: Yarely Lagos MD [Primary Care Provider] - 02/23/22 10:30 am Activity:: Activity as Tolerated Equipment/Supplies:: No Equipment Needed Diet:: carb consistent heart healthy Discharge Orders Discharge Orders: Discharge Order (Routine); Ordered 02/07/22 Ordered By: Debbie Rosales DS: Summary Time Spent with Patient providing and/or coordinating discharge services: Greater than 30 minutes Status at Discharge Functional status at discharge: uses cane/walker Overall status at discharge: patient is progressing back to baseline Mental Status: mental status grossly normal (A&Ox1, baseline for the patient) Speech and Movement: speech and movement normal Mood: congruent mood Affect: normal affect Exam Narrative Exam Narrative: General: Atraumatic pleasant elderly female who looks better, who looks tired but well, answering questions appropriately (with language line on) and following commands, [place], A&Ox1, no focal neurological deficits, on RA, no dyspnea/tachypnea/cyanosis HEENT: EOMI, MMM, lidocaine patch on posterior neck Heart: RRR, no m/r/g Lungs: Diminished breath sounds B Abdomen: soft, nontender, nondistended Extremities: no edema BLEs. Psych Mental Status: mental status grossly normal (A&Ox1, baseline for the patient) Speech and Movement: speech and movement normal Mood: congruent mood Affect: normal affect DS: Data Vitals/I&O Vitals and I&O: Vital Signs Temperature 37.1 C 02/07/22 11:00 Temperature Source Tympanic 02/07/22 08:00 Pulse 90 02/07/22 11:00 Pulse Rhythm Regular 02/07/22 08:48 Pulse 97 H 02/03/22 00:20 Respiratory Rate 17 02/07/22 11:00 Respiratory Effort Non-Labored 02/07/22 08:48 Respiratory Depth Normal 02/07/22 08:48 Respiratory Pattern Normal 02/07/22 08:48 Blood Pressure 128/73 02/07/22 11:00 Blood Pressure Mean 121 02/03/22 00:09 Blood Pressure Position Supine 02/02/22 19:09 Pulse Oximetry 93 02/07/22 11:00 Oxygen Delivery Method Room Air 02/07/22 11:00 Oxygen Flow Rate 0 02/07/22 11:00 Pain Level 5 02/02/22 19:09 Comment 02/07/22 04:12 Intake & Output 02/06/22 02/07/22 02/07/22 23:59 11:59 23:59 Intake Total 348.5 / 548.5 500 / 500 Output Total 900 / 1550 800 / 800 Balance -551.5 / -1001.5 -300 / -300 Intake: IV 348.5 / 398.5 250 / 250 Oral 250 / 250 Output: Urine 900 / 1550 800 / 800 Other: Urine Color Yellow Yellow Urine Appearance Clear Clear Urine Odor None Normal Comment patient needs a UA collected, but patient had a BM in the toliet hat so urine was not collected at this time. pT refused to use commode at this time Stool Size Moderate Moderate Stool Characteristics Soft Soft Brown Voiding Methods Bedside Commode Bedside Commode Data Completed and Pending Completed studies during hospitalization [Text1]: CT head 02/02/22: No evidence of acute intracranial process. XR pelvis 02/02/22: Single view was obtained.? No gross evidence of fracture or dislocation.? Please note that a single view is not adequate to exclude hip or pelvic fracture.? Additional radiographic views or CT may be obtained if there is a high clinical suspicion of fracture. CXR 02/02/22: No evidence of acute process. CT chest w/o contrast 02/02/22: No evidence of acute process. CT head/c-spine 02/05/22: Head CT: No acute abnormality. C-spine CT: Degenerative changes, no acute abnormality. Labs on day of discharge: Labs from last 24 hours 02/07/22 02/07/22 02/07/22 10:00 06:10 06:10 WBC 5.65 RBC 4.52 Hgb 10.5 L Hct 33.3 L MCV 74 L MCH 23.2 L MCHC 31.5 L RDW 17.6 H Plt Count 285 MPV 9.0 Immature Gran % 0.4 Neutrophils % 32.1 Lymphocytes % 52.2 Monocytes % 14.0 Eosinophils % 1.1 Basophils % 0.2 Nucleated RBC % 0.0 Absolute Neutrophils 1.82 Absolute Lymphocytes 2.95 Absolute Monocytes 0.79 Absolute Eosinophils 0.06 Absolute Basophils 0.01 PT 10.9 INR 1.1 Sodium Potassium Chloride Carbon Dioxide Anion Gap BUN Creatinine Estimated GFR/1.73 m2 Glucose Calcium Magnesium Total Bilirubin Conjugated Bilirubin AST ALT Alkaline Phosphatase C-Reactive Protein Total Protein Albumin Procalcitonin Urine Color Urine Clarity Urine pH Ur Specific [place] Urine Protein Urine Ketones Urine Blood Urine Nitrite Urine Bilirubin Urine Urobilinogen Ur Leukocyte Esterase Urine Glucose Stl C.difficile Tox PCR COVID-19 Source Nasal/Nares SARS-CoV-2 (PCR) POSITIVE A* 02/07/22 02/07/22 02/06/22 06:10 06:10 15:20 WBC RBC Hgb Hct MCV MCH MCHC RDW Plt Count MPV Immature Gran % Neutrophils % Lymphocytes % Monocytes % Eosinophils % Basophils % Nucleated RBC % Absolute Neutrophils Absolute Lymphocytes Absolute Monocytes Absolute Eosinophils Absolute Basophils PT INR Sodium 138 Potassium 3.6 Chloride 103 Carbon Dioxide 23.6 Anion Gap 11.4 H BUN 21 H Creatinine 0.8 Estimated GFR/1.73 m2 >= 60.00 Glucose 120 H Calcium 8.6 Magnesium 3.0 H Total Bilirubin 0.3 Conjugated Bilirubin 0.1 AST 22 ALT 35 Alkaline Phosphatase 36 L C-Reactive Protein < 0.05 Total Protein 6.7 Albumin 3.2 L Procalcitonin 0.2 Urine Color Yellow Urine Clarity Clear Urine pH 5.5 Ur Specific [place] 1.015 Urine Protein Negative Urine Ketones Negative Urine Blood Negative Urine Nitrite Negative Urine Bilirubin Negative Urine Urobilinogen 0.2 Ur Leukocyte Esterase Negative Urine Glucose Negative Stl C.difficile Tox PCR COVID-19 Source SARS-CoV-2 (PCR) 02/04/22 15:31 WBC RBC Hgb Hct MCV MCH MCHC RDW Plt Count MPV Immature Gran % Neutrophils % Lymphocytes % Monocytes % Eosinophils % Basophils % Nucleated RBC % Absolute Neutrophils Absolute Lymphocytes Absolute Monocytes Absolute Eosinophils Absolute Basophils PT INR Sodium Potassium Chloride Carbon Dioxide Anion Gap BUN Creatinine Estimated GFR/1.73 m2 Glucose Calcium Magnesium Total Bilirubin Conjugated Bilirubin AST ALT Alkaline Phosphatase C-Reactive Protein Total Protein Albumin Procalcitonin Urine Color Urine Clarity Urine pH Ur Specific [place] Urine Protein Urine Ketones Urine Blood Urine Nitrite Urine Bilirubin Urine Urobilinogen Ur Leukocyte Esterase Urine Glucose Stl C.difficile Tox PCR Cancelled COVID-19 Source SARS-CoV-2 (PCR) PFSH All Active Problems (Updated 02/07/22 @ 15:50 by Debbie Rosales MD) Discharge planning issues (Acute) COVID-19 (Acute) UTI (urinary tract infection) (Acute) Pre-syncope (Acute) HTN (hypertension) (Chronic) TIA (transient ischemic attack) (Acute) ?2017 Primary osteoarthritis of left knee (Chronic) Injected: 03/02/2019 Primary osteoarthritis of right knee (Chronic) Injected: 03/02/2019 Diabetes (Chronic) Anxiety (Chronic) CAD (coronary artery disease) (Chronic) Discharge planning issues (Acute) DVT prophylaxis (Acute) Vertigo (Acute) Syncope (Acute) Abnormal flushing and sweating (Acute) Chest pain (Acute) Cough (Acute) Abnormal result on screening urine test (Acute) Medical History (Updated 02/07/22 @ 15:50 by Debbie Rosales MD) Asthma Hyperlipidemia Hypothyroidism Iron deficiency anemia Seizures ?2017 Surgical History History of coronary artery stent placement Family History Mother Stroke Father Heart disease Social History Smoking/Tobacco Use Status: Never Smoking risk assessment performed?: Yes Alcohol Intake: never Drug use: Never Substance use type: does not use and former substance user Household members: children Number of Children: 2 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 She does not speak [place]. She lives with her daughter. She has two children, both here in the [facility] and locally in [place]. She is . 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
[2022-02-07] MEDS: Insulin Aspart 300 UNITS/3 ML PEN SC ×2 (12:23)
--- NOTE | 2022-02-07 13:04 | PT.INTREAT ---
Date of service: 02/07/22 Time of Service: 11:37 PT Notes Visit Reasons: Altered Mental Status, UTI, COVID, Fail to Thrive Inpatient Physical Therapy Treatment Note [facility] Date: 02/07/2022 PRECAUTIONS: Activity as tolerated, fall, COVID-19 prec SUBJECTIVE: Mitch hopes that she will be discharged to home soon. She is pleasant and agreeable to participating in PT. She reports that she is at her baseline with ambulation. OBJECTIVE: Utilized language translation tablet throughout session. PAIN: No c/o pain BED MOBILITY/TRANSFERS Sit-stand: SBA Stand-sit: SBA GAIT: Assistive Device: FWW Weight bearing: Full Assist: SBA Distance: 60' THEREX: Patient decline ther ex ASSESSMENT: Patient tolerated session without complaint. She tolerated a progression in gait distance with FWW support and SBA. She is able to complete transfers and gait training with SBA. PLAN: Patient to discharge to home later today, per provider. Recommend follow up with PT upon discharge. TREATMENT CODE/TIME: 25 minutes; [id number] x2 (11:37)
[2022-02-07] MEDS: REMDESIVIR 100 MG in Normal Saline 250 ML 250 MG IVPB (15:09)
--- NOTE | 2022-02-07 15:34 | PDOC.HHF2F_ITS ---
Home Health Certification Home Health Certification: 1. Encounter Date and Reason I certify that Mitch Gil was seen by Debbie Rosales on 02/07/22 and that I had a [id number] encounter with this patient that meets the physician face to face encounter requirements. 2. Clinical Findings Supporting Skilled Need and Homebound Status I certify that home health services are medically necessary, include either intermittent shelter and/or physical/speech therapy, and that this patie nt is homebound in that absences from the home require considerable and taxing effort and are infrequent or of short duration, or are attributable to the need to receive medical care. [X] (a) Attached documentation from encounter provides clinical findings supporting skilled need and homebound status (including what assistance patient requires to leave the home). The encounter with the patient was in whole, or in part, for the following medical condition, which is the primary reason for home health care: Altered Mental Status, UTI, COVID, Fail to Thrive Assisted: recent admission for COVID-19, UTI, encephalopathy Physical Therapy: eval and treat Occupational Therapy: eval and treat Homebound: unable to leave home without assistance 3. Certification and Authentication I certify that I composed the above information based on my clinical judgement relating to this patient's medical condition and, if applicable, clinical findings communicated to me by the NPP or inpatient physician who performed the Home Health Referral. All further orders will be obtained through __Dr Lagos (Community Based Physician - PCP)
== END 2022-02-07 15:55 | disposition home health service (06) | DRG 178 ==
LOC: ER 02-03 00:08 → MS 02-03 00:44
PROVIDERS: Internal Medicine; Admitting Provider Internal Medicine; Emergency Provider Emergency Medicine; PCP Family Medicine; Visit Provider Internal Medicine
DX: U07.1 COVID-19 (principal); N39.0 Urinary tract infection, site not specified; G93.40 Encephalopathy, unspecified; J20.8 Acute bronchitis due to other specified organisms; E03.9 Hypothyroidism, unspecified; E66.9 Obesity, unspecified; I10 Essential (primary) hypertension; E11.9 Type 2 diabetes mellitus without complications; D50.9 Iron deficiency anemia, unspecified; G40.909 Epilepsy, unspecified, not intractable, without status epilepticus; Z87.440 Personal history of urinary (tract) infections; Z86.73 Personal history of transient ischemic attack (TIA), and cerebral infarction without residual deficits; M17.0 Bilateral primary osteoarthritis of knee; F41.9 Anxiety disorder, unspecified; I25.10 Atherosclerotic heart disease of native coronary artery without angina pectoris; E78.5 Hyperlipidemia, unspecified; Z95.5 Presence of coronary angioplasty implant and graft; R09.02 Hypoxemia; G47.30 Sleep apnea, unspecified; W19.XXXA Unspecified fall, initial encounter; Z79.84 Long term (current) use of oral hypoglycemic drugs; Z79.4 Long term (current) use of insulin; B96.89 Other specified bacterial agents as the cause of diseases classified elsewhere; W07.XXXA Fall from chair, initial encounter; Y92.239 Unspecified place in hospital as the place of occurrence of the external cause; M54.2 Cervicalgia; R19.7 Diarrhea, unspecified
CPT/HCPCS: 36415; 36416; 71250; 80048; 80053; 80076; 82550; 82962; 84145; 86704; 86706; 86803; 86900; 86901; 87077; 87340; 87389; 87493; 87635; 87637; 93005; 96361; 96365; 96366; 97162; 97530; 99285; Q0222; 70450; 71045; 72125; 72170; 81003; 81015; 82728; 83735; 83880; 84443; 84484; 85025; 85379; 85610; 86140; 87086; 87186; 93010; 94640; 99222; 99232; 99233; 99239; J0248; J0696; J1100; J1650; J1756; J2405; J3490; J7620

== ENCOUNTER 2022-03-20 00:38 | Outpatient (RCR) | payer MEDICARE, MEDICAID, SELFPAY ==
[2022-03-16] MEDS: Normal Saline Flush 10 ML SYR IVP (09:04)
[2022-03-16] MEDS: IRON SUCROSE COMPLEX 300 MG in Normal Saline 250 ML 176.667 MG IVPB (09:04)
[2022-03-16 09:41] LABS: Hemoglobin A1C 7.4 % (<5.7)
[2022-03-16 09:57] LABS: Anion Gap 10.3 mmol/L (3-11); BUN 17 mg/dL (7-18); CO2 24.7 mmol/L (21.0-32.0); CREATININE 1.1 mg/dL (0.55-1.02); Calcium 9.3 mg/dL (8.5-10.1); Chloride 101 mmol/L (98-107); Estimated GFR 47.32 (mL/min/1.73m2); Ferritin 27 ng/mL (8-252); Glucose 159 mg/dL (74-106); Potassium 5.2 mmol/L (3.5-5.1); Sodium 136 mmol/L (136-145)
[2022-03-16 11:20] LABS: Bilirubin Negative (Negative); Blood Negative (Negative); Clarity Clear (Clear); Glucose Negative (Negative); Ketones Negative (Negative); Leukocyte Esterase Negative (Negative); Nitrite Negative (Negative); Urobilinogen 0.2 EU/dL (Up TO 0.2); pH 5.5 (5-8)
[2022-03-16 11:31] LABS: Bacteria Negative HPF (Negative); C & S Indicated? No; Casts Negative LPF (Negative); Crystals Negative HPF (Negative); Epithelial Cells Few HPF (Negative); Mucus Negative (Negative); RBC 0-2 HPF (0-2); WBC 0-2 HPF (0-5)
[2022-03-16 11:36] LABS: COMMENT (LAB VIEW ONLY) 99.97 mg/dL
[2022-03-16 11:38] LABS: Microalb ug/mg Crea 147.7 ug/mg Cr
[2022-03-20] MEDS: Normal Saline Flush 10 ML SYR IVP (11:27)
[2022-03-20] MEDS: IRON SUCROSE COMPLEX 300 MG in Normal Saline 250 ML 176.667 MG IVPB (11:32)
== END 2022-03-29 23:59 | disposition home or self-care (01) ==
LOC: INF 00:38
PROVIDERS: PCP Family Medicine; Visit Provider Nurse Practitioner Acute Care
DX: D50.9 Iron deficiency anemia, unspecified (principal)
CPT/HCPCS: 36415; 80048; 96365; 96366; 81003; 81015; 82043; 82570; 82728; 83036; 83735; J1756

== ENCOUNTER 2022-06-26 09:57 | Outpatient (REF) | payer MEDICARE, MEDICAID, SELFPAY ==
[2022-06-26 15:44] LABS: HCT 40.8 % (36.0-46.0); HGB 13.2 g/dL (11.2-15.7); MCH 28.1 pg (27.0-33.0); MCHC 32.4 % (32.0-36.0); MCV 87 fL (80-95); MPV 9.4 fL (8.0-11.0); Platelet Count 273 10^3/uL (130-400); RDW 13.8 % (11.7-14.6); RDW-SD 43.9 fL; WBC 6.73 10^3/uL (4.4-10.8)
[2022-06-26 16:13] LABS: Anion Gap 11.3 mmol/L (3-11); BUN 22 mg/dL (7-18); CO2 24.7 mmol/L (21.0-32.0); Calcium 9.4 mg/dL (8.5-10.1); Chloride 98 mmol/L (98-107); Estimated GFR 55.21 (mL/min/1.73m2); Ferritin 105 ng/mL (8-252); Glucose 273 mg/dL (74-106); Potassium 4.3 mmol/L (3.5-5.1); Sodium 134 mmol/L (136-145)
[2022-06-26 16:57] LABS: Hemoglobin A1C 7.7 % (<5.7)
== END 2022-06-26 09:58 | disposition home or self-care (01) ==
LOC: NCHCN 09:57
PROVIDERS: PCP Family Medicine; Visit Provider Family Medicine
DX: I10 Essential (primary) hypertension (principal); E11.9 Type 2 diabetes mellitus without complications; D64.9 Anemia, unspecified
CPT/HCPCS: 80048; 85027; 82728; 83036

== ENCOUNTER 2022-10-13 10:14 | Inpatient (IN) | payer MEDICARE, MEDICAID, SELFPAY ==
[2022-10-13] VITALS (12 sets, daily range): BP systolic 135–174; BP diastolic 66–91; PULSE 79–90; RESP 16–18; TEMP 36.4–37.1; O2SAT 92–95
--- NOTE | 2022-10-13 10:15 | RT.EKG_ITS ---
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
--- NOTE | 2022-10-13 10:30 | DI.CT_ITS ---
Exam(s) CT HEAD WO EXAM: CT HEAD WO CLINICAL HISTORY: generalized weakness, falls. TECHNIQUE: Imaging Protocol: Axial computed tomography images with coronal and sagittal reformatted images were created and reviewed COMPARISON: CT CT HEAD CERVICAL SPINE WO from 02/05/2022 FINDINGS: Ventricles and Extra axial spaces: Normal in size and morphology for the patient's age. Hemorrhage: None. Cerebral parenchyma: No acute territorial infarct is present. There are areas of decreased attenuati on in the white matter consistent with small vessel ischemic disease. Midline shift: None. Brainstem/Cerebellum: Normal. Calvarium: Normal. Visualized Paranasal sinuses/Mastoids: There is mild mucosal thickening in the right sphenoid sinus. The remaining visualized paranasal sinuses and mastoid air cells are clear. Soft Tissues: Unremarkable. IMPRESSION: No acute intracranial process. RADIATION DOSE DELIVERED: 761.99mGy.cm Total DLP DATA REPOSITORY: All CT scans at this facility are submitted to the National Radiology Data Registry (NRDR) Dose Index Registry (DIR) with the [employer] ([employer]). RADIATION OPTIMIZATION: All CT scans at this facility use at least one of these dose optimization te chniques: automated exposure control; mA and/or kV adjustment per patient size (includes targeted exa ms where dose is matched to clinical indication); or iterative reconstruction.
--- NOTE | 2022-10-13 11:01 | ED.GENADUL_ITS ---
Discharge Plan Disposition Patient Disposition: Admit to [facility] Condition: Stable Discharge Details Chief Complaint: GenMedical Clinical Impression: Falls, Weakness Primary Care Provider: Yarely Lagos ED Provider: Chago El Home Meds and New Rx's Prescriptions: No Action levetiracetam [Keppra] 750 mg tablet 500 mg PO BID All Day Allergy (cetirizine) 10 mg capsule 10 mg PO DAILY PRN ferrous sulfate 325 mg (65 mg iron) tablet 325 mg PO DAILY naproxen 500 mg tablet 500 mg PO PRN Levemir FlexTouch U-100 Insuln 100 unit/mL (3 mL) insulin pen 45 unit Sub-Q BID@0800,2000 ergocalciferol (vitamin D2) 400 UNIT tablet 400 units PO DAILY furosemide 20 mg tablet 20 mg PO DAILY levetiracetam 500 mg tablet 500 mg PO BID metformin 500 mg tablet 1,000 mg PO BID Qty: 120 0RF clonazepam 0.5 MG tablet 0.5 mg PO HS PRN PRN sertraline 50 MG tablet 50 mg PO DAILY nitroglycerin 0.4 MG tablet, sublingual 0.4 mg Sublingual PRN PRN carvedilol 25 MG tablet 25 mg PO BID 0RF clopidogrel [Plavix] 75 MG tablet 75 mg PO DAILY 0RF rosuvastatin [Crestor] 10 MG tablet 40 mg PO QPM 0RF cyanocobalamin (vitamin B-12) 2,500 MCG tablet,chewable 1,000 mcg PO DAILY Qty: 30 0RF amlodipine 2.5 mg Tablet 2.5 mg PO DAILY Qty: 30 0RF esomeprazole magnesium [Nexium] 20 mg Capsule,Delayed Release(Dr/Ec) 40 mg PO QDAY ascorbic acid (vitamin C) [Vitamin C] 500 mg Tablet 1,000 mg PO BID Qty: 40 0RF benzonatate 100 mg Capsule 100 mg PO TID PRN PRN (Reason: cough) Qty: 30 0RF doxycycline hyclate 100 mg Capsule 100 mg PO BID Qty: 5 0RF cholecalciferol (vitamin D3) 25 mcg (1,000 unit) Tablet 2,000 units PO DAILY Qty: 20 0RF guaifenesin [Mucinex] 600 mg Tablet Extended Release 12hr 600 mg PO BID PRN PRN (Reason: cough) Qty: 20 0RF lidocaine 5 % Adhesive Patch,Medicated 1 patch topical Q24H Qty: 15 0RF Rx Instructions: apply to painful area on back zinc sulfate [Zinc-220] 50 mg zinc (220 mg) Capsule 220 mg PO DAILY Qty: 10 0RF cefpodoxime 200 mg tablet 200 mg PO BID Qty: 5 0RF Rx Instructions: must administer with a meal/food albuterol sulfate [Ventolin HFA] 90 mcg/actuation Hfa Aerosol Inhaler 2 puff inhalation Q6H PRN PRN (Reason: shortness of breath or wheezing) Qty: 8.5 0RF qnautaoerak-ancmkjnga-arh C-Mn [Glucosamine 1500 Complex] 1 EACH capsule 1 tab PO DAILY Medical Decision Making 87-year-old female history of diabetes, coronary disease, UTIs, presents brought in by daughter for generalized fatigue generalized weakness over the past week, foul-smelling urine daughter started Bactrim at home from prior prescription, patient is afebrile nontoxic no signs of trauma, however does appear dehydrated with dry oral mucosa, likely component of deconditioning consider UTI versus electrolyte normality versus ACS versus less likely intracranial hemorrhage mass or edema however given generalized weakness and falls will obtain CT head, will also obtain screening chest x-ray and x-ray pelvis, will swab for COVID flu RSV will assess UA. Fluid bolus close reassessment. Family feels unsafe having her come home given multiple falls and level of care required. Will likely need admission for PT OT/rehabilitation placement. 15: 20 patient resting comfortably more alert after some fluids, labs and imaging unremarkable. At care management team assessed patient and talk to family at bedside regarding options of care which include home health aide possible palliative and/or hospice care. Family still uncomfortable taking patient home. We currently have no beds available for admission at this time at our facility, I have offered all surrounding hospitals to try to find an inpatient bed for patient in order to coordinate rehabilitation/long-term care facility placement. Daughter is adamant that she does not want patient transferred to another hospital as last time she was away from her family she developed severe delirium. I counseled family extensively regarding options and at this point I do support their wishes not to send their mother home and will have to keep her in the emergency department until we can find a safe option for further care. 17: 31 patient resting comfortably no acute distress. Discussed case with hospitalist team and care management team are willing to admit patient for arrangement of placement. Per family patient is full code HPI General Date/Time Provider Initiated Documentation: 10/13/22 10:19 . HPI Narrative: 87-year-old female history of diabetes coronary disease, past UTIs, brought in by daughter for evaluation of generalized fatigue, patient's daughter and family nurse been caring for her physically assisting her out of bed, her ambulation has become more difficult due to lack of energy, foul-smelling urine over the last week daughter started Bactrim at home that was leftover from a prior prescription. Related Data Home Medications Medication Instructions Recorded Confirmed clonazepam 0.5 mg tablet 0.5 mg PO HS PRN PRN 05/04/13 10/13/22 sertraline 50 mg tablet 50 mg PO DAILY 05/04/13 10/13/22 nitroglycerin 0.4 mg sublingual 0.4 mg sublingual PRN PRN 08/31/13 10/13/22 tablet ergocalciferol (vitamin D2) 10 mcg 400 units PO DAILY 05/13/15 10/13/22 (400 unit) tablet zdpwqfmpewv-ynotxbsqh-ilr C-Mn 500 1 tab PO DAILY 07/05/17 10/13/22 mg-400 mg capsule (Glucosamine 1) carvedilol 25 mg tablet 25 mg PO BID 07/12/17 10/13/22 clopidogrel 75 mg tablet (Plavix) 75 mg PO DAILY 07/12/17 10/13/22 cyanocobalamin (vitamin B-12) 1,000 mcg PO DAILY ##30 07/12/17 10/13/22 2,500 mcg chewable tablet rosuvastatin 10 mg tablet (Crestor) 40 mg PO QPM 07/12/17 10/13/22 amlodipine 2.5 mg tablet 2.5 mg PO DAILY #30 tabs 07/11/19 10/13/22 esomeprazole magnesium 20 mg 40 mg PO QDAY 11/09/20 10/13/22 capsule,delayed release (Nexium) furosemide 20 mg tablet 20 mg PO DAILY 05/17/21 10/13/22 levetiracetam 500 mg tablet 500 mg PO BID 05/17/21 10/13/22 cetirizine 10 mg capsule (All Day 10 mg PO DAILY PRN 06/22/21 10/13/22 Allergy (cetirizine)) ferrous sulfate 325 mg (65 mg 325 mg PO DAILY 06/22/21 10/13/22 iron) tablet insulin detemir U-100 100 unit/mL 45 unit subcut BID@0800,2000 06/22/21 10/13/22 (3 mL) subcutaneous pen (Levemir FlexTouch U-100 Insulin) levetiracetam 750 mg tablet 500 mg PO BID 06/22/21 10/13/22 (Keppra) naproxen 500 mg tablet 500 mg PO PRN 06/22/21 10/13/22 metformin 500 mg tablet 1,000 mg PO BID #120 tabs 09/29/21 10/13/22 albuterol sulfate 90 mcg/actuation 2 puff inhalation Q6H PRN PRN 02/07/22 10/13/22 aerosol inhaler (Ventolin HFA) shortness of breath or wheezing #8.5 grams ascorbic acid (vitamin C) 500 mg 1,000 mg PO BID #40 tabs 02/07/22 10/13/22 tablet (Vitamin C) benzonatate 100 mg capsule 100 mg PO TID PRN PRN cough #30 02/07/22 10/13/22 caps cefpodoxime 200 mg tablet 200 mg PO BID #5 tabs 02/07/22 10/13/22 cholecalciferol (vitamin D3) 25 2,000 units PO DAILY #20 tabs 02/07/22 10/13/22 mcg (1,000 unit) tablet doxycycline hyclate 100 mg capsule 100 mg PO BID #5 caps 02/07/22 10/13/22 guaifenesin 600 mg tablet, 600 mg PO BID PRN PRN cough #20 02/07/22 10/13/22 extended release 12 hr (Mucinex) tabs lidocaine 5 % topical patch 1 patch topical Q24H #15 ea 02/07/22 10/13/22 zinc sulfate 50 mg zinc (220 mg) 220 mg PO DAILY #10 caps 02/07/22 10/13/22 capsule (Zinc-220) Previous Rx's Medication Instructions Recorded carvedilol 25 mg tablet 25 mg PO BID 07/12/17 clopidogrel 75 mg tablet (Plavix) 75 mg PO DAILY 07/12/17 cyanocobalamin (vitamin B-12) 1,000 mcg PO DAILY ##30 07/12/17 2,500 mcg chewable tablet rosuvastatin 10 mg tablet (Crestor) 40 mg PO QPM 07/12/17 amlodipine 2.5 mg tablet 2.5 mg PO DAILY #30 tabs 07/11/19 metformin 500 mg tablet 1,000 mg PO BID #120 tabs 09/29/21 albuterol sulfate 90 mcg/actuation 2 puff inhalation Q6H PRN PRN 02/07/22 aerosol inhaler (Ventolin HFA) shortness of breath or wheezing #8.5 grams ascorbic acid (vitamin C) 500 mg 1,000 mg PO BID #40 tabs 02/07/22 tablet (Vitamin C) benzonatate 100 mg capsule 100 mg PO TID PRN PRN cough #30 02/07/22 caps cefpodoxime 200 mg tablet 200 mg PO BID #5 tabs 02/07/22 cholecalciferol (vitamin D3) 25 2,000 units PO DAILY #20 tabs 02/07/22 mcg (1,000 unit) tablet doxycycline hyclate 100 mg capsule 100 mg PO BID #5 caps 02/07/22 guaifenesin 600 mg tablet, 600 mg PO BID PRN PRN cough #20 02/07/22 extended release 12 hr (Mucinex) tabs lidocaine 5 % topical patch 1 patch topical Q24H #15 ea 02/07/22 zinc sulfate 50 mg zinc (220 mg) 220 mg PO DAILY #10 caps 02/07/22 capsule (Zinc-220) Allergies Allergy/AdvReac Type Severity Reaction Status Date / Time atorvastatin calcium Allergy Unverified 10/13/22 10:19 [From Lipitor] General Stated Complaint: GenMedical WINSOME: 3 Review of Systems Narrative: Review of Systems Constitutional: Fatigue Eyes: negative ENT: negative Cardiovascular: negative Respiratory: negative Gastrointestinal: negative : negative Musculoskeletal: negative Skin: negative Neurologic: negative Psych: negative PFSH All Active Problems (Updated 10/13/22 @ 17:33 by Chago El MD) Falls (Acute) Weakness (Acute) COVID-19 (Acute) UTI (urinary tract infection) (Acute) Pre-syncope (Acute) HTN (hypertension) (Chronic) TIA (transient ischemic attack) (Acute) ?2017 Primary osteoarthritis of left knee (Chronic) Injected: 03/02/2019 Primary osteoarthritis of right knee (Chronic) Injected: 03/02/2019 Diabetes (Chronic) Anxiety (Chronic) CAD (coronary artery disease) (Chronic) Discharge planning issues (Acute) Vertigo (Acute) Syncope (Acute) Abnormal flushing and sweating (Acute) Chest pain (Acute) Cough (Acute) Abnormal result on screening urine test (Acute) Medical History (Updated 10/13/22 @ 17:33 by Chago El MD) Asthma Hyperlipidemia Hypothyroidism Iron deficiency anemia Seizures ?2017 Surgical History History of coronary artery stent placement Family History Mother Stroke Father Heart disease Social History Smoking/Tobacco Use Status: Never Smoking risk assessment performed?: Yes Alcohol Intake: never Drug use: Never Substance use type: 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 She does not speak [place]. She lives with her daughter. She has two children, both here in the [facility] and locally in [place]. She is . 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 Exam Narrative Exam Narrative: Physical Examination General: alert, awake, cooperative, resting comfortably, no acute distress HEENT: normocephalic, atraumatic; PERRL, EOM intact, conjunctiva normal; no nasal discharge; dry mucous membranes Neck: supple, trachea midline; full ROM Chest: normal to inspection Respiratory: normal respiratory effort, speaking in full sentences, clear to auscultation, no wheezing, rales or rhonchi Cardiac: regular rate, regular rhythm, S1S2 intact, no murmurs rubs or gallops GI: abdomen soft, non-tender, non-distended; no palpable mass or hepatosplenomegaly Skin: no lesions, rashes or trauma appreciated Neuro: Alert interactive following commands no cranial nerve deficits, 5 and 5 strength upper and lower extremities Extremities: Likely chronic arthritis of bilateral knees, no effusions erythema or signs of trauma Psych: Appropriate mood and affect Course Vital Signs Vital signs: Vital Signs Temperature 36.5 C 10/13/22 10:09 Pulse 84 10/13/22 10:09 Respiratory Rate 18 10/13/22 10:09 Blood Pressure 174/73 H 10/13/22 10:09 Pulse Oximetry 95 10/13/22 10:09 Temperature 36.5 C 10/13/22 10:09 Temperature Source Skin 10/13/22 10:09 Pulse 84 10/13/22 10:09 Respiratory Rate 18 10/13/22 10:09 Respiratory Effort 10/13/22 10:18 Blood Pressure 174/73 H 10/13/22 10:09 Blood Pressure Position Sitting 10/13/22 10:09 Pulse Oximetry 95 10/13/22 10:09 Oxygen Delivery Method Room Air 10/13/22 10:09 Oxygen Flow Rate 0 10/13/22 10:09 Pain Level 10 10/13/22 10:09
--- NOTE | 2022-10-13 11:05 | DI.RAD_ITS ---
Exam(s) XR PELVIS AP EXAM: XR PELVIS AP CLINICAL HISTORY: weakness, falls. TECHNIQUE: 2D digital imaging was performed.One images were obtained. COMPARISON: CR,XR XR PELVIS AP from 02/02/2022 FINDINGS: BONES: No acute fracture is present. No bony destructive lesion is seen. JOINTS: No dislocation present. Degenerative changes are seen in the lower lumbar spine. SOFT TISSUE: Vascular calcifications are present. IMPRESSION: No acute fracture or dislocation. DATA REPOSITORY: RADIATION DOSE DELIVERED:
[2022-10-13 11:10] LABS: Bilirubin Negative (Negative); Blood Negative (Negative); Clarity Clear (Clear); Glucose Negative (Negative); Ketones Negative (Negative); Leukocyte Esterase Negative (Negative); Nitrite Negative (Negative); Specific Gravity 1.015 (1.005-1.025); Urobilinogen 0.2 EU/dL (Up TO 0.2); pH 5.5 (5-8)
--- NOTE | 2022-10-13 11:18 | DI.RAD_ITS ---
Exam(s) XR CHEST 1V IN DI DEPT EXAM: XR CHEST 1V IN DI DEPT CLINICAL HISTORY: weakness TECHNIQUE: 2D digital imaging was performed of the chest. One image was obtained. An AP view was ob tained. COMPARISON: CR,XR XR PORTABLE CHEST AP from 02/02/2022 FINDINGS: MEDIASTINUM: Normal. HEART: Normal. PULMONARY VASCULATURE: Normal. LUNGS: Clear. PLEURAL SPACE: No pleural effusion or pneumothorax. BONE:Within normal limits for the patient's age. OTHER FINDINGS:Normal. IMPRESSION: No acute pulmonary findings. DATA REPOSITORY: RADIATION DOSE DELIVERED:
[2022-10-13 11:34] LABS: Bacteria Rare HPF (Negative); C & S Indicated? No; Casts 0-2 Hyaline LPF (Negative); Crystals Negative HPF (Negative); Epithelial Cells Rare HPF (Negative); Mucus Negative (Negative); RBC 0-2 HPF (0-2); WBC 0-2 HPF (0-5)
[2022-10-13] MEDS: Normal Saline 500 ML 1000 ML IV (11:38)
[2022-10-13 11:43] LABS: COVID-19 PCR Negative (Negative); Influenza A PCR Negative (Negative); Influenza B PCR Negative (Negative); RSV PCR Negative (Negative)
[2022-10-13 11:44] LABS: Source Nasopharynx
[2022-10-13 11:47] LABS: Abs Immature Grans 0.01 10^3/uL (0.0-0.06); Absolute Basophil Count 0.06 10^3/uL (0.0-0.2); Absolute Eosinophil Count 0.35 10^3/uL (0.0-0.7); Absolute Lymphocyte Count 2.88 10^3/uL (1.2-3.4); Absolute Monocyte Count 0.82 10^3/uL (0.1-0.8); Absolute Neutrophil Count 3.61 10^3/uL (1.2-6.7); Basophils % 0.8; Eosinophils % 4.5; HCT 44.3 % (36.0-46.0); HGB 14.8 g/dL (11.2-15.7); Immature Grans % 0.1; Lymphocytes % 37.3; MCH 29.5 pg (27.0-33.0); MCHC 33.4 % (32.0-36.0); MCV 88 fL (80-95); MPV 9.2 fL (8.0-11.0); Monocytes % 10.6; Neutrophils % 46.7; Platelet Count 281 10^3/uL (130-400); RBC 5.02 10^6/uL (3.93-5.22); RDW 12.2 % (11.7-14.6); RDW-SD 39.5 fL; WBC 7.73 10^3/uL (4.4-10.8)
--- NOTE | 2022-10-13 11:50 | DI.VRAD_ITS ---
PROCEDURE INFORMATION: Pulmonary report Exam: CT Head Without Contrast Exam date and time: 10/13/2022 11:11 AM Age: 87 years old Clinical indication: Other: Generalized weakness, falls TECHNIQUE: Imaging protocol: Computed tomography of the head without contrast. COMPARISON: CT HEAD CERVICAL SPINE WO 02/05/2022 8:35 AM FINDINGS: Brain: Symmetric prominence of the cortical sulci. Multifocal small-vessel ischemic change. No acute post-traumatic brain injury. Vascular, basal ganglia, and dural calcifications. Cerebral ventricles: Age-appropriate caliber of the ventricles. Paranasal sinuses: Trace right sphenoid sinus fluid along with sinus wall thickening. Mastoid air cells: No mastoid effusion. Bones/joints: No acute calvarial injury. Soft tissues: No significant scalp hematoma. IMPRESSION: No acute post-traumatic brain injury. Dictated and Authenticated by: Emanuel Mayorga MD. Ordering:CHANTALE Anders MD
--- NOTE | 2022-10-13 11:51 | DI.VRAD_ITS ---
PROCEDURE INFORMATION: Preliminary report Exam: XR Pelvis Exam date and time: 10/13/2022 11:23 AM Age: 87 years old Clinical indication: Other: Weakness, falls TECHNIQUE: Imaging protocol: Radiologic exam of the pelvis. Views: 1 or 2 view. COMPARISON: XR PELVIS AP 02/02/2022 8:51 PM FINDINGS: Bones/joints: No gross evidence for acute bony injury in the visualized pelvis on the single AP view obtained.If an occult fracture is of clinical concern, CT correlation can be performed. Degenerative change. Soft tissues: Skin folds. Vasculature: Prominent vascular calcification. Other findings: Prominent stool. IMPRESSION: No gross evidence for acute bony injury in the visualized pelvis on the single AP view obtained. Dictated and Authenticated by: Emanuel Mayorga MD. Ordering:CHANTALE Anders MD
--- NOTE | 2022-10-13 11:52 | DI.VRAD_ITS ---
PROCEDURE INFORMATION: Exam: XR Chest Exam date and time: 10/13/2022 11:18 AM Age: 87 years old Clinical indication: Other: Weeakness TECHNIQUE: Imaging protocol: Radiologic exam of the chest. Views: 1 view. COMPARISON: CT CHEST WO 02/02/2022 9:38 PM FINDINGS: Lungs: Mild interstitial prominence without acute airspace disease. Pleural spaces: No significant pleural effusion. Heart/Mediastinum: Prominent epicardial fat. No cardiomegaly. Vasculature: Ectasia of the thoracic aorta. Bones/joints: Degenerative change. IMPRESSION: No acute airspace or pleural disease. Dictated and Authenticated by: Emanuel Mayorga MD. Ordering:CHANTALE Anders MD
[2022-10-13 12:20] LABS: ALT 39 U/L (14-59); AST 22 U/L (15-37); Albumin 4.1 g/dL (3.4-5.0); Alkaline Phosphatase 81 U/L (46-116); Anion Gap 11.1 mmol/L (3-11); BUN 19 mg/dL (7-18); Bilirubin, Total 0.4 mg/dL (0.2-1.0); CO2 24.9 mmol/L (21.0-32.0); CREATININE 1.4 mg/dL (0.55-1.02); Calcium 9.4 mg/dL (8.5-10.1); Chloride 96 mmol/L (98-107); Estimated GFR 36.87 (mL/min/1.73m2); Glucose 202 mg/dL (74-106); Lipase 119 U/L (73-393); Potassium 4.5 mmol/L (3.5-5.1); Sodium 132 mmol/L (136-145); TSH (W/Ref FT4) 2.28 uIU/mL (0.36-3.74); Total Protein 8.1 g/dL (6.4-8.2); Troponin I < 50 ng/L (<or=60)
--- NOTE | 2022-10-13 18:14 | HPE_ITS ---
Date of service: 10/13/22 Time of Service: 18:14 Assessment and Plan Assessment and plan (1) Falls: Status: Acute Assessment and plan: multiple recent falls at home with reported increased weakness. no fevers. work up in the ED shows no acute infection or source of infection or etiology for her worsening symptoms. most likely d/t progression of aging and possible new baseline. will continue safety precautions and awaiting PT consult (2) Diabetes: Status: Chronic Assessment and plan: diabetic diet, sliding scale ac/hs decrease home insulin dose from 45 bid to 30 bid. adjust insulin as needed continue metformin (3) Seizures: Assessment and plan: stable, continue home keppra (4) Iron deficiency anemia: Assessment and plan: stable, continue supplementation (5) Hyperlipidemia: Assessment and plan: continue statin. (6) Discharge planning issues: Status: Acute Assessment and plan: anticipate placement case management following palliative care consult placed for goals of care and planning daughter requests full code. discussed with Dr mead History of Present Illness History of Present Illness Chief Complaint: falls, weakness Review of Systems All systems reviewed & are unremarkable except as noted in HPI and below PFSH All Active Problems (Updated 10/14/22 @ 15:28 by Noy Garcia NP) Urinary retention (Acute) Falls (Acute) Weakness (Acute) COVID-19 (Acute) UTI (urinary tract infection) (Acute) Pre-syncope (Acute) HTN (hypertension) (Chronic) TIA (transient ischemic attack) (Acute) ?2017 Primary osteoarthritis of left knee (Chronic) Injected: 03/02/2019 Primary osteoarthritis of right knee (Chronic) Injected: 03/02/2019 Diabetes (Chronic) Anxiety (Chronic) CAD (coronary artery disease) (Chronic) Discharge planning issues (Acute) Vertigo (Acute) Syncope (Acute) Abnormal flushing and sweating (Acute) Chest pain (Acute) Cough (Acute) Abnormal result on screening urine test (Acute) Medical History (Updated 10/14/22 @ 15:28 by Noy Garcia NP) Asthma Hyperlipidemia Hypothyroidism Iron deficiency anemia Seizures ?2017 Surgical History History of coronary artery stent placement Family History Mother Stroke Father Heart disease Social History Smoking/Tobacco Use Status: Never Smoking risk assessment performed?: Yes Alcohol Intake: never Drug use: Never Substance use type: does not use and former substance user Household members: children Number of Children: 2 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 She does not speak [place] Islander. She lives with her daughter. She has two children, both here in the [facility] and locally in [place]. She is . 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 Meds Allergies and Home Medications Allergies Allergy/AdvReac Type Severity Reaction Status Date / Time atorvastatin calcium Allergy Unverified 10/13/22 10:19 [From Lipitor] Home Medications Medication Instructions Recorded Confirmed Type clonazepam 0.5 mg tablet 0.5 mg PO HS PRN PRN 05/04/13 10/13/22 History sertraline 50 mg tablet 50 mg PO DAILY 05/04/13 10/13/22 History nitroglycerin 0.4 mg sublingual 0.4 mg sublingual PRN PRN 08/31/13 10/13/22 Hi story tablet ergocalciferol (vitamin D2) 10 mcg 400 units PO DAILY 05/13/15 10/13/22 History (400 unit) tablet fyrgeguvyvj-lrnvauaed-hoq C-Mn 500 1 tab PO PRN 07/05/17 10/14/22 History mg-400 mg capsule (Glucosamine 1) carvedilol 25 mg tablet 25 mg PO BID 07/12/17 10/13/22 Rx clopidogrel 75 mg tablet (Plavix) 75 mg PO DAILY 07/12/17 10/13/22 Rx cyanocobalamin (vitamin B-12) 1,000 mcg PO DAILY ##30 07/12/17 10/13/22 Rx 2,500 mcg chewable tablet rosuvastatin 10 mg tablet (Crestor) 40 mg PO QPM 07/12/17 10/13/22 Rx amlodipine 2.5 mg tablet 2.5 mg PO DAILY #30 tabs 07/11/19 10/13/22 Rx esomeprazole magnesium 20 mg 40 mg PO QDAY 11/09/20 10/13/22 History capsule,delayed release (Nexium) furosemide 20 mg tablet 20 mg PO DAILY 05/17/21 10/13/22 History cetirizine 10 mg capsule (All Day 10 mg PO DAILY PRN 06/22/21 10/13/22 History Allergy (cetirizine)) insulin detemir U-100 100 unit/mL 50 unit subcut BID@0800,2000 06/22/21 10/14/22 History (3 mL) subcutaneous pen (Levemir FlexTouch U-100 Insulin) levetiracetam 750 mg tablet 750 mg PO BID 06/22/21 10/14/22 History (Keppra) naproxen 500 mg tablet 500 mg PO PRN 06/22/21 10/13/22 History metformin 500 mg tablet 1,000 mg PO BID #120 tabs 09/29/21 10/13/22 Rx benzonatate 100 mg capsule 100 mg PO TID PRN PRN cough #30 02/07/22 10/13/22 Rx caps guaifenesin 600 mg tablet, 600 mg PO BID PRN PRN cough #20 02/07/22 10/13/22 Rx extended release 12 hr (Mucinex) tabs lidocaine 5 % topical patch 1 patch topical Q24H #15 ea 02/07/22 10/13/22 Rx sulfamethoxazole 400 1 tab PO BID PRN 10/14/22 10/14/22 History mg-trimethoprim 80 mg tablet (Bactrim) Exam Const General: cooperative, comfortable and no acute distress Nutritional Appearance: obese Orientation: alert, awake, oriented to person and oriented to place Limitations: language barrier HENMT Head: normal to inspection, normocephalic and atraumatic Mouth: oral mucosae normal Resp Effort & Inspection: normal respiratory effort Cardio Rate: regular rate Rhythm: regular rhythm GI Inspection: obesity Palpation: soft and nontender Skin General skin exam: no rashes or lesions noted Neuro General: patient alert, patient awake and no focal motor deficits Extrem General: full ROM Results Labs Result diagrams: 10/14/22 05:48 10/14/22 05:48 Labs: Laboratory Results - last 24 hr 10/13/22 10/13/22 10/13/22 10:53 11:05 11:37 WBC RBC Hgb Hct MCV MCH MCHC RDW Plt Count MPV Immature Gran % Neutrophils % Lymphocytes % Monocytes % Eosinophils % Basophils % Nucleated RBC % Absolute Neutrophils Absolute Lymphocytes Absolute Monocytes Absolute Eosinophils Absolute Basophils Sodium 132 L Potassium 4.5 Chloride 96 L Carbon Dioxide 24.9 Anion Gap 11.1 H BUN 19 H Creatinine 1.4 H Est GFR (CKD-EPI 2020) 36.87 Glucose 202 H Calcium 9.4 Magnesium 2.0 Total Bilirubin 0.4 AST 22 ALT 39 Alkaline Phosphatase 81 Troponin I < 50 Total Protein 8.1 Albumin 4.1 Lipase 119 TSH 2.28 Urine Color Yellow Urine Clarity Clear Urine pH 5.5 Ur Specific [place] 1.015 Urine Protein 100 H Urine Ketones Negative Urine Blood Negative Urine Nitrite Negative Urine Bilirubin Negative Urine Urobilinogen 0.2 Ur Leukocyte Esterase Negative Urine RBC 0-2 Urine WBC 0-2 Ur Epithelial Cells Rare Urine Crystals Negative Urine Bacteria Rare Urine Casts 0-2 Hyaline Urine Mucus Negative Ur Culture Indicated? No Urine Glucose Negative COVID-19 Source Nasopharynx SARS-CoV-2 (PCR) Negative Influenza Type A (PCR) Negative Influenza Type B (PCR) Negative RSV (PCR) Negative 10/13/22 11:37 WBC 7.73 RBC 5.02 Hgb 14.8 Hct 44.3 MCV 88 MCH 29.5 MCHC 33.4 RDW 12.2 Plt Count 281 MPV 9.2 Immature Gran % 0.1 Neutrophils % 46.7 Lymphocytes % 37.3 Monocytes % 10.6 Eosinophils % 4.5 Basophils % 0.8 Nucleated RBC % 0.0 Absolute Neutrophils 3.61 Absolute Lymphocytes 2.88 Absolute Monocytes 0.82 H Absolute Eosinophils 0.35 Absolute Basophils 0.06 Sodium Potassium Chloride Carbon Dioxide Anion Gap BUN Creatinine Est GFR (CKD-EPI 2020) Glucose Calcium Magnesium Total Bilirubin AST ALT Alkaline Phosphatase Troponin I Total Protein Albumin Lipase TSH Urine Color Urine Clarity Urine pH Ur Specific [place] Urine Protein Urine Ketones Urine Blood Urine Nitrite Urine Bilirubin Urine Urobilinogen Ur Leukocyte Esterase Urine RBC Urine WBC Ur Epithelial Cells Urine Crystals Urine Bacteria Urine Casts Urine Mucus Ur Culture Indicated? Urine Glucose COVID-19 Source SARS-CoV-2 (PCR) Influenza Type A (PCR) Influenza Type B (PCR) RSV (PCR) Last Vital Signs Temp 36.6 C 10/13/22 17:48 Pulse 84 10/13/22 17:48 Resp 18 10/13/22 12:38 BP 153/91 H 10/13/22 17:48 Pulse Ox 92 10/13/22 17:48 Time Spent Time spent with Patient: 40-54 minutes Time was spent: preparing to see the patient(eg.review tests), ordering medications,tests, procedures, referring, communicating with other health out of school hours care worker and indepentently interpreting results
--- NOTE | 2022-10-13 19:17 | NUR.NOTE ---
Admitted from the ER via stretcher to room 206, transferred via hover mattress. Pt's daughter present throughout admission process. Rossana Garcia in to examine pt and interview her daughter.
[2022-10-13] MEDS: Rosuvastatin 10 MG TAB 40 MG PO (21:42)
[2022-10-13] MEDS: levETIRAcetam 500 MG TAB PO (21:42)
[2022-10-13] MEDS: Carvedilol 25 MG TAB PO (21:43)
[2022-10-13] MEDS: Ascorbic Acid 500 MG TAB 1000 MG PO (21:43)
[2022-10-13] MEDS: Lidocaine 5% Patch 1 PATCH TP (21:43)
[2022-10-13] MEDS: Insulin Aspart 300 UNITS/3 ML PEN SC (21:45)
--- NOTE | 2022-10-14 01:29 | NUR.NOTE ---
Nursing Note: Around 00:00 10/14, [facility] was contacted for a Patricia brush polisher in order to communicate need for ortez catheter placement. When brush polisher was obtained, patient did not respond to communication via tablet with the brush polisher. The brush polisher was then given the room phone and called to speak with the patient. When the phone was held up to her ear, the patient turned her head away from the phone when the brush polisher began to speak to her. She did eventually respond that she did not want to talk. The ortez catheter procedure and need was explained to the brush polisher who then explained it to the patient. The patient reported that she wanted to speak with her daughter. Her daughter, Shubham, was contacted and the patient engaged with her. The daughter was asked directly if the patient usually did not speak through interpreters, as this was the second attempt known where the patient did not engage with the brush polisher, to which the daughter reported that the patient does not like to speak with or through interpreters and prefers using family for translation. The daughter was asked to convey the process and need for the ortez catheter and we were able to place a catheter without issue.
--- NOTE | 2022-10-14 01:35 | NUR.NOTE ---
Nursing Note: Patient's daughter, Keyshawn, phone number is [phone]. Patient prefers to use Adila for translation and communication; see previous note by this nurse.
[2022-10-14 06:46] LABS: Abs Immature Grans 0.01 10^3/uL (0.0-0.06); Absolute Basophil Count 0.04 10^3/uL (0.0-0.2); Absolute Eosinophil Count 0.33 10^3/uL (0.0-0.7); Absolute Lymphocyte Count 2.67 10^3/uL (1.2-3.4); Absolute Monocyte Count 0.93 10^3/uL (0.1-0.8); Absolute Neutrophil Count 2.89 10^3/uL (1.2-6.7); Basophils % 0.6; Eosinophils % 4.8; HCT 41.3 % (36.0-46.0); HGB 14.2 g/dL (11.2-15.7); Immature Grans % 0.1; Lymphocytes % 38.9; MCH 29.6 pg (27.0-33.0); MCHC 34.4 % (32.0-36.0); MCV 86 fL (80-95); MPV 9.6 fL (8.0-11.0); Monocytes % 13.5; Neutrophils % 42.1; Platelet Count 253 10^3/uL (130-400); RDW 12.3 % (11.7-14.6); RDW-SD 38.8 fL; WBC 6.87 10^3/uL (4.4-10.8)
[2022-10-14 06:55] LABS: Anion Gap 10.6 mmol/L (3-11); BUN 17 mg/dL (7-18); CO2 24.4 mmol/L (21.0-32.0); Calcium 9.4 mg/dL (8.5-10.1); Chloride 98 mmol/L (98-107); Estimated GFR 55.21 (mL/min/1.73m2); Glucose 180 mg/dL (74-106); Sodium 133 mmol/L (136-145)
[2022-10-14 07:29] VITALS: BP 187/83; PULSE 78; RESP 18; TEMP 36.7; O2SAT 94
[2022-10-14] MEDS: Insulin Aspart 300 UNITS/3 ML PEN SC ×4 (07:52→22:05)
[2022-10-14] MEDS: Sertraline 50 MG TAB PO (08:19)
[2022-10-14] MEDS: Docusate Sodium 100 MG CAP PO (08:19)
[2022-10-14] MEDS: Esomeprazole 40 MG CAPCR PO (08:19)
[2022-10-14] MEDS: amLODIPine 2.5 MG TAB PO (08:20)
[2022-10-14] MEDS: Cyanocobalamin 500 MCG TAB 1000 MCG PO (08:20)
[2022-10-14] MEDS: Clopidogrel 75 MG TAB PO (08:20)
[2022-10-14] MEDS: metFORMIN 500 MG TAB 1000 MG PO ×2 (08:21→17:36)
[2022-10-14] MEDS: Cholecalciferol (Vitamin D3) 400 UNIT TAB PO (08:21)
[2022-10-14] MEDS: Furosemide 20 MG TAB PO (08:22)
[2022-10-14] MEDS: Carvedilol 25 MG TAB PO ×2 (09:04→20:34)
[2022-10-14] MEDS: Acetaminophen 325 MG TAB PO (09:04)
--- NOTE | 2022-10-14 09:25 | IN_ITS ---
Date of service: 10/14/22 Time of Service: 09:25 PT Notes Visit Reasons: Ambulatory Dysfunction Inpatient Physical Therapy Evaluation Date: 10/14/2022 Referring Doctor:?Noy Garcia NP PT Orders: PT CONSULT: Fall Safety Assessment Precautions: Repeated falls. Activity as tolerated. Patient Profile/Admitting Diagnosis:? Mitch is an 87-year-old female who presented to the ED on 10/13/2021 for increased confusion, repeated falls , generalized weakness, and foul-smelling urine.? Patient is diagnosed with repeated falls, dehydration, diabetes, hyperlipiedmia, and iron-deficiency anemia. PMHx: All Active Problems?(Updated 10/13/22 @ 17:33 by Chago El MD) Falls (Acute) Weakness (Acute) COVID-19 (Acute) UTI (urinary tract infection) (Acute) Pre-syncope (Acute) HTN (hypertension) (Chronic) TIA (transient ischemic attack) (Acute) ?2017 Primary osteoarthritis of left knee (Chronic) Injected: 03/02/2019 Primary osteoarthritis of right knee (Chronic) Injected: 03/02/2019Diabetes (Chronic) Anxiety (Chronic) CAD (coronary artery disease) (Chronic) Discharge planning issues (Acute) Vertigo (Acute) Syncope (Acute) Abnormal flushing and sweating (Acute) Chest pain (Acute) Cough (Acute) Abnormal result on screening urine test (Acute) Medical History?(Updated 10/13/22 @ 17:33 by Chago El MD) Asthma Hyperlipidemia Hypothyroidism Iron deficiency anemia Seizures ?2017 Surgical History? History of coronary artery stent placement Social History/Home Situation: Patient lives with her daughter Nadira and daughter's family at daughter's house. Daughter Nadira is her primary caregiver. Son Misael lives close by and is available to help during emergencies. This patient has been known to this provider since 10 years ag through . Family has been very supportive and tried very best to hold onto their mother/patient as much as they could. Daughter's house is not handicap-accessible with 5 st[address] to enter with rails on B sides. Equipment Owned/DME: FWW Subjective:? Son Misael was present and was asked to translate during the evaluation. Patient is agreeable to consult. She denies pain in her perineal area but reported pain and fatigue in B knees and B legs with short-distance ambulation. Son Misael states that he currently has been unable to full help physically picking up his mother from the floor due to some health issues. Son elaborates that his sister Nadira and his tpgwioc-im-leg who recently had R shoulder surgery, have been having challenges taking care of their mother for the past several years now. Misael adds that coco has been falling 4-5x at home due to her B knees suddenl y giving way. Objective:? General Observation: Seated on chair. ?In NAD.? Son Misael was willing to translate for this provider and for patient. Mental Status: Alert and oriented as to person.? Patient appeared to be having difficulty following instructions even in Bosnian and son needed to repeat translation 2-3x to facilitate understaning. Son was sitting beside mother and was in good hearing distance. Pain: Moderate pain in B knees with short distance ambulation ROM: Right Upper Extremity: ? Shoulder Flexion lacks the last 25% of AROM. Shoulder abduction lacks the last 25% of AROM. Elbow flexion WFL. Wrist flexion WFL. Functional opening and closing of hand WFL. Left Upper Extremity:? Shoulder Flexion lacks the last 25% of AROM. Shoulder abduction lacks the last 25% of AROM. Elbow flexion WFL. Wrist flexion WFL. Functional opening and closing of hand WFL. Right Lower Extremity: Hip flexion lacks the last 25% of AROM. Hip abduction WFL. Knee flexion lacks the last 25% of AROM. Ankle dorsiflexion to neutral only. Ankle plantarflexion WFL. Left Lower Extremity: Hip flexion lacks the last 25% of AROM. Hip abduction WFL. Knee flexion lacks the last 25% of AROM. Ankle dorsiflexion to neutral only. Ankle plantarflexion WFL. Strength: Right Upper Extremity: Shoulder flexors 3-/5. Shoulder abductors 3-/5. Elbow flexors 4-/5. Elbow extensors 4-/5. News Correspondent strong. Left Upper Extremity:Shoulder flexors 3-/5. Shoulder abductors 3-/5. Elbow flexors 4-/5. Elbow extensors 4-/5. News Correspondent strong. Right Lower Extremity: Hip flexors 3-/5. Hip abductors 4-/5. Knee flexors 4-/5. Knee extensors 4-/5. Ankle dorsiflexors 2-/5. Ankle plantarflexors 4-/5. Left Lower Extremity: Hip flexors 3-/5. Hip abductors 4-/5. Knee flexors 4-/5. Knee extensors 4-/5. Ankle dorsiflexors 2-/5. Ankle plantarflexors 4-/5. Sensation:? Intact throughout the lower extremities as to pain and light touch Bed Mobility/Transfers: Sit?stand:?minimal assist Stand?sit:?minimal assist Bed?chair:?minimal assist Gait:? Tolerated level surface ambulation of 10 feet from bedside recliner to door and back using front-wheel walker with report of aching and fatigue in bilateral legs needing to sit down.? Minimal assist provided.? Moderate shortness of breath that subsided with rest. Genu valgum noted Balance:? Static Sitting: Normal Dynamic Sitting: Normal Static Standing: Fair Dynamic Standing: Fair Mobility Limitations Standardized Measure [facility] 6 clicks Basic Mobility Inpatient Short Form: Raw Score: 18? CMS Score: 47% disability ? ? 4-stage Balance test:? Unable to maintain all 4 positions for 10 seconds signifying at high risk for falls at this time. Informed Consent/Education:? With assistance from son Misael for Bosnian language translation,?patient was instructed in purpose of PT consult and plan of care. Patient is agreeable to proceed with established PT POC to achieve personal goals. Assessment:?? Patient has had steady decline in mobility level since this provider has first seen her about 10 years ago. Family has been a very good support until recently when it has become very challenging to take care of their mother. Her cognitive level has reportedly declined as well which has added to her increased fall risk. Mitch is an 87-year-old female who presented to the ED on 10/13/2021 for increased confusion, repeated falls , generalized weakness, and foul-smelling urine.? Patient is diagnosed with repeated falls, dehydration, diabetes, hyperlipiedmia, and iron-deficiency anemia. Patient presents with clinical signs and symptoms consistent with current/admitting diagnoses that have resulted to mobility limitations, gait instability, generalized weakness, and overall ADL decline as demonstrated by the following impairment level findings: 1.? Decreased strength to B UE/LE major muscle groups 2.? Impaired standing balance 3.? Impaired activity tolerance 4.? Limitation of joint range of motion in B shoulders/ hips and ankles (chronic) 5.? Shortness of breath 6.? B leg discomfort with ambulation 7. Mild to moderate confusion Impairments are contributing to the following functional limitations: 1.? Decline in bed mobility skills 2.? Decline in transfer skills 3.? Difficulty with ambulation without assistive device and physical assistance 4.? Increased completion time for mobility ADL performance 5.? Increased risk for falls 6.? Difficulty with managing steps alone safely Patient is assessed as a 64148 moderate complexity based on the following: History: 86-year-old female with past medical history as indicated above Examination: Demonstrable impairment in strength, balance, and mobility level wi th underlying impairments and functional limitations as exhibited above as well as deficit score of 29% utilizing the [facility] Mobility Inpatient Short Form Presentation: Evolving Decision Makin moderate complexity Goals: Goals X1 week 1. Supine-Sit: Independent 2. Sit-Supine: Independent 3. Sit-Stand: Independent 4. Stand-Sit : Independent 5. Bed-Chair : Supervision with FWW 6. Chair-Bed : Supervision with FWW 7. Gait : Supervision with FWW x 50' Plan of Care/Treatment Plan: 1-2x/day, 7 days/week x 1 week. Plan of care has been reviewed with the PATIENT REGISTRATION SPECIALIST providing the service under Physical Therapy direction. Initiate Physical Therapy intervention for strengthening, bed mobility, transfers, gait, stairs, balance training, use of assistive device. DISCHARGE RECOMMENDATIONS: [] ? Home with no services [] [] ? Home with services [] [] ? Home with outpatient PT [] [] ? SNF for continued rehabilitation based on ability to participate and progress [] ? [facility] [] [] ? SNF versus LTC based on ability to participate and progress [X] Short-term rehab vs. LTC placement depending on ability of family to provide continued support for patient at home TREATMENT CODE/TIME: 58816 x 20 minutes, 51883 x 16 minutes beginning at 9:25 AM. Thank you for the opportunity to participate in the care of this patient. Dione Bruce PT, DPT, CLT [facility] [place], [place]
[2022-10-14] MEDS: Lidocaine Patch Removal 1 EACH TP (09:37)
[2022-10-14] MEDS: levETIRAcetam 250 MG TAB PO (10:40)
[2022-10-14] MEDS: levETIRAcetam 500 MG TAB PO (10:40)
[2022-10-14 14:18] VITALS: BP 134/78; PULSE 83; RESP 16; TEMP 36.6; O2SAT 92
--- NOTE | 2022-10-14 15:00 | INITIAL_ITS ---
- If Service Date Differs Date of service: 10/14/22 Time of Service: 15:00 Care Management Initial Assess REASON FOR HOSPITALIZATION:: Failure to thrive, ambulatory dysfunction PAST MEDICAL HISTORY/PAST SURGICAL HISTORY:: All Active Problems. Falls (Acute). Weakness (Acute). COVID-19 (Acute). UTI (urinary tract infection) (Acute). Pre-syncope (Acute). HTN (hypertension) (Chronic). TIA (transient ischemic attack) (Acute). ?2017. Primary osteoarthritis of left knee (Chronic). Injected: 03/02/2019. Primary osteoarthritis of right knee (Chronic). Injected: 03/02/2019. Diabetes (Chronic). Anxiety (Chronic). CAD (coronary artery disease) (Chronic). Discharge planning issues (Acute). Vertigo (Acute). Syncope (Acute). Abnormal flushing and sweating (Acute). Chest pain (Acute). Cough (Acute). Abnormal result on screening urine test (Acute). Medical History. Asthma. Hyperlipidemia. Hypothyroidism. Iron deficiency anemia. Seizures. ?2017. Surgical History. History of coronary artery stent placement PREVIOUS FUNCTIONAL STATUS/SOCIAL/FAMILY SUPPORTS:: Mitch is an 87 yo female who lives in [place] with her daughter Keyshawn, daughter's , and daughter's two sons. Patient only speaks Bosnian and translation is done through a cabinet mounter phone. Her children at times act as interpreters also. Mitch has lived in [place] for the past 20 years. She requires assistance from her family with ambulation and ADLs. Keyshawn's home has just been licensed as an [facility] home and Mitch has [facility]. Keyshawn and her are her caregivers. Her new telephonic nurse case manager through [facility] is Leticia Sr. CURRENT FUNCTIONAL STATUS:: Mitch was sitting up in her chair when CM met with her. Her son, Misael was in the room, and translated for her. Mitch reported that she does not have any pain, but feels weak. MUNA spoke at length to Mitch's daughter, Keyshawn yesterday in the ED, who reported that they are not able to care for Mitch at this time, because she is too weak to assist in transfers. The family's goal is for Mitch to get stronger in order for them to continue to care for her at home. Mitch agrees with this plan, and is agreeable to going to rehab. The family would like Mitch to remain local, and their first choice for rehab is [facility]. CM discussed barriers to her ability to stay local, due to bed availability. Both Keyshawn and Misael feel that it is important for her to remain local, considering the support they can provide, as they plan to be with her as much as possible. CM will send referrals to [facility] and [facility]. CM will continue to follow. ADVANCE DIRECTIVES:: None on file. Palliative care consult placed. Has patient been provided with info about the portal/API?: Yes Did the patient sign up for the portal?: No CODE STATUS:: Full Code INSURANCE COVERAGE / FINANCIAL ISSUES:: [facility] CURRENT HOME/COMMUNITY SERVICES/EQUIPMENT:: Mitch's daughter, son and son in law care for her at home. Their home is an AF home, and Keyshawn and her are paid caregivers. She owns a FWW, a w/c, as well as a commode. PRIMARY CARE PHYSICIAN:: Yarely Lagos POTENTIAL DISCHARGE NEEDS:: Referrals for short term rehab, palliative care consult. PATIENT/FAMILY EDUCATION NEEDS:: Review discharge instructions and limitations, discussion of self care needs including ask me three. ANTICIPATED BARRIERS TO DISCHARGE:: Mitch requires short term rehab, the family is not willing to have her go out of the area, and there is a bed availability shortage locally. TRANSPORTATION:: W/C van vs EMS PLAN:: Anticipate Mitch will go to short term rehab prior to returning home. Her son and daughter translate for her, as well as the translation device in the room, as her language is Bosnian, and she does not speak Uzbek. Her transportation will depend on disposition and ambulation at the time of discharge. She will follow up with her PCP and discharge plan of care. CM will continue to follow.
[2022-10-14] MEDS: Normal Saline Flush 10 ML SYR IVP (15:02)
--- NOTE | 2022-10-14 15:24 | W.PM.PROGNOT ---
Date of Service Date of service: 10/14/22 Time of Service: 15:24 Assessment and Plan Assessment and plan (1) Urinary retention: Status: Acute Assessment and plan: urine negative for infection will encourage commode and not bedpan for voiding. bladder scan and straight cath if greater than 500 cc (2) Falls: Status: Acute Assessment and plan: multiple recent falls at home with reported increased weakness. no fevers. work up in the ED shows no acute infection or source of infection or etiology for her worsening symptoms. most likely d/t progression of aging and possible new baseline. will continue safety precautions and PT who recommends inpatient rehabilitation. not safe for discharge to home. will add OT consult. (3) Diabetes: Status: Chronic Assessment and plan: diabetic diet, sliding scale ac/hs decrease home insulin dose from 45 bid to 30 bid. adjust insulin as needed continue metformin (4) Seizures: Status: Acute Assessment and plan: stable, continue home keppra (5) Iron deficiency anemia: Status: Acute Assessment and plan: stable, continue supplementation (6) Hyperlipidemia: Status: Acute Assessment and plan: continue statin. (7) Discharge planning issues: Status: Acute Assessment and plan: will need inpatient rehabilitation, remains medically stable. case management following and will place referrals. palliative care consult placed for goals of care and planning daughter requests full code. discussed with Dr Mead Subjective Subjective Patient reports: no new complaints, feels better, tolerating liquids well, tolerating a regular diet and afebrile; denies voiding w/o difficulty (required ortez catheter overnight), vomiting or shortness of breath Exam Const General: cooperative, comfortable and no acute distress Nutritional Appearance: obese Orientation: alert, awake, oriented to person and oriented to place Limitations: language barrier HENMT Head: normal to inspection, normocephalic and atraumatic Mouth: oral mucosae normal Resp Effort & Inspection: normal respiratory effort Cardio Rate: regular rate Rhythm: regular rhythm GI Inspection: obesity Palpation: soft and nontender Skin General skin exam: no rashes or lesions noted Neuro General: patient alert, patient awake and no focal motor deficits Extrem General: full ROM Objective Last Vital Signs Temp 36.6 C 10/14/22 14:18 Pulse 83 10/14/22 14:18 Resp 16 10/14/22 14:18 BP 134/78 10/14/22 14:18 Pulse Ox 92 10/14/22 14:18 Laboratory Results - last 24 hr 10/14/22 10/14/22 05:48 05:48 WBC 6.87 RBC 4.80 Hgb 14.2 Hct 41.3 MCV 86 MCH 29.6 MCHC 34.4 RDW 12.3 Plt Count 253 MPV 9.6 Immature Gran % 0.1 Neutrophils % 42.1 Lymphocytes % 38.9 Monocytes % 13.5 Eosinophils % 4.8 Basophils % 0.6 Nucleated RBC % 0.0 Absolute Neutrophils 2.89 Absolute Lymphocytes 2.67 Absolute Monocytes 0.93 H Absolute Eosinophils 0.33 Absolute Basophils 0.04 Sodium 133 L Potassium 4.0 Chloride 98 Carbon Dioxide 24.4 Anion Gap 10.6 BUN 17 Creatinine 1.0 Est GFR (CKD-EPI 2020) 55.21 Glucose 180 H Calcium 9.4 Time Spent with Patient Time Spent with Patient: 35-49 minutes Time was spent: preparing to see the patient(eg.review tests), ordering medications,tests, procedures, indepentently interpreting results, counseling the patient and care coordination
[2022-10-14] MEDS: Rosuvastatin 10 MG TAB 40 MG PO (20:33)
[2022-10-14] MEDS: levETIRAcetam 250 MG TAB 750 MG PO (20:33)
[2022-10-14] MEDS: Lidocaine 5% Patch 1 PATCH TP (22:24)
[2022-10-14 22:45] VITALS: BP 135/81; PULSE 81; RESP 18; TEMP 36.4; O2SAT 95
[2022-10-15] MEDS: Normal Saline Flush 10 ML SYR IVP (06:35)
[2022-10-15] MEDS: Insulin Aspart 300 UNITS/3 ML PEN SC ×4 (07:59→21:11)
[2022-10-15 08:14] VITALS: BP 169/91; PULSE 76; RESP 18; TEMP 36.5; O2SAT 95
[2022-10-15] MEDS: Cholecalciferol (Vitamin D3) 400 UNIT TAB PO (08:47)
[2022-10-15] MEDS: metFORMIN 500 MG TAB 1000 MG PO ×2 (08:47→16:42)
[2022-10-15] MEDS: Clopidogrel 75 MG TAB PO (08:48)
[2022-10-15] MEDS: Cyanocobalamin 500 MCG TAB 1000 MCG PO (08:48)
[2022-10-15] MEDS: levETIRAcetam 250 MG TAB 750 MG PO ×2 (08:48→19:40)
[2022-10-15] MEDS: Esomeprazole 40 MG CAPCR PO (08:48)
[2022-10-15] MEDS: Ferrous Sulfate 325 MG TAB PO (08:49)
[2022-10-15] MEDS: amLODIPine 2.5 MG TAB PO (08:49)
[2022-10-15] MEDS: Furosemide 20 MG TAB PO (08:49)
[2022-10-15] MEDS: Sertraline 50 MG TAB PO (08:49)
[2022-10-15] MEDS: Carvedilol 25 MG TAB PO ×2 (08:49→19:40)
--- NOTE | 2022-10-15 08:57 | CMPROGNOTE_ITS ---
- If Service Date Differs Date of service: 10/15/22 Time of Service: 08:57 Care Management Progress Note S/O: Mitch is sitting up in her chair, visiting with Keyshawn and Misale when CM met with her. Both Keyshawn and Misael share that they would prefer Mitch to discharge to a local SNF, because they feel Mitch will only benefit from STR if they are able to visit continuously, due to communication barriers. CM sent SNF referral's to [facility] and the [facility]. No bed availability @ [facility], [facility] referral is still pending. A: 87 year old female admitted to [facility] on 10/14/22 for Failure to thrive, ambulatory dysfunction P: Anticipate, Mitch will go to short term rehab prior to returning home. Her son and daughter translate for her, as well as the translation device in the room, as her language is Bosnian, and she does not speak American. Her transportation will depend on disposition and ambulation at the time of discharge. She will follow up with her PCP and discharge plan of care. CM will continue to follow.
[2022-10-15] MEDS: Lidocaine Patch Removal 1 EACH TP (09:32)
--- NOTE | 2022-10-15 12:06 | PHA.REVIEW2 ---
Pharmacy Admission Review - Admission Clinical Review (Last Updated 02/07/22 @ 15:50 by Debbie Rosales MD) Hyperlipidemia (Acute) Iron deficiency anemia (Acute) Seizures (Acute) Urinary retention (Acute) Falls (Acute) Weakness (Acute) Discharge planning issues (Acute) atorvastatin calcium [From Lipitor] Allergy (Unverified 10/13/22 10:19) Resuscitation Status Full Code Height 5 ft 2 in Weight 87.543 kg - Renal Dosing Renal Dosing: BUN 17 mg/dL (7-18) 10/14/22 05:48 Creatinine 1.0 mg/dL (0.55-1.02) 10/14/22 05:48 Medications needing adjustments: Reviewed List of meds needing interventions: eCrCl 42 ml/min, current orders ok - Anticoagulation Anticoagulation: Hgb 14.2 g/dL (11.2-15.7) 10/14/22 05:48 Hct 41.3 % (36.0-46.0) 10/14/22 05:48 Plt Count 253 10^3/uL (130-400) 10/14/22 05:48 Creatinine 1.0 mg/dL (0.55-1.02) 10/14/22 05:48 DVT Prophylaxis: Intervened (chemical ppx not ordered, non-chem ppx not mentioned in progress note - will reach out to MD) - Opiate Usage Evaluate Pain Scale/Pains Meds: N/A - Relevant Labs Sodium 133 mmol/L (136-145) L 10/14/22 05:48 Potassium 4.0 mmol/L (3.5-5.1) 10/14/22 05:48 Chloride 98 mmol/L (98-107) 10/14/22 05:48 Magnesium 2.0 mg/dL (1.8-2.4) 10/13/22 11:37 Electrolytes, C-Reactive P, ESR: Reviewed (no labs drawn this AM, prev WNL) - DM Control DM Control: Glucose 180 mg/dL (74-106) H 10/14/22 05:48 Finger Stick Blood Glucose 255 Finger Stick Blood Glucose 255 Finger Stick Blood Glucose 216 Finger Stick Blood Glucose 216 DM Control: Reviewed (aspart per moderate SS ordered, no basal (uses detemir 50u BID at home)) - Cardiac Review Cardiac Review: Troponin I < 50 ng/L (<or=60) 10/13/22 11:37 BP, HR, EF%: Reviewed (slightly high readings -- currently taking amlodipine 2.5 + carvidelol 25mg BID, rec increasing amlodipine dose if needed) - Qtc Review QTc: N/A - IV to PO Switch IV Medications: Reviewed - Home Meds Home Med List reviewed: Reviewed Relevent Home Meds Not ordered & why?: not ordered: insulin detemir (covering with SS aspart right now) - Current meds Current Medication Order Review: Reviewed
--- NOTE | 2022-10-15 14:59 | PGE_ITS ---
Date of Service Date of service: 10/15/22 Time of Service: 15:00 Assessment and Plan Assessment and plan (1) Urinary retention: Status: Acute Assessment and plan: urine negative for infection will encourage commode and not bedpan for voiding. bladder scan and straight cath if greater than 500 cc (2) Falls: Status: Acute Assessment and plan: multiple recent falls at home with reported increased weakness. no acute infection or source of infection or etiology for her worsening symptoms. Most likely d/t progression of aging and possible new baseline. Continue safety precautions and PT. PT recommends inpatient rehabilitation; not safe for discharge to home. (3) Anxiety: Status: Chronic Assessment and plan: Chronic, has been treated in the past with Seroquel - daughter requests NEVER give her Seroquel it makes her confused, frightened and crazy. Continue Clonazapam and Sertraline (4) Diabetes: Status: Chronic Assessment and plan: diabetic diet, sliding scale ac/hs decrease home insulin dose from 45 bid to 30 bid. adjust insulin as needed continue metformin (5) Seizures: Status: Acute Assessment and plan: stable, continue home keppra (6) Iron deficiency anemia: Status: Acute Assessment and plan: stable, continue supplementation (7) Hyperlipidemia: Status: Acute Assessment and plan: continue statin. (8) Discharge planning issues: Status: Acute Assessment and plan: will need inpatient rehabilitation, remains medically stable. case management following and will place referrals. palliative care consult placed for goals of care and planning daughter requests full code. discussed with Dr Mead (9) Dizziness: Status: Resolved Subjective Subjective Patient reports: no new complaints, feels better, tolerating a regular diet, voiding w/o difficulty, bowel movement and afebrile; denies diarrhea, nausea, vomiting or shortness of breath Interval history since last seen: Patient is Bosnian and does not speak Icelandic. She does not like to use the interpreter deaf service because it causes her anxiety. She requests, through her daughter, that her daughter interprets for her. She is very anxious in general and being in a strange place with strangers and no one that speaks her language she gets confused. Her daughter states patient was put on Seroquel several times during hospitalizations because she was reported to be very anxious and the more anxious she was the more confused she got. Her daughter states she is frightened because of the language barrier and she is unable to voice her concerns and does as asked or told. Daughter would like phone call any time of day or night to interpret and states NEVER give patient Seroquel. She has been working with PT and is demonstrating antalgic gait and a step-to gait pattern. Exam Narrative Exam Narrative: Awake, alert, semi fowlers in bed, calm - daughter present for interpretation Const General: cooperative, comfortable and no acute distress Nutritional Appearance: obese Orientation: alert, awake, oriented to person and oriented to place Limitations: language barrier HENMT Head: normal to inspection, normocephalic and atraumatic Mouth: oral mucosae normal Resp Effort & Inspection: normal respiratory effort Cardio Rate: regular rate Rhythm: regular rhythm GI Inspection: obesity Palpation: soft and nontender Skin General skin exam: no rashes or lesions noted Neuro General: patient alert, patient awake and no focal motor deficits Extrem General: full ROM Objective Last Vital Signs Temp 36.5 C 10/15/22 08:14 Pulse 76 10/15/22 08:14 Resp 18 10/15/22 08:14 BP 169/91 H 10/15/22 08:14 Pulse Ox 95 10/15/22 08:14 Time Spent with Patient Time Spent with Patient: 35-49 minutes Time was spent: preparing to see the patient(eg.review tests), obtaining and/or reviewing separately otained hiistory, ordering medications,tests, procedures, referring, communicating with other health animal care provider, indepentently interpreting results, counseling the patient and care coordination
--- NOTE | 2022-10-15 15:04 | PT.INTREAT ---
Date of service: 10/15/22 Time of Service: 10:02 PT Notes Visit Reasons: Ambulatory Dysfunction Inpatient Physical Therapy Treatment Note [facility] Date: 10/15/2022 PRECAUTIONS: Activity as tolerated, Fall SUBJECTIVE: Mitch is pleasant and agreeable to participating in PT. Her daughter Keyshawn is present for the PT session and is able to help with language translation, which is the patient and family's preference. Keyshawn communicates that Mitch reports feeling pretty good today, and her willingness to participate in gait training to the best of her ability, which during the session she reports is better than she has been doing at home recently. OBJECTIVE: PAIN: Patient c/o pain in B knees with gait training, requiring seated rest BED MOBILITY/TRANSFERS Supine-sit: SBA Sit-supine: Min A Stand-sit: CGA with cueing for safety Sit-stand: SBA with cueing for safety GAIT Assistive Device: FWW Weight bearing: Full Assist: CGA (due to frequent falls at home) Distance: 5' x3 in a.m.; 12' + 6' in a.m. Deviation: Slow pacing, pain in B knees, frequent seated rests THEREX: Patient was instructed in a LE strengthening program, completed in a seated position, to include: ankle pumps, LAQ, hip flexion and hip abduction. ASSESSMENT: Patient tolerated session with increased B knee pain with gait training, requiring frequent seated rests. She fatigues quickly and demonstrates limited activity tolerance. PLAN: Recommend discharge to SNF-level rehab for continued strengthening. TREATMENT CODE/TIME: Session 1: 33 minutes; [id number], [id number] (10:02) Session 2: 30 minutes; 89881 x2 (14:27)
[2022-10-15 16:17] VITALS: BP 150/78; PULSE 79; RESP 18; TEMP 36.9; O2SAT 95
[2022-10-15] MEDS: Rosuvastatin 10 MG TAB 40 MG PO (19:40)
[2022-10-15] MEDS: Lidocaine 5% Patch 1 PATCH TP (21:12)
[2022-10-15 23:20] VITALS: BP 152/96; PULSE 80; RESP 18; TEMP 36.7; O2SAT 95
--- NOTE | 2022-10-16 | DI.RAD_ITS ---
Exam(s) XR KNEE RT 3V AP,LAT,REINALDO EXAM: XR KNEE RT 3V AP,LAT,REINALDO CLINICAL HISTORY: Pain, ambulatory dysfunction, falls. TECHNIQUE: 2D digital imaging was performed. COMPARISON: CR RIGHT KNEE 3 VIEWS from 11/09/2009 FINDINGS: 3 views There has been significant deterioration in the appearance of the knee when compared to 2009. There are now advanced degenerative changes in the knee with [id number] narrowing of the medial com partment. There appears to be fractures through the most medial aspect of the medial tibial plateau which is pa rtly osteophyte. Nondisplaced. There does not appear to be a large joint effusion. Lesser narrowin g of the lateral compartment noted although there is also degenerative change and chondrocalcinosis i n the lateral compartment as well as in the patellofemoral compartment. Vascular calcifications also noted posteriorly in the popliteal artery and runoff arteries of the calf. Also in the femoral luis ry. No osseous lesions evident. IMPRESSION: Advanced degenerative changes. Medial tibial plateau osteophyte which exhibits what might be of frac ture line, nondisplaced. No prominent joint effusion evident. DATA REPOSITORY: RADIATION DOSE DELIVERED:
--- NOTE | 2022-10-16 | DI.RAD_ITS ---
Exam(s) XR KNEE LT 3V AP,LAT,REINALDO EXAM: XR KNEE LT 3V AP,LAT,REINALDO CLINICAL HISTORY: Pain, ambulatory dysfunction, falls. TECHNIQUE: 2D digital imaging was performed. 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 Lateral compartment contin ues to exhibit normal height. Mild degenerative change in the patellofemoral compartment. There is no prominent joint effusion in the knee. Vascular calcifications noted. No osseous lesions. Bone d ensity normal IMPRESSION: Degenerative change most prominent in the medial compartment of the left knee. DATA REPOSITORY: RADIATION DOSE DELIVERED:
[2022-10-16 07:14] LABS: Abs Immature Grans 0.03 10^3/uL (0.0-0.06); Absolute Basophil Count 0.05 10^3/uL (0.0-0.2); Absolute Eosinophil Count 0.32 10^3/uL (0.0-0.7); Absolute Lymphocyte Count 2.92 10^3/uL (1.2-3.4); Absolute Neutrophil Count 3.82 10^3/uL (1.2-6.7); Basophils % 0.6; HCT 42.5 % (36.0-46.0); HGB 14.6 g/dL (11.2-15.7); Immature Grans % 0.4; Lymphocytes % 36.3; MCH 29.5 pg (27.0-33.0); MCHC 34.4 % (32.0-36.0); MCV 86 fL (80-95); MPV 9.6 fL (8.0-11.0); Monocytes % 11.2; Neutrophils % 47.5; Platelet Count 275 10^3/uL (130-400); RBC 4.95 10^6/uL (3.93-5.22); RDW 12.1 % (11.7-14.6); RDW-SD 38.5 fL; WBC 8.04 10^3/uL (4.4-10.8)
[2022-10-16 07:24] LABS: Anion Gap 11.6 mmol/L (3-11); BUN 24 mg/dL (7-18); CO2 23.4 mmol/L (21.0-32.0); CREATININE 1.1 mg/dL (0.55-1.02); Calcium 10.1 mg/dL (8.5-10.1); Chloride 95 mmol/L (98-107); Estimated GFR 49.24 (mL/min/1.73m2); Glucose 241 mg/dL (74-106); Magnesium 1.8 mg/dL (1.8-2.4); Potassium 4.6 mmol/L (3.5-5.1); Sodium 130 mmol/L (136-145)
[2022-10-16 07:30] VITALS: BP 173/91; PULSE 80; RESP 17; TEMP 36.4; O2SAT 93
--- NOTE | 2022-10-16 08:12 | CMPROGNOTE_ITS ---
- If Service Date Differs Date of service: 10/16/22 Time of Service: 08:12 Care Management Progress Note S/O: Mitch is lying in bed, her daughter Keyshawn is at her bedside, while CM's Prerna and this real estate underwriter met with her. Keyshawn is receives updates in regards to challenges for local SNF placement, due to bed availability. Additional SNF referral's are sent to [facility], [facility], [facility] and [facility] following this discussion with Keyshawn's consent. Keyshawn ask's that an effort be made to keep Mitch as close as possible when looking for a SNF out of the area. Keyshawn doesn't feel that Mitch will respond well to an interpretation service and is available 22/04 via phone to help with communication, as needed. 1530 CM and Anastasia Nelson NP met with Mitch and Keyshawn. Mitch participated in the conversation, her questions and concerns answered. Mitch is agreeable to discharge to a SNF for STR, pending bed availability. Interpretation for this interaction is done using Language Line via tablet, and while Keyshawn still translated communication was effective per corking machine operator. CM will continue to follow. A: 87 year old female admitted to [facility] on 10/14/22 for Failure to thrive, ambulatory dysfunction P: Anticipate, Mitch will go to short term rehab prior to returning home. Her son and daughter translate for her, as well as the translation device in the room, as her language is Bosnian, and she does not speak Belgian. Her transportation will depend on disposition and ambulation at the time of discharge. She will follow up with her PCP and discharge plan of care. CM will continue to follow. 10/16/22: Referrals faxed and pending [facility]. [place] 10/15/22 [facility]: No bed availability [facility]: Not open to admissions [place]
--- NOTE | 2022-10-16 08:14 | OT.INNT ---
Occupational Therapy Notes 10/16/22 OT consult received and pts chart was reviewed. OT went to consult with pt who had already performed her ADLs with nursing this morning. Per nursing pt was able to perform her bathing routine fairly (I) with (A) for her lower abdomen. Pt was eating when OT arrived and was (I) with food to mouth. She did need (A) with opening packaging today but was (I) with task initiation of food prep. Sitting balance was good, dynamic sitting was good. (B) UE ROM was WFL, no strength test performed today. Plan is for OT to perform full consult/evaluation tomorrow morning. Pt does have a language barrier which limits her verbal communication with staffing. Her family is typically there to translate as needed. Vaishnavi Gupta OTR/[facility] [place]
[2022-10-16] MEDS: Cyanocobalamin 500 MCG TAB 1000 MCG PO (08:52)
[2022-10-16] MEDS: Insulin Aspart 300 UNITS/3 ML PEN SC ×4 (08:52→22:48)
[2022-10-16] MEDS: Carvedilol 25 MG TAB PO ×2 (08:52→20:20)
[2022-10-16] MEDS: Esomeprazole 40 MG CAPCR PO (08:52)
[2022-10-16] MEDS: Ferrous Sulfate 325 MG TAB PO (08:52)
[2022-10-16] MEDS: Clopidogrel 75 MG TAB PO (08:52)
[2022-10-16] MEDS: amLODIPine 2.5 MG TAB PO (08:52)
[2022-10-16] MEDS: metFORMIN 500 MG TAB 1000 MG PO ×2 (08:53→17:24)
[2022-10-16] MEDS: Sertraline 50 MG TAB PO (08:53)
[2022-10-16] MEDS: Furosemide 20 MG TAB PO (08:53)
[2022-10-16] MEDS: Cholecalciferol (Vitamin D3) 400 UNIT TAB PO (08:53)
[2022-10-16] MEDS: Lidocaine Patch Removal 1 EACH TP (08:56)
[2022-10-16] MEDS: levETIRAcetam 250 MG TAB 750 MG PO ×2 (09:35→20:20)
--- NOTE | 2022-10-16 10:46 | PGE_ITS ---
Date of Service Date of service: 10/16/22 Time of Service: 10:46 Assessment and Plan Assessment and plan (1) Urinary retention: Status: Acute Assessment and plan: urine negative for infection will encourage commode and not bedpan for voiding. voiding well, stopped bladder scanning (2) Falls: Status: Acute Assessment and plan: multiple recent falls at home with reported increased weakness. no acute infection or source of infection or etiology for her worsening symptoms. Most likely d/t progression of aging and possible new baseline. Continue safety precautions and PT. PT recommends inpatient rehabilitation; not safe for discharge to home. PT reports she is unable to walk s/t knee pain bilat and buckling - bilat knee xrays ordered (3) Anxiety: Status: Chronic Assessment and plan: Chronic, has been treated in the past with Seroquel - daughter requests NEVER give her Seroquel it makes her confused, frightened and crazy. Continue Clonazapam - change to scheduled and Sertraline (4) Diabetes: Status: Chronic Assessment and plan: diabetic diet, sliding scale ac/hs decrease home insulin dose from 45 bid to 40 bid. adjust insulin as needed continue metformin Glucose - 200 (5) Seizures: Status: Acute Assessment and plan: stable, continue home keppra (6) Iron deficiency anemia: Status: Acute Assessment and plan: stable, continue supplementation (7) Hyperlipidemia: Status: Acute Assessment and plan: continue statin. (8) Discharge planning issues: Status: Acute Assessment and plan: will need inpatient rehabilitation, remains medically stable. case management following and will place referrals. palliative care consult placed for goals of care and planning daughter requests full code. discussed with Dr Mead (9) Dizziness: Status: Resolved Assessment and plan: resolved Subjective Subjective Patient reports: no new complaints, pain is less, tolerating a regular diet, voiding w/o difficulty, bowel movement and afebrile; denies diarrhea, nausea or vomiting Interval history since last seen: Daughter in today - explained to her that we understand and respect that she would like to interpret for her mother, however we feel it is necessary to have the historical interpreter listening to the conversation to assure accuracy. The largest concern is a sudden acute onset of legs buckling and bilat knee pain. Daughter req MRI of both knees. We explained we started with PT, we will do plain films and see if she should see ortho and go from there, all were in agreement. Exam Narrative Exam Narrative: Awake, alert, semi fowlers in bed, calm - daughter present for interpretation Const General: cooperative, comfortable and no acute distress Nutritional Appearance: obese Orientation: alert, awake, oriented to person and oriented to place Limitations: language barrier HENMT Head: normal to inspection, normocephalic and atraumatic Mouth: oral mucosae normal Resp Effort & Inspection: normal respiratory effort Cardio Rate: regular rate Rhythm: regular rhythm GI Inspection: obesity Palpation: soft and nontender Skin General skin exam: no rashes or lesions noted Neuro General: patient alert, patient awake and no focal motor deficits Extrem General: normal to inspection, capillary refill normal, no clubbing, cyanosis or edema, no pedal edema, no calf tenderness, no calf tenderness bilaterally, no pedal edema and other (knees are not swollen, + adipose tissue, + pain with passive movement) Objective Last Vital Signs Temp 36.4 C L 10/16/22 07:30 Pulse 80 10/16/22 07:30 Resp 17 10/16/22 07:30 BP 173/91 H 10/16/22 07:30 Pulse Ox 93 10/16/22 07:30 Laboratory Results - last 24 hr 10/16/22 10/16/22 06:20 06:20 WBC 8.04 RBC 4.95 Hgb 14.6 Hct 42.5 MCV 86 MCH 29.5 MCHC 34.4 RDW 12.1 Plt Count 275 MPV 9.6 Immature Gran % 0.4 Neutrophils % 47.5 Lymphocytes % 36.3 Monocytes % 11.2 Eosinophils % 4.0 Basophils % 0.6 Nucleated RBC % 0.0 Absolute Neutrophils 3.82 Absolute Lymphocytes 2.92 Absolute Monocytes 0.90 H Absolute Eosinophils 0.32 Absolute Basophils 0.05 Sodium 130 L Potassium 4.6 Chloride 95 L Carbon Dioxide 23.4 Anion Gap 11.6 H BUN 24 H Creatinine 1.1 H Est GFR (CKD-EPI 2020) 49.24 Glucose 241 H Calcium 10.1 Magnesium 1.8 Time Spent with Patient Time Spent with Patient: 35-49 minutes Time was spent: preparing to see the patient(eg.review tests), obtaining and/or reviewing separately otained hiistory, ordering medications,tests, procedures, referring, communicating with other health home health care respiratory therapist, indepentently interpreting results, counseling the patient and care coordination
--- NOTE | 2022-10-16 13:27 | PT.INTREAT ---
Date of service: 10/16/22 Time of Service: 10:09 PT Notes Visit Reasons: Ambulatory Dysfunction Inpatient Physical Therapy Treatment Note [facility] Date: 10/16/2022 PRECAUTIONS: Activity as tolerated, Fall SUBJECTIVE: Mitch is pleasant and agreeable to participating in PT. Her daughter Keyshawn is present for the PT session and is able to help with language translation, which is the patient and family's preference. Keyshawn communicates that Mitch reports that she is not feeling well today, that she reports that she has been dizzy all morning and feels weaker than yesterday. OBJECTIVE: PAIN: Patient c/o pain in B knees with gait training, requiring seated rest BED MOBILITY/TRANSFERS Supine-sit: SBA Sit-supine: Min A with cueing for technique in a.m.; SBA with cueing for technique in p.m. Stand-sit: CGA with cueing for safety Sit-stand: CGA with cueing for safety GAIT Assistive Device: FWW Weight bearing: Full Assist: CGA (due to frequent falls at home) Distance: 14' in a.m.; 15' + 5' x2 in p.m. Deviation: Slow pacing, pain in B knees, frequent seated rests THEREX: Patient was instructed in functional [id number] exercise, which she completes x3 from slightly elevated bed surface. ASSESSMENT: Patient tolerated session with increased B knee pain and fatigue with gait training, requiring a seated rest. She fatigues quickly and demonstrates limited activity tolerance. Patient's progress is limited due to pain in B knees with weight bearing activities, as well as sudden knee-buckling due to pain and weakness. Patient would likely benefit from an orthopedic consult to determine any potential interventions, which would assist in guiding further PT interventions. PLAN: Recommend discharge to SNF-level rehab for continued strengthening. TREATMENT CODE/TIME: Session 1: 24 minutes; [id number] x2 (10:09) Session 2: 30 minutes; [id number] x2 (14:10)
[2022-10-16 16:01] VITALS: BP 146/81; PULSE 86; RESP 18; TEMP 36.2; O2SAT 94
[2022-10-16] MEDS: Rosuvastatin 10 MG TAB 40 MG PO (20:20)
[2022-10-16 22:34] VITALS: BP 143/73; PULSE 72; RESP 19; TEMP 36.6; O2SAT 98
[2022-10-16] MEDS: Lidocaine 5% Patch 1 PATCH TP (22:48)
[2022-10-17 03:33] VITALS: BP 113/69; PULSE 87; RESP 17; TEMP 37.1; O2SAT 94
[2022-10-17 06:48] LABS: Abs Immature Grans 0.04 10^3/uL (0.0-0.06); Absolute Basophil Count 0.05 10^3/uL (0.0-0.2); Absolute Eosinophil Count 0.29 10^3/uL (0.0-0.7); Absolute Lymphocyte Count 3.08 10^3/uL (1.2-3.4); Absolute Monocyte Count 0.96 10^3/uL (0.1-0.8); Absolute Neutrophil Count 3.87 10^3/uL (1.2-6.7); Basophils % 0.6; Eosinophils % 3.5; HGB 14.8 g/dL (11.2-15.7); Immature Grans % 0.5; Lymphocytes % 37.2; MCHC 35.2 % (32.0-36.0); MCV 85 fL (80-95); MPV 9.3 fL (8.0-11.0); Monocytes % 11.6; Neutrophils % 46.6; Platelet Count 301 10^3/uL (130-400); RBC 4.93 10^6/uL (3.93-5.22); RDW 12.2 % (11.7-14.6); RDW-SD 37.6 fL; WBC 8.29 10^3/uL (4.4-10.8)
[2022-10-17 07:04] LABS: Anion Gap 8.8 mmol/L (3-11); BUN 28 mg/dL (7-18); CO2 22.2 mmol/L (21.0-32.0); CREATININE 1.1 mg/dL (0.55-1.02); Calcium 9.8 mg/dL (8.5-10.1); Chloride 95 mmol/L (98-107); Estimated GFR 49.24 (mL/min/1.73m2); Glucose 255 mg/dL (74-106); Magnesium 1.9 mg/dL (1.8-2.4); Potassium 4.3 mmol/L (3.5-5.1); Sodium 126 mmol/L (136-145)
[2022-10-17 07:07] VITALS: BP 145/82; PULSE 84; RESP 18; TEMP 35.9; O2SAT 94
[2022-10-17] MEDS: Insulin Aspart 300 UNITS/3 ML PEN SC ×3 (08:17→23:42)
[2022-10-17] MEDS: Ferrous Sulfate 325 MG TAB PO (08:28)
[2022-10-17] MEDS: Sertraline 50 MG TAB PO (08:28)
[2022-10-17] MEDS: Esomeprazole 40 MG CAPCR PO (08:28)
[2022-10-17] MEDS: Furosemide 20 MG TAB PO (08:28)
[2022-10-17] MEDS: Carvedilol 25 MG TAB PO ×2 (08:28→19:53)
[2022-10-17] MEDS: amLODIPine 2.5 MG TAB PO ×2 (08:28→15:53)
[2022-10-17] MEDS: levETIRAcetam 250 MG TAB 750 MG PO ×2 (08:28→19:54)
[2022-10-17] MEDS: metFORMIN 500 MG TAB 1000 MG PO ×2 (08:28→17:10)
[2022-10-17] MEDS: Cholecalciferol (Vitamin D3) 400 UNIT TAB PO (08:28)
[2022-10-17] MEDS: Cyanocobalamin 500 MCG TAB 1000 MCG PO (08:28)
[2022-10-17] MEDS: Clopidogrel 75 MG TAB PO (08:28)
--- NOTE | 2022-10-17 09:00 | OCONE_ITS ---
Date of service: 10/17/22 Time of Service: 11:27 History of Present Illness History of Present Illness Chief Complaint: Bilateral knee pain and buckling Narrative: Mitch is an 87-year-old female who has known bilateral knee arthritis. She is Bosnian and does not speak Chadian. This interview and examination was performed with an educational sign language interpreter. I saw her initially in the office in 2019 for bilateral knee osteoarthritis. She received bilateral injections which she says helped although she is unsure of how long they helped for. However, she had significant hyperglycemia after the injections which prompted a return to the emergency department. Therefore, she is quite reluctant to consider those ever again. She is currently admitted for worsening weakness and the inability to manage at home. She has not had any infectious etiology identified. She is working physical therapy but has not been able to make much progress due to pain and buckling of the knees. She also reports having fallen. Her daughter reports that she is always had a slow, turtle gait, posture when she walks. However, she has been able to get to and from the bathroom in the bed in the chair. However, she has become progressively more leaning forward and progressively weak such to the point that she has difficulty with standing or walking for any distance. Mitch seems to think she had a diagnosis of lumbar spinal stenosis many years ago but no interventions or treatments that she can recall. She reports having pain in her legs as she ambulates. She describes the calves and the anterolateral sections of her legs being painful when she ambulates. She does report some mild numbness of her feet however she is unable to be specific about the distribution. She has only used occasional Tylenol for pain control. Consults Consult date: 10/16/22 Requesting physician: Sheron Nelson Consult Reason Bilateral knee pain and buckling Assessment and Plan Assessment and plan (1) Primary osteoarthritis of left knee: Status: Chronic Assessment and plan: Mitch has known severe arthritis of both knees. She does have a fractured osteophyte off the medial tibia of the right knee but this likely has been present for some time and does not need any different treatment than the treatment for her arthritis. She does have baseline pain in her knees and pain on examination so I know a decent part of her pain is coming from the knees. However, she has had this for a while. She did have relief with a cortisone injection although she is uncertain how long but is quite nervous about retrying this due to her hyperglycemia. I did discuss this with her in detail but she still does not want to proceed with cortisone injection. I was blunted that she needs to work with physical therapy and she needs to mobilize and we have to get some type of pain relief. Therefore, I will make some changes to her medications to see if this can help out. If the medication change does not help, then I would recommend the injections. We will start with scheduled naproxen and Tylenol. Will have tramadol as needed. The weakness could very well could be coming from the pain of the knees. However, I am concerned that the weakness is coming from her back. She should continue with physical therapy and work on mobilization with likely rehab discharge with the anticipation of going back home. (2) Primary osteoarthritis of right knee: Status: Chronic Assessment and plan: Please see above (3) Lumbar spinal stenosis: Status: Acute Assessment and plan: The weakness that she is experiencing with ambulation, especially with a history of a forward posture, which suggest that she has lumbar spinal stenosis. CT scan of her abdomen and pelvis from over a year ago does show arthritic change of the lumbar spine and what appears to be some central narrowing on the CT scan, mostly at L4-5. She has some weakness of her right leg which is not been documented anywhere else and is not known by the patient for its chronicity. Therefore, I do recommend an MRI of the lumbar spine. This will help evaluate the status of the nerves and any lumbar spinal stenosis. This could be an treated with a lumbar epidural steroid injection which may help out with her ability to ambulate and allow her to get home. To diagnosis, we will proceed with MRI. I reviewed all this with her and her daughter. After the MRI we will see how she is doing make determination whether to refer for spinal injections depending on its results. Review of Systems All systems reviewed & are unremarkable except as noted in HPI and below PFSH All Active Problems (Updated 10/17/22 @ 11:42 by Savage Hinojosa MD) Lumbar spinal stenosis (Acute) Hyperlipidemia (Acute) Iron deficiency anemia (Acute) Seizures (Acute) ?2017 Urinary retention (Acute) Falls (Acute) Weakness (Acute) COVID-19 (Acute) UTI (urinary tract infection) (Acute) Pre-syncope (Acute) HTN (hypertension) (Chronic) TIA (transient ischemic attack) (Acute) ?2017 Primary osteoarthritis of left knee (Chronic) Injected: 03/02/2019 Primary osteoarthritis of right knee (Chronic) Injected: 03/02/2019 Diabetes (Chronic) Anxiety (Chronic) CAD (coronary artery disease) (Chronic) Discharge planning issues (Acute) Vertigo (Acute) Syncope (Acute) Abnormal flushing and sweating (Acute) Chest pain (Acute) Cough (Acute) Abnormal result on screening urine test (Acute) Medical History Asthma Hypothyroidism Surgical History History of coronary artery stent placement Family History Mother Stroke Father Heart disease Social History Smoking/Tobacco Use Status: Never Smoking risk assessment performed?: Yes Alcohol Intake: never Drug use: Never Substance use type: 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 She does not speak Chadian. She lives with her daughter. She has two children, both here in the [facility] and locally in [place]. She is . 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 Exam Narrative Exam Narrative: Sitting in the hospital bed. No acute distress. Alert and oriented x3. Obese. Evaluation of the bilateral legs shows notable prominence about the medial aspect of both knees. There is pain to palpation along the medial joint lines with prominent osteophytes bilaterally. There is some generalized swelling around both knees with may be a mild effusion present. There is a mild varus abnormality to both knees. Active range of motion of the knees causes pain. Passive range of motion of the knees causes pain. The knees are stable to varus and valgus stress. She does have weakness with knee extension, difficult to interpret in the bed though. At least 4 out of 5. Gentle passive internal and external rotation of both hips does not cause pain in the hips. However, she does have some pain in the knees with any of this torsion. In the resting position her right foot has a slightly more plantarflexed position than her left. She is able to activate the EHL tendon but is unable to hold against any significant resistance. She also has some weakness to ankle dorsiflexion on the right side, 4 out of 5, compared to the left side which is 4+ out of 5. Merchant romeo, the left side still has some mild weakness. Plantarflexion strength is intact. Results Last Vital Signs Temp 35.9 C L 10/17/22 07:07 Pulse 84 10/17/22 07:07 Resp 18 10/17/22 07:07 BP 145/82 H 10/17/22 07:07 Pulse Ox 94 10/17/22 07:07 Labs Result diagrams: 10/17/22 06:30 10/17/22 06:30 Labs: Laboratory Results - last 24 hr 10/17/22 10/17/22 06:30 06:30 WBC 8.29 RBC 4.93 Hgb 14.8 Hct 42.0 MCV 85 MCH 30.0 MCHC 35.2 RDW 12.2 Plt Count 301 MPV 9.3 Immature Gran % 0.5 Neutrophils % 46.6 Lymphocytes % 37.2 Monocytes % 11.6 Eosinophils % 3.5 Basophils % 0.6 Nucleated RBC % 0.0 Absolute Neutrophils 3.87 Absolute Lymphocytes 3.08 Absolute Monocytes 0.96 H Absolute Eosinophils 0.29 Absolute Basophils 0.05 Sodium 126 L Potassium 4.3 Chloride 95 L Carbon Dioxide 22.2 Anion Gap 8.8 BUN 28 H Creatinine 1.1 H Est GFR (CKD-EPI 2020) 49.24 Glucose 255 H Calcium 9.8 Magnesium 1.9 Imaging Imaging Studies: X-ray of the left knee shows severe arthritis. All 3 compartments are involved but the medial compartment has severe changes with flattening of the medial tibia and a large periarticular osteophyte about both medial tibia and femur. There is some fragmentation of bone spur seen superiorly. Calcified vessels are seen throughout the image. X-ray of the right knee shows very similar findings but even worse osteophyte about the medial tibia. There may be a fracture of the medial tibial osteophyte. Flattening of the medial tibia. Loss of joint space, mostly medial. There may be 1 or 2 intra-articular bodies. Calcification of the vessels. No other suspicious lesions. X-ray of the pelvis shows well-preserved joint spaces of the hips. There seems to be significant amount of sclerosis within the lower aspect of the lumbar spine suggestive of arthritis. CT scan of the chest abdomen pelvis from October 2020 was reviewed. There were no formal spinal reconstructions. However, I am able to evaluate the lumbar spine which does show significant arthritic change at L4-5 and L5-S1 with what appears to be central stenosis at the L4-5 region. Additionally, there appears to be some arthritic change within the L2-3 segment with mild retrolisthesis of L2 and L3 and somewhat central canal narrowing.
--- NOTE | 2022-10-17 09:19 | CMPROGNOTE_ITS ---
- If Service Date Differs Date of service: 10/17/22 Time of Service: 09:19 Care Management Progress Note S/O: Mitch is lying in bed, her daughter Keyshawn is at her bedside when Dr. Hinojosa, Primary RN and this commercial loan underwriter met with pt utilizing Language line. Dr. Hinojosa reviewed details of imaging, and treatment options. Mitch does not want knee injections, due to how they previously affected her BS. MRI is ordered. PT continues to work with Mitch, OT evaluation ordered. SNF referral's are still pending. Palliative consult ordered. CM continues to follow. 1300: CM was asked to speak with Keyshawn following an incident that occurred when patient went down for an MRI. Hospitalist/POLO [place] Casing Puller/MUNA Parmar/Prerna and this commercial loan underwriter met with patient and Keyshawn and addressed concerns. Ana Maria was reassured that their will be follow up in regards to her concerns. A: 87 year old female admitted to [facility] on 10/14/22 for Failure to thrive, ambulatory dysfunction P: Anticipate, Mitch will go to short term rehab prior to returning home. Her son and daughter translate for her, as well as the translation device in the room, as her language is Bosnian, and she does not speak Taiwanese. Her transportation will depend on disposition and ambulation at the time of discharge. She will follow up with her PCP and discharge plan of care. CM will continue to follow. 10/16/22: Referrals faxed and pending [facility]. [place] 10/15/22 [facility]: No bed availability [facility]: Not open to admissions Yur[place]
--- NOTE | 2022-10-17 09:44 | OT.INIE ---
Occupational Therapy Notes Inpatient Occupational Therapy Evaluation Date: 10/16/22 Referring Doctor:Ortiz Mead MD OT Orders: Non Urgent Precautions: Fall, Standard, Full PATIENT PROFILE/ADMITTING DIAGNOSIS: Pt is a 87 year old female admitted through the ED on 10/13/2021 for increased confusion,? repeated falls ,? generalized weakness,? and foul-smelling urine.? Patient is diagnosed with repeated falls,? dehydration,? diabetes,? hyperlipiedmia,? and iron-deficiency anemia. Past Medical History: All Active Problems?(Updated 10/14/22 @ 15:28 by Noy Garcia NP) Urinary retention (Acute) Falls (Acute) Weakness (Acute) COVID-19 (Acute) UTI (urinary tract infection) (Acute) Pre-syncope (Acute) HTN (hypertension) (Chronic) TIA (transient ischemic attack) (Acute) ?2017Primary osteoarthritis of left knee (Chronic) Injected: 03/02/2019Primary osteoarthritis of right knee (Chronic) Injected: 03/02/2019Diabetes (Chronic) Anxiety (Chronic) CAD (coronary artery disease) (Chronic) Discharge planning issues (Acute) Vertigo (Acute) Syncope (Acute) Abnormal flushing and sweating (Acute) Chest pain (Acute) Cough (Acute) Abnormal result on screening urine test (Acute) Medical History?(Updated 10/14/22 @ 15:28 by Noy Garcia NP) Asthma Hyperlipidemia Hypothyroidism Iron deficiency anemia Seizures ?2017 Surgical History? History of coronary artery stent placement Social History/Home Situation: Patient lives with her daughter Nadira and family in a private home in [facility]. Daughter Nadira is her primary caregiver.? Son Misael lives close by and is available to help during emergencies.?She has good social supports. Pt's daughter reports that they provide mod to max (A) for all of her mother's ADLs. Equipment owned/DME: FWW, cane, shower bench SUBJECTIVE: Pt was sitting in bed when OT arrived with her daughter present who is main laboratory animal care veterinarian for pt. She is able to provide accurate translation for pt as pt is unable to use tablet or services through the hospital. OBJECTIVE: General Observation: Pleasant, language barrier and requires translation, IV in (R) UE. Mental Status: A&Ox3 Pain: no c/o pain ROM: RUE AROM WFL L UE AROM WFL STRENGTH: RUE 4/5 LUE 3-/5 FUNCTIONAL MOBILITY/ADLS: BATHING max (A) set up/clean up Bathing UE (I) face, (B) UE and abdomen with visual cues Bathing LE mod (A) DRESSING seated in bed Dressing UE Min (A) Dressing LE max (A) GROOMING Min (A) brushing hair. Pt has ideal ROM for performance. TOILETING NT EATING (I) hand to mouth with no issues chewing or swallowing. Min (A) opening containers. BALANCE: Static sitting Good Dynamic Sitting Good SPECIAL TESTS: Daily Activity Limitations Standardized Measure [facility] AM -PAC ?6 clicks? Daily Activity Inpatient Short Form: Raw score: 17 Standardized score: 37.26 CMS score: 50.11% INFORMED CONSENT/EDUCATION: Pt instructed in purpose of OT Consult and plan of care. ASSESSMENT: Patient is a 87-year-old female referred to occupational therapy services with diagnosis of presented to the ED on 10/13/2021 for increased confusion,? repeated falls ,? generalized weakness,? and foul-smelling urine.? Patient is diagnosed with repeated falls,? dehydration,? diabetes,? hyperlipiedmia,? and iron-deficiency anemia. Patient presents with clinical signs and symptoms consistent with dx, as demonstrated by the following impairment level findings/functional limitations: Impairments in ADL/IADL and leisure activities, decreased strength, decreased functional activity tolerance, decreased standing tolerance. AMPAC score 17 Patient is assessed as a Moderate 51074 complexity based on the following: History: see above Examination: see functional limitations as noted above Presentation: evolving Decision Making: AMPAC score 17 GOALS Goals x1 week 1. Grooming- seated, pt will be able to perform her oral hygiene mod (I) 2. Dressing- seated min (A) UE and mod (A) LE 3. Bathing- (I) UE and mod (A) LE 4. Toileting- (I) toileting hygiene PLAN OF CARE/TREATMENT PLAN: 1x/day, 5 days/ week x 1week Initiate Occupational Therapy Services for bathing, dressing, grooming, toileting, eating, transfer training. DISCHARGE RECOMMENDATIONS Based on pts current level of function, OT recommends that pt go to SNF when medically cleared per MD. TREATMENT TIME/MINUTES/CODES 70568, 66669, 25 minutes (09:15) Vaishnavi Gupta OTR/[facility] [place], [place]
[2022-10-17] MEDS: Lidocaine Patch Removal 1 EACH TP (11:07)
--- NOTE | 2022-10-17 12:15 | DI.MRI_ITS ---
Exam(s) MR LUMBAR SPINE WO EXAM: MR LUMBAR SPINE WO CLINICAL HISTORY: eval LS pain and LE weakness, ? Stenosis. TECHNIQUE: Multiplanar multisequence MRI of the Lumbar spine was performed. COMPARISON: CR,XR XR PELVIS AP from 10/13/2022 FINDINGS: Conus medullaris is at L1 level. There is no evidence of conus mass nor subjacent clumping of intrat hecal nerve roots to suggest arachnoiditis. The distal thecal sac appears unremarkable.There is no e vidence of Tarlov intrasacral cysts nor other significant findings within the sacral canal Bones:There are no fractures nor ominous osseous lesions in the lumbar vertebral bodies and visualize d sacrum. With respect to the individual levels... T12-L1: Unremarkable L1-2: Mild-moderate decreased disc height. Mild retrolisthesis L1 upon L2. There is broad annular bu lging, more prominent on the right side.This impresses upon the right-side of the thecal sac. There also results in element of right-sided foraminal stenosis at this level. Exiting left neural foramen is patent. There are minimal degenerative changes in the facet joints. L2-3: This level exhibits asymmetric disc space narrowing, advanced on the right side of the disc spa ce where there are Modic type 1 sub endplate marrow edema changes and more moderate disc space narrow ing on the left side of this disc space. There is annular bulging with a superimposed posterolateral right disc protrusion which extends posteriorly 7 millimeters and also extends caudally for distance of 10 millimeters. Compresses the thecal sac and adjacent nerve roots at this level. There is mode rate central canal stenosis. Foraminal stenosis is evident on the right side at this level due to th e annular bulging-disc herniation as well as disc height loss adding an element of vertical foraminal stenosis. There are mild degenerative changes in the facet joints. Exiting left neural foramen exh ibits some milder foraminal stenosis at this level. L3-4: This level exhibits preserved disc height with the exception of mild narrowing on the right niharika e where there is also mild right-sided asymmetric annular bulging. No prominent disc herniation. Ce ntral canal dimensions are lower normal. There is no significant foraminal stenosis at this level de spite moderate degenerative change in both facet joints evident at this level. L4-5: Normal disc height. No disc herniation but there is moderate central spinal canal stenosis dakota dent at this level which is due to developmental short AP dimensions of the pedicles and advanced deg enerative changes in both facet joints at this level. There is, however, no anterolisthesis of L4 up on L5 on these images. L5-S1: Mild decreased disc height. No significant disc herniation at this level. Central canal dime nsions are lower normal. There is facet arthropathy left more than right. Only mild foraminal steno sis on both sides. Soft tissues: There is symmetrical atrophy of the posterior paraspinal erector spinal musculature. Psoas muscles appear unremarkable and symmetrical. IMPRESSION: 1. Multilevel findings as described individually above including a significant posterolateral right a nd lateral right disc herniation at the L2-3 level as described above. 2. Multilevel spinal canal stenosis at L2-3 and L4-5 levels, for reasons described above. 3. Foraminal stenosis on the right side at L1-2, right-sided L2-3 and minimal at the other levels. 4. No fractures. Retrolisthesis L1 upon L2 and L2 upon L3. Mild Modic type 1 sub endplate marrow e yung changes are noted on the right side of L2-3 level where there is asymmetric advanced disc space narrowing. DATA REPOSITORY:
--- NOTE | 2022-10-17 12:30 | RT.EKG_ITS ---
APPROVED REPORT Exam: Resting ECG Reason for Exam: Nausea, sweating Patient Location: I HR:86 bpm ECG Measurements Heart Rate 86 AXIS VA 226 P -17 QRSd 95 QRS -75 QT 381 T 17 QTc 456 Conclusion Sinus rhythm...normal P axis, V-rate 50- 99 Prolonged VA interval...VA >220, V-rate 50- 90 Anterolateral infarct, old...Q>40mS, abnrm ST-T, V3-V6,I,aVL
[2022-10-17 12:46] VITALS: BP 184/99; PULSE 89; RESP 19; TEMP 36.3; O2SAT 94
--- NOTE | 2022-10-17 12:46 | NUR.NOTE ---
Nursing Note: Patient schedule for MRI today. pT is able to stand up, there was 2 person assist with pT at all times, while she walked from bed to stretcher. pT is too short to try to sit onto the stretcher. pT stated that she was scared, and Dulce Maria from PT and I let pT know we are here to help her get onto stretcher. This CUT IN STATION OPERATOR and Dulce Maria from PT helped pT onto the stretcher. Patient got onto stretcher safely.
[2022-10-17] MEDS: Ondansetron 4 MG/2 ML VIAL IVP (13:10)
[2022-10-17] MEDS: Naproxen 500 MG TAB PO ×2 (13:11→19:54)
[2022-10-17] MEDS: Normal Saline 250 ML 500 ML IV (13:11)
[2022-10-17] MEDS: Acetaminophen 500 MG TAB 1000 MG PO ×2 (13:11→19:53)
--- NOTE | 2022-10-17 14:27 | PT.INTREAT ---
Date of service: 10/17/22 Time of Service: 11:30 PT Notes Visit Reasons: Ambulatory Dysfunction Inpatient Physical Therapy Treatment Note [facility] Date: 10/17/2022 PRECAUTIONS: Activity as tolerated, Fall SUBJECTIVE: Mitch is pleasant and agreeable to participating in PT. Her daughter Keyshawn is present in a.m. and her son Misael in p.m., and are able to help with language translation, which is the patient and family's preference. Keyshawn and Misael communicate that Mitch reports that she is feeling very weak today, but is willing to participate in gait training. They are happy that patient was seen by orthopedics, and that she had several tests including an MRI. OBJECTIVE: PAIN: Patient c/o pain in B knees with gait training, requiring seated rest BED MOBILITY/TRANSFERS Supine-sit: Min A in a.m.; CGA in p.m. Sit-supine: Max A x2 due to elevated stretcher surface (positioned at lowest height) in a.m.; CGA of R LE with cueing for technique in p.m. Stand-sit: CGA with cueing for safety Sit-stand: CGA with cueing for safety GAIT Assistive Device: FWW Weight bearing: Full Assist: CGA (due to frequent falls at home) Distance: 6' in a.m.; 8' x2 in p.m. Deviation: Slow pacing, pain in B knees, seated rest THEREX: Patient was instructed in a LE strengthening program, completed in a supine position, to include: ankle pumps, SLR and hip abduction. ASSESSMENT: Patient tolerated session with increased B knee pain and fatigue with gait training, requiring a seated rest. She fatigues quickly and demonstrates limited activity tolerance. Patient's progress is limited due to pain in B knees with weight bearing activities, as well as sudden knee-buckling due to pain and weakness. PLAN: Recommend discharge to SNF-level rehab for continued strengthening. TREATMENT CODE/TIME: Session 1: 15 minutes; [id number] (11:30) Session 2: 35 minutes; [id number], [id number] (13:50)
--- NOTE | 2022-10-17 14:42 | W.PM.PROGNOT ---
Date of Service Date of service: 10/17/22 Time of Service: 14:42 Assessment and Plan Assessment and plan (1) Urinary retention: Status: Acute Assessment and plan: urine negative for infection will encourage commode and not bedpan for voiding. continues to void ok (2) Falls: Status: Acute Assessment and plan: multiple recent falls at home with reported increased weakness. no acute infection or source of infection or etiology for her worsening symptoms. Most likely d/t progression of aging and possible new baseline. Continue safety precautions and PT. PT recommends inpatient rehabilitation; not safe for discharge to home. PT reports she is unable to walk s/t knee pain bilat and buckling - bilat knee xrays ordered Seen by ortho - bilat knees injected with steroids by ortho MRI of lumbar spine performed to evaluate extent of spinal stenosis. (3) Anxiety: Status: Chronic Assessment and plan: Chronic, has been treated in the past with Seroquel - daughter requests NEVER give her Seroquel it makes her confused, frightened and crazy. Continue Clonazapam - change to scheduled and continue Sertraline She had nausea and increased anxiety after MRI - she was given zofran and improved, she was afebrile and improved quickly - at that time EKG and Covid PCR ordered to rule out cardiac event and Covid. (4) Diabetes: Status: Chronic Assessment and plan: diabetic diet, sliding scale ac/hs decrease home insulin dose from 45 bid to 40 bid. adjust insulin as needed continue metformin Glucose improving (5) Seizures: Status: Acute Assessment and plan: stable, continue home keppra (6) Iron deficiency anemia: Status: Acute Assessment and plan: stable, continue supplementation (7) Hyperlipidemia: Status: Acute Assessment and plan: continue statin. (8) Discharge planning issues: Status: Acute Assessment and plan: will need inpatient rehabilitation, remains medically stable. case management following and will place referrals. palliative care consult placed for goals of care and planning daughter requests full code. discussed with Dr Mead (9) Dizziness: Status: Resolved Assessment and plan: resolved Subjective Subjective Patient reports: no new complaints, feels better, still having pain, tolerating a regular diet, bowel movement and afebrile; denies diarrhea, blood in stool, nausea, vomiting or shortness of breath Interval history since last seen: Mitch was complaining of bilat knee pain stating that she was not able to walk at all - this is via translater and daughter. Knee films were done and ortho was consulted. Dr Hinojosa saw the patient and injected bilat knees with steroids. She said immediately she felt better. (See ortho note). She had a MRI of her lumbar spine, upon returning reported nausea and was sweating. Exam Narrative Exam Narrative: Awake, alert, semi fowlers in bed, calm - daughter present for interpretation as well as electrical automation engineer via language line Const General: cooperative, comfortable and no acute distress Nutritional Appearance: obese Orientation: alert, awake, oriented to person and oriented to place Limitations: language barrier HENMT Head: normal to inspection, normocephalic and atraumatic Mouth: oral mucosae normal Resp Effort & Inspection: normal respiratory effort Cardio Rate: regular rate Rhythm: regular rhythm GI Inspection: obesity Palpation: soft and nontender Skin General skin exam: no rashes or lesions noted Neuro General: patient alert, patient awake and no focal motor deficits Extrem General: normal to inspection, capillary refill normal, no clubbing, cyanosis or edema, no pedal edema, no calf tenderness, no calf tenderness bilaterally, no pedal edema and other (knees are not swollen, + adipose tissue, + pain with passive movement) Objective Last Vital Signs Temp 36.3 C L 10/17/22 12:46 Pulse 89 10/17/22 12:46 Resp 19 10/17/22 12:46 BP 184/99 H 10/17/22 12:46 Pulse Ox 94 10/17/22 12:46 Laboratory Results - last 24 hr 10/17/22 10/17/22 06:30 06:30 WBC 8.29 RBC 4.93 Hgb 14.8 Hct 42.0 MCV 85 MCH 30.0 MCHC 35.2 RDW 12.2 Plt Count 301 MPV 9.3 Immature Gran % 0.5 Neutrophils % 46.6 Lymphocytes % 37.2 Monocytes % 11.6 Eosinophils % 3.5 Basophils % 0.6 Nucleated RBC % 0.0 Absolute Neutrophils 3.87 Absolute Lymphocytes 3.08 Absolute Monocytes 0.96 H Absolute Eosinophils 0.29 Absolute Basophils 0.05 Sodium 126 L Potassium 4.3 Chloride 95 L Carbon Dioxide 22.2 Anion Gap 8.8 BUN 28 H Creatinine 1.1 H Est GFR (CKD-EPI 2020) 49.24 Glucose 255 H Calcium 9.8 Magnesium 1.9 Time Spent with Patient Time Spent with Patient: 35-49 minutes Time was spent: preparing to see the patient(eg.review tests), obtaining and/or reviewing separately otained hiistory, ordering medications,tests, procedures, referring, communicating with other health primary care pediatrician, indepentently interpreting results, counseling the patient and care coordination
[2022-10-17 15:20] LABS: Troponin I < 50 ng/L (<or=60)
[2022-10-17 15:25] LABS: Anion Gap 10.1 mmol/L (3-11); BUN 28 mg/dL (7-18); CO2 19.9 mmol/L (21.0-32.0); CREATININE 1.2 mg/dL (0.55-1.02); Calcium 9.7 mg/dL (8.5-10.1); Chloride 93 mmol/L (98-107); Estimated GFR 44.36 (mL/min/1.73m2); Glucose 269 mg/dL (74-106); Potassium 4.6 mmol/L (3.5-5.1)
[2022-10-17] MEDS: Bupivacaine 0.5% Pres-Free 10 ML VIAL IJ (15:33)
[2022-10-17 15:34] LABS: Sodium 123 mmol/L (136-145)
[2022-10-17] MEDS: methylPREDNISolone ACETATE 80 MG/ML VIAL IJ ×2 (15:34→15:35)
--- NOTE | 2022-10-17 15:42 | PCNE_ITS ---
Date of service: 10/17/22 Time of Service: 15:00 History of Present Illness Narrative: Ms. Meyer is an 87 y/o F currently inpt at [facility] 2/2 multiple falls and FTT at home; PMHx sig for CAD, DM, recurrent UTIs, lumbar spinal stenosis, OA bilat knees, obesity, HTN, CHELSEY, seizures, JUAN, h/o TIA, anxiety; son Misael present Mitch is receiving bilateral cortisone knee injections at time of visit. She has previously tolerated these well a few years ago, they had good effect with her pain. Concerns over hyperglycemia acutely after, will monitor insulin during hospitalization. Starting today on scheduled naproxen and Tylenol, tramadol. Followed by Dr. Hinojosa Wind Turbine Controls Engineer service offered, son states the patient denies. Son and staff report anxiety with cartridge filler service in the past. Son raises concerns over mistrust with them translating. She was having up to 4-5 falls per day, no injuries, light bruising. Falls related to her knee weakness and ambulatory dysfunction. She will do an activity they are instructing her not to. Live in [facility]. Daughter Keyshawn providing all care. they have a ramp going to home, home set up appropriately. Previously engage in home safety inspection prior to previous SNF discharge home. Preference for local SNF placement, [facility] top choice. So they can help provide assistance with staff and Mitch, to avoid anxiety or confusion. Anxiety previously treated with Seroquel, she did not tolerate this. Family is adamant that they would not want this restarted at all cost. She is on several medications now, she is aware of some of them. Goals: She will do anything to get out of the hospital, would like to return home, willing to go to rehab to get stronger. Preference to stay local with rehab. Son reports that Keyshawn as authority to make decisions, unsure of paperwork, feels it may be at PCP office Dr. Lagos. Ortho: MRI today with lumbar spinal stenosis noted. We will do bilateral knee injections today monitor for improving function and pain. Consider outpatient follow-up for lumbar injections and pain clinic as needed. PT recommend SNF placement; she engages w/some but not all PT/PTAs, working w/her on engaging more, anuja bc this determines her placement in SNF Assessment and Plan Assessment and plan (1) Palliative care encounter: Status: Acute Assessment and plan: PC to continue to follow during inpatient stay and into outpatient moving forward My colleague Dave Cason to see Mitch tomorrow, and I will follow up on Saturday as needed; recommend daughter present for visits for appropriate GOC conversations (2) Advanced care planning/counseling discussion: Status: Acute Assessment and plan: No AD/HCA/COLST on file at PCP need for follow up: HCA form, consider Advanced Directive plans for discharge, SNF, return home Goals of care, based on patient preferences unable to assess today Keyshawn seems to have the most knowledge of Mitch's needs and care preferences, recommend visits conducted w/daughter or alone in future (3) Discharge planning issues: Status: Acute Assessment and plan: family demonstrates a strong desire to be heavily involved in Mitch's care, they feel she will receive the best care if she remains local where they can visit frequently and provide assistance as needed; they do not seem to understand that there is no control over placement, will continue to advocate for local placement referrals sent to /[facility], pending; referrals to further away facilities (4) Language barrier affecting health care: Status: Acute Assessment and plan: son does not understand why cartridge filler service must be used, reports that Mitch denies cartridge filler at time of visit; he does not translate actively throughout visit reviewed w/son importance of cartridge filler service, to ensure all information documented/received both from a legal/policy perspective and personal for mother's opportunity to engage in care, speak for self I recommend use of cartridge filler service at all times (5) Full code status: Status: Acute Assessment and plan: did not review today, as pt was tired and no appropriate cartridge filler at time of visit (6) Falls: Status: Acute Assessment and plan: multiple in home, r/t weakness/knee pain PT following, recommend d/c to SNF for acute rehab (7) Weakness: Status: Acute (8) Primary osteoarthritis of left knee: Status: Chronic Assessment and plan: chronic cortisone injection today continue PT (9) Primary osteoarthritis of right knee: Status: Chronic Assessment and plan: chronic cortisone injection today continue PT (10) Diabetes: Status: Chronic Assessment and plan: continue to monitor hyperglycemia s/p previous injections consider hospital monitoring/management s/p injections x3 days (11) Anxiety: Status: Chronic (12) Lumbar spinal stenosis: Status: Acute Assessment and plan: MRI today consider outpatient f/u for lumbar injection w/pain clinic, pending response to today's knee injections Review of Systems Narrative: as per HPI PFSH All Active Problems (Updated 10/17/22 @ 15:57 by Abby Kuhn NP) Palliative care encounter (Acute) Advanced care planning/counseling discussion (Acute) Full code status (Acute) Language barrier affecting health care (Acute) Lumbar spinal stenosis (Acute) Hyperlipidemia (Acute) Iron deficiency anemia (Acute) Seizures (Acute) ?2017 Urinary retention (Acute) Falls (Acute) Weakness (Acute) COVID-19 (Acute) UTI (urinary tract infection) (Acute) Pre-syncope (Acute) HTN (hypertension) (Chronic) TIA (transient ischemic attack) (Acute) ?2017 Primary osteoarthritis of left knee (Chronic) Injected: 03/02/2019 Primary osteoarthritis of right knee (Chronic) Injected: 03/02/2019 Diabetes (Chronic) Anxiety (Chronic) CAD (coronary artery disease) (Chronic) Discharge planning issues (Acute) Vertigo (Acute) Syncope (Acute) Abnormal flushing and sweating (Acute) Chest pain (Acute) Cough (Acute) Abnormal result on screening urine test (Acute) Medical History Asthma Hypothyroidism Surgical History History of coronary artery stent placement Family History Mother Stroke Father Heart disease Social History Smoking/Tobacco Use Status: Never Smoking risk assessment performed?: Yes Alcohol Intake: never Drug use: Never Substance use type: does not use and former substance user Household members: children Number of Children: 2 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 She does not speak Citizen [place]. She lives with her daughter. She has two children, both here in the [place] and locally in [place]. She is . 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 Exam Const General: cooperative, comfortable and no acute distress Nutritional Appearance: overweight Limitations: language barrier Other: bilat knee injections during time of visit; pt tolerated appropriately HENMT Head: normal to inspection, normocephalic and atraumatic Ears: hearing grossly normal bilaterally Resp Effort & Inspection: normal respiratory effort, able to speak in complete sentences, no audible wheezes and no cough Skin General skin exam: no rashes or lesions noted (did not conduct full skin exam) Neuro General: patient alert Cranial Nerves: CN's II-XI intact bilaterally Psych Appearance: grossly normal Speech and Movement: speech clear Attitude: cooperative Results Last Vital Signs Temp 97.3 F L 10/17/22 12:46 Pulse 89 10/17/22 12:46 Resp 19 10/17/22 12:46 BP 184/99 H 10/17/22 12:46 Pulse Ox 94 10/17/22 12:46 Labs Result diagrams: 10/17/22 06:30 10/17/22 14:55 Labs: Laboratory Results - last 24 hr 10/17/22 10/17/22 10/17/22 06:30 06:30 14:55 WBC 8.29 RBC 4.93 Hgb 14.8 Hct 42.0 MCV 85 MCH 30.0 MCHC 35.2 RDW 12.2 Plt Count 301 MPV 9.3 Immature Gran % 0.5 Neutrophils % 46.6 Lymphocytes % 37.2 Monocytes % 11.6 Eosinophils % 3.5 Basophils % 0.6 Nucleated RBC % 0.0 Absolute Neutrophils 3.87 Absolute Lymphocytes 3.08 Absolute Monocytes 0.96 H Absolute Eosinophils 0.29 Absolute Basophils 0.05 Sodium 126 L 123 L* Potassium 4.3 4.6 Chloride 95 L 93 L Carbon Dioxide 22.2 19.9 L Anion Gap 8.8 10.1 BUN 28 H 28 H Creatinine 1.1 H 1.2 H Est GFR (CKD-EPI 2020) 49.24 44.36 Glucose 255 H 269 H Calcium 9.8 9.7 Magnesium 1.9 Troponin I 10/17/22 14:55 WBC RBC Hgb Hct MCV MCH MCHC RDW Plt Count MPV Immature Gran % Neutrophils % Lymphocytes % Monocytes % Eosinophils % Basophils % Nucleated RBC % Absolute Neutrophils Absolute Lymphocytes Absolute Monocytes Absolute Eosinophils Absolute Basophils Sodium Potassium Chloride Carbon Dioxide Anion Gap BUN Creatinine Est GFR (CKD-EPI 2020) Glucose Calcium Magnesium Troponin I < 50
[2022-10-17 16:29] LABS: Bilirubin Negative (Negative); Blood Negative (Negative); Clarity Clear (Clear); Glucose Negative (Negative); Ketones Negative (Negative); Leukocyte Esterase Negative (Negative); Nitrite Negative (Negative); Urobilinogen 0.2 EU/dL (Up TO 0.2)
[2022-10-17 16:37] LABS: Epithelial Cells Few HPF (Negative); Other Cells Few Transitional (Negative); RBC 0-2 HPF (0-2)
[2022-10-17 16:38] LABS: Bacteria Negative HPF (Negative); C & S Indicated? No; Casts 0-2 Hyaline LPF (Negative); Crystals Negative HPF (Negative); Mucus Moderate (Negative)
[2022-10-17 17:04] LABS: Sodium, Urine 46 mmol/L
[2022-10-17 19:25] VITALS: BP 145/80; PULSE 87; RESP 16; TEMP 37.1; O2SAT 91
[2022-10-17] MEDS: Rosuvastatin 10 MG TAB 40 MG PO (19:56)
[2022-10-17 20:00] VITALS: BP 156/83; PULSE 86; RESP 16; TEMP 35.7; O2SAT 92
[2022-10-17] MEDS: Lidocaine 5% Patch 1 PATCH TP (23:48)
[2022-10-18 00:17] VITALS: BP 154/78; PULSE 84; RESP 22; TEMP 35.8; O2SAT 95
[2022-10-18 03:45] VITALS: BP 115/72; PULSE 84; RESP 20; TEMP 36.2; O2SAT 92
[2022-10-18 07:03] LABS: Abs Immature Grans 0.09 10^3/uL (0.0-0.06); Absolute Basophil Count 0.02 10^3/uL (0.0-0.2); Absolute Lymphocyte Count 2.07 10^3/uL (1.2-3.4); Absolute Monocyte Count 0.38 10^3/uL (0.1-0.8); Basophils % 0.2; HCT 42.1 % (36.0-46.0); HGB 14.4 g/dL (11.2-15.7); Immature Grans % 0.8; Lymphocytes % 19.4; MCH 29.3 pg (27.0-33.0); MCHC 34.2 % (32.0-36.0); MCV 86 fL (80-95); MPV 9.3 fL (8.0-11.0); Monocytes % 3.6; Platelet Count 311 10^3/uL (130-400); RBC 4.91 10^6/uL (3.93-5.22); RDW 11.7 % (11.7-14.6); RDW-SD 36.7 fL; WBC 10.66 10^3/uL (4.4-10.8)
--- NOTE | 2022-10-18 07:23 | NUR.NOTE ---
Bladder Scan Report [id number] during bedside rounded VALET PARKER Notified me that pt requesting to toilet. I lacy Means WRITER PRODUCER assisted with transfer to [facility]. pt attempted to void no urine produced. a bladder scan was then performed revealing highest residual of 681mls. A tablet audio [employer] educational sign language interpreter was used to assess the pts further needs at that time. with volume up 100 percent pt interacted well with educational sign language interpreter. during that time. pt reported she was feeling dizzy, and that she had some pain in her right knee. I checked her blood sugar, and repositioned the pt, with the help of Yuridia FARIA, she was present when the ipad battery before i could document the educational sign language interpreter number. for the interaction. I returned a short time later, after finding a gas station clerk for the educational sign language interpreter service. i charged the tablet and further assessed the pts needs, in an attempt to explain a straight catheter procedure. with the help of educational sign language interpreter [id number] Lillian. pt agreed to do the straight catheter stating as long as its not too painful. 0700 am hour. I did not have an opportunity to complete the straight catheter for this patient this AM. I did offer the day shift RN that i would stay to ensure the bladder gets drained. the day shift RN reported she was okay handling the situation. I complete this documentation in an effort to show accurate documentation. Nursing Note:
[2022-10-18 07:28] LABS: Anion Gap 13.3 mmol/L (3-11); BUN 41 mg/dL (7-18); CO2 20.7 mmol/L (21.0-32.0); CREATININE 1.4 mg/dL (0.55-1.02); Calcium 9.9 mg/dL (8.5-10.1); Chloride 95 mmol/L (98-107); Estimated GFR 36.87 (mL/min/1.73m2); Glucose 294 mg/dL (74-106); Magnesium 1.8 mg/dL (1.8-2.4); Potassium 5.3 mmol/L (3.5-5.1); Sodium 129 mmol/L (136-145)
[2022-10-18 07:36] VITALS: BP 138/82; PULSE 90; RESP 16; TEMP 36.7; O2SAT 95
[2022-10-18 07:52] VITALS: O2SAT 96
[2022-10-18 08:25] VITALS: O2SAT 94
[2022-10-18 08:26] VITALS: O2SAT 94
--- NOTE | 2022-10-18 08:31 | CMPROGNOTE_ITS ---
- If Service Date Differs Date of service: 10/18/22 Time of Service: 08:31 Care Management Progress Note S/O: Mitch was seen by orthopedic yesterday and had several tests including an MRI, followed by bilateral knee injections. Per PT, noted improvement with ambulation today. PT recommends SNF for STR, prior to discharging home. SNF referral's pending, [facility] is reviewing, updated clinicals sent. [facility] and [facility] are also reviewing. Please see SNF updates below. CM continues to follow. Ace Meyer and Keyshawn accepted [facility] A: 87 year old female admitted to [facility] on 10/14/22 for Failure to thrive, ambulatory dysfunction P: Anticipate, Mitch will go to short term rehab prior to returning home. Her son and daughter are available to translate for her 22/04, as well as the translation service. Primary language is Bosnian, and she does not speak British. Transportation at time of discharge will depend on disposition. She will follow up with her PCP and discharge plan of care. CM will continue to follow. SNF Referrals: [facility]: Reviewing, Accepted. [facility]: reviewing 10/18/22 [facility]: Reviewing 10/18/22 [facility]: left message 10/18/22 [facility]: No bed availability 10/18/22 [facility]: No bed availability [facility]: Declined 10/18/22 [facility]-declined 10/16/22
[2022-10-18] MEDS: Clopidogrel 75 MG TAB PO (09:14)
[2022-10-18] MEDS: Esomeprazole 40 MG CAPCR PO (09:15)
[2022-10-18] MEDS: Cyanocobalamin 500 MCG TAB 1000 MCG PO (09:15)
[2022-10-18] MEDS: metFORMIN 500 MG TAB 1000 MG PO (09:15)
[2022-10-18] MEDS: amLODIPine 5 MG TAB PO (09:15)
[2022-10-18] MEDS: Acetaminophen 500 MG TAB 1000 MG PO ×2 (09:15→13:34)
[2022-10-18] MEDS: Cholecalciferol (Vitamin D3) 400 UNIT TAB PO (09:15)
[2022-10-18] MEDS: Ferrous Sulfate 325 MG TAB PO (09:15)
[2022-10-18] MEDS: Sertraline 50 MG TAB PO (09:15)
[2022-10-18] MEDS: levETIRAcetam 250 MG TAB 750 MG PO (09:15)
[2022-10-18] MEDS: Furosemide 20 MG TAB PO (09:15)
[2022-10-18] MEDS: Naproxen 500 MG TAB PO (09:15)
[2022-10-18] MEDS: Carvedilol 25 MG TAB PO (09:15)
[2022-10-18] MEDS: Insulin Aspart 300 UNITS/3 ML PEN SC ×2 (09:16→11:46)
[2022-10-18] MEDS: Lidocaine Patch Removal 1 EACH TP (09:31)
[2022-10-18 10:09] LABS: Lab Add On Test DONE
--- NOTE | 2022-10-18 12:59 | PT.INTREAT ---
Date of service: 10/18/22 Time of Service: 09:20 PT Notes Visit Reasons: Ambulatory Dysfunction Inpatient Physical Therapy Treatment Note [facility] Date: 10/18/2022 PRECAUTIONS: Activity as tolerated, Fall SUBJECTIVE: Mitch is pleasant and agreeable to participating in PT. Her daughter Keyshawn is present in a.m., and reports that Mitch reports feeling much better today, and reports decreased pain in B knees. OBJECTIVE: PAIN: Patient c/o pain (however, decreased compared to previous sessions) in B knees with gait training, requiring seated rest BED MOBILITY/TRANSFERS Supine-sit: CGA Stand-sit: SBA with cueing for safety Sit-stand: SBA GAIT Assistive Device: FWW Weight bearing: Full Assist: CGA (due to frequent falls at home) Distance: 30' + 15' + 10' + 5' Deviation: Slow pacing, pain in B knees, seated rests, slightly improved posture THEREX: Patient was instructed in a LE strengthening and stabilization program, completed in a supine position, to include: ankle pumps, quad sets, glute sets, SLR, heel slides, hip abduction and bridging. ASSESSMENT: Patient tolerated session with B knee pain, although better compared to previous sessions, and fatigue with gait training, requiring a seated rests. She fatigues quickly and demonstrates limited activity tolerance. Patient's progress is limited due to pain in B knees with weight bearing activities, as well as sudden knee-buckling due to pain and weakness. PLAN: Recommend discharge to SNF-level rehab for continued strengthening. TREATMENT CODE/TIME: Session 1: 30 minutes; 92149 x2 (09:20) Session 2: 20 minutes; [id number] (13:25)
[2022-10-18 14:06] LABS: Source Nasal/Nares
--- NOTE | 2022-10-18 14:11 | PDOC.CMDIS ---
- If Service Date Differs Date of service: 10/18/22 Time of Service: 14:11 LACE Index Scoring Tool - Questions: Length of Stay (in days): 2 Acuity (Admit via E.D.?): Yes Comorbidities: Cerebrovascular Disease (HX TIA), Diabetes w/o Complication E.D. Visits: 2 - Answers: Total Score: 9 Risk of Readmission: Low Risk Care Management Discharge Reason for Hospitalization: Failure to thrive, ambulatory dysfunction Discharge Plan: Mitch is discharged to [facility] for STR. She is transported via facility van. Keyshawn agrees to support translation via phone, as needed. Mitch will follow up with facility/community providers and discharge plan of care as prescribed. Patient/Family Education Needs: Review discharge instructions, limitations and plan to follow up with facility/community providers. Discuss ask me three. Services Needed at Discharge: Half-Way Facility ([facility] for STR), Transportation (Via Facility w/c van)
--- NOTE | 2022-10-18 14:37 | DSE_ITS ---
Date of service: 10/18/22 Time of Service: 14:37 DS: Diagnosis Discharge Diagnosis (1) Diabetes: Status: Chronic Asessment and Plan: Glucose has been high and her insulin has needed adjusting; she should have frequent fingersticks; she received steroid injections in both of her knees (2) Lumbar spinal stenosis: Status: Chronic Asessment and Plan: Ambulatory dysfunction; multiple falls; knees buckling. lthough better compared to previous sessions, and fatigue with gait training, requiring a seated rests.? PT recommends SNF as she fatigues quickly and demonstrates limited activity tolerance.? Patient's progress is limited due to pain in both knees with weight bearing activities, as well as sudden knee-buckling due to pain and weakness.?She has had both knees injected with steroids during this hospital stay and will benefit from rehab (3) Falls: Status: Acute Asessment and Plan: Multiple falls, safety concerns, see above (4) Weakness: Status: Acute Asessment and Plan: Weakness related to knee pain causing sedentary lifestyle, decreased ambulation and deconditioning. (5) Primary osteoarthritis of left knee: Status: Chronic Asessment and Plan: Very painful - injected by ortho this stay with steroids - improved after first day with hopes of continuing to improve, although suspect it will be very slow (6) Primary osteoarthritis of right knee: Status: Chronic Asessment and Plan: Very painful - injected by ortho this stay with steroids - improved after first day with hopes of continuing to improve, although suspect it will be very slow (7) Anxiety: Status: Chronic Asessment and Plan: Very anxious, language and culture are factors - changed clonazepam to scheduled as she has difficulty asking for prn meds. Discharge Plan Disposition [facility] Disposition[facility] Condition: Improving Discharge Details Reason For Visit: Ambulatory Dysfunction Admit Date/Time: 10/14/22 11:19 Admit Provider: Ortiz Mead Attending Provider: Ortiz Mead Primary Care Provider: Yarely Lagos [facility] Hospital Course: This is an 87-year-old female Bosnian speaking patient with a history of diabetes coronary disease, past UTIs, brought in by daughter for evaluation of generalized fatigue, patient's daughter and family nurse been caring for her physically assisting her out of bed, her ambulation has become more difficult due to lack of energy, foul-smelling urine over the last week daughter started Bactrim at home that was leftover from a prior prescription.? Patient was afebrile nontoxic no signs of trauma, however did appear dehydrated with dry oral mucosa, likely component of deconditioning.? Family feels unsafe having her at come home given multiple falls and level of care required.? Patient was admitted for PT OT/rehabilitation placement.? Patient is a full code. PT evaluated her and found her to have difficulty ambulating related to her ?knees buckling?.? Bilateral knee xrays were performed and orthopedics was consulted. Ortho injected bilat knees with steroids and did a MRI of her lumbar spine, she was found to have lumbar stenosis. She had an episode of nausea and sweating after the MRI and was given ondansetron with good results.? Suspect it was due to the MRI itself, anxiety. We did an EKG and Troponin at the time, EKG was normal and troponin was negative. She improved and ate lunch without nausea and had no more sweating. She was better after her knees were injected and exhibited improved mobilization.? She will benefit from rehab to gain strength and improve mobility. Family states she had her glucose go ?off the charts? last time her knees were injected, about 4 years ago. We are keeping tight watch on her glucose levels and covering her with sliding scale as well as her usual long acting insulin.? This should be continued at rehab with glucose checks before meals and at bedtime to keep her glucose controlled.? She is stable, pain has decreased and she is willing to go to rehab.? She has been accepted, daughter and patient via television newscast director agree this is the best option for her.? Some of her medications that were as needed were changed to scheduled by orthopedics as cherelle as medication for anxiety. She is discharged stable via van to the [facility]. Discussed with Dr Mead Home Meds and New Rx's Prescriptions: New tramadol 50 mg Tablet 50 mg PO Q6H PRN PRNQty: 0 0RF acetaminophen 500 mg Tablet 1,000 mg PO TID Qty: 0 0RF docusate sodium [Colace] 100 mg Capsule 100 mg PO TID PRN PRNQty: 0 0RF naproxen 500 mg Tablet 500 mg PO BID Qty: 0 0RF Continued levetiracetam [Keppra] 750 mg tablet 750 mg PO BID All Day Allergy (cetirizine) 10 mg capsule 10 mg PO DAILY PRN Levemir FlexTouch U-100 Insuln 100 unit/mL (3 mL) insulin pen 50 unit Sub-Q BID@0800,2000 ergocalciferol (vitamin D2) 400 UNIT tablet 400 units PO DAILY furosemide 20 mg tablet 20 mg PO DAILY metformin 500 mg tablet 1,000 mg PO BID Qty: 120 0RF sertraline 50 MG tablet 50 mg PO DAILY nitroglycerin 0.4 MG tablet, sublingual 0.4 mg Sublingual PRN PRN carvedilol 25 MG tablet 25 mg PO BID 0RF clopidogrel [Plavix] 75 MG tablet 75 mg PO DAILY 0RF rosuvastatin [Crestor] 10 MG tablet 40 mg PO QPM 0RF cyanocobalamin (vitamin B-12) 2,500 MCG tablet,chewable 1,000 mcg PO DAILY Qty: 30 0RF amlodipine 2.5 mg Tablet 2.5 mg PO DAILY Qty: 30 0RF esomeprazole magnesium [Nexium] 20 mg Capsule,Delayed Release(Dr/Ec) 40 mg PO QDAY benzonatate 100 mg Capsule 100 mg PO TID PRN PRN (Reason: cough) Qty: 30 0RF guaifenesin [Mucinex] 600 mg Tablet Extended Release 12hr 600 mg PO BID PRN PRN (Reason: cough) Qty: 20 0RF lidocaine 5 % Adhesive Patch,Medicated 1 patch topical Q24H Qty: 15 0RF Rx Instructions: apply to painful area on back [id number] C-Mn [Glucosamine 1500 Complex] 1 EACH capsule 1 tab PO PRN Changed clonazepam 0.5 MG tablet 0.5 mg PO HS Qty: 0 0RF Discontinued sulfamethoxazole-trimethoprim [Bactrim] 400-80 mg Tablet 1 tab PO BID PRN Rx Instructions: per provider instructons to give her mom when having UTI symptoms No Action naproxen 500 mg tablet 500 mg PO PRN Discharge Instructions Instructions: Acetaminophen (By mouth), Naproxen (By mouth), Lumbar Spinal Stenosis (DC), Arthritis (DC) Additional Instructions: Acetaminophen and Naproxen are scheduled (not PRN) Stand Alone Forms: Nursing Discharge Form Referrals: Yarely Lagos MD [Primary Care Provider] - (After discharge from [facility]) Savage Hinojosa MD [ [facility] STAFF PHYSICIAN] - (after discharge from [facility] as needed) Activity:: Activity as Tolerated Equipment/Supplies:: Walker Diet:: Low Sodium Discharge Orders Discharge Orders: Discharge Order (Routine); Ordered 10/18/22 Ordered By: Sheron Nelson Discharge Data Discharge Date/Time-TO BE ENTERED AT DEPARTURE: 10/18/22 15:10 DS: Summary Time Spent with Patient providing and/or coordinating discharge services: Greater than 30 minutes Status at Discharge Functional status at discharge: uses cane/walker Overall status at discharge: patient is progressing back to baseline Mental Status: mental status grossly normal Speech and Movement: speech clear Mood: congruent mood Affect: normal affect Exam Const General: cooperative, comfortable and no acute distress Nutritional Appearance: overweight Limitations: language barrier HENMT Head: normal to inspection, normocephalic and atraumatic Ears: hearing grossly normal bilaterally Resp Effort & Inspection: normal respiratory effort, able to speak in complete sentences, no audible wheezes and no cough Skin General skin exam: no rashes or lesions noted (did not conduct full skin exam) Neuro General: patient alert Cranial Nerves: CN's II-XI intact bilaterally Psych Appearance: grossly normal Mental Status: mental status grossly normal Speech and Movement: speech clear Mood: congruent mood Affect: normal affect Attitude: cooperative DS: Data Vitals/I&O Vitals and I&O: Vital Signs Temperature 36.7 C 10/18/22 07:36 Temperature Source Tympanic 10/18/22 07:36 Pulse 90 10/18/22 07:36 Pulse Rhythm Regular 10/18/22 11:15 Respiratory Rate 16 10/18/22 07:36 Respiratory Effort Non-Labored 10/18/22 11:15 Respiratory Depth Normal 10/18/22 11:15 Respiratory Pattern Normal 10/18/22 11:15 Blood Pressure 138/82 10/18/22 07:36 Blood Pressure Position Sitting 10/13/22 10:09 Pulse Oximetry 94 10/18/22 08:26 Oxygen Delivery Method Room Air 10/18/22 08:26 Oxygen Flow Rate 0 10/18/22 08:26 Pain Level 0 10/18/22 03:45 Comment 10/18/22 08:26 Intake & Output 10/17/22 10/18/22 10/18/22 23:59 11:59 23:59 Intake Total 810 / 810 500 / 620 120 / 620 Output Total 300 / 1200 300 / 300 Balance 510 / -390 500 / 320 -180 / 320 Intake: IV 250 / 250 Oral 560 / 560 500 / 620 120 / 620 Output: Urine 300 / 1200 300 / 300 Other: Urine Color Yellow Yellow Urine Appearance Clear Clear Urine Odor None Comment 1 unkown void in bedside commode x2 CUSTOMER SALES SERVICE MANAGER's assisted in the transfer including myself. pT heavily incontinent - full bed change post void Voiding Methods Diaper Bedside Commode Incontinent Data Completed and Pending Labs on day of discharge: Labs from last 24 hours 10/18/22 10/18/22 10/18/22 14:00 06:30 06:30 WBC 10.66 RBC 4.91 Hgb 14.4 Hct 42.1 MCV 86 MCH 29.3 MCHC 34.2 RDW 11.7 Plt Count 311 MPV 9.3 Immature Gran % 0.8 Neutrophils % 76.0 Lymphocytes % 19.4 Monocytes % 3.6 Eosinophils % 0.0 Basophils % 0.2 Nucleated RBC % 0.0 Absolute Neutrophils 8.10 H Absolute Lymphocytes 2.07 Absolute Monocytes 0.38 Absolute Eosinophils 0.00 Absolute Basophils 0.02 Sodium 129 L Potassium 5.3 H Chloride 95 L Carbon Dioxide 20.7 L Anion Gap 13.3 H BUN 41 H Creatinine 1.4 H Est GFR (CKD-EPI 2020) 36.87 Glucose 294 H Serum Osmolality Calcium 9.9 Magnesium 1.8 Troponin I Urine Color Urine Clarity Urine pH Ur Specific [place] Urine Protein Urine Ketones Urine Blood Urine Nitrite Urine Bilirubin Urine Urobilinogen Ur Leukocyte Esterase Urine RBC Urine WBC Ur Epithelial Cells Urine Crystals Urine Bacteria Urine Casts Urine Mucus Urine Other Ur Culture Indicated? Urine Osmolality Ur Random Sodium Urine Glucose COVID-19 Source Nasal/Nares SARS-CoV-2 (PCR) Pending Add-On Test Request 10/17/22 10/17/22 10/17/22 16:04 16:04 16:04 WBC RBC Hgb Hct MCV MCH MCHC RDW Plt Count MPV Immature Gran % Neutrophils % Lymphocytes % Monocytes % Eosinophils % Basophils % Nucleated RBC % Absolute Neutrophils Absolute Lymphocytes Absolute Monocytes Absolute Eosinophils Absolute Basophils Sodium Potassium Chloride Carbon Dioxide Anion Gap BUN Creatinine Est GFR (CKD-EPI 2020) Glucose Serum Osmolality Calcium Magnesium Troponin I Urine Color Yellow Urine Clarity Clear Urine pH 5.0 Ur Specific [place] 1.020 Urine Protein 100 H Urine Ketones Negative Urine Blood Negative Urine Nitrite Negative Urine Bilirubin Negative Urine Urobilinogen 0.2 Ur Leukocyte Esterase Negative Urine RBC 0-2 Urine WBC 3-5 Ur Epithelial Cells Few Urine Crystals Negative Urine Bacteria Negative Urine Casts 0-2 Hyaline Urine Mucus Moderate Urine Other Few Transitional Ur Culture Indicated? No Urine Osmolality Pending Ur Random Sodium 46 Urine Glucose Negative COVID-19 Source SARS-CoV-2 (PCR) Add-On Test Request 10/17/22 10/17/22 10/17/22 14:55 14:55 06:30 WBC RBC Hgb Hct MCV MCH MCHC RDW Plt Count MPV Immature Gran % Neutrophils % Lymphocytes % Monocytes % Eosinophils % Basophils % Nucleated RBC % Absolute Neutrophils Absolute Lymphocytes Absolute Monocytes Absolute Eosinophils Absolute Basophils Sodium 123 L* Potassium 4.6 Chloride 93 L Carbon Dioxide 19.9 L Anion Gap 10.1 BUN 28 H Creatinine 1.2 H Est GFR (CKD-EPI 2020) 44.36 Glucose 269 H Serum Osmolality Pending Calcium 9.7 Magnesium Troponin I < 50 Urine Color Urine Clarity Urine pH Ur Specific [place] Urine Protein Urine Ketones Urine Blood Urine Nitrite Urine Bilirubin Urine Urobilinogen Ur Leukocyte Esterase Urine RBC Urine WBC Ur Epithelial Cells Urine Crystals Urine Bacteria Urine Casts Urine Mucus Urine Other Ur Culture Indicated? Urine Osmolality Ur Random Sodium Urine Glucose COVID-19 Source SARS-CoV-2 (PCR) Add-On Test Request 10/17/22 06:30 WBC RBC Hgb Hct MCV MCH MCHC RDW Plt Count MPV Immature Gran % Neutrophils % Lymphocytes % Monocytes % Eosinophils % Basophils % Nucleated RBC % Absolute Neutrophils Absolute Lymphocytes Absolute Monocytes Absolute Eosinophils Absolute Basophils Sodium Potassium Chloride Carbon Dioxide Anion Gap BUN Creatinine Est GFR (CKD-EPI 2020) Glucose Serum Osmolality Calcium Magnesium Troponin I Urine Color Urine Clarity Urine pH Ur Specific [place] Urine Protein Urine Ketones Urine Blood Urine Nitrite Urine Bilirubin Urine Urobilinogen Ur Leukocyte Esterase Urine RBC Urine WBC Ur Epithelial Cells Urine Crystals Urine Bacteria Urine Casts Urine Mucus Urine Other Ur Culture Indicated? Urine Osmolality Ur Random Sodium Urine Glucose COVID-19 Source SARS-CoV-2 (PCR) Add-On Test Request DONE PFS All Active Problems (Updated 10/18/22 @ 15:02 by Sheron Nelson NP) Palliative care encounter (Acute) Advanced care planning/counseling discussion (Acute) Full code status (Acute) Language barrier affecting health care (Acute) Lumbar spinal stenosis (Chronic) Hyperlipidemia (Acute) Iron deficiency anemia (Acute) Seizures (Acute) ?2017 Urinary retention (Acute) Falls (Acute) Weakness (Acute) COVID-19 (Acute) UTI (urinary tract infection) (Acute) Pre-syncope (Acute) HTN (hypertension) (Chronic) TIA (transient ischemic attack) (Acute) ?2017 Primary osteoarthritis of left knee (Chronic) Injected: 03/02/2019 Primary osteoarthritis of right knee (Chronic) Injected: 03/02/2019 Diabetes (Chronic) Anxiety (Chronic) CAD (coronary artery disease) (Chronic) Discharge planning issues (Acute) Vertigo (Acute) Syncope (Acute) Abnormal flushing and sweating (Acute) Chest pain (Acute) Cough (Acute) Abnormal result on screening urine test (Acute) Medical History Asthma Hypothyroidism Surgical History History of coronary artery stent placement Family History Mother Stroke Father Heart disease Social History Smoking/Tobacco Use Status: Never Smoking risk assessment performed?: Yes Alcohol Intake: never Drug use: Never Substance use type: does not use and former substance user Household members: children Number of Children: 2 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 She does not speak Kyrgyz. She lives with her daughter. She has two children, both here in the [facility] and locally in [place]. She is . 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 Time Spent with Patient Time Spent with Patient: 70-84 minutes4 Time was spent: preparing to see the patient(eg.review tests), obtaining and/or reviewing separately otained hiistory, ordering medications,tests, procedures, r eferring, communicating with other health respiratory care instructor, indepentently interpreting results, counseling the patient and care coordination
[2022-10-18 14:56] LABS: COVID-19 PCR Negative (Negative)
[2022-10-18 18:09] LABS: Osmolality, Urine 394 mOsm/kg (150-1150)
[2022-10-18 19:18] LABS: Osmolality Serum 293 mOsm/kg (275-295)
== END 2022-10-18 15:10 | disposition skilled nursing facility (03) | DRG 552 ==
LOC: ER 17:35 → MS 10-14 08:34
PROVIDERS: Nurse Practitioner Acute Care; Nurse Practitioner Family; Admitting Provider Internal Medicine; Emergency Provider Emergency Medicine; PCP Family Medicine; Visit Provider Internal Medicine
DX: M48.061 Spinal stenosis, lumbar region without neurogenic claudication (principal); M17.0 Bilateral primary osteoarthritis of knee; R53.1 Weakness; R29.6 Repeated falls; W19.XXXA Unspecified fall, initial encounter; E11.9 Type 2 diabetes mellitus without complications; G40.909 Epilepsy, unspecified, not intractable, without status epilepticus; D50.9 Iron deficiency anemia, unspecified; E78.5 Hyperlipidemia, unspecified; R33.9 Retention of urine, unspecified; Z86.16 Personal history of COVID-19; I10 Essential (primary) hypertension; Z86.73 Personal history of transient ischemic attack (TIA), and cerebral infarction without residual deficits; F41.9 Anxiety disorder, unspecified; I25.10 Atherosclerotic heart disease of native coronary artery without angina pectoris; R23.2 Flushing; R05.1 Acute cough; J45.909 Unspecified asthma, uncomplicated; E03.9 Hypothyroidism, unspecified; Z95.5 Presence of coronary angioplasty implant and graft; Z79.4 Long term (current) use of insulin; Z79.84 Long term (current) use of oral hypoglycemic drugs; E66.9 Obesity, unspecified; Z68.35 Body mass index [BMI] 35.0-35.9, adult; R42 Dizziness and giddiness; M51.16 Intervertebral disc disorders with radiculopathy, lumbar region
CPT/HCPCS: 20610 ×2; 36415; 36416; 73562; 80048; 80053; 82962; 83690; 83935; 87635; 87637; 93005; 96360; 96372; 97110; 97162; 97166; 97530; 97535; 99223; 99285; 70450; 71045; 72148; 72170; 81003; 81015; 83735; 83930; 84300; 84443; 84484; 85025; 93010; 99232; 99233; 99239; G0378; J1040; J2405; J3490

== ENCOUNTER 2022-10-25 19:16 | Outpatient (REF) | payer MEDICARE, MEDICAID, SELFPAY ==
[2022-10-25 19:31] LABS: Abs Immature Grans 0.07 10^3/uL (0.0-0.06); Absolute Basophil Count 0.05 10^3/uL (0.0-0.2); Absolute Lymphocyte Count 4.31 10^3/uL (1.2-3.4); Absolute Monocyte Count 1.27 10^3/uL (0.1-0.8); Absolute Neutrophil Count 4.41 10^3/uL (1.2-6.7); Basophils % 0.5; Eosinophils % 3.8; HCT 43.6 % (36.0-46.0); HGB 14.6 g/dL (11.2-15.7); Immature Grans % 0.7; MCH 29.8 pg (27.0-33.0); MCHC 33.5 % (32.0-36.0); MCV 89 fL (80-95); MPV 9.5 fL (8.0-11.0); Monocytes % 12.1; Neutrophils % 41.9; Platelet Count 283 10^3/uL (130-400); RDW 12.3 % (11.7-14.6); RDW-SD 40.3 fL; WBC 10.51 10^3/uL (4.4-10.8)
[2022-10-25 19:35] LABS: ESR 3 mm/hr (0-30)
[2022-10-25 19:43] LABS: ALT 37 U/L (14-59); AST 29 U/L (15-37); Albumin 3.9 g/dL (3.4-5.0); Alkaline Phosphatase 99 U/L (46-116); Anion Gap 13.8 mmol/L (3-11); BUN 27 mg/dL (7-18); Bilirubin, Total 0.4 mg/dL (0.2-1.0); C-Reactive Protein < 0.05 mg/dL (0.0-0.3); CO2 22.2 mmol/L (21.0-32.0); CREATININE 1.1 mg/dL (0.55-1.02); Calcium 10.1 mg/dL (8.5-10.1); Chloride 99 mmol/L (98-107); Estimated GFR 49.24 (mL/min/1.73m2); Glucose 220 mg/dL (74-106); Potassium 5.2 mmol/L (3.5-5.1); Sodium 135 mmol/L (136-145); Total Protein 7.2 g/dL (6.4-8.2); Uric Acid 6.5 mg/dL (2.6-6.0)
[2022-10-25 20:14] LABS: Hemoglobin A1C 8.2 % (<5.7)
[2022-10-26 19:13] LABS: Rheumatoid Factor <8.6 IU/mL (<12.0)
[2022-10-29 10:36] LABS: Hepatitis C Ab w Rflx HCV PCR Negative (Negative)
== END 2022-10-25 19:17 | disposition home or self-care (01) ==
LOC: LBN 19:16
PROVIDERS: PCP Family Medicine; Visit Provider Family Medicine
DX: E11.9 Type 2 diabetes mellitus without complications (principal)
CPT/HCPCS: 80053; 85652; 86803; 83036; 84550; 85025; 86140; 86431

== ENCOUNTER 2023-03-13 12:42 | Outpatient (REF) | payer MEDICARE, MEDICAID, SELFPAY ==
[2023-03-13 16:17] LABS: HCT 42.4 % (36.0-46.0); HGB 14.1 g/dL (11.2-15.7); MCH 28.8 pg (27.0-33.0); MCHC 33.3 % (32.0-36.0); MCV 87 fL (80-95); MPV 9.7 fL (8.0-11.0); Platelet Count 298 10^3/uL (130-400); RDW-SD 41.1 fL; WBC 8.38 10^3/uL (4.4-10.8)
[2023-03-13 16:19] LABS: Bilirubin Negative (Negative); Blood Trace-intact (Negative); Clarity Cloudy (Clear); Glucose Negative (Negative); Ketones Negative (Negative); Leukocyte Esterase Moderate (Negative); Nitrite Positive (Negative); Urobilinogen 0.2 mg/dL (Up to 0.2)
[2023-03-13 16:29] LABS: Hemoglobin A1C 7.5 % (<5.7)
[2023-03-13 16:32] LABS: BUN 21 mg/dL (7-18); Calcium 9.5 mg/dL (8.5-10.1); Chloride 100 mmol/L (98-107); Estimated GFR 55.21 (mL/min/1.73m2); Ferritin 51 ng/mL (8-252); Glucose 246 mg/dL (74-106); Potassium 4.8 mmol/L (3.5-5.1); Sodium 136 mmol/L (136-145)
[2023-03-13 16:33] LABS: Bacteria Many HPF (Negative); Crystals Negative HPF (Negative); Epithelial Cells Negative HPF (Negative); RBC 0-2 HPF (0-2); WBC >50 HPF (0-5)
[2023-03-13 16:34] LABS: C & S Indicated? Yes; Casts Negative LPF (Negative); Mucus Negative (Negative)
== END 2023-03-13 12:43 | disposition home or self-care (01) ==
LOC: NCHCN 12:42
PROVIDERS: PCP Family Medicine; Visit Provider Family Medicine
DX: E11.9 Type 2 diabetes mellitus without complications (principal); I10 Essential (primary) hypertension; D64.9 Anemia, unspecified
CPT/HCPCS: 80048; 85027; 87077; 81003; 81015; 82728; 83036; 87086; 87186

== ENCOUNTER 2023-08-20 16:51 | Outpatient (REF) | payer MEDICARE, MEDICAID, SELFPAY ==
[2023-08-20 17:03] LABS: HCT 41.8 % (36.0-46.0); HGB 13.9 g/dL (11.2-15.7); MCH 28.8 pg (27.0-33.0); MCHC 33.3 % (32.0-36.0); MCV 87 fL (80-95); MPV 10.3 fL (8.0-11.0); Platelet Count 295 10^3/uL (130-400); RBC 4.83 10^6/uL (3.93-5.22); RDW 12.7 % (11.7-14.6); RDW-SD 40.3 fL; WBC 11.31 10^3/uL (4.4-10.8)
[2023-08-20 17:25] LABS: Ferritin 43 ng/mL (8-252)
[2023-08-20 17:34] LABS: Hemoglobin A1C 9.1 % (<5.7)
== END 2023-08-20 16:52 | disposition home or self-care (01) ==
LOC: NCHCN 16:51
PROVIDERS: PCP Family Medicine; Visit Provider Family Medicine
DX: E11.9 Type 2 diabetes mellitus without complications (principal); R53.1 Weakness; R63.0 Anorexia
CPT/HCPCS: 85027; 82728; 83036

== ENCOUNTER 2023-10-31 12:47 | Outpatient (REF) | payer MEDICARE, MEDICAID, SELFPAY ==
[2023-10-31 15:47] LABS: HCT 43.3 % (36.0-46.0); HGB 14.3 g/dL (11.2-15.7); MCH 28.1 pg (27.0-33.0); MCV 85 fL (80-95); Platelet Count 286 10^3/uL (130-400); RBC 5.09 10^6/uL (3.93-5.22); RDW 12.6 % (11.7-14.6); RDW-SD 38.9 fL; WBC 6.98 10^3/uL (4.4-10.8)
[2023-10-31 16:05] LABS: ALT 26 U/L (14-59); AST 16 U/L (15-37); Albumin 3.8 g/dL (3.4-5.0); Alkaline Phosphatase 77 U/L (46-116); Anion Gap 14.5 mmol/L (3-11); BUN 15 mg/dL (7-18); Bilirubin, Total 0.4 mg/dL (0.2-1.0); CO2 23.5 mmol/L (21.0-32.0); Calcium 9.8 mg/dL (8.5-10.1); Chloride 99 mmol/L (98-107); Estimated GFR 54.87 (mL/min/1.73m2); Glucose 241 mg/dL (74-106); Lipase 44 U/L (16-77); Potassium 4.7 mmol/L (3.5-5.1); Sodium 137 mmol/L (136-145); Total Protein 7.5 g/dL (6.4-8.2)
[2023-10-31 16:13] LABS: Hemoglobin A1C 7.9 % (<5.7)
[2023-10-31 16:42] LABS: Ferritin 35 ng/mL (8-252)
== END 2023-10-31 12:48 | disposition home or self-care (01) ==
LOC: NCHCN 12:47
PROVIDERS: PCP Family Medicine; Visit Provider Family Medicine
DX: E11.9 Type 2 diabetes mellitus without complications (principal)
CPT/HCPCS: 80053; 83690; 85027; 82728; 83036

== ENCOUNTER 2023-12-19 09:37 | Emergency (ER) | payer MEDICARE, MEDICAID, SELFPAY ==
[2023-12-19] VITALS (41 sets, daily range): BP systolic 120–176; BP diastolic 46–104; PULSE 67–88; RESP 11–25; TEMP 36.7–36.8; O2SAT 89–96
--- NOTE | 2023-12-19 09:30 | RT.EKG_ITS ---
APPROVED REPORT Exam: Resting ECG Reason for Exam: chest pain Patient Location: E HR:83 bpm ECG Measurements Heart Rate 83 AXIS NV 208 P 34 QRSd 97 QRS -68 QT 390 T 30 QTc 457 Conclusion Sinus rhythm...normal P axis, V-rate 60- 99 Ventricular premature complex...V complex w/ short R-R interval Aberrant conduction of SV complex(es)...aberrant shape, NV 80-220 Left anterior fascicular block...axis(240,-40), init forces inf Probable anterior infarct, age indeterminate...Q >35mS, T neg, V2-V5
[2023-12-19 09:59] LABS: BE (Venous) -1 mmol/L (-2-3); HCO3 (Venous) 23 mmol/L (23-28); O2 Sat (Venous) 93 %; TCO2 (Venous) 21 mmol/L (24-29); pCO2 (Venous) 36 mmHg (41-51); pH (Venous) 7.42 (7.31-7.41); pO2 (Venous) 64 mmHg
--- NOTE | 2023-12-19 10:00 | DI.CT_ITS ---
Exam(s) CT CHEST PE ABD PELVIS W EXAM: CT CHEST PE ABD PELVIS W CLINICAL HISTORY: left sided chest and abdomen pain, hypoxia. TECHNIQUE: Imaging Protocol: Axial CT angiography was performed with multi-slice acquisition and mu lti-planar and/or 3D reconstructions. CONTRAST MATERIAL: Intravenous: Omnipaque 350 Contrast volume:100 ml COMPARISON: CT CT CHEST/ABD/PEL WO from 11/09/[address] CHEST WO from 02/02/2022 CR,XR XR CHEST 1V IN DI DEPT from 10/13/2022 FINDINGS: CHEST: Pulmonary Arteries: No evidence of filling defects to suggest pulmonary emboli. Tracheobronchial tree: No bronchiectasis or mucus plugging. Mediastinum and Shruthi: No dominant adenopathy or fluid collection. Pulmonary parenchyma: Evaluation somewhat limited by respiratory motion. No consolidation or dominan t measurable mass. Stable 6 millimeter nodule left lower lobe. Stable areas of scarring in the medi al right middle lobe and lingula. Posterior dependent changes. Areas of air trapping in the upper l obes. Pleura: No effusion. No pneumothorax. Heart: The heart is notdilated. Severe coronary artery calcifications are seen. Aorta: Thoracic aorta non-dilated. Bones: Degenerative changes in the thoracic spine. No compression fractures. Tubes, Catheters, and Lines: None. Soft tissues: Unremarkable. ABDOMEN and PELVIS: Liver: Normal size. Normal density. No suspicious measurable mass. Portal, Superior Mesenteric, and Splenic Veins: Unremarkable. Gallbladder and Biliary Tract: Status post cholecystectomy. --No radiodense calculus. No biliary dil atation. Pancreas: Normal density, no abnormal calcifications or inflammatory process. Spleen: Normal. Adrenals: No masses seen. Kidneys: Normal size, contour and axis. No radiodense stones. No obstructive uropathy. Stable small bilateral renal cysts. No suspicious masses seen. Vasculature: Abdominal aorta non-dilated. Heavily calcified. Bowel: Colonic diverticulosis. Additional diverticulum descending duodenum. No evidence of divertic ulitis. No obstruction or bowel wall thickening. Appendix is unremarkable. Peritoneal Cavity: No ascites, collection or mesenteric inflammatory response. Lymph Nodes: Within normal limits. Soft Tissues: Edema again noted in the anterior abdominal wall, presumably related to injections. Bladder: Distended. No gross wall thickening. No visible stone or mass. Reproductive Organs: Calcified uterine fibroids. Bones: Degenerative changes noted in the lumbar spine. IMPRESSION: 1. No evidence of pulmonary embolism. No pulmonary infiltrates. 2. No acute abdominal or pelvic process. RADIATION DOSE DELIVERED: Total DLP DATA REPOSITORY: All CT scans at this facility are submitted to the National Radiology Data Registry (NRDR) Dose Index Registry (DIR) with the [employer] (A[employer]). RADIATION OPTIMIZATION: All CT scans at this facility use at least one of these dose optimization te chniques: automated exposure control; mA and/or kV adjustment per patient size (includes targeted exa ms where dose is matched to clinical indication); or iterative reconstruction.
[2023-12-19 10:01] LABS: Abs Immature Grans 0.01 10^3/uL (0.0-0.06); Absolute Basophil Count 0.04 10^3/uL (0.0-0.2); Absolute Eosinophil Count 0.19 10^3/uL (0.0-0.7); Absolute Lymphocyte Count 2.34 10^3/uL (1.2-3.4); Absolute Neutrophil Count 2.55 10^3/uL (1.2-6.7); Basophils % 0.7; Eosinophils % 3.3; HCT 41.9 % (36.0-46.0); HGB 13.7 g/dL (11.2-15.7); Immature Grans % 0.2; Lymphocytes % 40.1; MCH 28.4 pg (27.0-33.0); MCHC 32.7 % (32.0-36.0); MCV 87 fL (80-95); MPV 9.3 fL (8.0-11.0); Neutrophils % 43.7; Platelet Count 278 10^3/uL (130-400); RBC 4.83 10^6/uL (3.93-5.22); RDW 12.8 % (11.7-14.6); RDW-SD 40.4 fL; WBC 5.83 10^3/uL (4.4-10.8)
--- NOTE | 2023-12-19 10:02 | ED.GENADUL_ITS ---
Discharge Plan Disposition Patient Disposition: Home Condition: Stable Discharge Details Clinical Impression: Upper abdominal pain Primary Care Provider: Yarely Lagos ED Provider: Jerel Panchal Home Meds and New Rx's Prescriptions: Continued glucagon HCl [Glucagon (HCl) Emergency Kit] 1 mg recon soln 1 mg subcut Q20M PRN Rx Instructions: until target blood sugar attained Insta-Glucose (with dextrin) 24 gram/31 gram gel See Rx Instructions PO .COMPLEX PRN Rx Instructions: orally swallow contents of entire tube; may swallow contents of another tube if no response after 10 minutes PO PRN; levetiracetam [Keppra] 750 mg tablet 750 mg PO BID All Day Allergy (cetirizine) 10 mg capsule 10 mg PO DAILY PRN Levemir FlexTouch U100 Insulin 100 unit/mL (3 mL) insulin pen 50 unit Sub-Q BID@0800,2000 ergocalciferol (vitamin D2) 400 UNIT tablet 400 units PO DAILY furosemide 20 mg tablet 20 mg PO DAILY metformin 500 mg tablet 1,000 mg PO BID Qty: 120 0RF sertraline 50 MG tablet 50 mg PO DAILY nitroglycerin 0.4 MG tablet, sublingual 0.4 mg Sublingual PRN PRN carvedilol 25 MG tablet 25 mg PO BID 0RF clopidogrel [Plavix] 75 MG tablet 75 mg PO DAILY 0RF rosuvastatin [Crestor] 10 MG tablet 40 mg PO QPM 0RF cyanocobalamin (vitamin B-12) 2,500 MCG tablet,chewable 1,000 mcg PO DAILY Qty: 30 0RF amlodipine 2.5 mg Tablet 2.5 mg PO DAILY Qty: 30 0RF esomeprazole magnesium [Nexium] 20 mg Capsule,Delayed Release(Dr/Ec) 40 mg PO QDAY benzonatate 100 mg Capsule 100 mg PO TID PRN PRN (Reason: cough) Qty: 30 0RF guaifenesin [Mucinex] 600 mg Tablet Extended Release 12hr 600 mg PO BID PRN PRN (Reason: cough) Qty: 20 0RF lidocaine 5 % Adhesive Patch,Medicated 1 patch topical Q24H Qty: 15 0RF Rx Instructions: apply to painful area on back tramadol 50 mg Tablet 50 mg PO Q6H PRN PRNQty: 0 0RF acetaminophen 500 mg Tablet 1,000 mg PO TID Qty: 0 0RF docusate sodium [Colace] 100 mg Capsule 100 mg PO TID PRN PRNQty: 0 0RF naproxen 500 mg Tablet 500 mg PO BID Qty: 0 0RF clonazepam 0.5 MG tablet 0.5 mg PO HS Qty: 0 0RF [id number] C-Mn [Glucosamine 1500 Complex] 1 EACH capsule 1 tab PO PRN Discharge Instructions Additional Instructions: Your blood work and CAT scan did not show any concerning findings at this time. There is no evidence of a heart attack, pneumonia, or other emergent concerning finding. Follow-up with your primary care provider within 1 week If you feel like you are suffering from a life-threatening emergency, have severe worsening shortness of breath or difficulty breathing, or severe chest pain return to the emergency department for reevaluation Discharge Data Discharge Date/Time-TO BE ENTERED AT DEPARTURE: 12/19/23 14:23 HPI General Mode of arrival: EMS . Date/Time Provider Initiated Documentation: 12/19/23 09:47 . Limitations to Documentation: language barrier . Information obtained by: patient, family and EMS . History of Present Illness 88 year old F presents to the emergency department with the chief complaint of left sided chest and abdomen pain, described as moderate, Patient started experiencing this week(s) (1) and it has been intermittent. No relieving factors improve symptom(s), No exacerbating factors reported . Patient notes denies fever/chills and nausea/vomiting. Patient did receive the following treatments prior to arrival, none Related Data Home Medications Medication Instructions Recorded Confirmed sertraline 50 mg tablet 50 mg PO DAILY 05/04/13 11/04/22 nitroglycerin 0.4 mg sublingual 0.4 mg sublingual PRN PRN 08/31/13 11/04/22 tablet ergocalciferol (vitamin D2) 10 mcg 400 units PO DAILY 05/13/15 11/04/22 (400 unit) tablet [id number] C-Mn 500 1 tab PO PRN 07/05/17 11/04/22 mg-400 mg capsule (Glucosamine 1) carvedilol 25 mg tablet 25 mg PO BID 07/12/17 11/04/22 clopidogrel 75 mg tablet (Plavix) 75 mg PO DAILY 07/12/17 11/04/22 cyanocobalamin (vitamin B-12) 1,000 mcg (0.4 x 2,500 mcg) PO 07/12/17 11/04/22 2,500 mcg chewable tablet DAILY ##30 rosuvastatin 10 mg tablet (Crestor) 40 mg (4 x 10 mg) PO QPM 07/12/17 11/04/22 amlodipine 2.5 mg tablet 2.5 mg PO DAILY #30 tabs 07/11/19 11/04/22 esomeprazole magnesium 20 mg 40 mg PO QDAY 11/09/20 11/04/22 capsule,delayed release (Nexium) furosemide 20 mg tablet 20 mg PO DAILY 05/17/21 11/04/22 cetirizine 10 mg capsule (All Day 10 mg PO DAILY PRN 06/22/21 11/04/22 Allergy (cetirizine)) insulin detemir U-100 100 unit/mL 50 unit subcut BID@0800,2000 06/22/21 11/04/22 (3 mL) subcutaneous pen (Levemir FlexTouch U-100 Insulin) levetiracetam 750 mg tablet 750 mg PO BID 06/22/21 11/04/22 (Keppra) metformin 500 mg tablet 1,000 mg (2 x 500 mg) PO BID #120 09/29/21 11/04/22 tabs benzonatate 100 mg capsule 100 mg PO TID PRN PRN cough #30 02/07/22 11/04/22 caps guaifenesin 600 mg tablet, 600 mg PO BID PRN PRN cough #20 02/07/22 11/04/22 extended release 12 hr (Mucinex) tabs lidocaine 5 % topical patch 1 patch topical Q24H #15 ea 02/07/22 11/04/22 acetaminophen 500 mg tablet 1,000 mg (2 x 500 mg) PO TID #0 10/18/22 11/04/22 tabs clonazepam 0.5 mg tablet 0.5 mg PO HS #0 tabs 10/18/22 11/04/22 docusate sodium 100 mg capsule 100 mg PO TID PRN PRN #0 caps 10/18/22 11/04/22 (Colace) naproxen 500 mg tablet 500 mg PO BID #0 tabs 10/18/22 10/19/22 tramadol 50 mg tablet 50 mg PO Q6H PRN PRN #0 tabs 10/18/22 11/04/22 [id number] 24 See Rx Instructions PO .COMPLEX PRN 10/30/22 11/04/22/ gram oral gel (Insta-Glucose (with dextrin)) glucagon HCl 1 mg solution for 1 mg subcut Q20M PRN 10/30/22 11/04/22 injection (Glucagon (HCl) Emergency Kit) Previous Rx's Medication Instructions Recorded carvedilol 25 mg tablet 25 mg PO BID 07/12/17 clopidogrel 75 mg tablet (Plavix) 75 mg PO DAILY 07/12/17 cyanocobalamin (vitamin B-12) 1,000 mcg (0.4 x 2,500 mcg) PO 07/12/17 2,500 mcg chewable tablet DAILY ##30 rosuvastatin 10 mg tablet (Crestor) 40 mg (4 x 10 mg) PO QPM 07/12/17 amlodipine 2.5 mg tablet 2.5 mg PO DAILY #30 tabs 07/11/19 metformin 500 mg tablet 1,000 mg (2 x 500 mg) PO BID #120 09/29/21 tabs benzonatate 100 mg capsule 100 mg PO TID PRN PRN cough #30 02/07/22 caps guaifenesin 600 mg tablet, 600 mg PO BID PRN PRN cough #20 02/07/22 extended release 12 hr (Mucinex) tabs lidocaine 5 % topical patch 1 patch topical Q24H #15 ea 02/07/22 acetaminophen 500 mg tablet 1,000 mg (2 x 500 mg) PO TID #0 10/18/22 tabs clonazepam 0.5 mg tablet 0.5 mg PO HS #0 tabs 10/18/22 docusate sodium 100 mg capsule 100 mg PO TID PRN PRN #0 caps 10/18/22 (Colace) naproxen 500 mg tablet 500 mg PO BID #0 tabs 10/18/22 tramadol 50 mg tablet 50 mg PO Q6H PRN PRN #0 tabs 10/18/22 Allergies Allergy/AdvReac Type Severity Reaction Status Date / Time atorvastatin calcium Allergy Diarrhea Unverified 12/19/23 11:31 [From Lipitor] Pork/Porcine Containing Allergy Other (See Verified 12/19/23 11:31 Products Comment) quetiapine AdvReac Severe Psychosis Verified 03/21/24 11:31 General Stated Complaint: Chest Pain WINSOME: 3 Review of Systems All systems reviewed & are unremarkable except as noted in HPI and below Constitutional Constitutional: Denies chills, Denies fever(s) and Denies weakness Cardiovascular Cardiovascular: Reports chest pain and Reports dyspnea Respiratory Respiratory: Denies cough and Reports dyspnea Gastrointestinal Gastrointestinal: Reports abdominal pain, Denies nausea and Denies vomiting Musculoskeletal Musculoskeletal: Denies joint swelling Neurologic Neurologic: Denies weakness Endocrine Endocrine: Denies cold intolerance Exam Const General: no acute distress Orientation: alert HENSD Head: normal to inspection Ears: external ears normal General nose exam: external nose normal Mouth: moist mucous membranes Eyes General: appearance normal, both eyes and all related structures Neck Neck: normal visual inspection Chest Chest: normal inspection of the chest Resp Effort & Inspection: normal respiratory effort and able to speak in complete sentences Auscultation: clear to auscultation bilaterally Cardio Rate: regular rate Heart Sounds: no murmurs GI Palpation: soft and tender Skin General skin exam: no rashes or lesions noted Neuro General: patient alert and patient oriented x3 Extrem General: normal to inspection Psych Mental Status: mental status grossly normal Course Vital Signs Vital signs: Vital Signs Temperature 36.8 C 12/19/23 09:36 Pulse 88 12/19/23 09:36 Respiratory Rate 18 12/19/23 09:36 Blood Pressure 161/86 H 12/19/23 09:36 Pulse Oximetry 89 L 12/19/23 09:36 Temperature 36.8 C 12/19/23 09:36 Temperature Source Temporal Artery Scan 12/19/23 09:36 Pulse 88 12/19/23 09:36 Respiratory Rate 16 12/19/23 09:52 Respiratory Effort Normal 12/19/23 09:52 Respiratory Depth Normal 12/19/23 09:52 Blood Pressure 161/86 H 12/19/23 09:36 Pulse Oximetry 89 L 12/19/23 09:36 Oxygen Delivery Method Room Air 12/19/23 09:36 Oxygen Flow Rate 0 12/19/23 09:36 Lab/Test Results Lab/Test Results: Laboratory Tests Range/Units 12/19/23 09:52 WBC (4.4-10.8) 10^3/uL 5.83 RBC (3.93-5.22) 10^6/uL 4.83 Hgb (11.2-15.7) g/dL 13.7 Hct (36.0-46.0) % 41.9 MCV (80-95) fL 87 MCH (27.0-33.0) pg 28.4 MCHC (32.0-36.0) % 32.7 RDW (11.7-14.6) % 12.8 Plt Count (130-400) 10^3/uL 278 MPV (8.0-11.0) fL 9.3 Immature Gran % 0.2 Neutrophils % 43.7 Lymphocytes % 40.1 Monocytes % 12.0 Eosinophils % 3.3 Basophils % 0.7 Nucleated RBC % (0.0-0.3) % 0.0 Absolute Neutrophils (1.2-6.7) 10^3/uL 2.55 Absolute Lymphocytes (1.2-3.4) 10^3/uL 2.34 Absolute Monocytes (0.1-0.8) 10^3/uL 0.70 Absolute Eosinophils (0.0-0.7) 10^3/uL 0.19 Absolute Basophils (0.0-0.2) 10^3/uL 0.04 VBG pH (7.31-7.41) 7.42 H VBG pCO2 (41-51) mmHg 36 L VBG pO2 mmHg 64 VBG HCO3 (23-28) mmol/L 23 VBG Total CO2 (24-29) mmol/L 21 L VBG O2 Saturation % 93 VBG Base Excess (-2-3) mmol/L -1 Medical Decision Making 88-year-old female with a history of hypertension, coronary artery disease, diabetes, who comes in with EMS with a week of intermittent chest pain and shortness of breath along with left upper abdominal pain. She went back home from rehab in October and over the last few weeks has had increasing general malaise and had a few falls. The patient is not Tongan-speaking, offered a virtual mat man but she declined and preferred to have her daughter interpret. Daughter states that she was with her when she had these falls and was slowly lowered to the ground she did not fall or strike her head. Patient currently does not have any chest pain, she does have some tenderness in the left upper abdomen, no wheezing on lung exam is noted to be 89% on room air. Unclear etiology for her symptoms we will proceed with troponin, CBC, CMP, lipase and obtain CTA of the chest to evaluate for PE and CT abdomen pelvis given her left upper abdominal pain. Daughter does state that yesterday she did appear yellow but today has no evidence of jaundice on exam. Labs and imaging all unremarkable, no significant changes from baseline. Bilirubin normal. Will obtain delta troponin, patient now has no pain and feels well is laughing and talking with her family. Delta troponin negative, patient remains asymptomatic, room air sats now 95% on room air. Discussed results with patient and do not feel I have a medical reason to keep her in the hospital. I did offer to have physical therapy evaluate the patient while she was here in the emergency department determine if she would benefit from rehab. Patient's daughter adamantly refused this. I also offered to have home health PT see her which the patient's daughter also refused. Patient's daughter was very argumentative than with any recommendations or offers for help. Explained numerous times I did not have a medical reason to admit her to the hospital but did offer again to have physical therapy and care management evaluate her to determine if she would benefit from rehab placement which the patient and patient's daughter again refused multiple times. I did advise she follow-up with her primary care provider and return precautions given Differential Diagnosis Differential Diagnosis: NSTEMI, pneumonia, PE Medical Records Medical records reviewed: Yes I reviewed the patient's medical records. Lab Data Lab results reviewed: Yes I reviewed the patient's lab results. ECG Data Attestation: I personally reviewed and interpreted this ECG (s) as follows: Prior ECG tracings: available for review Interpretation: Sinus rhythm, rate of 83, MI 208, no significant changes from prior EKG no STEMI Quality:SDOH Health Related Social Needs: No Data to Display [facility] All Active Problems (Updated 12/19/23 @ 13:38 by Jerel Panchal MD) Upper abdominal pain (Acute) Advance care planning (Acute) Nausea (Acute) Full code status (Acute) Lumbar spinal stenosis (Chronic) Falls (Acute) Weakness (Acute) COVID-19 (Acute) UTI (urinary tract infection) (Acute) Pre-syncope (Acute) HTN (hypertension) (Chronic) TIA (transient ischemic attack) (Acute) ?2017 Primary osteoarthritis of left knee (Chronic) Injected: 03/02/2019 Primary osteoarthritis of right knee (Chronic) Injected: 03/02/2019 Diabetes (Chronic) Anxiety (Chronic) CAD (coronary artery disease) (Chronic) Vertigo (Acute) Syncope (Acute) Abnormal flushing and sweating (Acute) Chest pain (Acute) Cough (Acute) Abnormal result on screening urine test (Acute) Medical History (Updated 12/19/23 @ 13:38 by Jerel Panchal MD) Resides in retirement facility Palliative care encounter Iron deficiency anemia Hypothyroidism Asthma Hyperlipidemia Seizures ?2017 Surgical History History of coronary artery stent placement Family History Mother Stroke Father Heart disease Social History Smoking/Tobacco Use Status: Never Smoking risk assessment performed?: Yes Alcohol Intake: never Drug use: Never Substance use type: does not use and former substance user Household members: children Housing: house Number of Children: 2 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 She does not speak Tongan. She lives with her daughter. She has two children, both here in the [place] and locally in [place]. She is . 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 POCUS Exam (ED) Limited Cardiac Exam DATE OF EXAM: 12/19/23 TIME OF EXAM: 10:04 PROVIDER THAT PERFORMED THE STUDY: Jerel Panchal IS THIS A REPEAT EXAM DURING THIS ENCOUNTER: no REASON FOR EXAM: Chest pain and Dyspnea VISUALIZED STRUCTURES: Left ventricle and Right ventricle VIEW OBTAINED: Parasternal long-axis PERTINENT FINDINGS/IMPRESSION: No LV dysfunction and No pericardial effusion Exam complete
[2023-12-19 10:15] LABS: INR 1.1 (0.9-1.1); PTT Activated 25.3 sec (23.6-32.8); Prothrombin Time 11.2 sec (9.1-11.1)
[2023-12-19 10:28] LABS: ALT 31 U/L (14-59); AST 21 U/L (15-37); Albumin 3.5 g/dL (3.4-5.0); Alkaline Phosphatase 87 U/L (46-116); Anion Gap 12.2 mmol/L (3-11); BUN 19 mg/dL (7-18); Bilirubin, Direct 0.1 mg/dL (0.0-0.2); Bilirubin, Total 0.4 mg/dL (0.2-1.0); CO2 23.8 mmol/L (21.0-32.0); CREATININE 1.2 mg/dL (0.55-1.02); Calcium 9.2 mg/dL (8.5-10.1); Chloride 99 mmol/L (98-107); Estimated GFR 44.08 (mL/min/1.73m2); Glucose 302 mg/dL (74-106); Lipase 36 U/L (16-77); Magnesium 1.9 mg/dL (1.8-2.4); NT-proBNP 78 pg/mL (<300); Potassium 4.7 mmol/L (3.5-5.1); Sodium 135 mmol/L (136-145); Total Protein 7.4 g/dL (6.4-8.2); Troponin I < 50 ng/L (< or =60)
[2023-12-19 10:54] LABS: Source Nasal/Nares
[2023-12-19 11:26] LABS: COVID-19 PCR Negative (Negative)
[2023-12-19] MEDS: Normal Saline - Diluent 50 ML VIAL IV (12:35)
[2023-12-19] MEDS: Omnipaque 350 MG/ML 100 ML BTL IJ (12:36)
[2023-12-19 13:26] LABS: Troponin I < 50 ng/L (< or =60)
[2023-12-19 14:26] LABS: Bilirubin Negative (Negative); Blood Trace-intact (Negative); Clarity Clear (Clear); Glucose Negative (Negative); Ketones Negative (Negative); Leukocyte Esterase Negative (Negative); Nitrite Negative (Negative); Specific Gravity 1.015 (1.005-1.025); Urobilinogen 0.2 mg/dL (Up to 0.2); pH 6.5 (5-8)
[2023-12-19 14:29] LABS: Bacteria Rare HPF (Negative); C & S Indicated? No; Casts Negative LPF (Negative); Crystals Negative HPF (Negative); Epithelial Cells Rare HPF (Negative); Mucus Trace (Negative); WBC 0-2 HPF (0-5)
== END 2023-12-19 14:23 | disposition home or self-care (01) ==
PROVIDERS: Emergency Provider Emergency Medicine; PCP Family Medicine
DX: R10.10 Upper abdominal pain, unspecified (principal); E78.5 Hyperlipidemia, unspecified; I10 Essential (primary) hypertension; I25.10 Atherosclerotic heart disease of native coronary artery without angina pectoris; I44.4 Left anterior fascicular block; E11.9 Type 2 diabetes mellitus without complications; Z86.73 Personal history of transient ischemic attack (TIA), and cerebral infarction without residual deficits; Z79.84 Long term (current) use of oral hypoglycemic drugs; Z79.4 Long term (current) use of insulin; Z95.5 Presence of coronary angioplasty implant and graft
CPT/HCPCS: 71275; 74177; 80053; 82805; 82962; 83690; 87635; 93005; 93308; 99285; 81003; 81015; 82248; 83735; 83880; 84484; 85025; 85610; 85730; 93010; 99284; J3490

== ENCOUNTER 2023-12-31 10:18 | Emergency (ER) | payer MEDICARE, MEDICAID, SELFPAY ==
[2023-12-31] VITALS (16 sets, daily range): BP systolic 132–182; BP diastolic 64–102; PULSE 74–91; RESP 16; TEMP 36.8; O2SAT 81–94
--- NOTE | 2023-12-31 10:00 | RT.EKG_ITS ---
APPROVED REPORT Exam: Resting ECG Reason for Exam: falls Patient Location: E HR:80 bpm ECG Measurements Heart Rate 80 AXIS SC 206 P 29 QRSd 93 QRS -76 QT 386 T 9 QTc 446 Conclusion Sinus rhythm...normal P axis, V-rate 60- 99 Inferior infarct, old...Q >35mS, II III aVF Consider anterior infarct...Q >30mS in V2-V5
--- NOTE | 2023-12-31 10:15 | DI.CT_ITS ---
Exam(s) CT HEAD CERVICAL SPINE WO EXAM: CT HEAD CERVICAL SPINE WO CLINICAL HISTORY: fall. TECHNIQUE: Imaging Protocol: Axial computed tomography images with coronal and sagittal reformatted images were created and reviewed COMPARISON: CT CT HEAD WO from 10/13/2022 FINDINGS: BRAIN: There are no skull fractures nor fluid in the visualized paranasal sinuses. There is no evidence of intracranial hemorrhage, mass effect, or shift of midline structures. There are no extra-axial fluid collections. The ventricles are not enlarged or shifted and there is no blo od within the ventricular system nor within the basal cisterns. Bilateral periventricular white matter hypodensity again noted consistent with chronic small vessel d isease. Calcific the internal carotid and vertebral arteries at the skull base is again noted. CERVICAL SPINE: No evidence of acute fracture. There is mild degenerative anterolisthesis of C4 upon C5 related to f acet arthropathy. There is preserved disc height at each level in the cervical spine in this elderly patient There is multilevel facet arthropathy evident. There is no significant facet joint malalignment. No significant osseous lesions evident. IMPRESSION: No acute intracranial findings on this noninfused CT scan of the brain. No evidence of cervical spine fracture, malalignment, nor acute compromise of the cervical spinal can al. Called by myself to ER RADIATION DOSE DELIVERED: Total DLP DATA REPOSITORY: All CT scans at this facility are submitted to the National Radiology Data Registry (NRDR) Dose Index Registry (DIR) with the [employer] (A[employer]). RADIATION OPTIMIZATION: All CT scans at this facility use at least one of these dose optimization te chniques: automated exposure control; mA and/or kV adjustment per patient size (includes targeted exa ms where dose is matched to clinical indication); or iterative reconstruction.
--- NOTE | 2023-12-31 10:20 | ED.GENADUL_ITS ---
Discharge Plan Disposition Patient Disposition: [facility](SNF) Condition: Stable Discharge Details Clinical Impression: General weakness, Falls Primary Care Provider: Yarely Lagos ED Provider: Jerel Panchal [place] Meds and New Rx's Prescriptions: No Action glucagon HCl [Glucagon (HCl) Emergency Kit] 1 mg recon soln 1 mg subcut Q20M PRN Rx Instructions: until target blood sugar attained Insta-Glucose (with dextrin) 24 gram/31 gram gel See Rx Instructions PO .COMPLEX PRN Rx Instructions: orally swallow contents of entire tube; may swallow contents of another tube if no response after 10 minutes PO PRN; levetiracetam [Keppra] 750 mg tablet 750 mg PO BID All Day Allergy (cetirizine) 10 mg capsule 10 mg PO DAILY PRN ergocalciferol (vitamin D2) 400 UNIT tablet 400 units PO DAILY furosemide 20 mg tablet 20 mg PO DAILY metformin 500 mg tablet 1,000 mg PO BID Qty: 120 0RF sertraline 50 MG tablet 50 mg PO DAILY nitroglycerin 0.4 MG tablet, sublingual 0.4 mg Sublingual PRN PRN carvedilol 25 MG tablet 25 mg PO BID 0RF clopidogrel [Plavix] 75 MG tablet 75 mg PO DAILY 0RF rosuvastatin [Crestor] 10 MG tablet 40 mg PO QPM 0RF cyanocobalamin (vitamin B-12) 2,500 MCG tablet,chewable 1,000 mcg PO DAILY Qty: 30 0RF amlodipine 2.5 mg Tablet 2.5 mg PO DAILY Qty: 30 0RF esomeprazole magnesium [Nexium] 20 mg Capsule,Delayed Release(Dr/Ec) 40 mg PO QDAY lidocaine 5 % Adhesive Patch,Medicated 1 patch topical Q24H Qty: 15 0RF Rx Instructions: apply to painful area on back tramadol 50 mg Tablet 50 mg PO Q6H PRN PRNQty: 0 0RF docusate sodium [Colace] 100 mg Capsule 100 mg PO TID PRN PRNQty: 0 0RF clonazepam 0.5 MG tablet 0.5 mg PO HS Qty: 0 0RF baclofen 10 mg tablet 10 mg PO DAILY acetaminophen 500 mg Tablet 1,000 mg PO TID PRN naproxen 500 mg Tablet 500 mg PO BID PRN HPI General Mode of arrival: EMS . Date/Time Provider Initiated Documentation: 12/31/23 10:24 . Limitations to Documentation: language barrier . Information obtained by: patient and family . History of Present Illness 88 year old F presents to the emergency department with the chief complaint of falls, described as moderate, Patient started experiencing this week(s) (1) and it has been constant. No relieving factors improve symptom(s), No e xacerbating factors reported . Patient notes no other symptoms.. Patient did receive the following treatments prior to arrival, none Related Data Home Medications Medication Instructions Recorded Confirmed sertraline 50 mg tablet 50 mg PO DAILY 05/04/13 12/31/23 nitroglycerin 0.4 mg sublingual 0.4 mg sublingual PRN PRN 08/31/13 12/31/23 tablet ergocalciferol (vitamin D2) 10 mcg 400 units PO DAILY 05/13/15 12/31/23 (400 unit) tablet carvedilol 25 mg tablet 25 mg PO BID 07/12/17 12/31/23 clopidogrel 75 mg tablet (Plavix) 75 mg PO DAILY 07/12/17 12/31/23 cyanocobalamin (vitamin B-12) 1,000 mcg (0.4 x 2,500 mcg) PO 07/12/17 12/31/23 2,500 mcg chewable tablet DAILY ##30 rosuvastatin 10 mg tablet (Crestor) 40 mg (4 x 10 mg) PO QPM 07/12/17 12/31/23 amlodipine 2.5 mg tablet 2.5 mg PO DAILY #30 tabs 07/11/19 12/31/23 esomeprazole magnesium 20 mg 40 mg PO QDAY 11/09/20 12/31/23 capsule,delayed release (Nexium) furosemide 20 mg tablet 20 mg PO DAILY 05/17/21 12/31/23 cetirizine 10 mg capsule (All Day 10 mg PO DAILY PRN 06/22/21 12/31/23 Allergy (cetirizine)) levetiracetam 750 mg tablet 750 mg PO BID 06/22/21 12/31/23 (Keppra) metformin 500 mg tablet 1,000 mg (2 x 500 mg) PO BID #120 09/29/21 12/31/23 tabs lidocaine 5 % topical patch 1 patch topical Q24H #15 ea 02/07/22 12/31/23 clonazepam 0.5 mg tablet 0.5 mg PO HS #0 tabs 10/18/22 12/31/23 docusate sodium 100 mg capsule 100 mg PO TID PRN PRN #0 caps 10/18/22 12/31/23 (Colace) tramadol 50 mg tablet 50 mg PO Q6H PRN PRN #0 tabs 10/18/22 12/31/23 [id number] 24 See Rx Instructions PO .COMPLEX PRN 10/30/22 12/31/23/ gram oral gel (Insta-Glucose (with dextrin)) glucagon HCl 1 mg solution for 1 mg subcut Q20M PRN 10/30/22 12/31/23 injection (Glucagon (HCl) Emergency Kit) acetaminophen 500 mg tablet 1,000 mg PO TID PRN 12/31/23 12/31/23 baclofen 10 mg tablet 10 mg PO DAILY 12/31/23 12/31/23 naproxen 500 mg tablet 500 mg PO BID PRN 12/31/23 12/31/23 Previous Rx's Medication Instructions Recorded carvedilol 25 mg tablet 25 mg PO BID 07/12/17 clopidogrel 75 mg tablet (Plavix) 75 mg PO DAILY 07/12/17 cyanocobalamin (vitamin B-12) 1,000 mcg (0.4 x 2,500 mcg) PO 07/12/17 2,500 mcg chewable tablet DAILY ##30 rosuvastatin 10 mg tablet (Crestor) 40 mg (4 x 10 mg) PO QPM 07/12/17 amlodipine 2.5 mg tablet 2.5 mg PO DAILY #30 tabs 07/11/19 metformin 500 mg tablet 1,000 mg (2 x 500 mg) PO BID #120 09/29/21 tabs lidocaine 5 % topical patch 1 patch topical Q24H #15 ea 02/07/22 clonazepam 0.5 mg tablet 0.5 mg PO HS #0 tabs 10/18/22 docusate sodium 100 mg capsule 100 mg PO TID PRN PRN #0 caps 10/18/22 (Colace) tramadol 50 mg tablet 50 mg PO Q6H PRN PRN #0 tabs 10/18/22 Allergies Allergy/AdvReac Type Severity Reaction Status Date / Time atorvastatin calcium Allergy Diarrhea Unverified 12/31/23 10:17 [From Lipitor] Pork/Porcine Containing Allergy Other (See Verified 12/31/23 10:17 Products Comment) quetiapine AdvReac Severe Psychosis Verified 12/31/23 10:17 General Stated Complaint: GenMedical WINSOME: 3 Review of Systems All systems reviewed & are unremarkable except as noted in HPI and below Constitutional Constitutional: Denies chills, Denies fever(s) and Reports weakness Eyes Eyes: Denies loss of vision Cardiovascular Cardiovascular: Denies chest pain and Denies dyspnea Respiratory Respiratory: Denies cough and Denies dyspnea Gastrointestinal Gastrointestinal: Denies abdominal pain, Denies nausea and Denies vomiting Musculoskeletal Musculoskeletal: Denies joint swelling Neurologic Neurologic: Denies loss of vision and Reports weakness Exam Const General: no acute distress Orientation: alert HENMT Head: normal to inspection Ears: external ears normal General nose exam: external nose normal Mouth: moist mucous membranes Eyes General: appearance normal, both eyes and all related structures Neck Neck: normal visual inspection Resp Effort & Inspection: normal respiratory effort and able to speak in complete sentences Auscultation: clear to auscultation bilaterally Cardio Rate: regular rate Heart Sounds: no murmurs GI Palpation: soft and nontender Skin General skin exam: no rashes or lesions noted Neuro General: patient alert and patient oriented x3 Extrem General: normal to inspection Psych Mental Status: mental status grossly normal Course Vital Signs Vital signs: Vital Signs Temperature 36.8 C 12/31/23 10:11 Pulse 79 12/31/23 10:11 Respiratory Rate 16 12/31/23 10:11 Blood Pressure 154/96 H 12/31/23 10:11 Pulse Oximetry 93 12/31/23 10:11 Temperature 36.8 C 12/31/23 10:11 Pulse 79 12/31/23 10:11 Respiratory Rate 16 12/31/23 10:11 Blood Pressure 154/96 H 12/31/23 10:11 Pulse Oximetry 93 12/31/23 10:11 Medical Decision Making 88-year-old female with a history of hypertension, TIA, diabetes, who comes in with EMS after several falls over the last week or so. She was seen in November for similar complaints and had reassuring labs and imaging, declined to have PT evaluate her at that time. 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 Daughter states she has been generally weak and having high blood sugars at home as well. Patient is alert and in no distress on arrival, stable vital signs, no focal deficits. She has no chest or abdominal tenderness, denies any back pain. No chest pain. Given her age and repeated falls will obtain CT head and C-spine to rule out acute traumatic injuries, and obtain screening labs including CBC, CMP, UA, Fluvid and reassess. She had a CTA of her chest and abdomen pelvis CT done when she was here in November which did not show any acute findings so doubt PE, and given lack of abdominal tenderness doubt surgical pathology at this time. Labs and imaging unremarkable, x-rays read as subtle haziness in right lower lobe, patient has not had a cough no fevers no leukocytosis and reassuring procalcitonin so doubt pneumonia. Patient stable, will have physical therapy and care management evaluate. PT evaluated patient and advised recommending inpatient rehab as she is a two- person assist. Care management advised may be able to get her to rehab today Differential Diagnosis Differential Diagnosis: ambulatory dysfunction, anemia, uti Medical Records Medical records reviewed: Yes I reviewed the patient's medical records. Imaging Data Radiologic Study: Attestation: I personally reviewed and interpreted this imaging study as follows: Imaging: X-Ray My impression: No acute findings Radiologic Study #2: Attestation: I personally reviewed and interpreted this imaging study as follows: Imaging: CT Scan Radiologist's impression: No acute findings Lab Data Lab results reviewed: Yes I reviewed the patient's lab results. ECG Data Attestation: I personally reviewed and interpreted this ECG (s) as follows: Prior ECG tracings: available for review Interpretation: Sinus rhythm, rate of 80, SD 206, no STEMI. Quality:SDOH Health Related Social Needs: No Data to Display [facility] All Active Problems (Updated 12/31/23 @ 14:03 by Jerel Panchal MD) Falls (Acute) General weakness (Acute) Upper abdominal pain (Acute) Advance care planning (Acute) Nausea (Acute) Full code status (Acute) Lumbar spinal stenosis (Chronic) Falls (Acute) Weakness (Acute) COVID-19 (Acute) UTI (urinary tract infection) (Acute) Pre-syncope (Acute) HTN (hypertension) (Chronic) TIA (transient ischemic attack) (Acute) ?2017 Primary osteoarthritis of left knee (Chronic) Injected: 03/02/2019 Primary osteoarthritis of right knee (Chronic) Injected: 03/02/2019 Diabetes (Chronic) Anxiety (Chronic) CAD (coronary artery disease) (Chronic) Vertigo (Acute) Syncope (Acute) Abnormal flushing and sweating (Acute) Chest pain (Acute) Cough (Acute) Abnormal result on screening urine test (Acute) Medical History (Updated 12/31/23 @ 14:03 by Jerel Panchal MD) Resides in snf facility Palliative care encounter Iron deficiency anemia Hypothyroidism Asthma Hyperlipidemia Seizures ?2017 Surgical History History of coronary artery stent placement Family History Mother Stroke Father Heart disease Social History Smoking/Tobacco Use Status: Never Smoking risk assessment performed?: Yes Alcohol Intake: never Drug use: Never Substance use type: 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 She does not speak Maltese. She lives with her daughter. She has two children, both here in the [facility] and locally in [place]. She is . 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
--- NOTE | 2023-12-31 10:25 | DI.RAD_ITS ---
Exam(s) XR CHEST 2V PA LATERAL EXAM: XR CHEST 2V PA LATERAL CLINICAL HISTORY: ?pneumonia. TECHNIQUE: 2D digital imaging was performed. COMPARISON: CR,XR XR CHEST 1V IN DI DEPT from 10/13/2022 FINDINGS: 2 views: Mild cardiomegaly again noted. Mediastinum not widened. Left lung is clear. There is subtle hazine ss in the right lower lobe region. No pleural effusions. No pulmonary edema. IMPRESSION: Possible subtle infiltrate in the right lung. If clinically indicated follow-up CT scan can be perfo rmed for added sensitivity and specificity. DATA REPOSITORY: RADIATION DOSE DELIVERED:
[2023-12-31 10:53] LABS: BE (Venous) 4 mmol/L (-2-3); HCO3 (Venous) 28 mmol/L (23-28); O2 Sat (Venous) 84 %; TCO2 (Venous) 25 mmol/L (24-29); pCO2 (Venous) 41 mmHg (41-51); pH (Venous) 7.44 (7.31-7.41); pO2 (Venous) 47 mmHg
[2023-12-31 10:57] LABS: Abs Immature Grans 0.02 10^3/uL (0.0-0.06); Absolute Basophil Count 0.04 10^3/uL (0.0-0.2); Absolute Eosinophil Count 0.19 10^3/uL (0.0-0.7); Absolute Monocyte Count 0.89 10^3/uL (0.1-0.8); Absolute Neutrophil Count 5.42 10^3/uL (1.2-6.7); Basophils % 0.4; Eosinophils % 2.1; HCT 44.2 % (36.0-46.0); HGB 14.9 g/dL (11.2-15.7); Immature Grans % 0.2; Lymphocytes % 28.4; MCH 28.5 pg (27.0-33.0); MCHC 33.7 % (32.0-36.0); MCV 85 fL (80-95); MPV 9.5 fL (8.0-11.0); Monocytes % 9.7; Neutrophils % 59.2; Platelet Count 289 10^3/uL (130-400); RBC 5.22 10^6/uL (3.93-5.22); RDW 12.9 % (11.7-14.6); RDW-SD 39.4 fL; WBC 9.16 10^3/uL (4.4-10.8)
[2023-12-31 11:13] LABS: INR 1.1 (0.9-1.1); PTT Activated 24.5 sec (23.6-32.8)
[2023-12-31 11:14] LABS: ALT 34 U/L (14-59); AST 19 U/L (15-37); Albumin 3.8 g/dL (3.4-5.0); Alkaline Phosphatase 87 U/L (46-116); Anion Gap 10.2 mmol/L (3-11); BUN 20 mg/dL (7-18); Bilirubin, Total 0.5 mg/dL (0.2-1.0); CO2 27.8 mmol/L (21.0-32.0); CREATININE 1.1 mg/dL (0.55-1.02); Calcium 10.2 mg/dL (8.5-10.1); Chloride 97 mmol/L (98-107); Estimated GFR 48.94 (mL/min/1.73m2); Glucose 352 mg/dL (74-106); Lipase 42 U/L (16-77); Magnesium 2.2 mg/dL (1.8-2.4); Potassium 4.5 mmol/L (3.5-5.1); Sodium 135 mmol/L (136-145); Total Protein 8.1 g/dL (6.4-8.2); Troponin I < 50 ng/L (< or =60)
[2023-12-31 11:25] LABS: Procalcitonin 0.1 ng/mL
[2023-12-31 11:42] LABS: COVID-19 PCR Negative (Negative); Influenza A PCR Negative (Negative); Influenza B PCR Negative (Negative); RSV PCR Negative (Negative)
[2023-12-31 11:44] LABS: Source Nasopharynx
[2023-12-31 11:55] LABS: Bilirubin Negative (Negative); Blood Negative (Negative); Clarity Clear (Clear); Glucose 100 mg/dL (Negative); Ketones Negative (Negative); Leukocyte Esterase Negative (Negative); Nitrite Negative (Negative); Urobilinogen 0.2 mg/dL (Up to 0.2); pH 6.5 (5-8)
[2023-12-31 12:02] LABS: Bacteria Negative HPF (Negative); C & S Indicated? No; Casts 0-2 Hyaline LPF (Negative); Crystals Negative HPF (Negative); Epithelial Cells Rare HPF (Negative); Mucus Negative (Negative); RBC Negative HPF (0-2); WBC 0-2 HPF (0-5)
--- NOTE | 2023-12-31 13:26 | IN_ITS ---
PT Notes Visit Reasons: [facility]/weakness Emergency Department Physical Therapy Evaluation Date: 12/31/2023 Referring Doctor:?Jerel Panchal MD PT Orders: PT CONSULT: Fall Safety Assessment Precautions: Repeated falls. Activity as tolerated. Non-Sierra Leonean speaker. Patient Profile/Admitting Diagnosis:Deshaun Meyer is an 88-year-old female who presented to the ED on 12/31/2023 for increased confusion, repeated falls, inability of family memebers to provide level of care, and generalized weakness. Referral to physical therapy was made in order to assess mobility level and provide discharge recommendations. PMHx: All Active Problems (Updated 12/31/23 @ 14:03 by Jerel Panchal MD) Falls (Acute) General weakness (Acute) Upper abdominal pain (Acute) Advance care planning (Acute) Nausea (Acute) Full code status (Acute) Lumbar spinal stenosis (Chronic) Falls (Acute) Weakness (Acute) COVID-19 (Acute) UTI (urinary tract infection) (Acute) Pre-syncope (Acute) HTN (hypertension) (Chronic) TIA (transient ischemic attack) (Acute) ?2017 Primary osteoarthritis of left knee (Chronic) Injected: 03/02/2019 Primary osteoarthritis of right knee (Chronic) Injected: 03/02/2019 Diabetes (Chronic) Anxiety (Chronic) CAD (coronary artery disease) (Chronic) Vertigo (Acute) Syncope (Acute) Abnormal flushing and sweating (Acute) Chest pain (Acute) Cough (Acute) Abnormal result on screening urine test (Acute) Medical History (Updated 12/31/23 @ 14:03 by Jerel Panchal MD) [facility] Palliative care encounter Iron deficiency anemia Hypothyroidism Asthma Hyperlipidemia Seizures ?2017 Surgical History History of coronary artery stent placement Social History/Home Situation: Patient lives with her daughter Nadira and Nadira's family at daughter's house. Daughter Nadira is her primary caregiver. Son Misael lives close by and is available to help during emergencies. This patient has been known to this provider since 10 years ago through . Family has been very supportive and tried very best to hold onto their mother/patient as much as they could. Daughter's house is not handicap-accessible with 5 steps to enter with rails on B sides. Equipment Owned/DME: FWW Subjective:? Stated in Bosnian that she hurst everywhere. Son Misael and daughter Nadira were present and were asked to translate during the evaluation. Patient was agreeable to consult. Son and daughter both agree that they have not not able to take care of their mother as she had been falling more frequently and has needed assistance of two caregivers which they have not not regularly had at daughter's house. Daughter's has been on chemotherapy and has not been able to provide physical help. Son Misael stated that he currently has been unable to full help physically picking up his mother from the floor due to some health issues. Misael adds that patient has been falling 4-5x at home due to her B knees suddenly giving way. Nadira was saying that her mother's sugar has been high despite being on diabetic medications and that her mother's blood pressure has been high despite being on antihypertensives. Misael added that his mother seemed to be more confused these past 10 days. Objective:? General Observation: Resting in bed. ?Apperaign anxious.? Son Misael and daughter Nadira were willing to translate for this provider and for patient. Mental Status: Appears to be having difficulty understanding translation by son and daughter, needed instructions to be repeated. Pain: Moderate pain in B knees with short distance ambulation ROM: Right Upper Extremity: ? Shoulder Flexion lacks the last 25% of AROM. Shoulder abduction lacks the last 25% of AROM. Elbow flexion WFL. Wrist flexion WFL. Functional opening and closing of hand WFL. Left Upper Extremity:? Shoulder Flexion lacks the last 25% of AROM. Shoulder abduction lacks the last 25% of AROM. Elbow flexion WFL. Wrist flexion WFL. Functional opening and closing of hand WFL. Right Lower Extremity: Hip flexion lacks the last 25% of AROM. Hip abduction WFL. Knee flexion lacks the last 25% of AROM. Ankle dorsiflexion to neutral only. Ankle plantarflexion WFL. Left Lower Extremity: Hip flexion lacks the last 25% of AROM. Hip abduction WFL. Knee flexion lacks the last 25% of AROM. Ankle dorsiflexion to neutral only. Ankle plantarflexion WFL. Strength: Right Upper Extremity: Shoulder flexors 3-/5. Shoulder abductors 3-/5. Elbow flexors 4-/5. Elbow extensors 4-/5. Shroud Line Tier strong. Left Upper Extremity:Shoulder flexors 3-/5. Shoulder abductors 3-/5. Elbow flexors 4-/5. Elbow extensors 4-/5. Shroud Line Tier strong. Right Lower Extremity: Hip flexors 3-/5. Hip abductors 4-/5. Knee flexors 4-/5. Knee extensors 4-/5. Ankle dorsiflexors 2-/5. Ankle plantarflexors 4-/5. Left Lower Extremity: Hip flexors 3-/5. Hip abductors 4-/5. Knee flexors 4-/5. Knee extensors 4-/5. Ankle dorsiflexors 2-/5. Ankle plantarflexors 4-/5. Sensation:? Intact throughout the lower extremities as to pain and light touch Bed Mobility/Transfers: Moderate cueing provided for use of B hands as needed for support, movement sequence, AD management, and posture to reduce fall risk and minimize pain report Sit?stand:?moderate assist of 2 Stand?sit:?moderate assist of 2 Bed?chair:?moderate assist of 2 Gait:? Unable to take more than 3 small steps before she started to buckle. Deferred further ambulation assessment due to safety concerns and pain level in B knees. Balance:? Static Sitting: Fair Dynamic Sitting: Fair Static Standing: Poor Dynamic Standing:Unable Mobility Limitations Standardized Measure [facility] 6 clicks Basic Mobility Inpatient Short Form: Raw Score: 9? CMS Score: 81% disability ? ? 4-stage Balance test:? Deferred due to safety reasons Informed Consent/Education:? With assistance from son Misael for Bosnian language translation,?patient was instructed in purpose of PT consult. Both son and daughter are agreeable to placement in a [facility] at this time. Assessment:?? Requires assist of 2 for all bed mobility and transfers. Unsafe to be ambulated at this time. Patient has had steady decline in mobility level since this provider has first seen her about 10 years ago. Family has been a very good support until recently when it has become very challenging to take care of their mother. Her cognitive level has reportedly declined as well which has added to her increased fall risk. Mitch is an 88-year-old female who presented to the ED on 12/31/2023 for increased confusion, repeated falls, inability of family memebers to provide level of care, and generalized weakness. Referral to physical therapy was made in order to assess mobility level and provide discharge recommendations. Patient presents with clinical signs and symptoms consistent with current/admitting diagnoses that have resulted to mobility limitations, gait instability, generalized weakness, and overall ADL decline as demonstrated by the following impairment level findings: 1.? Decreased strength to B UE/LE major muscle groups 2.? Impaired standing balance 3.? Impaired activity tolerance 4.? Limitation of joint range of motion in B shoulders/ hips and ankles (chronic) 5.? Shortness of breath 6.? Generlized pain 7. Mild to moderate confusion Impairments are contributing to the following functional limitations: 1.? Decline in bed mobility skills 2.? Decline in transfer skills 3.? Difficulty with ambulation without assistive device and physical assistance 4.? Increased completion time for mobility ADL performance 5.? Increased risk for falls 6.? Difficulty with managing steps alone safely Patient is assessed as a 51821 high complexity based on the following: History: 88-year-old female with past medical history as indicated above Examination: Demonstrable impairment in strength, balance, and mobility level with underlying impairments and functional limitations as exhibited above as well as deficit score of819% utilizing the [facility] Mobility Inpatient Short Form Presentation: Evolving Decision Makin high complexity Goals: N/A. PT evalaution only. Plan of Care/Treatment Plan: Plan of care has been reviewed with the JOGGER OPERATOR providing the service under Physical Therapy direction. Initiate Physical Therapy intervention for strengthening, bed mobility, transfers, gait, stairs, balance training, use of assistive device at SNF. DISCHARGE RECOMMENDATIONS: [] ? Home with no services [] [] ? Home with services [] [] ? Home with outpatient PT [] [] ? SNF for continued rehabilitation based on ability to participate and progress [] ? [facility] [] [] ? SNF versus LTC based on ability to participate and progress [X] Short-term rehab vs. LTC placement depending on ability of family to provide continued support for patient at home TREATMENT CODE/TIME: 70426 x 25 minutes (13:26-13:51). Thank you for the opportunity to participate in the care of this patient. Dione Bruce PT, DPT, CLT [facility] [place], [place]
--- NOTE | 2023-12-31 17:09 | PDOC.CMPRO ---
Date of service: 12/31/23 Time of Service: 17:09 Care Management Progress Note Progress Note Text Progress Note Text: CM was requested to meet with Mitch and her family to discuss her plan of care. Per report, she is medically cleared, although her family is expressing concerns about her condition, and not being able to keep her safe at home. Mitch was lying in bed in ED room 1 when CM met with her. Her daughter, Keyshawn, her son, Misael, and her community outreach director from [facility], Leticia Sr, were present. Keyshawn expressed concern about her mother's current condition, stating that she was able to walk with a FWW, stand by assist, until she presented to the ED 10 days ago. 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 Keyshawn and Misael both expressed concern regarding their mother returning home, and are wanting their mother to be admitted to [facility] for further management. MUNA stated that per MD, she is medically cleared, and she is being closely monitored while in the ED. MUNA requested that PT evaluate her, which MD had already ordered. CM discussed this with Mitch and her family, who all agreed that she would work with PT. Leticia [facility] case management coordinator, stated that she does not feel that Keyshawn can take care of Mitch at this time due to her limited ambulation, which is a change from her baseline. MUNA explained the [facility] guidelines, stating that she would need to have a medical reason for admission to [facility]. MUNA discussed the option of Mitch going to rehab from the ED; everyone was in agreement with her going to short term rehab; Mitch provided permission to send her referral to [facility]. CM sent the referral, and Mitch was offered a bed at [facility] in [place], [place], using the [facility] waiver. MUNA used the in home nanny service to obtain consent from Mitch, and to explain her plan; she agreed to the plan of going to short term rehab in [place], [place]. MUNA coordinated admission and transportation to [facility] in [place], [place], for Mitch to have short term rehab prior to returning home into the care of her daughter, Keyshawn. She was transported via [facility] this afternoon at around 4:15pm. Misael was present for discharge, and will drive to [facility] to help with admission paperwork. MUNA notified Kulwant Leija, Risk Management, due to the concerns shared by Keyshawn and Misael, at [facility]'s request.
== END 2023-12-31 16:28 | disposition skilled nursing facility (03) ==
PROVIDERS: Emergency Provider Emergency Medicine; PCP Family Medicine
DX: E11.65 Type 2 diabetes mellitus with hyperglycemia (principal); R53.1 Weakness; I10 Essential (primary) hypertension; Z11.52 Encounter for screening for COVID-19; Z86.73 Personal history of transient ischemic attack (TIA), and cerebral infarction without residual deficits; Z95.5 Presence of coronary angioplasty implant and graft; Z79.84 Long term (current) use of oral hypoglycemic drugs; Z79.02 Long term (current) use of antithrombotics/antiplatelets
CPT/HCPCS: 36415; 80053; 82805; 82962; 83690; 84145; 87637; 93005; 97163; 99285; 70450; 71046; 72125; 81003; 81015; 83735; 84484; 85025; 85610; 85730; 93010; 99284

== ENCOUNTER 2024-03-09 13:12 | Outpatient (REF) | payer MEDICARE, MEDICAID, SELFPAY ==
[2024-03-09 14:46] LABS: Bilirubin Negative (Negative); Blood Trace-intact (Negative); Clarity Cloudy (Clear); Glucose Negative (Negative); Ketones Negative (Negative); Leukocyte Esterase Moderate (Negative); Nitrite Negative (Negative); Specific Gravity >= 1.030 (1.005-1.025); Urobilinogen 0.2 mg/dL (Up to 0.2)
[2024-03-09 15:11] LABS: C & S Indicated? C&S Done As Ordered; WBC >50 HPF (0-5)
== END 2024-03-09 13:13 | disposition home or self-care (01) ==
LOC: LBN 13:12
PROVIDERS: PCP Family Medicine; Visit Provider Nurse Practitioner Family
DX: E11.9 Type 2 diabetes mellitus without complications (principal)
CPT/HCPCS: 87077; 81003; 81015; 87086; 87186

== ENCOUNTER 2024-04-01 15:25 | Outpatient (REF) | payer MEDICARE, MEDICAID, SELFPAY ==
[2024-04-01 15:33] LABS: Abs Immature Grans 0.02 10^3/uL (0.0-0.06); Absolute Basophil Count 0.05 10^3/uL (0.0-0.2); Absolute Eosinophil Count 0.29 10^3/uL (0.0-0.7); Absolute Lymphocyte Count 2.72 10^3/uL (1.2-3.4); Basophils % 0.6 %; Eosinophils % 3.5 %; HCT 43.4 % (36.0-46.0); HGB 14.3 g/dL (11.2-15.7); Immature Grans % 0.2 %; Lymphocytes % 33.3 %; MCH 28.5 pg (27.0-33.0); MCHC 32.9 % (32.0-36.0); MCV 87 fL (80-95); MPV 10.1 fL (8.0-11.0); Monocytes % 14.7 %; Neutrophils % 47.7 %; Platelet Count 311 10^3/uL (130-400); RBC 5.01 10^6/uL (3.93-5.22); RDW 13.2 % (11.7-14.6); RDW-SD 41.4 fL; WBC 8.18 10^3/uL (4.4-10.8)
[2024-04-01 16:06] LABS: ALT 43 U/L (14-59); AST 25 U/L (15-37); Albumin 3.8 g/dL (3.4-5.0); Alkaline Phosphatase 97 U/L (46-116); Anion Gap 12.6 mmol/L (3-11); BUN 22 mg/dL (7-18); Bilirubin, Total 0.34 mg/dL (0.2-1.0); CO2 26.4 mmol/L (21.0-32.0); CREATININE 1.1 mg/dL (0.55-1.02); Chloride 100 mmol/L (98-107); Estimated GFR 48.94 (mL/min/1.73m2); Glucose 143 mg/dL (74-106); Potassium 4.4 mmol/L (3.5-5.1); Sodium 139 mmol/L (136-145); TSH 2.44 uIU/Ml (0.36-3.74); Total Protein 7.7 g/dL (6.4-8.2)
[2024-04-01 16:27] LABS: Hemoglobin A1C 7.2 % (<5.7)
== END 2024-04-01 15:26 | disposition home or self-care (01) ==
LOC: LBN 15:25
PROVIDERS: PCP Family Medicine; Visit Provider Family Medicine
DX: E11.9 Type 2 diabetes mellitus without complications (principal); E03.9 Hypothyroidism, unspecified; M62.81 Muscle weakness (generalized)
CPT/HCPCS: 80053; 83036; 84443; 85025

== ENCOUNTER 2024-04-06 18:39 | Outpatient (REF) | payer MEDICARE, MEDICAID, SELFPAY ==
[2024-04-06 20:41] LABS: Bilirubin Negative (Negative); Blood Trace-intact (Negative); Clarity Cloudy (Clear); Glucose Negative (Negative); Ketones Negative (Negative); Leukocyte Esterase Moderate (Negative); Nitrite Positive (Negative); Urobilinogen 0.2 mg/dL (Up to 0.2); pH 5.5 (5-8)
[2024-04-06 21:08] LABS: Bacteria Many HPF (Negative); C & S Indicated? C&S Done As Ordered; Crystals Negative HPF (Negative); Epithelial Cells Few HPF (Negative); Mucus Trace (Negative); Other Cells Rare Transitional (Negative); RBC 0-2 HPF (0-2); WBC >50 HPF (0-5)
== END 2024-04-06 18:40 | disposition home or self-care (01) ==
LOC: LBN 18:39
PROVIDERS: PCP Family Medicine; Visit Provider Nurse Practitioner Family
DX: R30.0 Dysuria (principal); N39.0 Urinary tract infection, site not specified
CPT/HCPCS: 87077; 81003; 81015; 87086; 87186

== ENCOUNTER 2024-08-31 13:30 | Emergency (ER) | payer MEDICARE, MEDICAID, SELFPAY ==
[2024-08-31] VITALS (16 sets, daily range): BP systolic 112–209; BP diastolic 61–92; PULSE 72–94; RESP 18–29; TEMP 35.8–37.1; O2SAT 90–99
[2024-08-31] MEDS: Albuterol/Ipratropium 3 ML UPD VIAL UPD (13:52)
[2024-08-31] MEDS: Sucralfate 1 GM TAB PO (13:53)
[2024-08-31 13:58] LABS: BE (Venous) 2 mmol/L (-2-3); HCO3 (Venous) 27 mmol/L (23-28); O2 Sat (Venous) 77 %; TCO2 (Venous) 24 mmol/L (24-29); pCO2 (Venous) 47 mmHg (41-51); pH (Venous) 7.37 (7.31-7.41); pO2 (Venous) 44 mmHg
[2024-08-31 13:59] LABS: Abs Immature Grans 0.03 10^3/uL (0.0-0.06); Absolute Basophil Count 0.02 10^3/uL (0.0-0.2); Absolute Eosinophil Count 0.43 10^3/uL (0.0-0.7); Absolute Lymphocyte Count 2.72 10^3/uL (1.2-3.4); Absolute Monocyte Count 1.62 10^3/uL (0.1-0.8); Absolute Neutrophil Count 5.79 10^3/uL (1.2-6.7); Basophils % 0.2 %; Eosinophils % 4.1 %; HCT 40.1 % (36.0-46.0); HGB 13.5 g/dL (11.2-15.7); Immature Grans % 0.3 %; Lymphocytes % 25.6 %; MCH 28.8 pg (27.0-33.0); MCHC 33.7 % (32.0-36.0); MCV 86 fL (80-95); MPV 9.3 fL (8.0-11.0); Monocytes % 15.3 %; Neutrophils % 54.5 %; Platelet Count 280 10^3/uL (130-400); RBC 4.69 10^6/uL (3.93-5.22); RDW 13.2 % (11.7-14.6); RDW-SD 41.5 fL; WBC 10.61 10^3/uL (4.4-10.8)
[2024-08-31 14:31] LABS: INR 1.1 (0.9-1.1); PTT Activated 26.3 sec (23.6-32.8); Prothrombin Time 10.9 sec (9.1-11.1)
[2024-08-31 14:33] LABS: Diff Comment Agrees w/ Instrument; RBC Morphology Normal
[2024-08-31 14:42] LABS: ALT 44 U/L (14-59); AST 26 U/L (15-37); Albumin 3.4 g/dL (3.4-5.0); Alkaline Phosphatase 111 U/L (46-116); Anion Gap 10.4 mmol/L (3-11); BUN 23 mg/dL (7-18); Bilirubin, Total 0.19 mg/dL (0.2-1.0); CO2 27.6 mmol/L (21.0-32.0); CREATININE 1.1 mg/dL (0.55-1.02); Chloride 101 mmol/L (98-107); Estimated GFR 48.63 (mL/min/1.73m2); Glucose 159 mg/dL (74-106); Lipase 46 U/L (<78); Potassium 4.4 mmol/L (3.5-5.1); Sodium 139 mmol/L (136-145); Total Protein 7.9 g/dL (6.4-8.2); Troponin I < 4 ng/L (<or=51)
[2024-08-31 14:58] LABS: Calcium 9.5 mg/dL (8.5-10.1)
[2024-08-31] MEDS: Omnipaque 350 MG/ML 100 ML BTL IJ (15:13)
[2024-08-31] MEDS: Normal Saline - Diluent 50 ML VIAL IJ (15:25)
[2024-08-31 15:26] LABS: Troponin I 4 ng/L (<or=51)
--- NOTE | 2024-08-31 15:30 | DI.CT_ITS ---
Exam(s) CT CHEST PE ABD PELVIS W EXAM: CT CHEST PE ABD PELVIS W CLINICAL HISTORY: left chest and epigastric pain, SOB, eval PE/pneum. TECHNIQUE: Imaging Protocol: Axial CT angiography was performed with multi-slice acquisition and mu lti-planar and/or 3D reconstructions. Computer aided detection (CAD) was utilized. CONTRAST MATERIAL: Intravenous: Omnipaque 350contrast volume:100 mL COMPARISON: CT CHEST WITHOUT CONTRAST from 03/01/[address] CHEST WO from 02/02/2022 FINDINGS: The examination is limited due to patient motion artifact. CHEST: Tracheobronchial tree: Patent where visualized. No evidence of bronchiectasis. Pulmonary parenchyma: No consolidation or dominant measurable mass. There is a stable 6 mm nodule in the left lower lobe (series 19, image 70). No follow-up is recommended. Pulmonary Arteries: No evidence of filling defect to suggest pulmonary emboli. Mediastinum and Shruthi: No dominant adenopathy or fluid collection. The esophagus is unremarkable. Visualized thyroid gland: Unremarkable. Pleura: No effusion or pneumothorax. Heart: The heart is not dilated. Three vessel coronary artery calcification is present. No pericardi al effusion. Aorta: Thoracic aorta non-dilated. Atherosclerotic calcification is present. Bones: Within normal limits for the patient's age. Soft tissues: Unremarkable. ABDOMEN: Liver: Normal density. No measurable mass. Portal, Superior Mesenteric, and Splenic Veins: Unremarkable. Gallbladder and Biliary Tract: Status post cholecystectomy. Pneumobilia is present. This is been pr esent in the past (CT scan of the chest from 02/02/2022). No significant biliary ductal dilatation. Pancreas: Normal density, no abnormal calcifications or inflammatory process. Spleen: Normal. Adrenals: No masses seen. Kidneys: Normal size, contour and axis. No radiodense stones or obstructive uropathy. There are bilat eral simple renal cysts. No follow-up is recommended. Abdominal Aorta: Abdominal portion non-dilated. Marked atherosclerotic calcification is seen. There is marked calcification at the origin of the superior mesenteric artery and the left renal artery. S ignificant stenosis is present. Bowel: There is diverticulosis of the colon without evidence of acute diverticulitis. There is no ev idence of bowel wall thickening or obstruction. There is a duodenal diverticulum adjacent to the melton creatic head. No evidence of appendicitis. Peritoneal Cavity: No ascites, collection or mesenteric inflammatory response. No free air. Lymph Nodes: Within normal limits. Bones: Within normal limits for the patient's age. There is grade 1 retrolisthesis of L2 on L3. Soft Tissues: Unremarkable. PELVIS: Bladder: Symmetric distention, no gross wall thickening. Reproductive Organs: Calcified uterine fibroids are present. Lymph Nodes: Within normal limits. Bones: Within normal limits. IMPRESSION: 1. No evidence of a pulmonary embolism or thoracic aortic aneurysm. 2. No acute pulmonary process. 3. No acute abdominal or pelvic process. 4. Extensive atherosclerotic disease in the abdomen with marked stenosis involving the superior mesen teric artery and the proximal left renal artery. RADIATION DOSE DELIVERED: 730.06mGy.cm Total DLP DATA REPOSITORY: All CT scans at this facility are submitted to the National Radiology Data Registry (NRDR) Dose Index Registry (DIR) with the [employer] (ACR). RADIATION OPTIMIZATION: All CT scans at this facility use at least one of these dose optimization te chniques: automated exposure control; mA and/or kV adjustment per patient size (includes targeted exa ms where dose is matched to clinical indication); or iterative reconstruction.
[2024-08-31 15:32] LABS: COVID-19 PCR Negative (Negative); Influenza A PCR Negative (Negative); Influenza B PCR Negative (Negative); RSV PCR Negative (Negative); Source Nasopharynx
--- NOTE | 2024-08-31 16:00 | W.ED.GENAD ---
Discharge Plan Disposition Patient Disposition: Admit to [facility] Condition: Stable Discharge Details Chief Complaint: Abd Prob Clinical Impression: Superior mesenteric artery stenosis, Abdominal pain, Elevated LDH Primary Care Provider: Yarely Lagos ED Provider: Steve Mcginins Home Meds and New Rx's Prescriptions: No Action glucagon HCl [Glucagon (HCl) Emergency Kit] 1 mg recon soln 1 mg subcut Q20M PRN Rx Instructions: until target blood sugar attained Insta-Glucose (with dextrin) 24 gram/31 gram gel See Rx Instructions PO .COMPLEX PRN Rx Instructions: orally swallow contents of entire tube; may swallow contents of another tube if no response after 10 minutes PO PRN; levetiracetam [Keppra] 750 mg tablet 750 mg PO BID All Day Allergy (cetirizine) 10 mg capsule 10 mg PO DAILY PRN ergocalciferol (vitamin D2) 400 UNIT tablet 400 units PO DAILY furosemide 20 mg tablet 20 mg PO DAILY metformin 500 mg tablet 1,000 mg PO BID Qty: 120 0RF sertraline 50 MG tablet 50 mg PO DAILY nitroglycerin 0.4 MG tablet, sublingual 0.4 mg Sublingual PRN PRN carvedilol 25 MG tablet 25 mg PO BID 0RF clopidogrel [Plavix] 75 MG tablet 75 mg PO DAILY 0RF rosuvastatin [Crestor] 10 MG tablet 40 mg PO QPM 0RF cyanocobalamin (vitamin B-12) 2,500 MCG tablet,chewable 1,000 mcg PO DAILY Qty: 30 0RF amlodipine 2.5 mg Tablet 2.5 mg PO DAILY Qty: 30 0RF esomeprazole magnesium [Nexium] 20 mg Capsule,Delayed Release(Dr/Ec) 40 mg PO QDAY tramadol 50 mg Tablet 50 mg PO Q6H PRN PRNQty: 0 0RF docusate sodium [Colace] 100 mg Capsule 100 mg PO TID PRN PRNQty: 0 0RF clonazepam 0.5 MG tablet 0.5 mg PO HS Qty: 0 0RF baclofen 10 mg tablet 10 mg PO DAILY acetaminophen 500 mg Tablet 1,000 mg PO TID PRN naproxen 500 mg Tablet 500 mg PO BID PRN HPI General Date/Time Provider Initiated Documentation: 08/31/24 13:41. HPI Narrative: This is an 89-year-old female with a past medical history of cholecystectomy, coronary artery disease on Plavix, hypertension, diabetes, high cholesterol, hypothyroidism, previous TIA, seizures on Keppra, weakness of the lower extremities, who [facility] to weakness of the lower extremities who presents today with her daughter for evaluation of left upper quadrant abdominal pain and acid like burning sensation for the past week. Patient and daughter state that it has been persistent gradually worsening. It is worse after meals. She has had a mild intermittent cough. No fever or chills otherwise. Patient denies any other complaints. She has been eating less because of this. She has had nausea but no vomiting. EMS was called and she was noted to have an O2 saturation around 92%. She was put on 2 L. She was brought to the ER for further assessment. Patient has no other complaints at this time. Related Data Home Medications ?Medication ?Instructions ?Recorded ?Confirmed sertraline 50 mg tablet 50 mg PO DAILY 05/04/13 12/31/23 nitroglycerin 0.4 mg sublingual 0.4 mg sublingual PRN PRN 08/31/13 08/31/24 tablet ergocalciferol (vitamin D2) 10 mcg 400 units PO DAILY 05/13/15 08/31/24 (400 unit) tablet carvedilol 25 mg tablet 25 mg PO BID 07/12/17 08/31/24 clopidogrel 75 mg tablet (Plavix) 75 mg PO DAILY 07/12/17 08/31/24 cyanocobalamin (vitamin B-12) 1,000 mcg (0.4 x 2,500 mcg) PO 07/12/17 08/31/24 2,500 mcg chewable tablet DAILY ##30 rosuvastatin 10 mg tablet (Crestor) 40 mg (4 x 10 mg) PO QPM 07/12/17 12/31/23 amlodipine 2.5 mg tablet 2.5 mg PO DAILY #30 tabs 07/11/19 08/31/24 esomeprazole magnesium 20 mg 40 mg PO QDAY 11/09/20 08/31/24 capsule,delayed release (Nexium) furosemide 20 mg tablet 20 mg PO DAILY 05/17/21 08/31/24 cetirizine 10 mg capsule (All Day 10 mg PO DAILY PRN 06/22/21 08/31/24 Allergy (cetirizine)) levetiracetam 750 mg tablet 750 mg PO BID 06/22/21 08/31/24 (Keppra) metformin 500 mg tablet 1,000 mg (2 x 500 mg) PO BID #120 09/29/21 08/31/24 tabs clonazepam 0.5 mg tablet 0.5 mg PO HS #0 tabs 10/18/22 08/31/24 docusate sodium 100 mg capsule 100 mg PO TID PRN PRN #0 caps 10/18/22 08/31/24 (Colace) tramadol 50 mg tablet 50 mg PO Q6H PRN PRN #0 tabs 10/18/22 08/31/24 [id number] 24 See Rx Instructions PO .COMPLEX PRN 10/30/22 08/31/24 gram oral gel (Insta-Glucose (with dextrin)) glucagon HCl 1 mg solution for 1 mg subcut Q20M PRN 10/30/22 08/31/24 injection (Glucagon (HCl) Emergency Kit) acetaminophen 500 mg tablet 1,000 mg PO TID PRN 12/31/23 08/31/24 baclofen 10 mg tablet 10 mg PO DAILY 12/31/23 12/31/23 naproxen 500 mg tablet 500 mg PO BID PRN 12/31/23 08/31/24 Previous Rx's ?Medication ?Instructions ?Recorded carvedilol 25 mg tablet 25 mg PO BID 07/12/17 clopidogrel 75 mg tablet (Plavix) 75 mg PO DAILY 07/12/17 cyanocobalamin (vitamin B-12) 1,000 mcg (0.4 x 2,500 mcg) PO 07/12/17 2,500 mcg chewable tablet DAILY ##30 rosuvastatin 10 mg tablet (Crestor) 40 mg (4 x 10 mg) PO QPM 07/12/17 amlodipine 2.5 mg tablet 2.5 mg PO DAILY #30 tabs 07/11/19 metformin 500 mg tablet 1,000 mg (2 x 500 mg) PO BID #120 09/29/21 tabs clonazepam 0.5 mg tablet 0.5 mg PO HS #0 tabs 10/18/22 docusate sodium 100 mg capsule 100 mg PO TID PRN PRN #0 caps 10/18/22 (Colace) tramadol 50 mg tablet 50 mg PO Q6H PRN PRN #0 tabs 10/18/22 Allergies Allergy/AdvReac Type Severity Reaction Status Date / Time atorvastatin calcium (From Allergy Diarrhea Unverified 08/31/24 13:35 Lipitor) Pork/Porcine Containing Allergy Other (See Verified 08/31/24 13:35 Products Comment) quetiapine AdvReac Severe Psychosis Verified 08/31/24 13:35 General Stated Complaint: Abd Prob WINSOME: 3 Review of Systems All systems reviewed & are unremarkable except as noted in HPI and below Exam Narrative Exam Narrative: 1.Const: Well-nourished, Well-developed, appearing stated age 2.Eyes: PERRL, no conjunctival injection, and symmetrical lids. 3.ENT: Atraumatic external nose and ears. Dry MM. Neck: Symmetric, trachea midline, No thyromegaly. 4.CVS: +S1/S2, Peripheral pulses 2+ and equal in all extremities. Brisk capillary refill in all extremities. 5.RESP: Unlabored respiratory effort. Clear to auscultation bilaterally. No wheezes rales or rhonchi 6.GI: Soft, nondistended, minimal left upper quadrant tenderness on palpation. No guarding or rebound. No diffuse pain throughout. No pain in the mid or lower abdomen. No pain out of proportion 7.MSK: Normocephalic/Atraumatic, Extremities w/o deformity or ttp No cyanosis or clubbing, Normal movement of all extremities 8.Skin: Warm, Dry. No rashes or lesions. 9.Neuro: supervisor edging II-XII grossly intact. Sensation grossly intact, no focal neurologic deficits. 10.Psych: (AAO) x3. Appropriate mood and affect Course Vital Signs Vital signs: Vital Signs Temperature 37.1 C 08/31/24 13:30 Pulse 81 08/31/24 13:30 Respiratory Rate 18 08/31/24 13:30 Blood Pressure 112/77 08/31/24 13:30 Pulse Oximetry 95 08/31/24 13:30 Temperature 37.1 C 08/31/24 13:30 Temperature Source Oral 08/31/24 13:30 Pulse 74 08/31/24 14:01 Pulse 83 08/31/24 14:01 Respiratory Rate 21 08/31/24 14:01 Respiratory Effort Normal, Non-Labored 08/31/24 14:09 Blood Pressure 165/81 H 08/31/24 14:01 Blood Pressure Mean 101 08/31/24 14:01 Pulse Oximetry 99 08/31/24 14:01 Oxygen Delivery Method Nasal Cannula 08/31/24 13:52 Oxygen Flow Rate 2 08/31/24 13:52 Lab/Test Results Lab/Test Results: Laboratory Tests Range/Units 08/31/24 08/31/24 08/31/24 13:45 14:06 14:40 WBC (4.4-10.8) 10^3/uL 10.61 RBC (3.93-5.22) 10^6/uL 4.69 Hgb (11.2-15.7) g/dL 13.5 Hct (36.0-46.0) % 40.1 MCV (80-95) fL 86 MCH (27.0-33.0) pg 28.8 MCHC (32.0-36.0) % 33.7 RDW (11.7-14.6) % 13.2 Plt Count (130-400) 10^3/uL 280 MPV (8.0-11.0) fL 9.3 Immature Gran % % 0.3 Neutrophils % % 54.5 Lymphocytes % % 25.6 Monocytes % % 15.3 Eosinophils % % 4.1 Basophils % % 0.2 Nucleated RBC % (0.0-0.3) % 0.0 Absolute Neutrophils (1.2-6.7) 10^3/uL 5.79 Absolute Lymphocytes (1.2-3.4) 10^3/uL 2.72 Absolute Monocytes (0.1-0.8) 10^3/uL 1.62 H Absolute Eosinophils (0.0-0.7) 10^3/uL 0.43 Absolute Basophils (0.0-0.2) 10^3/uL 0.02 RBC Morphology Normal PT (9.1-11.1) sec 10.9 INR (0.9-1.1) 1.1 APTT (23.6-32.8) sec 26.3 VBG pH (7.31-7.41) 7.37 VBG pCO2 (41-51) mmHg 47 VBG pO2 mmHg 44 VBG HCO3 (23-28) mmol/L 27 VBG Total CO2 (24-29) mmol/L 24 VBG O2 Saturation % 77 VBG Base Excess (-2-3) mmol/L 2 Sodium (136-145) mmol/L 139 Potassium (3.5-5.1) mmol/L 4.4 Chloride (98-107) mmol/L 101 Carbon Dioxide (21.0-32.0) mmol/L 27.6 Anion Gap (3-11) mmol/L 10.4 BUN (7-18) mg/dL 23 H Creatinine (0.55-1.02) mg/dL 1.1 H Est GFR (CKD-EPI 2020) (mL/min/1.73m2) 48.63 Glucose (74-106) mg/dL 159 H Calcium (8.5-10.1) mg/dL 9.5 Total Bilirubin (0.2-1.0) mg/dL 0.19 L AST (15-37) U/L 26 ALT (14-59) U/L 44 Alkaline Phosphatase (46-116) U/L 111 Troponin I (<or=51) ng/L < 4 Total Protein (6.4-8.2) g/dL 7.9 Albumin (3.4-5.0) g/dL 3.4 Lipase (<78) U/L 46 COVID-19 Source Nasopharynx SARS-CoV-2 (PCR) (Negative) Negative Influenza Type A (PCR) (Negative) Negative Influenza Type B (PCR) (Negative) Negative RSV (PCR) (Negative) Negative Range/Units 08/31/24 08/31/24 14:50 16:42 WBC (4.4-10.8) 10^3/uL RBC (3.93-5.22) 10^6/uL Hgb (11.2-15.7) g/dL Hct (36.0-46.0) % MCV (80-95) fL MCH (27.0-33.0) pg MCHC (32.0-36.0) % RDW (11.7-14.6) % Plt Count (130-400) 10^3/uL MPV (8.0-11.0) fL Immature Gran % % Neutrophils % % Lymphocytes % % Monocytes % % Eosinophils % % Basophils % % Nucleated RBC % (0.0-0.3) % Absolute Neutrophils (1.2-6.7) 10^3/uL Absolute Lymphocytes (1.2-3.4) 10^3/uL Absolute Monocytes (0.1-0.8) 10^3/uL Absolute Eosinophils (0.0-0.7) 10^3/uL Absolute Basophils (0.0-0.2) 10^3/uL RBC Morphology PT (9.1-11.1) sec INR (0.9-1.1) APTT (23.6-32.8) sec VBG pH (7.31-7.41) VBG pCO2 (41-51) mmHg VBG pO2 mmHg VBG HCO3 (23-28) mmol/L VBG Total CO2 (24-29) mmol/L VBG O2 Saturation % VBG Base Excess (-2-3) mmol/L Sodium (136-145) mmol/L Potassium (3.5-5.1) mmol/L Chloride (98-107) mmol/L Carbon Dioxide (21.0-32.0) mmol/L Anion Gap (3-11) mmol/L BUN (7-18) mg/dL Creatinine (0.55-1.02) mg/dL Est GFR (CKD-EPI 2020) (mL/min/1.73m2) Glucose (74-106) mg/dL Calcium (8.5-10.1) mg/dL Total Bilirubin (0.2-1.0) mg/dL AST (15-37) U/L ALT (14-59) U/L Alkaline Phosphatase (46-116) U/L Troponin I (<or=51) ng/L 4 Cancelled Total Protein (6.4-8.2) g/dL Albumin (3.4-5.0) g/dL Lipase (<78) U/L COVID-19 Source SARS-CoV-2 (PCR) (Negative) Influenza Type A (PCR) (Negative) Influenza Type B (PCR) (Negative) RSV (PCR) (Negative) Medical Decision Making This is an 89-year-old female with a past medical history of cholecystectomy, coronary artery disease on Plavix, hypertension, diabetes, high cholesterol, hypothyroidism, previous TIA, seizures on Keppra, weakness of the lower extremities, who [facility] to weakness of the lower extremities who presents today with her daughter for evaluation of left upper quadrant abdominal pain and acid like burning sensation for the past week. Patient and daughter state that it has been persistent gradually worsening. It is worse after meals. She has had a mild intermittent cough. No fever or chills otherwise. Patient denies any other complaints. She has been eating less because of this. She has had nausea but no vomiting. EMS was called and she was noted to have an O2 saturation around 92%. She was put on 2 L. She was brought to the ER for further assessment. Patient has no other complaints at this time. Exam demonstrates well-appearing female, dry mucous membranes, vital signs stable, no hypotension tachycardia or signs of shock. No fever. Abdominal exam demonstrates mild left upper quadrant tenderness. No guarding or rebound though. No diffuse pain throughout, no pain in the mid lateral or lower abdomen. No signs of pain out of proportion, no diffuse abdominal tenderness to suggest mesenteric ischemia. Differential includes pancreatitis, gastric ulcer or gastritis. Cardiac or pulmonary etiology less likely but on the differential. Will evaluate for these, will get CT imaging including angiography of the arteries, will monitor closely and reassess. 4:30 PM Laboratory workup has returned, no white count bandemia or left shift. Lactate is elevated at 3.0, renal function normal though. COVID flu and RSV negative. Lipase normal. Troponins/serial troponins are normal. CT scan has returned, and demonstrates extensive atherosclerotic disease of the abdomen with marked stenosis involving the superior mesenteric artery and the proximal left renal artery. No evidence of bowel wall thickening, bowel edema, or other acute component. With the elevated lactate and these findings, this certainly does increase my concern for a chronic picture of mesenteric ischemia as she does not demonstrate evidence of acute mesenteric ischemia. Currently she is sitting very comfortably in bed. No distress whatsoever. I had further discussion with the daughter, it sounds like over the past 6 to 8 months the patient has had a notable decrease in eating, she is not eating much at all. She complains of chronic constant pain in the abdomen particularly on the left-hand side. It does not appear to be particularly isolated just to eating though. They deny any episodes of severe debilitating pain, more so the chronic oscillating notable intermittent pain. I did discuss the case with the surgeon Dr. Tolentino, and he does recommend vascular discussion. We will reach out to [facility] vascular surgery for further management. I also discussed the case with the daughter at bedside, and she feels that if there is opportunity for outpatient operative intervention, that this would be in line with the patient's goals. Previous echo shows an ejection fraction between 60 and 65% in 2020, we will give a bolus of saline and recheck the lactate 6:30 PM After fluid bolus discussed the repeat lactate was drawn and is increasing to 3.4 from the original 3. Patient's pain appears stable but she still does have left upper quadrant tenderness. The case was discussed with [facility] vascular surgery Dr. Ravi, who reviewed the imaging. She does agree that there is significant stenosis, but does not see evidence of an acute component of mesenteric ischemia. There is the portal venous air, but the patient's bilirubin is normal, no transaminitis. For that matter she has no white count at this time. At this time they do not recommend emergent transfer, but do recommend continued observation with serial lactates and repeat abdominal exams. We will reach out to surgery here. 6:48 PM Discussed the case with Dr. Tolentino. He has reviewed the biliary tree air and does feel that it is notably chronic and not acute. He does agree with the plan for [facility], and recommends medicine admission secondary to the nature of the case, but is happy to be on his consult and participate in the case in that form. I did contact the hospitalist Dr. Lui, and discussed the case with him. He agrees with the assessment and plan. Patient will be admitted. Case was discussed in notable depth with the daughter who is at bedside and the patient. They agree with plan. I have extensively reviewed the treatment plan with the patient. I have addressed all patient concerns at this time. I have also discussed the plan with the admitting physician and they agree with the current assessment and plan and have agreed to assume responsibility for the patient. All parties demonstrate verbal understanding and agreement with our assessment and plan at this time. The documentation in this chart was dictated using [employer] dictation software. Please excuse any dictation errors. At time of admission the patient was reevaluated by myself. She does have persistent left upper quadrant abdominal tenderness, but still does not show evidence of an acute surgical abdomen. Currently at this time patient states the pain is slightly improved but not worsened. FINDINGS: The examination is limited due to patient motion artifact. CHEST: Tracheobronchial tree: Patent where visualized. No evidence of bronchiectasis. Pulmonary parenchyma: No consolidation or dominant measurable mass. There is a stable 6 mm nodule in the left lower lobe (series 19, image 70). No follow-up is recommended. Pulmonary Arteries: No evidence of filling defect to suggest pulmonary emboli. Mediastinum and Shruthi: No dominant adenopathy or fluid collection. The esophagus is unremarkable. Visualized thyroid gland: Unremarkable. Pleura: No effusion or pneumothorax. Heart: The heart is not dilated. Three vessel coronary artery calcification is present. No pericardial effusion. Aorta: Thoracic aorta non-dilated. Atherosclerotic calcification is present. Bones: Within normal limits for the patient's age. Soft tissues: Unremarkable. ABDOMEN: Liver: Normal density. No measurable mass. Portal, Superior Mesenteric, and Splenic Veins: Unremarkable. Gallbladder and Biliary Tract: Status post cholecystectomy. Pneumobilia is present. This is been present in the past (CT scan of the chest from 02/02/2022). No significant biliary ductal dilatation. Pancreas: Normal density, no abnormal calcifications or inflammatory process. Spleen: Normal. Adrenals: No masses seen. Kidneys: Normal size, contour and axis. No radiodense stones or obstructive uropathy. There are bilateral simple renal cysts. No follow-up is recommended. Abdominal Aorta: Abdominal portion non-dilated. Marked atherosclerotic calcification is seen. There is marked calcification at the origin of the superior mesenteric artery and the left renal artery. Significant stenosis is present. Bowel: There is diverticulosis of the colon without evidence of acute diverticulitis. There is no evidence of bowel wall thickening or obstruction. There is a duodenal diverticulum adjacent to the pancreatic head. No evidence of appendicitis. Peritoneal Cavity: No ascites, collection or mesenteric inflammatory response. No free air. Lymph Nodes: Within normal limits. Bones: Within normal limits for the patient's age. There is grade 1 retrolisthesis of L2 on L3. Soft Tissues: Unremarkable. PELVIS: Bladder: Symmetric distention, no gross wall thickening. Reproductive Organs: Calcified uterine fibroids are present. Lymph Nodes: Within normal limits. Bones: Within normal limits. IMPRESSION: 1. No evidence of a pulmonary embolism or thoracic aortic aneurysm. 2. No acute pulmonary process. 3. No acute abdominal or pelvic process. 4. Extensive atherosclerotic disease in the abdomen with marked stenosis involving the superior mesenteric artery and the proximal left renal artery. Quality:SDOH Health Related Social Needs: No Data to Display [facility] All Active Problems (Updated 08/31/24 @ 18:50 by Steve Mcginnis DO) Elevated LDH (Acute) Abdominal pain (Acute) Superior mesenteric artery stenosis (Acute) Lactic acid acidosis (Acute) Chronic mesenteric ischemia (Acute) Advance care planning (Acute) Nausea (Acute) Full code status (Acute) Lumbar spinal stenosis (Chronic) Falls (Acute) Weakness (Acute) COVID-19 (Acute) UTI (urinary tract infection) (Acute) Pre-syncope (Acute) HTN (hypertension) (Chronic) TIA (transient ischemic attack) (Acute) ?2017 Primary osteoarthritis of left knee (Chronic) Injected: 03/02/2019 Primary osteoarthritis of right knee (Chronic) Injected: 03/02/2019 Diabetes (Chronic) Anxiety (Chronic) CAD (coronary artery disease) (Chronic) Vertigo (Acute) Syncope (Acute) Abnormal flushing and sweating (Acute) Chest pain (Acute) Cough (Acute) Abnormal result on screening urine test (Acute) Medical History (Updated 08/31/24 @ 18:50 by Steve Mcginnis DO) Resides in retirement facility Palliative care encounter Iron deficiency anemia Hypothyroidism Asthma Hyperlipidemia Seizures ?2017 Surgical History History of coronary artery stent placement Family History Mother Stroke Father Heart disease Social History Smoking/Tobacco Use Status: Never Smoking risk assessment performed?: Yes Alcohol Intake: never Drug use: Never Substance use type: 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. She does not speak Thai. Currently [facility]. REJIRN 08/31/24
[2024-08-31] MEDS: Normal Saline 1,000 ML 1000 ML IV (16:40)
[2024-08-31 18:12] LABS: Lactate 3.4 mmol/L (0.6-1.4)
--- NOTE | 2024-08-31 18:31 | W.SURGCON ---
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 Though she is hemodynamically stable she has a rising lactate despite hydration. Based off clinical presentation over the phone I am concerned about acute on chronic mesenteric ischemia. I recommend vascular surgery consultation History of Present Illness Narrative: Asked to weigh in on months and months of abdominal pain in the left upper quadrant that has gotten worse today somewhat acutely. Patient has been seen multiple times because of this discomfort. Reportedly halfway resident. CTA shows Diffuse atherosclerotic disease as well as decreased flow in the SMA. Also has diffuse renal atherosclerotic disease. Lactate is elevated and rising. PFSH All Active Problems (Updated 08/31/24 @ 18:50 by Steve Mcginnis DO) Elevated LDH (Acute) Abdominal pain (Acute) Superior mesenteric artery stenosis (Acute) Lactic acid acidosis (Acute) Chronic mesenteric ischemia (Acute) Advance care planning (Acute) Nausea (Acute) Full code status (Acute) Lumbar spinal stenosis (Chronic) Falls (Acute) Weakness (Acute) COVID-19 (Acute) UTI (urinary tract infection) (Acute) Pre-syncope (Acute) HTN (hypertension) (Chronic) TIA (transient ischemic attack) (Acute) ?2017 Primary osteoarthritis of left knee (Chronic) Injected: 03/02/2019 Primary osteoarthritis of right knee (Chronic) Injected: 03/02/2019 Diabetes (Chronic) Anxiety (Chronic) CAD (coronary artery disease) (Chronic) Vertigo (Acute) Syncope (Acute) Abnormal flushing and sweating (Acute) Chest pain (Acute) Cough (Acute) Abnormal result on screening urine test (Acute) Medical History (Updated 08/31/24 @ 18:50 by Steve Mcginnis DO) Resides in long term facility Palliative care encounter Iron deficiency anemia Hypothyroidism Asthma Hyperlipidemia Seizures ?2017 Surgical History History of coronary artery stent placement Family History Mother Stroke Father Heart disease Social History Smoking/Tobacco Use Status: Never Smoking risk assessment performed?: Yes Alcohol Intake: never Drug use: Never Substance use type: 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 She does not speak Slovak. Currently lives at [facility]. REJIRN 08/31/24 Exam Narrative Exam Narrative: Per emergency department physician: Nontoxic and while has subjective abdominal pain, only focal tenderness to deep palpation in the left upper quadrant without peritoneal signs. Results Last Vital Signs Temp 98.7 F 08/31/24 13:30 Pulse 89 08/31/24 18:26 Resp 27 H 08/31/24 18:26 BP 150/80 H 08/31/24 18:26 Pulse Ox 94 08/31/24 18:26 Labs 08/31/24 13:45 08/31/24 13:45 Labs: Laboratory Results - last 24 hr 08/31/24 08/31/24 08/31/24 13:45 14:06 14:40 WBC 10.61 RBC 4.69 Hgb 13.5 Hct 40.1 MCV 86 MCH 28.8 MCHC 33.7 RDW 13.2 Plt Count 280 MPV 9.3 Immature Gran % 0.3 Neutrophils % 54.5 Lymphocytes % 25.6 Monocytes % 15.3 Eosinophils % 4.1 Basophils % 0.2 Nucleated RBC % 0.0 Absolute Neutrophils 5.79 Absolute Lymphocytes 2.72 Absolute Monocytes 1.62 H Absolute Eosinophils 0.43 Absolute Basophils 0.02 RBC Morphology Normal PT 10.9 INR 1.1 APTT 26.3 VBG pH 7.37 VBG pCO2 47 VBG pO2 44 VBG HCO3 27 VBG Total CO2 24 VBG O2 Saturation 77 VBG Base Excess 2 VBG Lactate 3.0 H* Sodium 139 Potassium 4.4 Chloride 101 Carbon Dioxide 27.6 Anion Gap 10.4 BUN 23 H Creatinine 1.1 H Est GFR (CKD-EPI 2020) 48.63 Glucose 159 H Calcium 9.5 Total Bilirubin 0.19 L AST 26 ALT 44 Alkaline Phosphatase 111 Troponin I < 4 Total Protein 7.9 Albumin 3.4 Lipase 46 COVID-19 Source Nasopharynx SARS-CoV-2 (PCR) Negative Influenza Type A (PCR) Negative Influenza Type B (PCR) Negative RSV (PCR) Negative 08/31/24 08/31/24 08/31/24 14:50 16:42 18:07 WBC RBC Hgb Hct MCV MCH MCHC RDW Plt Count MPV Immature Gran % Neutrophils % Lymphocytes % Monocytes % Eosinophils % Basophils % Nucleated RBC % Absolute Neutrophils Absolute Lymphocytes Absolute Monocytes Absolute Eosinophils Absolute Basophils RBC Morphology PT INR APTT VBG pH VBG pCO2 VBG pO2 VBG HCO3 VBG Total CO2 VBG O2 Saturation VBG Base Excess VBG Lactate 3.4 H* Sodium Potassium Chloride Carbon Dioxide Anion Gap BUN Creatinine Est GFR (CKD-EPI 2020) Glucose Calcium Total Bilirubin AST ALT Alkaline Phosphatase Troponin I 4 Cancelled Total Protein Albumin Lipase COVID-19 Source SARS-CoV-2 (PCR) Influenza Type A (PCR) Influenza Type B (PCR) RSV (PCR)
--- NOTE | 2024-08-31 18:41 | HPE_ITS ---
Date of service: 08/31/24 Time of Service: 18:42 Assessment and Plan Assessment and plan (1) Chronic mesenteric ischemia: Status: Acute (2) Lactic acid acidosis: Status: Acute (3) HTN (hypertension): Status: Chronic (4) TIA (transient ischemic attack): Status: Acute (5) Diabetes: Status: Chronic (6) CAD (coronary artery disease): Status: Chronic History of Present Illness History of Present Illness Chief Complaint: Chronic abdominal pain Review of Systems All systems reviewed & are unremarkable except as noted in HPI and below PFSH All Active Problems (Updated 08/31/24 @ 18:50 by Steve Mcginnis DO) Elevated LDH (Acute) Abdominal pain (Acute) Superior mesenteric artery stenosis (Acute) Lactic acid acidosis (Acute) Chronic mesenteric ischemia (Acute) Advance care planning (Acute) Nausea (Acute) Full code status (Acute) Lumbar spinal stenosis (Chronic) Falls (Acute) Weakness (Acute) COVID-19 (Acute) UTI (urinary tract infection) (Acute) Pre-syncope (Acute) HTN (hypertension) (Chronic) TIA (transient ischemic attack) (Acute) ?2017 Primary osteoarthritis of left knee (Chronic) Injected: 03/02/2019 Primary osteoarthritis of right knee (Chronic) Injected: 03/02/2019 Diabetes (Chronic) Anxiety (Chronic) CAD (coronary artery disease) (Chronic) Vertigo (Acute) Syncope (Acute) Abnormal flushing and sweating (Acute) Chest pain (Acute) Cough (Acute) Abnormal result on screening urine test (Acute) Medical History (Updated 08/31/24 @ 18:50 by Steve Mcginnis DO) Resides in halfway facility Palliative care encounter Iron deficiency anemia Hypothyroidism Asthma Hyperlipidemia Seizures ?2017 Surgical History History of coronary artery stent placement Family History Mother Stroke Father Heart disease Social History Smoking/Tobacco Use Status: Never Smoking risk assessment performed?: Yes Alcohol Intake: never Drug use: Never Substance use type: does not use and former substance user Household members: children Housing: house Number of Children: 2 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 She does not speak [place]. Currently lives at [facility]. POLO MENDOZA 08/31/24 Meds Allergies and Home Medications Allergies Allergy/AdvReac Type Severity Reaction Status Date / Time atorvastatin calcium (From Allergy Diarrhea Unverified 08/31/24 13:35 Lipitor) Pork/Porcine Containing Allergy Other (See Verified 08/31/24 13:35 Products Comment) quetiapine AdvReac Severe Psychosis Verified 08/31/24 13:35 Home Medications ?Medication ?Instructions ?Recorded ?Confirmed ?Type sertraline 50 mg tablet 50 mg PO DAILY 05/04/13 12/31/23 History nitroglycerin 0.4 mg sublingual 0.4 mg sublingual PRN PRN 08/31/13 08/31/24 History tablet ergocalciferol (vitamin D2) 10 mcg 400 units PO DAILY 05/13/15 08/31/24 History (400 unit) tablet carvedilol 25 mg tablet 25 mg PO BID 07/12/17 08/31/24 Rx clopidogrel 75 mg tablet (Plavix) 75 mg PO DAILY 07/12/17 08/31/24 Rx cyanocobalamin (vitamin B-12) 1,000 mcg (0.4 x 2,500 mcg) PO 07/12/17 08/31/24 Rx 2,500 mcg chewable tablet DAILY ##30 rosuvastatin 10 mg tablet (Crestor) 40 mg (4 x 10 mg) PO QPM 07/12/17 12/31/23 Rx amlodipine 2.5 mg tablet 2.5 mg PO DAILY #30 tabs 07/11/19 08/31/24 Rx esomeprazole magnesium 20 mg 40 mg PO QDAY 11/09/20 08/31/24 History capsule,delayed release (Nexium) furosemide 20 mg tablet 20 mg PO DAILY 05/17/21 08/31/24 History cetirizine 10 mg capsule (All Day 10 mg PO DAILY PRN 06/22/21 08/31/24 History Allergy (cetirizine)) levetiracetam 750 mg tablet 750 mg PO BID 06/22/21 08/31/24 History (Keppra) metformin 500 mg tablet 1,000 mg (2 x 500 mg) PO BID #120 09/29/21 08/31/24 Rx tabs clonazepam 0.5 mg tablet 0.5 mg PO HS #0 tabs 10/18/22 08/31/24 Rx docusate sodium 100 mg capsule 100 mg PO TID PRN PRN #0 caps 10/18/22 08/31/24 Rx (Colace) tramadol 50 mg tablet 50 mg PO Q6H PRN PRN #0 tabs 10/18/22 08/31/24 Rx [id number] 24 See Rx Instructions PO .COMPLEX PRN 10/30/22 08/31/24 History gram/31 gram oral gel (Insta-Glucose (with dextrin)) glucagon HCl 1 mg solution for 1 mg subcut Q20M PRN 10/30/22 08/31/24 History injection (Glucagon (HCl) Emergency Kit) acetaminophen 500 mg tablet 1,000 mg PO TID PRN 12/31/23 08/31/24 History baclofen 10 mg tablet 10 mg PO DAILY 12/31/23 12/31/23 History naproxen 500 mg tablet 500 mg PO BID PRN 12/31/23 08/31/24 History Results Labs 08/31/24 13:45 08/31/24 13:45 Labs: Laboratory Results - last 24 hr 08/31/24 08/31/24 08/31/24 13:45 14:06 14:40 WBC 10.61 RBC 4.69 Hgb 13.5 Hct 40.1 MCV 86 MCH 28.8 MCHC 33.7 RDW 13.2 Plt Count 280 MPV 9.3 Immature Gran % 0.3 Neutrophils % 54.5 Lymphocytes % 25.6 Monocytes % 15.3 Eosinophils % 4.1 Basophils % 0.2 Nucleated RBC % 0.0 Absolute Neutrophils 5.79 Absolute Lymphocytes 2.72 Absolute Monocytes 1.62 H Absolute Eosinophils 0.43 Absolute Basophils 0.02 RBC Morphology Normal PT 10.9 INR 1.1 APTT 26.3 VBG pH 7.37 VBG pCO2 47 VBG pO2 44 VBG HCO3 27 VBG Total CO2 24 VBG O2 Saturation 77 VBG Base Excess 2 VBG Lactate 3.0 H* Sodium 139 Potassium 4.4 Chloride 101 Carbon Dioxide 27.6 Anion Gap 10.4 BUN 23 H Creatinine 1.1 H Est GFR (CKD-EPI 2020) 48.63 Glucose 159 H Calcium 9.5 Total Bilirubin 0.19 L AST 26 ALT 44 Alkaline Phosphatase 111 Troponin I < 4 Total Protein 7.9 Albumin 3.4 Lipase 46 COVID-19 Source Nasopharynx SARS-CoV-2 (PCR) Negative Influenza Type A (PCR) Negative Influenza Type B (PCR) Negative RSV (PCR) Negative 08/31/24 08/31/24 08/31/24 14:50 16:42 18:07 WBC RBC Hgb Hct MCV MCH MCHC RDW Plt Count MPV Immature Gran % Neutrophils % Lymphocytes % Monocytes % Eosinophils % Basophils % Nucleated RBC % Absolute Neutrophils Absolute Lymphocytes Absolute Monocytes Absolute Eosinophils Absolute Basophils RBC Morphology PT INR APTT VBG pH VBG pCO2 VBG pO2 VBG HCO3 VBG Total CO2 VBG O2 Saturation VBG Base Excess VBG Lactate 3.4 H* Sodium Potassium Chloride Carbon Dioxide Anion Gap BUN Creatinine Est GFR (CKD-EPI 2020) Glucose Calcium Total Bilirubin AST ALT Alkaline Phosphatase Troponin I 4 Cancelled Total Protein Albumin Lipase COVID-19 Source SARS-CoV-2 (PCR) Influenza Type A (PCR) Influenza Type B (PCR) RSV (PCR) Last Vital Signs Temp 98.7 F 08/31/24 13:30 Pulse 89 08/31/24 18:26 Resp 27 H 08/31/24 18:26 BP 150/80 H 08/31/24 18:26 Pulse Ox 94 08/31/24 18:26
--- NOTE | 2024-08-31 19:29 | W.PC.ACHO ---
Registration Status: Primary Language: Preferred Language: ED Information & Data Chief Complaint Abd Prob 08/31/24 16:06 Triage Note AbD pain x5 days with nausea 08/31/24 13:30 , decreased PO intake Medical / Surgical History (Last Updated 11/16/22 @ 11:55 by Hattie Stahl RN) [facility] Palliative care encounter Iron deficiency anemia Hypothyroidism Asthma Hyperlipidemia Seizures (Last Reviewed 10/31/22 @ 13:58 by Abby Kuhn NP) History of coronary artery stent placement Most Recent Vital Signs Temperature 37.1 C 08/31/24 13:30 Temperature Source Oral 08/31/24 13:30 Pulse 83 08/31/24 18:31 Pulse 84 08/31/24 18:31 Respiratory Rate 29 H 08/31/24 18:31 Respiratory Effort Normal, Non-Labored 08/31/24 14:09 Blood Pressure 169/81 H 08/31/24 18:31 Blood Pressure Mean 115 08/31/24 18:31 Pulse Oximetry 92 08/31/24 18:31 Oxygen Delivery Method Nasal Cannula 08/31/24 13:52 Oxygen Flow Rate 2 08/31/24 13:52 Allergies atorvastatin calcium (From Lipitor) Allergy (Unverified 08/31/24 13:35) Diarrhea Pork/Porcine Containing Products Allergy (Verified 08/31/24 13:35) Other (See Comment) buddhist quetiapine Adverse Reaction (Severe, Verified 08/31/24 13:35) Psychosis confused, frightened and crazy Precautions Isolation Standard precaution 08/31/24 14:09 Active Medications Generic Name Dose Route Start Last Admin Trade Name Rajeevq PRN Reason Stop Dose Admin Iohexol 100 ml 08/31/24 15:15 08/31/24 15:13 Omnipaque 350 Mg/Ml 100 Ml Btl IJ 09/30/24 23:59 100 ml DIRECTED NIHARIKA Administration Sodium Chloride 50 ml 08/31/24 15:30 08/31/24 15:25 Normal Saline - Diluent 50 Ml Vial IJ 50 ml .FOR DI USE NIHARIKA Administration IV IV Catheter Type [Left Saline Lock Antecubital] IV Catheter Gauge [Left 20 Antecubital] Diagnostics 08/31/24 08/31/24 08/31/24 Range/Units 18:07 16:42 14:50 WBC (4.4-10.8) 10^3/uL RBC (3.93-5.22) 10^6/uL Hgb (11.2-15.7) g/dL Hct (36.0-46.0) % MCV (80-95) fL MCH (27.0-33.0) pg MCHC (32.0-36.0) % RDW (11.7-14.6) % Plt Count (130-400) 10^3/uL MPV (8.0-11.0) fL Immature Gran % % Neutrophils % % Lymphocytes % % Monocytes % % Eosinophils % % Basophils % % Nucleated RBC % (0.0-0.3) % Absolute Neutrophils (1.2-6.7) 10^3/uL Absolute Lymphocytes (1.2-3.4) 10^3/uL Absolute Monocytes (0.1-0.8) 10^3/uL Absolute Eosinophils (0.0-0.7) 10^3/uL Absolute Basophils (0.0-0.2) 10^3/uL RBC Morphology PT (9.1-11.1) sec INR (0.9-1.1) APTT (23.6-32.8) sec VBG pH (7.31-7.41) VBG pCO2 (41-51) mmHg VBG pO2 mmHg VBG HCO3 (23-28) mmol/L VBG Total CO2 (24-29) mmol/L VBG O2 Saturation % VBG Base Excess (-2-3) mmol/L VBG Lactate 3.4 H* (0.6-1.4) mmol/L Sodium (136-145) mmol/L Potassium (3.5-5.1) mmol/L Chloride (98-107) mmol/L Carbon Dioxide (21.0-32.0) mmol/L Anion Gap (3-11) mmol/L BUN (7-18) mg/dL Creatinine (0.55-1.02) mg/dL Est GFR (CKD-EPI 2020) (mL/min/1.73m2) Glucose (74-106) mg/dL Calcium (8.5-10.1) mg/dL Total Bilirubin (0.2-1.0) mg/dL AST (15-37) U/L ALT (14-59) U/L Alkaline Phosphatase (46-116) U/L Troponin I Cancelled 4 (<or=51) ng/L Total Protein (6.4-8.2) g/dL Albumin (3.4-5.0) g/dL Lipase (<78) U/L COVID-19 Source SARS-CoV-2 (PCR) (Negative) Influenza Type A (PCR) (Negative) Influenza Type B (PCR) (Negative) RSV (PCR) (Negative) 08/31/24 08/31/24 08/31/24 Range/Units 14:40 14:06 13:45 WBC 10.61 (4.4-10.8) 10^3/uL RBC 4.69 (3.93-5.22) 10^6/uL Hgb 13.5 (11.2-15.7) g/dL Hct 40.1 (36.0-46.0) % MCV 86 (80-95) fL MCH 28.8 (27.0-33.0) pg MCHC 33.7 (32.0-36.0) % RDW 13.2 (11.7-14.6) % Plt Count 280 (130-400) 10^3/uL MPV 9.3 (8.0-11.0) fL Immature Gran % 0.3 % Neutrophils % 54.5 % Lymphocytes % 25.6 % Monocytes % 15.3 % Eosinophils % 4.1 % Basophils % 0.2 % Nucleated RBC % 0.0 (0.0-0.3) % Absolute Neutrophils 5.79 (1.2-6.7) 10^3/uL Absolute Lymphocytes 2.72 (1.2-3.4) 10^3/uL Absolute Monocytes 1.62 H (0.1-0.8) 10^3/uL Absolute Eosinophils 0.43 (0.0-0.7) 10^3/uL Absolute Basophils 0.02 (0.0-0.2) 10^3/uL RBC Morphology Normal PT 10.9 (9.1-11.1) sec INR 1.1 (0.9-1.1) APTT 26.3 (23.6-32.8) sec VBG pH 7.37 (7.31-7.41) VBG pCO2 47 (41-51) mmHg VBG pO2 44 mmHg VBG HCO3 27 (23-28) mmol/L VBG Total CO2 24 (24-29) mmol/L VBG O2 Saturation 77 % VBG Base Excess 2 (-2-3) mmol/L VBG Lactate 3.0 H* (0.6-1.4) mmol/L Sodium 139 (136-145) mmol/L Potassium 4.4 (3.5-5.1) mmol/L Chloride 101 (98-107) mmol/L Carbon Dioxide 27.6 (21.0-32.0) mmol/L Anion Gap 10.4 (3-11) mmol/L BUN 23 H (7-18) mg/dL Creatinine 1.1 H (0.55-1.02) mg/dL Est GFR (CKD-EPI 2020) 48.63 (mL/min/1.73m2) Glucose 159 H (74-106) mg/dL Calcium 9.5 (8.5-10.1) mg/dL Total Bilirubin 0.19 L (0.2-1.0) mg/dL AST 26 (15-37) U/L ALT 44 (14-59) U/L Alkaline Phosphatase 111 (46-116) U/L Troponin I < 4 (<or=51) ng/L Total Protein 7.9 (6.4-8.2) g/dL Albumin 3.4 (3.4-5.0) g/dL Lipase 46 (<78) U/L COVID-19 Source Nasopharynx SARS-CoV-2 (PCR) Negative (Negative) Influenza Type A (PCR) Negative (Negative) Influenza Type B (PCR) Negative (Negative) RSV (PCR) Negative (Negative) Intake and Output - 24 Hour Total 08/31/24 13:25 thru 08/31/24 17:40 Intake Total 1010 Balance 1010 Weight 92.1 kg Intake: IV 1010 Falls Risk Assessment History of Falls Admit Due to Fall 08/31/24 16:14 Contributing Factors No Factors 08/31/24 16:14 Ambulatory Aids Uses ambulatory device + 08/31/24 16:14 Tubes/Lines With any additional score 08/31/24 16:14 Gait Evaluation W/any additional score 08/31/24 16:14 Cognition No cognitive impairment 08/31/24 16:14 Fall Total Score 95 08/31/24 16:14 Level of Risk Maximum Risk 08/31/24 16:14 Problems (Last Updated 11/16/22 @ 11:55 by Hattie Stahl RN) Elevated LDH (Acute) Abdominal pain (Acute) Superior mesenteric artery stenosis (Acute) v v v v v v v v v Sending and/or Receiving Nurses: Please use comment section below to note any information pertinent to the patient hand-off not included above. Information / Comments: Report received from: Keerthi
--- NOTE | 2024-08-31 19:49 | W.EDPROG ---
Date of service: 08/31/24 Time of Service: 19:49 Medical Decision Making While patient was waiting to be admitted upstairs the transfer center called back and advised the vascular attending reviewed the images and requested the patient be transferred to their ER, and requested a bolus and infusion of heparin to be started. I spoke with [facility] ED attending who reviewed case and is the accepting provider. patient and family updated Quality:SDOH Health Related Social Needs: No Data to Display Discharge Plan Disposition Specific Acute Inpt Facility: [facility] Condition: Stable Discharge Details Chief Complaint: Abd Prob Clinical Impression: Superior mesenteric artery stenosis, Abdominal pain, Elevated LDH Primary Care Provider: Yarely Lagos ED Provider: Jerel Panchal Home Meds and New Rx's Prescriptions: No Action glucagon HCl [Glucagon (HCl) Emergency Kit] 1 mg recon soln 1 mg subcut Q20M PRN Rx Instructions: until target blood sugar attained Insta-Glucose (with dextrin) 24 gram/31 gram gel See Rx Instructions PO .COMPLEX PRN Rx Instructions: orally swallow contents of entire tube; may swallow contents of another tube if no response after 10 minutes PO PRN; levetiracetam [Keppra] 750 mg tablet 750 mg PO BID All Day Allergy (cetirizine) 10 mg capsule 10 mg PO DAILY PRN ergocalciferol (vitamin D2) 400 UNIT tablet 400 units PO DAILY furosemide 20 mg tablet 20 mg PO DAILY metformin 500 mg tablet 1,000 mg PO BID Qty: 120 0RF sertraline 50 MG tablet 50 mg PO DAILY nitroglycerin 0.4 MG tablet, sublingual 0.4 mg Sublingual PRN PRN carvedilol 25 MG tablet 25 mg PO BID 0RF clopidogrel [Plavix] 75 MG tablet 75 mg PO DAILY 0RF rosuvastatin [Crestor] 10 MG tablet 40 mg PO QPM 0RF cyanocobalamin (vitamin B-12) 2,500 MCG tablet,chewable 1,000 mcg PO DAILY Qty: 30 0RF amlodipine 2.5 mg Tablet 2.5 mg PO DAILY Qty: 30 0RF esomeprazole magnesium [Nexium] 20 mg Capsule,Delayed Release(Dr/Ec) 40 mg PO QDAY tramadol 50 mg Tablet 50 mg PO Q6H PRN PRNQty: 0 0RF docusate sodium [Colace] 100 mg Capsule 100 mg PO TID PRN PRNQty: 0 0RF clonazepam 0.5 MG tablet 0.5 mg PO HS Qty: 0 0RF baclofen 10 mg tablet 10 mg PO DAILY acetaminophen 500 mg Tablet 1,000 mg PO TID PRN naproxen 500 mg Tablet 500 mg PO BID PRN
[2024-08-31] MEDS: Heparin in 0.45% NaCl 25,000 UNIT/250 ML BAG 16.5 UNIT IVINF (19:59)
[2024-08-31] MEDS: Carvedilol 25 MG TAB PO (20:19)
== END 2024-08-31 20:41 | disposition short-term general hospital (02) ==
PROVIDERS: Student in an Organized Health Care Education/Training Program; Emergency Provider Emergency Medicine; PCP Family Medicine
DX: K55.1 Chronic vascular disorders of intestine; R74.01 Elevation of levels of liver transaminase levels; R10.12 Left upper quadrant pain; I25.10 Atherosclerotic heart disease of native coronary artery without angina pectoris; I48.0 Paroxysmal atrial fibrillation; E78.5 Hyperlipidemia, unspecified; G43.909 Migraine, unspecified, not intractable, without status migrainosus; Z86.73 Personal history of transient ischemic attack (TIA), and cerebral infarction without residual deficits; Z95.5 Presence of coronary angioplasty implant and graft; Z79.01 Long term (current) use of anticoagulants
CPT/HCPCS: 00123; 36415; 71275; 74177; 80053; 82805; 83690; 87637; 94640; 96360; 99283; 99285; 83605; 84484; 85025; 85610; 85730; J1644; J3490; J7620

== ENCOUNTER 2025-01-07 12:08 | Outpatient (REF) | payer MEDICARE, MEDICAID, SELFPAY ==
[2025-01-07 13:09] LABS: Abs Immature Grans 0.02 10^3/uL (0.0-0.06); Absolute Basophil Count 0.04 10^3/uL (0.0-0.2); Absolute Lymphocyte Count 2.05 10^3/uL (1.2-3.4); Absolute Monocyte Count 0.88 10^3/uL (0.1-0.8); Absolute Neutrophil Count 4.49 10^3/uL (1.2-6.7); Basophils % 0.5 %; Eosinophils % 2.6 %; HCT 41.4 % (36.0-46.0); HGB 13.5 g/dL (11.2-15.7); Immature Grans % 0.3 %; Lymphocytes % 26.7 %; MCH 28.2 pg (27.0-33.0); MCHC 32.6 % (32.0-36.0); MCV 87 fL (80-95); MPV 9.7 fL (8.0-11.0); Monocytes % 11.5 %; Neutrophils % 58.4 %; Platelet Count 300 10^3/uL (130-400); RBC 4.78 10^6/uL (3.93-5.22); RDW 13.1 % (11.7-14.6); WBC 7.68 10^3/uL (4.4-10.8)
[2025-01-07 13:42] LABS: ALT 37 U/L (14-59); AST 18 U/L (15-37); Albumin 3.8 g/dL (3.4-5.0); Alkaline Phosphatase 119 U/L (46-116); BUN 22 mg/dL (7-18); Bilirubin, Total 0.3 mg/dL (0.2-1.0); CREATININE 1.2 mg/dL (0.55-1.02); Calcium 9.8 mg/dL (8.5-10.1); Chloride 99 mmol/L (98-107); Estimated GFR 43.81 (mL/min/1.73m2); Glucose 336 mg/dL (74-106); Hemoglobin A1C 9.1 % (<5.7); Potassium 4.7 mmol/L (3.5-5.1); Sodium 134 mmol/L (136-145); Total Protein 7.3 g/dL (6.4-8.2)
[2025-01-09 12:22] LABS: Levetiracetam 35.7 mcg/mL
== END 2025-01-07 12:09 | disposition home or self-care (01) ==
LOC: LBN 12:08
PROVIDERS: PCP Family Medicine; Visit Provider Nurse Practitioner Gerontology
DX: E11.9 Type 2 diabetes mellitus without complications (principal); N18.32 Chronic kidney disease, stage 3b; G40.89 Other seizures
CPT/HCPCS: 80053; 80177; 83036; 85025

== ENCOUNTER 2025-01-25 21:43 | Emergency (ER) | payer MEDICARE, MEDICAID, SELFPAY ==
--- NOTE | 2025-01-25 00:01 | DI.CT_ITS ---
Exam(s) CT HEAD WO EXAM: CT HEAD WO CLINICAL HISTORY: fall, occipital hematoma, on Plavix. TECHNIQUE: Imaging Protocol: Axial computed tomography images with coronal and sagittal reformatted images were created and reviewed COMPARISON: CT CT HEAD CERVICAL SPINE WO from 12/31/2023 FINDINGS: Ventricles and Extra axial spaces: Normal in size and morphology for the patient's age. Hemorrhage: None. Cerebral parenchyma: No evidence of acute infarct or mass. Age related atrophy and white matter trivedi es of small vessel disease. Midline shift: None. Brainstem/Cerebellum: Normal. Calvarium: Normal. Visualized Paranasal sinuses:Clear mild mucosal thickening in the right sphenoid sinus. Mastoids: Clear. Soft Tissues: Unremarkable high posterior scalp swelling. ORBITS: Unremarkable. PITUITARY: Not enlarged. IMPRESSION: No acute intracranial process. Superior scalp swelling. RADIATION DOSE DELIVERED: 797.2mGy.cm Total DLP DATA REPOSITORY: All CT scans at this facility are submitted to the National Radiology Data Registry (NRDR) Dose Index Registry (DIR) with the [employer] (ACR). RADIATION OPTIMIZATION: All CT scans at this facility use at least one of these dose optimization te chniques: automated exposure control; mA and/or kV adjustment per patient size (includes targeted exa ms where dose is matched to clinical indication); or iterative reconstruction.
[2025-01-25 21:44] VITALS: BP 164/68; PULSE 78; RESP 20; TEMP 36.6; O2SAT 93
--- NOTE | 2025-01-25 22:52 | W.ED.GENAD ---
Discharge Plan Disposition Patient Disposition: Care Home Facility(SNF) Condition: Stable Discharge Details Clinical Impression: Hematoma of occipital region of scalp Primary Care Provider: Yarely Lagos ED Provider: Bob Peacock Meds and New Rx's Prescriptions: Continued glucagon HCl [Glucagon (HCl) Emergency Kit] 1 mg recon soln 1 mg subcut Q20M PRN Rx Instructions: until target blood sugar attained Insta-Glucose (with dextrin) 24 gram/31 gram gel See Rx Instructions PO .COMPLEX PRN Rx Instructions: orally swallow contents of entire tube; may swallow contents of another tube if no response after 10 minutes PO PRN; levetiracetam [Keppra] 750 mg tablet 750 mg PO BID All Day Allergy (cetirizine) 10 mg capsule 10 mg PO DAILY PRN ergocalciferol (vitamin D2) 400 UNIT tablet 400 units PO DAILY furosemide 20 mg tablet 20 mg PO DAILY metformin 500 mg tablet 1,000 mg PO BID Qty: 120 0RF sertraline 50 MG tablet 50 mg PO DAILY nitroglycerin 0.4 MG tablet, sublingual 0.4 mg Sublingual PRN PRN carvedilol 25 MG tablet 25 mg PO BID 0RF clopidogrel [Plavix] 75 MG tablet 75 mg PO DAILY 0RF rosuvastatin [Crestor] 10 MG tablet 40 mg PO QPM 0RF cyanocobalamin (vitamin B-12) 2,500 MCG tablet,chewable 1,000 mcg PO DAILY Qty: 30 0RF amlodipine 2.5 mg Tablet 2.5 mg PO DAILY Qty: 30 0RF esomeprazole magnesium [Nexium] 20 mg Capsule,Delayed Release(Dr/Ec) 40 mg PO QDAY tramadol 50 mg Tablet 50 mg PO Q6H PRN PRNQty: 0 0RF docusate sodium [Colace] 100 mg Capsule 100 mg PO TID PRN PRNQty: 0 0RF clonazepam 0.5 MG tablet 0.5 mg PO HS Qty: 0 0RF baclofen 10 mg tablet 10 mg PO DAILY acetaminophen 500 mg Tablet 1,000 mg PO TID PRN naproxen 500 mg Tablet 500 mg PO BID PRN Discharge Instructions Additional Instructions: Mitch was seen for scalp hematoma after a fall, imaging of her head is negative for acute traumatic injury/changes. She may resume previous medications/care. Follow up with PCP as needed. Return to ED for mental status/neuro changes, severe worsening headache, persistent vomiting. HPI General Mode of arrival: EMS. Date/Time Provider Initiated Documentation: 01/25/25 22:31. Limitations to Documentation: language barrier. Information obtained by: patient, family, EMS and RN notes reviewed. HPI Narrative: Patient presents to ED by ambulance from [facility] after reported fall 2 days ago. Patient is Bosnian speaking only. Language line was used. Patient denies any headache, neck pain, back pain. She reports no complaints. She does remember falling. Apparently her daughter visited today noticed the large bump on the back of her head and wanted her evaluated. Daughter did not come into the ED with her mother. Related Data Home Medications ?Medication ?Instructions ?Recorded ?Confirmed sertraline 50 mg tablet 50 mg PO DAILY 05/04/13 01/25/25 nitroglycerin 0.4 mg sublingual 0.4 mg sublingual PRN PRN 08/31/13 01/25/25 tablet ergocalciferol (vitamin D2) 10 mcg 400 units PO DAILY 05/13/15 01/25/25 (400 unit) tablet carvedilol 25 mg tablet 25 mg PO BID 07/12/17 01/25/25 clopidogrel 75 mg tablet (Plavix) 75 mg PO DAILY 07/12/17 01/25/25 cyanocobalamin (vitamin B-12) 1,000 mcg (0.4 x 2,500 mcg) PO 07/12/17 01/25/25 2,500 mcg chewable tablet DAILY ##30 rosuvastatin 10 mg tablet (Crestor) 40 mg (4 x 10 mg) PO QPM 07/12/17 01/25/25 amlodipine 2.5 mg tablet 2.5 mg PO DAILY #30 tabs 07/11/19 01/25/25 esomeprazole magnesium 20 mg 40 mg PO QDAY 11/09/20 01/25/25 capsule,delayed release (Nexium) furosemide 20 mg tablet 20 mg PO DAILY 05/17/21 01/25/25 cetirizine 10 mg capsule (All Day 10 mg PO DAILY PRN 06/22/21 01/25/25 Allergy (cetirizine)) levetiracetam 750 mg tablet 750 mg PO BID 06/22/21 01/25/25 (Keppra) metformin 500 mg tablet 1,000 mg (2 x 500 mg) PO BID #120 09/29/21 01/25/25 tabs clonazepam 0.5 mg tablet 0.5 mg PO HS #0 tabs 10/18/22 01/25/25 docusate sodium 100 mg capsule 100 mg PO TID PRN PRN #0 caps 10/18/22 01/25/25 (Colace) tramadol 50 mg tablet 50 mg PO Q6H PRN PRN #0 tabs 10/18/22 01/25/25 [id number] 24 See Rx Instructions PO .COMPLEX PRN 10/30/22 01/25/25/ gram oral gel (Insta-Glucose (with dextrin)) glucagon HCl 1 mg solution for 1 mg subcut Q20M PRN 10/30/22 01/25/25 injection (Glucagon (HCl) Emergency Kit) acetaminophen 500 mg tablet 1,000 mg PO TID PRN 12/31/23 01/25/25 baclofen 10 mg tablet 10 mg PO DAILY 12/31/23 01/25/25 naproxen 500 mg tablet 500 mg PO BID PRN 12/31/23 01/25/25 Previous Rx's ?Medication ?Instructions ?Recorded carvedilol 25 mg tablet 25 mg PO BID 07/12/17 clopidogrel 75 mg tablet (Plavix) 75 mg PO DAILY 07/12/17 cyanocobalamin (vitamin B-12) 1,000 mcg (0.4 x 2,500 mcg) PO 07/12/17 2,500 mcg chewable tablet DAILY ##30 rosuvastatin 10 mg tablet (Crestor) 40 mg (4 x 10 mg) PO QPM 07/12/17 amlodipine 2.5 mg tablet 2.5 mg PO DAILY #30 tabs 07/11/19 metformin 500 mg tablet 1,000 mg (2 x 500 mg) PO BID #120 09/29/21 tabs clonazepam 0.5 mg tablet 0.5 mg PO HS #0 tabs 10/18/22 docusate sodium 100 mg capsule 100 mg PO TID PRN PRN #0 caps 10/18/22 (Colace) tramadol 50 mg tablet 50 mg PO Q6H PRN PRN #0 tabs 10/18/22 Allergies Allergy/AdvReac Type Severity Reaction Status Date / Time atorvastatin calcium (From Allergy Diarrhea Unverified 08/31/24 13:35 Lipitor) Pork/Porcine Containing Allergy Other (See Verified 08/31/24 13:35 Products Comment) quetiapine AdvReac Severe Psychosis Verified 08/31/24 13:35 General Stated Complaint: Fall/Non TraumaCriteria WINSOME: 3 Exam Narrative Exam Narrative: Const: WDWN elderly female in NAD. VS per triage. HEENT: NC. Occipital scalp hematoma present. Neck: Supple. Trachea midline. No midline tenderness. Lungs: Normal respiratory effort. Lungs are clear. No chest wall tenderness. Cor: RRR without murmur. Good radial pulses. GI: Soft/ND/NT. Neuro: Awake and alert. Normal speech, mentation. Cranial nerves II - XII grossly intact. No gross motor or sensory deficit. Ext: No deformity or tenderness. Able to stand from wheelchair and get to stretcher with assistance. Course Vital Signs Vital signs: Vital Signs Temperature 97.9 F 01/25/25 21:44 Pulse 78 01/25/25 21:44 Respiratory Rate 20 01/25/25 21:44 Blood Pressure 164/68 H 01/25/25 21:44 Pulse Oximetry 93 01/25/25 21:44 Temperature 97.9 F 01/25/25 21:44 Pulse 78 01/25/25 21:44 Respiratory Rate 20 01/25/25 21:44 Blood Pressure 164/68 H 01/25/25 21:44 Blood Pressure Position Sitting 01/25/25 21:44 Pulse Oximetry 93 01/25/25 21:44 Oxygen Delivery Method Room Air 01/25/25 21:44 Oxygen Flow Rate 0 01/25/25 21:44 Medical Decision Making Patient presenting to ED from [facility] with concern for head injury. She is not anticoagulated but she is on clopidogrel. She has a large occipital scalp hematoma. She is Bosnian speaking only and language line was used. She has no cervical spinal tenderness and normal range of motion and spine is cleared clinically. She appears to have no other traumatic injury. Patient initially agreed to CT head. However, when radiology came to get her for the test she refused. Even with use of language line wood fence erector patient continued to refuse. Nursing supervisor char house called daughter at home who then came in to the ED. Patient then agreeable to scan which was performed. There was no intracranial acute traumatic changes. Discussed with daughter at scan was negative and exam otherwise reassuring. Patient discharged to return to [facility]. Daughter agreed to provide transport back. Medical Records Medical records reviewed: Yes I reviewed the patient's medical records. Medical records narrative: Older palliative care notes PFSH All Active Problems (Updated 01/26/25 @ 02:40 by Bob Peacock MD) Hematoma of occipital region of scalp (Acute) Chronic mesenteric ischemia (Acute) Advance care planning (Acute) Full code status (Acute) Lumbar spinal stenosis (Chronic) Falls (Acute) Weakness (Acute) Pre-syncope (Acute) Primary osteoarthritis of left knee (Chronic) Injected: 03/02/2019 Primary osteoarthritis of right knee (Chronic) Injected: 03/02/2019 Anxiety (Chronic) Vertigo (Acute) Syncope (Acute) Abnormal flushing and sweating (Acute) Medical History (Updated 01/26/25 @ 02:40 by Bob Peacock MD) CAD (coronary artery disease) HTN (hypertension) TIA (transient ischemic attack) ?2017 Diabetes Resides in [facility] facility Palliative care encounter Iron deficiency anemia Hypothyroidism Asthma Hyperlipidemia Seizures ?2017 Surgical History History of coronary artery stent placement Family History Mother Stroke Father Heart disease Social History Smoking/Tobacco Use Status: Never Smoking risk assessment performed?: Yes Alcohol Intake: never Drug use: Never Substance use type: 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. She does not speak Japanese. [facility]. REJI,RN 08/31/24
[2025-01-25 22:53] VITALS: BP 169/98; PULSE 80; RESP 16; O2SAT 94
--- NOTE | 2025-01-26 00:25 | DI.VRAD_ITS ---
PROCEDURE INFORMATION: Exam: CT Head Without Contrast Exam date and time: 01/25/2025 11:44 PM Age: 89 years old Clinical indication: Injury or trauma; Blunt trauma (contusions or hematomas); Consciousness not specified; Injury date: ; Fall, occipital hematoma, on plavix TECHNIQUE: Imaging protocol: Computed tomography of the head without contrast. Radiation optimization: All CT scans at this facility use at least one of these dose optimization techniques: automated exposure control; mA and/or kV adjustment per patient size (includes targeted exams where dose is matched to clinical indication); or iterative reconstruction. COMPARISON: CT HEAD CERVICAL SPINE WO 12/31/2023 11:07 AM FINDINGS: Brain: No acute intracranial hemorrhage, mass-effect, midline shift, or extra-axial collection is seen. There is patchy white matter hypoattenuation, nonspecific but commonly seen as a chronic sequela of small vessel ischemic disease. The silvestre white matter differentiation appears preserved. There is symmetric parenchymal volume loss. Cerebral ventricles: The ventricular system and basilar cisterns appear prominent but appropriate in size and configuration given the degree of parenchymal volume loss. Paranasal sinuses: There is sclerotic thickening of the right sphenoid rosario suggesting chronic sinusitis in the past. There is also mucoperiosteal thickening and fluid in the right sphenoid sinus. Otherwise, the visualized paranasal sinuses appear clear. Mastoid air cells: There is opacification of a few scattered left mastoid air cells. Otherwise, the mastoid air cells appear clear. Auditory system: The middle ear cavities appear clear. Orbital cavities: The globes and intraorbital structures appear grossly intact. Bones: The bony calvarium appears intact. No depressed skull fracture is seen. Soft tissues: There is a right parietal scalp contusion. Vasculature: There is atherosclerotic calcification within the intracranial portion of the left vertebral artery and bilateral internal carotid arteries. IMPRESSION: 1. No acute intracranial hemorrhage or depressed skull fracture. 2. Presumed chronic microvascular ischemic change. 3. Symmetric parenchymal volume loss. 4. Sclerotic thickening of the right sphenoid rosario. Mucoperiosteal thickening and fluid in the right sphenoid sinus. Acute on chronic sinusitis could have this appearance. Clinical correlation is recommended. Dictated and Authenticated by: Martin Becerra MD. Orderin Ayush Rojas MD
[2025-01-26 00:55] VITALS: BP 167/66; PULSE 73; RESP 14; O2SAT 95
== END 2025-01-26 00:58 | disposition skilled nursing facility (03) ==
PROVIDERS: Emergency Provider Emergency Medicine; PCP Family Medicine
DX: R42 Dizziness and giddiness (principal); S00.03XA Contusion of scalp, initial encounter; I25.10 Atherosclerotic heart disease of native coronary artery without angina pectoris; I10 Essential (primary) hypertension; E78.5 Hyperlipidemia, unspecified; E11.9 Type 2 diabetes mellitus without complications; E03.9 Hypothyroidism, unspecified; Z95.5 Presence of coronary angioplasty implant and graft; Z86.73 Personal history of transient ischemic attack (TIA), and cerebral infarction without residual deficits; Z79.84 Long term (current) use of oral hypoglycemic drugs; W18.39XA Other fall on same level, initial encounter; Y93.89 Activity, other specified; Y92.098 Other place in other non-institutional residence as the place of occurrence of the external cause
CPT/HCPCS: 99284; 70450

== ENCOUNTER 2025-02-12 19:39 | Outpatient (REF) | payer MEDICARE, MEDICAID, SELFPAY ==
[2025-02-12 17:31] LABS: Bilirubin Negative (Negative); Blood Negative (Negative); Clarity Sl Cloudy (Clear); Glucose Negative (Negative); Ketones Negative (Negative); Leukocyte Esterase Small (Negative); Nitrite Negative (Negative); Urobilinogen 0.2 mg/dL (Up to 0.2); pH 5.5 (5-8)
[2025-02-12 17:53] LABS: Bacteria Packed HPF (Negative); Casts 0-2 Hyaline LPF (Negative); Crystals Negative HPF (Negative); Epithelial Cells Few HPF (Negative); Mucus Negative (Negative); RBC Negative HPF (0-2); WBC >50 HPF (0-5)
[2025-02-12 17:54] LABS: C & S Indicated? C&S Done As Ordered
== END 2025-02-12 19:40 | disposition home or self-care (01) ==
LOC: LBN 19:39
PROVIDERS: PCP Family Medicine; Visit Provider Nurse Practitioner Gerontology
DX: N18.32 Chronic kidney disease, stage 3b (principal)
CPT/HCPCS: 87077; 81003; 81015; 87086; 87186

== ENCOUNTER 2025-04-15 21:24 | Outpatient (REF) | payer MEDICARE, MEDICAID, SELFPAY ==
[2025-04-15 16:20] LABS: Hemoglobin A1C 9.4 % (<5.7)
== END 2025-04-15 21:25 | disposition home or self-care (01) ==
LOC: LBN 21:24
PROVIDERS: PCP Family Medicine; Visit Provider Nurse Practitioner Adult Health
DX: E11.9 Type 2 diabetes mellitus without complications (principal)
CPT/HCPCS: 83036

== ENCOUNTER 2025-06-15 03:36 | Outpatient (CLI) | payer MEDICARE, MEDICAID, SELFPAY ==
--- NOTE | 2025-06-15 11:11 | DI.RAD_ITS ---
Exam(s) XR CHEST 2V PA LATERAL EXAM: XR CHEST 2V PA LATERAL CLINICAL HISTORY: SOB W/EXERTION X3 DAYS R06.02 TECHNIQUE: 2D digital imaging was performed of the chest. Two images were obtained. AP and lateral views were obtained. COMPARISON: CR,XR XR CHEST 1V IN DI DEPT from 10/13/2022 CR XR CHEST 2V PA LATERAL from 12/31/2023 FINDINGS: MEDIASTINUM: Normal. HEART: Normal. PULMONARY VASCULATURE: Normal. LUNGS: There are no focal consolidating infiltrates. PLEURAL SPACE: There is blunting of the left costophrenic angle consistent with a small pleural effusion. There is no right pleural effusion. There is no pneumothorax. BONE:Within normal limits for the patient's age. OTHER FINDINGS:Normal. IMPRESSION: Small left pleural effusion. DATA REPOSITORY: RADIATION DOSE DELIVERED:
== END 2025-06-15 03:56 ==
LOC: DI 03:36
PROVIDERS: PCP Family Medicine; Visit Provider Family Medicine
DX: R06.02 Shortness of breath (principal); J91.8 Pleural effusion in other conditions classified elsewhere
CPT/HCPCS: 71046

== ENCOUNTER 2025-09-28 12:59 | Outpatient (REF) | payer MEDICARE, MEDICAID, SELFPAY ==
[2025-09-28 13:12] LABS: Abs Immature Grans 0.02 10^3/uL (0.0-0.06); HCT 39.5 % (36.0-46.0); HGB 12.9 g/dL (11.2-15.7); Immature Grans % 0.3 %; MCH 27.0 pg (27.0-33.0); MCHC 32.7 % (32.0-36.0); MCV 83 fL (80-95); MPV 9.8 fL (8.0-11.0); Platelet Count 273 10^3/uL (130-400); RBC 4.77 10^6/uL (3.93-5.22); RDW 14.5 % (11.7-14.6); RDW-SD 43.2 fL; WBC 7.71 10^3/uL (4.4-10.8)
[2025-09-28 13:39] LABS: ALT 31 U/L (10-49); AST 24 U/L (<34); Albumin 3.9 g/dL (3.2-5.0); Alkaline Phosphatase 105 U/L (46-116); Anion Gap 11 mmol/L (3-11); BUN 27 mg/dL (9-23); Bilirubin, Total 0.2 mg/dL (0.2-1.2); CO2 22.9 mmol/L (20.0-31.0); Calcium 9.7 mg/dL (8.3-10.6); Chloride 99 mmol/L (98-107); Glucose 307 mg/dL (74-106); Potassium 4.6 mmol/L (3.5-5.1); Sodium 133 mmol/L (136-145); Total Protein 6.7 g/dL (5.7-8.2); Vitamin B12 940 pg/mL (211-911); Vitamin D 25 Total 49 ng/mL (30-100)
[2025-09-28 15:44] LABS: Hemoglobin A1C 8.4 % (<5.7)
== END 2025-09-28 13:00 | disposition home or self-care (01) ==
LOC: LBN 12:59
PROVIDERS: PCP Family Medicine; Visit Provider Nurse Practitioner Adult Health
DX: E11.9 Type 2 diabetes mellitus without complications (principal); N18.32 Chronic kidney disease, stage 3b
CPT/HCPCS: 80053; 82306; 80177; 82607; 83036; 85025